=== PATIENT | male | born 1970 | race African-American/Black ===

== ENCOUNTER 2023-01-03 20:17 | Emergency (ER) | payer MEDICARE, MEDICAID, SELFPAY ==
[2023-01-03 20:32] VITALS: BP 130/78; PULSE 74; RESP 20; TEMP 37; O2SAT 95; BMI 52.9
[2023-01-03 21:08] LABS: MANUAL DIFF FLAG NO
[2023-01-03 21:14] LABS: Basophils Percent Auto 0.6 % (0-2); Eosinophils Absolute Auto 0.2 X10*3/uL (0.0-0.4); Eosinophils Percent Auto 2.5 % (0-4); Hematocrit 39.9 % (42.0-52.0); Hemoglobin 13.7 g/dl (14.0-18.0); Imm Gran Abs Auto 0.02 X10*3/uL (0.00-0.03); Imm Gran Pct Auto 0.3 % (0.0-0.4); Lymphocytes Absolute Auto 2.3 X10*3/uL (1.2-4.9); Lymphocytes Percent Auto 36.8 % (20-40); Mean Corpuscular HGB Conc 34.3 g/dl (31.0-36.0); Mean Corpuscular Hemoglobin 30.9 pg (27.0-33.0); Mean Corpuscular Volume 90.1 fL (80.0-98.0); Mean Platelet Volume 9.9 fL (9.4-12.4); Monocytes Absolute Auto 1.1 X10*3/uL (0.1-1.2); Monocytes Percent Auto 17.4 % (2-11); Neutrophils Absolute Auto 2.7 x10*3/uL (2.0-8.3); Neutrophils Percent Auto 42.4 % (45-73); Platelet Count 198 X10*3/uL (160-400); Red Blood Count 4.43 X10*6/uL (4.60-5.80); Red Cell Distribution Width 13.2 % (11.0-16.0); White Blood Count 6.3 X10*3/uL (4.8-10.8)
[2023-01-03 21:24] LABS: Alanine Aminotransferase 111 U/L (0-40); Albumin Level 3.7 g/dL (3.5-5.0); Alkaline Phosphatase 130 U/L (39-117); Anion Gap 16 (12-20); Aspartate Amino Transferase 53 U/L (5-37); Bilirubin Direct < 0.2 mg/dL (0.0-0.5); Bilirubin Total 0.2 mg/dL (0.0-1.0); Blood Urea Nitrogen 11 mg/dL (9-16); Calcium 9.3 mg/dL (8.4-10.2); Carbon Dioxide 26 mmol/L (22-29); Chloride 103 mmol/L (96-108); Creatinine Clr Calc Pharmacy 191.9; Estimated Glomerular Filt Rate > 60; Glucose Random 101 mg/dL (60-115); Lipase 13 U/L (8-78); Potassium 3.5 mmol/L (3.3-5.1); Sodium 141 mmol/L (135-145); Total Protein 6.8 g/dL (6.5-8.0)
== END 2023-01-03 23:29 | disposition left against medical advice (07) ==
PROVIDERS: Emergency Provider Emergency Medicine
DX: R51.9 Headache, unspecified (principal); I10 Essential (primary) hypertension; Z79.899 Other long term (current) drug therapy
CPT/HCPCS: 36415; 80048; 80076; 83690; 85025; 99281; 99282

== ENCOUNTER 2023-01-07 12:07 | Emergency (ER) | payer MEDICARE, MEDICAID, SELFPAY ==
--- NOTE | ~2023-01-07 | XR_ITS ---
EXAMINATION: XR CHEST CLINICAL INFORMATION: Shortness of breath COMPARISON: None available. TECHNIQUE: 2 views of the chest were obtained. FINDINGS: Patchy infiltrate is evident in the left lower lobe. The right lung is clear. The cardiomediastinal silhouette is not enlarged. XR/XR chest 2V IMPRESSION: Patchy left lower lobe infiltrate for which follow-up is recommended to confirm clearing.
[2023-01-07 12:13] VITALS: BP 146/83; PULSE 76; RESP 18; TEMP 37; O2SAT 95; BMI 54.2
--- NOTE | 2023-01-07 12:13 | ED.GENADULT ---
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 was at [facility] applying for housing assistance, began frustrated/verbal argument with staff/over stimulating environment and began to have throat closing sensation, call 911 been had confrontation with EMS as well the stroke himself here. after relaxing emergency department has symptomatic improvement. presented to the ED a few days ago complaining of left-sided discomfort however LWT'd. Admits has been moving around living in multiple different hotel rooms recently. Denies fever, chills, cough, chest pain, shortness breath, new or worsening pedal edema, abdominal pain Related Data Previous Rx's Medication Instructions Recorded amoxicillin 875 mg-potassium 1 tab PO BID 7 days #14 tabs 01/07/23 clavulanate 125 mg tablet azithromycin 250 mg tablet 250 mg PO DAILY 4 days #4 tabs 01/07/23 Allergies Allergy/AdvReac Type Severity Reaction Status Date / Time No Known Allergies Allergy Verified 01/03/23 20:31 Review of Systems Review of Systems: Constitutional: No Fever, No Chills, No Fatigue, No Malaise ENT/Mouth: +throat closing sensation, No Ear Pain, No Nasal Congestion, No sore throat, No Rhinorrhea, No Swallowing Difficulty Eyes: No Eye Pain, No Swelling, No Redness, No Vision Changes Cardiovascular: No Chest Pain, No SOB, No Edema, No Palpitations Respiratory: No Cough, No Sputum, No Wheezing, No Dyspnea Gastrointestinal: No Nausea, No Vomiting, No Diarrhea, No Constipation, No Abdominal pain Musculoskeletal: No joint pain, No Myalgias, No Joint Swelling Skin: No Skin Lesions, No rash Neuro: No Weakness, No Dizziness, No Headache, +agitation Yes all other systems are reviewed and are negative Constitutional: Constitutional: Reports as per [facility] Past Medical History Attestation statement: The following information was validated with the patient. Source: old records reviewed Social History Social History Advance Directives: No Advance Directives Information Provided: No Physical Exam ED Vital Signs: Vital Signs - 24 hr 01/07/23 12:13 Temperature 98.6 F Pulse Rate 76 Respiratory Rate 18 Blood Pressure 146/83 H Pulse Oximetry 95 Oxygen Delivery Method Room Air BMI result Body Mass Index 54.2 Const General: cooperative, healthy appearing, no acute distress, alert and awake Orientation/consciousness: patient oriented x3 Limitations: no limitations HENMT Head: Yes normal to inspection and Yes atraumatic Ears: hearing grossly normal bilaterally General nose exam: Normal external nose present Face and sinus: Yes normal facial exam Mouth: Normal oral and palatal mucosa present Throat: Yes posterior oropharynx normal, Yes tonsils normal, Yes uvula midline, No peritonsillar mass, No uvula laterally displaced and No uvular edema Eyes General: appearance normal, both eyes and all related structures EOM: EOMs intact bilaterally Neck Neck: Yes normal visual inspection, Yes no meningeal signs, Yes supple, No anterior neck swelling and No torticollis Resp Effort & Inspection: normal respiratory effort, not labored, no respiratory distress and no stridor Auscultation: clear to auscultation bilaterally, no crackles, no rhonchi and no wheezes Cardio Rate: regular rate Heart sounds: S1 normal heart sound present and S2 normal heart sound present GI Inspection: Yes normal to inspection Palpation (GI): Soft to palpation, nontender, no guarding and not rigid Skin Rashes: no rashes Wounds: no wounds Neuro General: patient oriented x3, tone normal and no meningeal signs Gait exam (Neuro): Normal gait present Extrem General: Yes normal to inspection and Yes edema (Chronic bilateral LE edema) Course Course Course Narrative: This is a rapid medical exam: Additional HPI, ROS, PE not included below will be deferred to primary provider. Patient is a 52-year-old male with history of HTN, T2DM presenting to the emergency department with complaint of sensation of throat closing. States he was in [place] at a building waiting to be seen regarding housing assistance. States he was anxious, other people around him were speaking loudly, and were agitated, patient began speaking loudly on the phone when symptoms began. States he asked staff to call 911 and he states that no one called. Denies chest pain at time of event. Denies sensation at this time. States an ambulance came, but he had a disagreement with the EMT, so drove himself here. Recently moved here from [place] 6 wks ago, does not have PCP here. Plan: EKG, labs, CXR -1405--no leukocytosis. H&H at patient's baseline. Labs otherwise reassuring, troponin negative XR chest 2V IMPRESSION: Patchy left lower lobe infiltrate for which follow-up is recommended to confirm clearing. > patient given 1st dose of Augmentin and azithromycin in the ED -UA with blood/rbc's, not infected Results discussed with patient including worrisome signs and symptoms and strict return precautions, and when to return to the emergency department. They verbalized understanding and feel safe for discharge at this time. Medications Administered Discontinued Medications Generic Name Dose Route Start Last Admin Trade Name Freq PRN Reason Stop Dose Admin Amoxicillin/Clavulanate Potassium 875 mg 01/07/23 14:08 01/07/23 14:18 Amoxicillin/Potassium Clav 875 Mg Tablet PO 01/07/23 14:09 875 mg ONCE ONE Administration Azithromycin 500 mg 01/07/23 14:08 01/07/23 14:18 Azithromycin 500 Mg Tablet PO 01/07/23 14:09 500 mg ONCE ONE Administration Medical Decision Making Medical Decision Making MDM Narrative: 52-year-old male with past medical history diabetes, HTN, HLD, presenting to the ED complaining of throat closing sensation s/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 On exam vital signs stable, NAD, nontoxic appearing, asymptomatic at present, lungs CTA, chronic pedal edema. Uvula midline, talking in complete sentences, no stridor. Concern for anxiety reaction vs atypical ACS, although lower suspicion. Low concern for CHF, pneumonia, pulmonary embolism or DVT. No evidence of MEDICAL DOCTOR/retropharyngeal abscess EKG, labs, and CXR all ordered in triage Please refer to course for remaining clinical decision making, interpretation of labs/imaging results, and discussions with consultants and/or family members. Differential Diagnosis Differential Diagnoses: The differential diagnosis associated with the presentation includes As above Admission/Observation Consideration of admission/observation: Escalation of care including admission/observation considered Lab Data [facility] Lab Attestation statement: I reviewed the patient's lab results. 01/07/23 12:53 01/07/23 12:53 Labs: Lab Results 01/07/23 01/07/2301/07/23 Range/Units 12:53 12:53 12:53 WBC 6.4 (4.8-10.8) X10*3/uL RBC 4.42 L (4.60-5.80) X10*6/uL Hgb 13.9 L (14.0-18.0) g/dl Hct 40.4 L (42.0-52.0) % MCV 91.4 (80.0-98.0) fL MCH 31.4 (27.0-33.0) pg MCHC 34.4 (31.0-36.0) g/dl RDW 13.0 (11.0-16.0) % Plt Count 218 (160-400) X10*3/uL MPV 10.0 (9.4-12.4) fL Immature Gran % (Auto) 0.3 (0.0-0.4) % Neut % (Auto) 59.0 (45-73) % Lymph % (Auto) 27.8 (20-40) % [place] % (Auto) 10.2 (2-11) % Eos % (Auto) 2.2 (0-4) % Baso % (Auto) 0.5 (0-2) % Lymph # (Auto) 1.8 (1.2-4.9) X10*3/uL [place] # (Auto) 0.7 (0.1-1.2) X10*3/uL Eos # (Auto) 0.1 (0.0-0.4) X10*3/uL Baso # (Auto) 0.0 (0.0-0.2) X10*3/uL Abs Immat Gran (auto) 0.02 (0.00-0.03) X10*3/uL Absolute Neuts (auto) 3.8 (2.0-8.3) x10*3/uL Absolute Nucleated RBC 0.000 (0.0-0.012) X10*3/uL Nucleated RBC % (auto) 0.0 (0.0-0.2) /100WBC Sodium 143 (135-145) mmol/L Potassium 3.5 (3.3-5.1) mmol/L Chloride 105 (96-108) mmol/L Carbon Dioxide 27 (22-29) mmol/L Anion Gap 15 (12-20) BUN 15 (9-16) mg/dL Creatinine 0.77 (0.5-1.4) mg/dL Estim Creat Clear Calc 184.8 Estimated GFR > 60 Random Glucose 118 H (60-115) mg/dL Calcium 9.3 (8.4-10.2) mg/dL Total Bilirubin 0.2 (0.0-1.0) mg/dL AST 35 (5-37) U/L ALT 77 H (0-40) U/L Alkaline Phosphatase 108 (39-117) U/L Troponin I High Sens < 2.7 (<3.5-35.0) ng/L Total Protein 7.0 (6.5-8.0) g/dL Albumin 3.9 (3.5-5.0) g/dL Urine Color Urine Appearance Urine pH (5.0-9.0) Ur Specific [place] (1.005-1.025) Urine Protein (Neg-Trace) mg/dL Urine Glucose (UA) (Negative) mg/dL Urine Ketones (Negative) mg/dL Urine Blood (Negative) Urine Nitrite (Negative) Ur Leukocyte Esterase (Negative) Urine RBC (0-2) /HPF Urine WBC (0-5) /HPF Ur Squamous Epith Cells (0-2) /HPF Urine Bacteria (None Seen) Hyaline Casts (0-2) /LPF 01/07/23 Range/Units 14:20 WBC (4.8-10.8) X10*3/uL RBC (4.60-5.80) X10*6/uL Hgb (14.0-18.0) g/dl Hct (42.0-52.0) % MCV (80.0-98.0) fL MCH (27.0-33.0) pg MCHC (31.0-36.0) g/dl RDW (11.0-16.0) % Plt Count (160-400) X10*3/uL MPV (9.4-12.4) fL Immature Gran % (Auto) (0.0-0.4) % Neut % (Auto) (45-73) % Lymph % (Auto) (20-40) % [place] % (Auto) (2-11) % Eos % (Auto) (0-4) % Baso % (Auto) (0-2) % Lymph # (Auto) (1.2-4.9) X10*3/uL [place] # (Auto) (0.1-1.2) X10*3/uL Eos # (Auto) (0.0-0.4) X10*3/uL Baso # (Auto) (0.0-0.2) X10*3/uL Abs Immat Gran (auto) (0.00-0.03) X10*3/uL Absolute Neuts (auto) (2.0-8.3) x10*3/uL Absolute Nucleated RBC (0.0-0.012) X10*3/uL Nucleated RBC % (auto) (0.0-0.2) /100WBC Sodium (135-145) mmol/L Potassium (3.3-5.1) mmol/L Chloride (96-108) mmol/L Carbon Dioxide (22-29) mmol/L Anion Gap (12-20) BUN (9-16) mg/dL Creatinine (0.5-1.4) mg/dL Estim Creat Clear Calc Estimated GFR Random Glucose (60-115) mg/dL Calcium (8.4-10.2) mg/dL Total Bilirubin (0.0-1.0) mg/dL AST (5-37) U/L ALT (0-40) U/L Alkaline Phosphatase (39-117) U/L Troponin I High Sens (<3.5-35.0) ng/L Total Protein (6.5-8.0) g/dL Albumin (3.5-5.0) g/dL Urine Color Yellow Urine Appearance Clear Urine pH 7.5 (5.0-9.0) Ur Specific [place] 1.020 (1.005-1.025) Urine Protein Negative (Neg-Trace) mg/dL Urine Glucose (UA) Negative (Negative) mg/dL Urine Ketones Negative (Negative) mg/dL Urine Blood Trace H (Negative) Urine Nitrite Negative (Negative) Ur Leukocyte Esterase Negative (Negative) Urine RBC 11-20 H (0-2) /HPF Urine WBC 0-5 (0-5) /HPF Ur Squamous Epith Cells 0-2 (0-2) /HPF Urine Bacteria None Seen (None Seen) Hyaline Casts 0-2 (0-2) /LPF Independent Interpretation I performed an independent interpretation of an: EKG (EKG normal sinus rhythm at a rate 73. QRS 78. QTC 403. No previous EKGs to compare. No STEMI) Radiology Impression Discussion of test interpretation with radiology: I have reviewed the radiologist's reading. External Record Review External record reviewed: Inpatient record, Office record, Outpatient record, Prior outpatient labs, Prior outpatient radiology, Primary care record and Outside ED record Tests considered The following testing was considered but not selected: As above Chronic Conditions Patient?s care impacted by: Diabetes and Hypertension Discharge Plan Discharge Clinical Impression: Pneumonia, Acute anxiety Patient Disposition: Home, Self-Care Instructions: Anxiety (ED), Pneumonia (ED) Additional Instructions: Your blood work is reassuring. Her x-ray shows a left lower lobe pneumonia Augmentin and Azithromycin are oral antibiotics please take as prescribed Please have follow-up with her doctor and repeat x-ray in 2 weeks to confirm pneumonia has resolved/improved If symptoms persist or worsen return to the emergency department Prescriptions: New amoxicillin-pot clavulanate 875-125 mg tablet 1 tab PO BID 7 Days Qty: 14 0RF azithromycin 250 mg tablet 250 mg PO DAILY 4 Days Qty: 4 0RF Rx Instructions: start on day 2 of therapy Referrals: Physician,Nonstaff [Primary Care Provider] - Interventions: ED Discharge Assessment Last Done: 01/07/23 15:35 Discharge Date/Time: 01/07/23 15:36
--- NOTE | 2023-01-07 12:19 | ECG_ITS ---
Test Reason : ANXIETY Blood Pressure : / mmHG Vent. Rate : 073 BPM Atrial Rate : 073 BPM P-R Int : 170 ms QRS Dur : 078 ms QT Int : 366 ms P-R-T Axes : 030 084 036 degrees QTc Int : 403 ms Normal sinus rhythm Nonspecific T wave abnormality Abnormal ECG No previous ECGs available Referred By: Obdulia Howell Electronically Signed By:ZAK RUELAS
--- OUTSIDE RECORDS SUMMARY | 2023-01-07 12:52 | XMS_ITS | Continuity of Care Document ---
Author Name Unknown Organization [facility] Address [address] [place] [phone] Care Team Providers Care Vibration Analyst Name Role Phone Mitch Purcell Primary Care Physician [phone] [facility] [id number] Date(s): 09/14/22 - 09/14/[address] [address] - Encounter Diagnosis Chest pain(Discharge Diagnosis) - 09/14/22 Non-insulin dependent type 2 diabetes mellitus(Discharge Diagnosis) - 09/14/22 Hypertension(Discharge Diagnosis) - 09/14/22 Discharge Disposition: Home or Self Care Attending Physician: Lillie Mccarthy MD Admitting Physician: Lillie Mccarthy MD Referring Physician: Lillie Mccarthy MD Allergies, Adverse Reactions, Alerts Substance Reaction Severity Status Keppra Moderate Active Assessment and Plan Extracted from: Title:ED Provider Note Author:Lillie Mccarthy MD Moe e:09/14/22 Assessment/Plan 1.??Chest pain??R07.9 2.??Non-insulin dependent type 2 diabetes mellitus??E11.9 3.??Hypertension??I10 Patient Education Nonspecific Chest Pain, Adult, Ltmq-uv-Abio Follow Up With When Contact Information Primary care doctor Within 2 to 4 days Additional Instructions: Please follow up with your primary care doctor as instructed.?? Please return if symptoms worsen, unable to tolerate food or medication, uncontrolled pain, fever, chills, or any concerns. Functional Status 09/14/22 Recent Travel History No recent travel Family Member Travel History No recent t ravel Other exposure to Infectious Disease Non e Medications !-aspirin 81 mg oral tablet 81 mg = 1 tab, Oral, Daily, # 30 tab, 0 Refill(s), Start Date: 09/14/22 13:03:00 EDT Start Date: 09/14/22 Status: Ordered atorvastatin 80 mg oral tablet 80 mg = 1 tab, Oral, Daily, # 30 tab, 0 Refill(s), Start Date: 09/14/22 13:04:00 EDT Start Date: 09/14/22 Status: Ordered Daily Multiple Vitamins oral tablet 1 tab, Oral, Daily, 0 Refill(s), Start Date: 09/14/22 13:04:00 EDT Start Date: 09/14/22 Status: Ordered Dilantin 100 mg oral capsule, extended release 200 mg = 2 cap, Oral, BID, 40 mg BID on sundays, 0 Refill(s), Start Date: 09/14/22 13:09:00 EDT Start Date: 09/14/22 Status: Ordered doxazosin 8 mg oral tablet 8 mg = 1 tab, Oral, Daily, # 30 tab, 0 Refill(s), Start Date: 09/14/22 13:05:00 EDT Start Date: 09/14/22 Status: Ordered ibuprofen 800 mg oral tablet 800 mg = 1 tab, Oral, TID, PRN as needed for pain, # 30 tab, 0 Refill(s), Start Date: 09/14/22 13:05:00 EDT Start Date: 09/14/22 Status: Ordered losartan-hydrochlorothiazide 50 mg-12.5 mg oral tablet 1 tab, Oral, Daily, # 30 tab, 0 Refill(s), Start Date: 09/14/22 13:06:00 EDT Start Date: 09/14/22 Status: Ordered melatonin 5 mg oral tablet 5 mg = 1 tab, Oral, every day at bedtime, PRN as needed for insomnia, # 60 tab, 0 Refill(s), Start Date: 09/14/22 13:04:00 EDT Start Date: 09/14/22 Status: Ordered metFORMIN 500 mg oral tablet 500 mg = 1 tab, Oral, Daily, with meals, # 30 tab, 0 Refill(s), Start Date: 09/14/22 13:07:00 EDT Start Date: 09/14/22 Status: Ordered metoprolol succinate 25 mg oral capsule, extended release 25 mg = 1 cap, Oral, Daily, # 30 cap, 0 Refill(s), Start Date: 09/14/22 13:07:00 EDT Start Date: 09/14/22 Status: Ordered Problem List Condition Confirmation Course Effective Dates Status Health St atus Informant Diabetes Confirmed Active Hyperlipemia Confirmed Active HTN (hypertension) Confirmed Active Seizure Confirmed Active Results Laboratory List Name Date Automated Differential 09/14/22 Basic Metabolic Panel (BMP) 09/14/22 CBC w/ Differential 09/14/22 Troponin -I (High Sensitive) 09/14/22 Most recent to oldest [Reference Range]: 1 WBC [4.5-11.0 x10^3/mcL] 6.1 x10^3/mcL (09/14/22 1:01 PM) RBC [4.43-5.94 x10^6/mcL] 4.53 x10^6/mcL (09/14/22 1:01 PM) Neutro Auto [42.0-72.0 %] 63.7 % (09/14/22 1:01 PM) Lymph Auto [25.0-45.0 %] 24.5 % *LOW* (09/14/22 1:01 PM) Grand Auto [3.0-10.0 %] 9.7 % (09/14/22 1:01 PM) Basophil Auto [0.0-2.0 %] 0.3 % (09/14/22 1:01 PM) BUN [8-21 mg/dL] 13 mg/dL (09/14/22 1:01 PM) Glucose Level [70-100 mg/dL] 94 mg/dL (09/14/22 1:01 PM) Potassium Level [3.5-5.3 mmol/L] 3.7 mmo l/L (09/14/22 1:01 PM) Baso Absolute [0.00-0.20 x10^3/mcL] 0.02 x10^3/mcL (09/14/22 1:01 PM) MCV [81.0-97.0 fL] 90.5 fL (09/14/22 1:01 PM) MCHC [32.3-36.5 g/dL] 34.4 g/dL (09/14/22 1:01 PM) Sodium Level [136-145 mmol/L] 143 mmol/L (09/14/22 1:01 PM) Lymph Absolute [1.30-3.40 x10^3/mcL] 1.4 9 x10^3/mcL (09/14/22 1:01 PM) Hct [36.0-50.0 %] 41.0 % (09/14/22 1: PM) Calcium Level [8.7-10.4 mg/dL] 9.3 mg/dL (09/14/22 1:01 PM) Grand Absolute [0.00-0.60 x10^3/mcL] 0.59 x10^3/mcL (09/14/22 1:01 PM) MCH [26.5-32.5 pg] 31.1 pg (09/14/22 1:01 PM) Neutro Absolute [1.40-6.50 x10^3/mcL] 3. 86 x10^3/mcL (09/14/22 1:01 PM) Hgb [12.9-17.7 g/dL] 14.1 g/dL (09/14/22 1:01 PM) MPV [9.4-12.4 fL] 10.0 fL (09/14/22 1: PM) Platelets [150-450 x10^3/mcL] 206 x10^3/ mcL (09/14/22 1:01 PM) CO2 [24-31 mmol/L] 30 mmol/L (09/14/22 1: PM) Eos Absolute [0.00-0.30 x10^3/mcL] 0.10 x10^3/mcL (09/14/22 1:01 PM) Chloride Level [98-107 mmol/L] 104 mmol/ L (09/14/22 1: PM) BUN/Creat Ratio [10.0-20.0 mg/dL] 16.5 m g/dL (09/14/22 1:01 PM) Imm Gran Auto [0.001-0.429 %] 0.200 % (09/14/22 1: PM) RDW-CV [12.0-15.0 %] 12.8 % (09/14/22 1:01 PM) Creatinine Level [0.70-1.30 mg/dL] 0.79 mg/dL (09/14/22 1:01 PM) Anion Gap [3-16] 9 (09/14/22 1: PM) Eos, Auto [0.0-5.0 %] 1.6 % (09/14/22 1:01 PM) Troponin-I (High Sens) [0-52 ng/L] 3 ng/ L (09/14/22 1:01 PM) eGFR CKD-EPI [>=60 mL/min/1.73 m2] >60 m L/min/1.73 m2 (09/14/22 1:01 PM) Radiology Reports * Exam Date Time Procedure Performing Provider Status 09/14/22 2:02 PM XR Chest 2 Views Delmy Covarrubias; Au th (Verified) Notes: (XR Chest 2 Views) Reason For Exam: CHEST PAIN XR Chest 2 Views HISTORY: CHEST PAIN TECHNIQUE: Frontal and lateral views of the chest. COMPARISON: No comparison. FINDINGS: Lines/tubes: None. Lungs: The lungs are well inflated and clear. There is no evidence of pneumonia or pulmonary edema. Pleura: There is no pleural effusion or pneumothorax. Heart and mediastinum: The heart and the mediastinum are normal. Bones: No significant abnormality. IMPRESSION: No acute cardiopulmonary process. Final Signed by: Alireza Dasilva MD Signed (Electronic Signature): 09/14/2022 2:01 pm Vital Signs Most recent to oldest [Reference Range]: 1 2 3 Temperature Oral [35.8-37.3 Deg C] 36.7 Deg C (09/14/22 4:12 PM) Temperature Temporal Artery [36-38 Deg C] 35.7 Deg C *LOW* (09/14/22 12:28 PM) Peripheral Pulse Rate [60-100 bpm] 63 bpm (09/14/22 4:12 PM) 65 bpm (09/14/22 3:16 PM) 67 bpm (09/14/22 2:07 PM) Respiratory Rate [12-24 br/min] 18 br/min (09/14/22 4:13 PM) 18 br/min (09/14/22 3:16 PM) 23 br/min (09/14/22 2:07 PM) Blood Pressure [90-140/60-90 mmHg] 93/71mmHg (09/14/22 4:12 PM) 119/90mmHg (09/14/22 3:16 PM) 103/77mmHg (09/14/22 2:07 PM) SpO2 [94 %] 96 % (09/14/22 4:12 PM) 95 % (09/14/22 3:16 PM) 97 % (09/14/22 2:07 PM) Triage Height 183 cm (09/14/22 12:28 PM) Triage Weight 167 kg (09/14/22 12:28 PM) Mean Arterial Pressure 85.3 mmHg (09/14/22 12:28 PM) Weight 167.00 kg (09/14/22 12:28 PM) Weight Dosing 167.00 kg (09/14/22 12:33 PM) Height 183.000 cm (09/14/22 12:28 PM) Height/Length Dosing 183.000 cm (09/14/22 12:33 PM) Social History Social History Type Response Tobacco Tobacco Use: Never t obacco user. Sex Male Hospital Discharge Instructions Patient Education 09/14/2022 15:08:29 Nonspecific Chest Pain, Adult, Psqr-jw-Tthr Nonspecific Chest Pain Chest pain can be caused by many different conditions. Some causes of chest pain can be life-threatening. These will require treatment right away. Serious causes of chest pain include: ??? Heart attack. ??? A tear in the body's main blood vessel. ??? Redness and swelling (inflammation) around your heart. ??? Blood clot in your lungs. Other causes of chest pain may not be so serious. These include: ??? Heartburn. ??? Anxiety or stress. ??? Damage to bones or muscles in your chest. ??? Lung infections. Chest pain can feel like: ??? Pain or discomfort in your chest. ??? Crushing, pressure, aching, or squeezing pain. ??? Burning or tingling. ??? Dull or sharp pain that is worse when you move, cough, or take a deep breath. ??? Pain or discomfort that is also felt in your back, neck, jaw, shoulder, or arm, or pain that spreads to any of these areas. It is hard to know whether your pain is caused by something that is serious or something that is not so serious. So it is important to see your doctor right away if you have chest pain. Follow these instructions at home: Medicines ??? Take wpoi-ubc-jwxsbew and prescription medicines only as told by your doctor. ??? If you were prescribed an antibiotic medicine, take it as told by your doctor. Do not stop taking the antibiotic even if you start to feel better. Lifestyle ??? Rest as told by your doctor. ??? Do not use any products that contain nicotine or tobacco, such as cigarettes, e-cigarettes, andchewing tobacco. If you need help quitting, ask your doctor. ??? Do not drink alcohol. ??? Make lifestyle changes as told by your doctor. These may include: ??? Getting regular exercise. Ask your doctor what activities are safe for you. ??? Eating a heart-healthy diet. A diet and nutrition manager (dietitian) can help you to learn healthy eating options. ??? Staying at a healthy weight. ??? Treating diabetes or high blood pressure, if needed. ??? Lowering your stress. Activities such as yoga and relaxation techniques can help. General instructions ??? Pay attention to any changes in your symptoms. Tell your doctor about them or any new symptoms. ??? Avoid any activities that cause chest pain. ??? Keep all follow-up visits as told by your doctor. This is important. You may need more testing if your chest pain does not go away. Contact a doctor if: ??? Your chest pain does not go away. ??? You feel depressed. ??? You have a fever. Get help right away if: ??? Your chest pain is worse. ??? You have a cough that gets worse, or you cough up blood. ??? You have very bad (severe) pain in your belly (abdomen). ??? You pass out (faint). ??? You have either of these for no clear reason: ??? Sudden chest discomfort. ??? Sudden discomfort in your arms, back, neck, or jaw. ??? You have shortness of breath at any time. ??? You suddenly start to sweat, or your skin gets clammy. ??? You feel sick to your stomach (nauseous). ??? You throw up (vomit). ??? You suddenly feel lightheaded or dizzy. ??? You feel very weak or tired. ??? Your heart starts to beat fast, or it feels like it is skipping beats. These symptoms may be an emergency. Do not wait to see if the symptoms will go away. Get medical help right away. Call your local emergency services (911 in the [place] Do not drive yourself to the hospital. Summary ??? Chest pain can be caused by many different conditions. The cause may be serious and need treatment right away. If you have chest pain, see your doctor right away. ??? Follow your doctor's instructions for taking medicines and making lifestyle changes. ??? Keep all follow-up visits as told by your doctor. This includes visits for any further testing if your chest pain does not go away. ??? Be sure to know the signs that show that your condition has become worse. Get help right away if you have these symptoms. This information is not intended to replace advice given to you by your health care provider. Make sure you discuss any questions you have with your health care provider. Document Revised: 08/07/2021 Document Reviewed: 08/07/2021 [employer] Patient Education ?? 2021 [employer] Follow Up Care 09/14/2022 12:24:32 With:Primary care doctor Address: When:2 to 4 days Comments:Please follow up with your primary care doctor as instructed.?? Please return if symptoms worsen, unable to tolerate food or medication, uncontrolled pain, fever, chills, or any concerns. Emergency department Discharge summary * Lillie Mccarthy MD: PERFORM, SIGN, VERIFY Event Display: ED Clinical Summary Authored Date: [id number] [id number] Clinical Summary PERSON INFORMATION Name: APRYL MARIE Age: 52 Years : 1970 Sex: Male Language: Austrian PCP: Mitch Purcell Marital Status: Single Med Service: Emergency Medicine Arrival: 09/14/2022 12:23:44 Visit Reason: Chest pain; CHEST PAIN Acuity: 3 - Urgent LOS: 000 03:46 Address: [address] [place] [id number] Diagnosis: Medications Administered: Radiology Orders: EKG 12 Lead 09/14/22 12:33:00 EDT, Stat, Chest Pain, Once, 09/14/22 12:33:00 EDT, Stretcher XR Chest 2 Views 09/14/22 12:33:00 EDT, Stat, Reason: CHEST PAIN, Transport Mode: Stretcher, Once Laboratory Orders: Automated Differential Blood, Stat, Collected, 09/14/22 13:01:00 EDT, Once, Lab Collect, [id number] BMP Blood, Stat, 09/14/22 12:33:00 EDT, Once, Lab Collect CBC w/ Differential Blood, Stat, 09/14/22 12:33:00 EDT, Once, Lab Collect Extra Tube - Blue Blood, Stat, Collected, 09/14/22 13:01:00 EDT, by [id number], Once, Lab Collect, 2.7 mL Blue NaCit 2.7mL/*[id number]*/ Extra Tube - Gold Blood, Stat, Collected, 09/14/22 13:01:00 EDT, by [id number], Once, Lab Collect, 5mL SST 5.0mL/*[id number]*/ Troponin -I (High Sensitive) Blood, Stat, 09/14/22 12:33:00 EDT, Once, Lab Collect Lab and Rad: Laboratory or Other Results This Visit??(last charted value for your??09/14/2022??visit) ?Hematology ?09/14/2022?1:01 PM ?WBC:??6.1??x10^3/mcL??--??Normal range between??(??4.5??and??11.0??)?RBC:??4.53??x10^6/mcL??--??Normal range between??(??4.43??and??5.94??)?Neutro Auto:??63.7??%??--??Normal range between??(??42.0??and??72.0??)?Lymph Auto:??24.5??%??--??Normal range between??(??25.0??and??45.0??)?Grand Auto:??9.7??%??--??Normal range between??(??3.0??and??10.0??)?Basophil Auto:??0.3??%??--??Normal range between??(??0.0??and??2.0??)?Baso Absolute:??0.02??x10^3/mcL??--??Normal range between??(??0.00??and??0.20??)?MCV:??90.5??fL??--??Normal range between??(??81.0??and??97.0??)?MCHC:??34.4??g/dL??--??Normal range between??(??32.3??and??36.5??)?Lymph Absolute:??1.49??x10^3/mcL??--??Normal range between??(??1.30??and??3.40??)?Hct:??41.0??%??--??Normal range between??(??36.0??and??50.0??)?Grand Absolute:??0.59??x10^3/mcL??--??Normal range between??(??0.00??and??0.60??)?MCH:??31.1??pg??--??Normal range between??(??26.5??and??32.5??)?Neutro Absolute:??3.86??x10^3/mcL??--??Normal range between??(??1.40??and??6.50??)?Hgb:??14.1??g/dL??--??Normal range between??(??12.9??and??17.7??)?MPV:??10.0??fL??--??Normal range between??(??9.4??and??12.4??)?Platelets:??206??x10^3/mcL??--??Normal range between??(??150??and??450??)?Eos Absolute:??0.10??x10^3/mcL??--??Normal range between??(??0.00??and??0.30??)?Eos, Auto:??1.6??%??--??Normal range between??(??0.0??and??5.0??)?Imm Gran Auto:??0.200??%??--??Normal range between??(??0.001??and??0.429??)?RDW-CV:??12.8??%??--??Normal range between??(??12.0??and??15.0??)?Chemistry ?09/14/2022?1:01 PM ?Creatinine Level:??0.79??mg/dL??--??Normal range between??(??0.70??and??1.30??)?BUN:??13??mg/dL??--??Normal range between??(??8??and??21??)?Glucose Level:??94??mg/dL??--??Normal range between??(??70??and??100??)?Potassium Level:??3.7??mmol/L??--??Normal range between??(??3.5??and??5.3??)?Sodium Level:??143??mmol/L??--??Normal range between??(??136??and??145??)?Calcium Level:??9.3??mg/dL??--??Normal range between??(??8.7??and??10.4??)?CO2:??30??mmol/L??--??Normal range between??(??24??and??31??)?Chloride Level:??104??mmol/L??--??Normal range between??(??98??and??107??)?Anion Gap:??9?--??Normal range between??(??3??and??16??)?BUN/Creat Ratio:??16.5??mg/dL??--??Normal range between??(??10.0??and??20.0??)?Troponin-I (High Sens):??3??ng/L??--??Normal range between??(??0??and??52??)?eGFR CKD-EPI:??>60??mL/min/1.73 m2 ?Diagnostic Radiology ?09/14/2022?2:02 PM ?XR Chest 2 Views:??XR Chest 2 Views?Radiology Report ?09/14/2022?2:01 PM ?Radiology Report:??Radiology Report Medications: PROVIDER INFORMATION Provider Role Assigned Unassigned Yuliya Camacho KNITTING MACHINE TENDER Nurse 09/14/2022 12:35:23 Lillie Mccarthy MD ED Provider 09/14/2022 12:48:04 Judith Allen ED Reg 09/14/2022 13:14:58 Leroy Blake CNA ED Misc 09/14/2022 15:32:21 Attending Physician: Lillie Mccarthy MD Admit Doc Lillie Mccarthy MD Consulting Doc VITALS INFORMATION Vital Sign Triage Latest Temp Oral Temp Temporal Temp Intravascular Temp Axillary Temp Rectal 02 Sat 97 % 95 % Respiratory Rate Peripheral Pulse Rate Apical Heart Rate Blood Pressure / 67 mmHg / 90 mmHg Allergies ?Keppra Immunizations ?No Immunizations Documented This Visit DISCHARGE INFORMATION Discharge Disposition: Discharge Location: Discharge Date and Time: ED Checkout Date and Time: DEPART REASON INCOMPLETE INFORMATION Problems ?Active ?Diabetes ?Hyperlipemia ?Seizure ?HTN (hypertension) Smoking Status ?Never tobacco user PATIENT EDUCATION INFORMATION Instructions: Nonspecific Chest Pain, Adult, [id number] Follow up: With: Address: When: Primary care doctor Within 2 to 4 days Comments: Please follow up with your primary care doctor as instructed.?? Please return if symptoms worsen, unable to tolerate food or medication, uncontrolled pain, fever, chills, or any concerns. PATIENT INSTRUCTIONS Physician Emergency department Note * Lillie Mccarthy MD: PERFORM Event Display: ED Note Provider Authored Date: [id number] APRYL MARIE :1970 Age:52 years Sex:Male Visit Date:09/14/2022 Primary Care Physician: Mitch Purcell Basic Information Time Seen: Lillie Mccarthy MD ??09/14/2022 12:48 Chief Complaint pt reports started with nonradiating left sided chest pain staurday after eating. pt was seemn at was admitted at [facility] prior to results. felt improved wednesday. ??pain started again 1.5 hrs port captain.no sob.no dizziness.took 1 SL nitro hr port captain History Of Present Illness: 52-year-old male with a history of nax-kuoksob-uibtaonxc diabetes, hypertension, hyperlipidemia??reports??3 days prior to presentation he started with substernal chest pain??after eating??Kiswahili food.?? Patient reports the pain is dull,??nonradiating, unchanged with movement.?? [facility] get [facility] the??hospital for??cardiac rule out however he declined.?? Patient states that after leaving [facility] he felt??better however??this??morning he started??with similar chest pain.?? Patient states that before the chest pain he??was able to do 20 minutes of workout without any??pain.?? He denies associated symptoms of nausea, vomiting, back pain, abdominal pain, lower extremity swelling, recent illness, recent sick contacts. ?? Review of Systems: All other review of system negative. Physical Exam Vitals & Measurements T:??36.7?C ??(Oral)?? HR:??63??(Peripheral)?? RR:??18?? BP:??93/71?? SpO2:??96%?? HT:??183.000??cm?? WT:??167.00??kg?? O2 Therapy:??Room air?? General: Alert and oriented, well nourished, no acute distress. Eye: PERRL, EOMI, normal conjunctiva. HENT: Normocephalic, clear tympanic membranes, normal hearing, moist oral mucosa, no scleral icterus, no sinus tenderness. Neck: Supple, non-tender, no carotid bruits, no JVD, no lymphadenopathy. Lungs: Clear to auscultation and percussion, non-labored respiration. Heart: Normal rate, regular rhythm, no murmur, gallop or edema. Breast: No lumps, no bumps, no scars, normal nipples. Abdomen: Soft, non-tender, non-distended, normal bowel sounds, no masses. Musculoskeletal: Normal range of motion and strength, no tenderness or swelling. Skin: Skin is warm, dry and appropriate for ethnicity, no rashes or lesions. Neurologic: Awake, alert and oriented X4, CN II-XII intact. Psychiatric: Cooperative, appropriate mood and affect. Medical Decision Making: Patient vital signs are stable, nontoxic-appearing, absolutely no acute distress.?? EKG shows a sinus rhythm with diffuse T wave changes.?? I was able to obtain an EKG from [facility]??and he also had??diffuse??T wave inversion at that time.?? Troponin is negative??after??more than 3 hours of??persistent pain.?? Patient was reevaluated multiple times. ??He reported his??pain has now resolved. ??The finding was discussed with his primary care doctor, Dr. Purcell.?? Patient as well as his primary care doctor??are comfortable for the patient to be discharged and follow-up with his??primary care doctor as instructed. ??Patient was given precaution to return immediately if symptoms worsen. Assessment/Plan 1.??Chest pain??R07.9 2.??Non-insulin dependent type 2 diabetes mellitus??E11.9 3.??Hypertension??I10 Patient Education Nonspecific Chest Pain, Adult, Rcnx-ki-Fhqc Follow Up With When Contact Information Primary care doctor Within 2 to 4 days Additional Instructions: Please follow up with your primary care doctor as instructed.?? Please return if symptoms worsen, unable to tolerate food or medication, uncontrolled pain, fever, chills, or any concerns. Medication Reconciliation Unchanged aspirin (!-aspirin 81 mg oral tablet)1 tab Oral (given by mouth) every day. ?? atorvastatin (atorvastatin 80 mg oral tablet)1 tab Oral (given by mouth) every day. ?? doxazosin (doxazosin 8 mg oral tablet)1 tab Oral (given by mouth) every day. ?? ibuprofen (ibuprofen 800 mg oral tablet)1 tab Oral (given by mouth) 3 times a day as needed as needed for pain. ?? losartan-hydrochlorothiazide (losartan-hydrochlorothiazide 50 mg-12.5 mg oral tablet)1 tab Oral (given by mouth) every day. ?? melatonin (melatonin 5 mg oral tablet)1 tab Oral (given by mouth) every day at bedtime as needed asneeded for insomnia. ?? metFORMIN (metFORMIN 500 mg oral tablet)1 tab Oral (given by mouth) every day. with meals. ?? metoprolol (metoprolol succinate 25 mg oral capsule, extended release)1 Capsules Oral (given by mouth) every day. ?? multivitamin (Daily Multiple Vitamins oral tablet)1 tab Oral (given by mouth) every day. ?? phenytoin (Dilantin 100 mg oral capsule, extended release)2 Capsules Oral (given by mouth) 2 times a day. 40 mg BID on sundays. Problem List/Past Medical History Ongoing Diabetes HTN (hypertension) Hyperlipemia Seizure Historical No qualifying data Allergies Keppra Social History Alcohol Never Electronic Cigarette/Vaping Electronic Cigarette Use: Never. Substance Use Past- Comments: 19 years ago Tobacco Tobacco Use: Never tobacco user. Diagnostic Results XR Chest 2 Views 09/14/2022 14:03 EDT XR Chest 2 Views ?? 09/14/22 14:01:28 IMPRESSION: No acute cardiopulmonary process. ? Signed By: Alireza Dasilva MD Lab Results CBC and Differential?? LATEST RESULTS?? WBC?? 09/14/22 13:01?? 6.1?? RBC?? 09/14/22 13:01?? 4.53?? Hgb?? 09/14/22 13:01?? 14.1?? Hct?? 09/14/22 13:01?? 41.0?? Platelets?? 09/14/22 13:01?? 206?? MCV?? 09/14/22 13:01?? 90.5?? MCH?? 09/14/22 13:01?? 31.1?? MCHC?? 09/14/22 13:01?? 34.4?? RDW-CV?? 09/14/22 13:01?? 12.8?? MPV?? 09/14/22 13:01?? 10.0?? Neutro Auto?? 09/14/22 13:01?? 63.7?? Lymph Auto?? 09/14/22 13:01?? 24.5 ??Low?? Grand Auto?? 09/14/22 13:01?? 9.7?? Eos, Auto?? 09/14/22 13:01?? 1.6?? Basophil Auto?? 09/14/22 13:01?? 0.3?? Imm Gran Auto?? 09/14/22 13:01?? 0.200?? Neutro Absolute?? 09/14/22 13:01?? 3.86?? Lymph Absolute?? 09/14/22 13:01?? 1.49?? Grand Absolute?? 09/14/22 13:01?? 0.59?? Eos Absolute?? 09/14/22 13:01?? 0.10?? Baso Absolute?? 09/14/22 13:01?? 0.02? Routine Chemistry?? LATEST RESULTS?? Sodium Level?? 09/14/22 13:01?? 143?? Potassium Level?? 09/14/22 13:01?? 3.7?? Chloride Level?? 09/14/22 13:01?? 104?? CO2?? 09/14/22 13:01?? 30?? BUN?? 09/14/22 13:01?? 13?? Glucose Level?? 09/14/22 13:01?? 94?? Creatinine Level?? 09/14/22 13:01?? 0.79?? BUN/Creat Ratio?? 09/14/22 13:01?? 16.5?? Calcium Level?? 09/14/22 13:01?? 9.3?? Anion Gap?? 09/14/22 13:01?? 9?? eGFR CKD-EPI?? 09/14/22 13:01?? >60? Cardiac Isoenzymes?? LATEST RESULTS?? Troponin-I (High Sens)?? 09/14/22 13:01?? 3? Electronically Signed on 09/15/22 12:56 AM Lillie Mccarthy MD Emergency department Discharge instructions * Yuliya Camacho RN: PERFORM Event Display: ED Discharge Information Authored Date: [id number] APRYL MARIE :1970 Age:52 years Sex:Male Visit Date:09/14/2022 Primary Care Physician: Mitch Purcell Discharge Instructions We would like to thank you for allowing us to assist you with your healthcare needs. The following includes patient education materials and information regarding your injury/illness. Discharge Vitals Temperature??(Oral) 98.1 ??F (36.7 ??C) Heart Rate??(Peripheral) 63 Respiratory Rate?? 18 Blood Pressure?? 93/71?? Height?? 72.05 in (183.000 cm) Weight?? 368.24 lb (167.00 kg) Allergies Keppra What to Do Next You Need to Schedule the Following Appointments Follow Up with??Primary care doctor When:??Within 2 to 4 days Why: Please follow up with your primary care doctor as instructed.?? Please return if symptoms worsen, unable to tolerate food or medication, uncontrolled pain, fever, chills, or any concerns. You were treated today on an emergency basis; it may be patel to contact your primary care provider to notify them of your visit today. You may have been referred to your regular doctor or a specialist, please follow up as instructed. If your condition worsens or you can't get in to see the doctor, contact the Emergency Department. Medications What How Much When Instructions Next Dose Unchanged aspirin (!-aspirin 81 mg oral tablet) 1 tab Oral (given by mouth) Every day Unchanged atorvastatin (atorvastatin 80 mg oral tablet) 1 tab Oral (given by mouth) Every day Unchanged doxazosin (doxazosin 8 mg oral tablet) 1 tab Oral (given by mouth) Every day Unchanged ibuprofen (ibuprofen 800 mg oral tablet) 1 tab Oral (given by mouth) 3 times a day as needed for as needed for pain Unchanged losartan-hydrochlorothiazide (losartan-hydrochlorothiazide 50 mg-12.5 mg oral tablet) 1 tab Oral (given by mouth) Every day Unchanged melatonin (melatonin 5 mg oral tablet) 1 tab Oral (given by mouth) Every day at bedtime as needed for as needed for insomnia Unchanged metFORMIN (metFORMIN 500 mg oral tablet) 1 tab Oral (given by mouth) Every day with meals ?? Unchanged metoprolol (metoprolol succinate 25 mg oral capsule, extended release) 1 Capsules Oral (given by mouth) Every day Unchanged multivitamin (Daily Multiple Vitamins oral tablet) 1 tab Oral (given by mouth) Every day Unchanged phenytoin (Dilantin 100 mg oral capsule, extended release) 2 Capsules Oral (given by mouth) 2 times a day 40 mg BID on sundays ?? Education Materials Nonspecific Chest Pain Chest pain can be caused by many different conditions. Some causes of chest pain can be life-threatening. These will require treatment right away. Serious causes of chest pain include: ? Heart attack. ? A tear in the body's main blood vessel. ? Redness and swelling (inflammation) around your heart. ? Blood clot in your lungs. Other causes of chest pain may not be so serious. These include: ? Heartburn. ? Anxiety or stress. ? Damage to bones or muscles in your chest. ? Lung infections. Chest pain can feel like: ? Pain or discomfort in your chest. ? Crushing, pressure, aching, or squeezing pain. ? Burning or tingling. ? Dull or sharp pain that is worse when you move, cough, or take a deep breath. ? Pain or discomfort that is also felt in your back, neck, jaw, shoulder, or arm, or pain that spreads to any of these areas. It is hard to know whether your pain is caused by something that is serious or something that is not so serious. So it is important to see your doctor right away if you have chest pain. Follow these instructions at home: Medicines ? Take [id number] and prescription medicines only as told by your doctor. ? If you were prescribed an antibiotic medicine, take it as told by your doctor. Do not stop taking the antibiotic even if you start to feel better. Lifestyle ? Rest as told by your doctor. ? Do not use any products that contain nicotine or tobacco, such as cigarettes, e- cigarettes, and chewing tobacco. If you need help quitting, ask your doctor. ? Do not drink alcohol. ? Make lifestyle changes as told by your doctor. These may include: ? Getting regular exercise. Ask your doctor what activities are safe for you. ? Eating a heart-healthy diet. A diet and nutrition manager (dietitian) can help you to learn healthy eating options. ? Staying at a healthy weight. ? Treating diabetes or high blood pressure, if needed. ? Lowering your stress. Activities such as yoga and relaxation techniques can help. General instructions ? Pay attention to any changes in your symptoms. Tell your doctor about them or any new symptoms. ? Avoid any activities that cause chest pain. ? Keep all follow-up visits as told by your doctor. This is important. You may need more testing if your chest pain does not go away. Contact a doctor if: ? Your chest pain does not go away. ? You feel depressed. ? You have a fever. Get help right away if: ? Your chest pain is worse. ? You have a cough that gets worse, or you cough up blood. ? You have very bad (severe) pain in your belly (abdomen). ? You pass out (faint). ? You have either of these for no clear reason: ? Sudden chest discomfort. ? Sudden discomfort in your arms, back, neck, or jaw. ? You have shortness of breath at any time. ? You suddenly start to sweat, or your skin gets clammy. ? You feel sick to your stomach (nauseous). ? You throw up (vomit). ? You suddenly feel lightheaded or dizzy. ? You feel very weak or tired. ? Your heart starts to beat fast, or it feels like it is skipping beats. These symptoms may be an emergency. Do not wait to see if the symptoms will go away. Get medical help right away. Call your local emergency services (911 in the [place] Do not drive yourself to the hospital. Summary ? Chest pain can be caused by many different conditions. The cause may be serious and need treatment right away. If you have chest pain, see your doctor right away. ? Follow your doctor's instructions for taking medicines and making lifestyle changes. ? Keep all follow-up visits as told by your doctor. This includes visits for any further testing if your chest pain does not go away. ? Be sure to know the signs that show that your condition has become worse. Get help right away if you have these symptoms. This information is not intended to replace advice given to you by your health care provider. Make sure you discuss any questions you have with your health care provider. Document Revised: 08/07/2021 Document Reviewed: 08/07/2021 [employer] Patient Education ?? 2021 [employer] Tests Performed Radiology XR Chest 2 Views 09/14/2022 14:03 EDT Lab Test Name Test Result Date/Time WBC 6.1 x10^3/mcL 09/14/2022 13:01 EDT RBC 4.53 x10^6/mcL 09/14/2022 13:01 EDT Hgb 14.1 g/dL 09/14/2022 13:01 EDT Hct 41.0 % 09/14/2022 13:01 EDT Platelets 206 x10^3/mcL 09/14/2022 13:01 EDT MCV 90.5 fL 09/14/2022 13:01 EDT MCH 31.1 pg 09/14/2022 13:01 EDT MCHC 34.4 g/dL 09/14/2022 13:01 EDT RDW-CV 12.8 % 09/14/2022 13:01 EDT MPV 10.0 fL 09/14/2022 13:01 EDT Neutro Auto 63.7 % 09/14/2022 13:01 EDT Lymph Auto 24.5 % 09/14/2022 13:01 EDT Grand Auto 9.7 % 09/14/2022 13:01 EDT Eos, Auto 1.6 % 09/14/2022 13:01 EDT Basophil Auto 0.3 % 09/14/2022 13:01 EDT Imm Gran Auto 0.200 % 09/14/2022 13:01 EDT Neutro Absolute 3.86 x10^3/mcL 09/14/2022 13:01 EDT Lymph Absolute 1.49 x10^3/mcL 09/14/2022 13:01 EDT Grand Absolute 0.59 x10^3/mcL 09/14/2022 13:01 EDT Eos Absolute 0.10 x10^3/mcL 09/14/2022 13:01 EDT Baso Absolute 0.02 x10^3/mcL 09/14/2022 13:01 EDT Sodium Level 143 mmol/L 09/14/2022 13:01 EDT Potassium Level 3.7 mmol/L 09/14/2022 13:01 EDT Chloride Level 104 mmol/L 09/14/2022 13:01 EDT CO2 30 mmol/L 09/14/2022 13:01 EDT BUN 13 mg/dL 09/14/2022 13:01 EDT Glucose Level 94 mg/dL 09/14/2022 13:01 EDT Creatinine Level 0.79 mg/dL 09/14/2022 13:01 EDT BUN/Creat Ratio 16.5 mg/dL 09/14/2022 13:01 EDT Calcium Level 9.3 mg/dL 09/14/2022 13:01 EDT Anion Gap 9 09/14/2022 13:01 EDT eGFR CKD-EPI >60 mL/min/1.73 m2 09/14/2022 13:01 EDT Troponin-I (High Sens) 3 ng/L 09/14/2022 13:01 EDT Patient/Event Specialist Product Demonstrator Signature Patient Name:APRYL MARIE I have received this information and my questions have been answered. Patient/Event Specialist Product Demonstrator Name: Patient/Event Specialist Product Demonstrator Signature: Relationship to Patient: Witness Name/Signature: Date: Electronically Signed on: 09/14/2022 16:13 EDT Signed by:JEN MILLER Chest 2 Views * Alireza Dasilva MD: VERIFY, VERIFY Event Display: Radiology Report HISTORY: CHEST PAIN TECHNIQUE: Frontal and lateral views of the chest. COMPARISON: No comparison. FINDINGS: Lines/tubes: None. Lungs: The lungs are well inflated and clear. There is no evidence of pneumonia or pulmonary edema. Pleura: There is no pleural effusion or pneumothorax. Heart and mediastinum: The heart and the mediastinum are normal. Bones: No significant abnormality. IMPRESSION: No acute cardiopulmonary process. Final Signed by: Alireza Dasilva MD Signed (Electronic Signature): 09/14/2022 2:01 pm Patient Care team information Care Team Personnel Name: CalMitch rodríguez Prasanth Position: No Access Member Role: Primary Care Physician Address: Address: [address] [address] Name: Judith Allen Position: Registration - Finish Mill Operator Name: Leroy Blake CNA Position: Nurse Aide Member Role: disaster director Name: Yuliya Camacho RN Position: Nurse Member Role: Registered Nurse Name: Lillie Mccarthy MD Position: Physician Member Role: Referring Physician Address: Address: [facility] Emergency Department [address] [place] [id number]- Care Team Related Persons Name: DAVID SALINAS Name: NONE PER PT, NONE
--- OUTSIDE RECORDS SUMMARY | 2023-01-07 12:52 | XMS_ITS | Continuity of Care Document ---
Author Name [facility] [employer] [facility] Organization [facility] [employer] [facility] Support Name Relationship Address Phone Tymeghann Satnamvelasquez Primary Care Provider [address] [address] Caden Garcia Emergency Provider [facility] Emergenc y Department [address] [place] [address] Allergies, Adverse Reactions, Alerts No known allergies. Medications Active Medications Medication Dose Units Route Sig Qty Start Date St atus Doxycycline Hyclate 100 MG Oral Twice A Day 20 November 08, 2018 Active Problem List Active Problems Medical Problem Onset Date Status Abscess Active Procedures No known history of procedures. Relevant Diagnostic Tests and/or Laboratory Data No known relevant diagnostic tests, laboratory data, and/or discharge summary. Advance Directives Advance Directive Response Recorded Date/ Time Date Patient Queried 11/04/18 November 04 9 3:14pm Does the patient have a Healthcare Proxy? No August 11, 2018 2:01pm Healthcare Proxy Status Patient Not Present November 04, 2018 3:14pm Chief Complaint and Reason for Visit Encounter Admit Date Chief Complaint Reason for V isit Departed Emergency November 08, 2018 11:41am Rt leg lump Hospital Discharge Instructions Additional Discharge Instructions You we re evaluated for right inner groin lump. You have a small infected hair follicle/abscess. It is not drainable at this time. Apply frequent warm compresses. Take antibiotics as prescribed. It should improve slowly over time. If it gets larger, becomes painful, hot to the touch, fevers or any other concerning symptoms you will likely require an incision and drainage of it. You should return immediately. Otherwise see your primary care in 2 days for reevaluation as previously scheduled. You can take Tylenol or ibuprofen for any discomfort. Instruction/Education Provided Doxycycli ne (By mouth) Abscess (ED) Hospital Discharge Medications Medication Dose Units Route Sig Qty Days Order Date Status Ins tructions Doxycycline Hyclate 100 MG Oral Twice A Day November 08, 2018 Active Encounters Encounter Facility Location Admit/Visit Date Discharge/Departure Date Attending Provider Departed Emergency [facility] jose e [facility] Emergency Department November 08, 2018 11:41am November 08, 2018 12:55pm Registered Clinical [facility] November 08, 2018 10:39am Annette Thomas Registered Clinical [facility] August 13, 2018 6:34pm Annette Thomas Departed Clinical [facility] July 12, 2018 10:44am July 12, 2018 10:45am Annette Thomas Departed Clinical [facility] January 04, 2018 12:00am January 04, 2018 Terrell Meadows Departed Clinical [facility] December 03, 2017 12:00am December 03, 2017 Terrell Meadows Functional Status Query Response Date Recorded Comment Patient Orientation Oriented x3 Patient at Baseline November 08, 2018 12:30pm Immunizations No known immunizations. Payers Payer Name Policy Type Covered Republican Covered Republican Id Relationship Subscriber Subscriber Id Self Pay Personal Payment ([place] - No Insurance) [employer] Medicaid Medicaid [id number] Plan of Care Instructions Doxycycline (By mouth) Abscess (ED) Social History Query Response Date Recorded Comment Does the patient use drugs? No November 08, 2018 12:30pm Has the patient smoked within the past 30 days No November 08, 2018 12:30pm Vital Signs Vital Reading Result Reference Range Collection Date/Time Height 6 ft November 08, 2018 11 :49am Weight 167.8 kg November 08, 2018 11 :49am Temperature 97.9 F 97.5 F-99.3 F November 08, 2018 1 2:48pm Pulse 73 BPM 60-90 November 08, 2018 12 :48pm Respiration 18 RPM -November 08, 2018 12 :48pm Pulse Oximetry 99 % 95-100 November 08, 2018 12:48pm Blood Pressure Systolic 112 100-160 November 08, 2018 12:48pm Blood Pressure Diastolic 57 60-90 Je 2018 12:48pm Body Mass Index n/a
--- OUTSIDE RECORDS SUMMARY | 2023-01-07 12:52 | XMS_ITS | Continuity of Care Document ---
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 Name Role Phone Mitch Purcell Primary Care Physician [phone] Encounter PHYLLIS BLANK [id number] Date(s): 11/19/22 - 11/19/[address] [address] - Encounter Diagnosis Bilateral lower extremity edema(Discharge Diagnosis) - 11/19/22 Discharge Disposition: Home or Self Care Attending Physician: Jeffery Campbell MD Admitting Physician: Jeffery Campbell MD Referring Physician: Jeffery Campbell MD Allergies, Adverse Reactions, Alerts Substance Reaction Severity Status Keppra Moderate Active Assessment and Plan Extracted from: Title:ED Provider Note Author:Jeffery Campbell MD Date:11/19/22 Assessment/Plan 1.??Bilateral lower extremity edema??R60.0 Patient Discharge Condition Stable, good Discharge Disposition Home Patient Education Peripheral Edema Follow Up With When Contact Information Mitch Purcell [address] [address]- ?? Additional Instructions: You had very reassuring blood work. ??Your kidney function is normal.?? Dr. Campbell advise you to make sure that you keep your legs above the level of your heart??and described what this means.?? It may require you to lie down more on a??ground surface and then??have your??legs??resting??up higher on a chair??to help with this.?? This should be effective. ??If this is not effective, the next step??will be to do a follow-up with your primary care doctor to see whether or not you need to be fitted??for any certain??compression type devices to help??get the swelling improved.?? There is no signs of infection whatsoever on examination at this time. Functional Status 11/19/22 Recent Travel History No recent travel Family Member Travel History No recent t ravel Other exposure to Infectious Disease Non e Medications !-aspirin 81 mg oral tablet 81 mg = 1 tab, Oral, Daily, # 30 tab, 0 Refill(s), Start Date: 09/14/22 13:03:00 EDT Start Date: 09/14/22 Status: Ordered !-Lac-Hydrin 12% topical lotion 1 darnell, Topical, BID, # 225 g, 0 Refill(s), Start Date: 11/19/22 1:47:00 EDT Start Date: 11/19/22 Status: Ordered Daily Multiple Vitamins oral tablet [...] 13:05:00 EDT Start Date: 09/14/22 Status: Ordered fluticasone 50 mcg/inh nasal spray 1 sprays, Nasal - Both Sides, Daily, # 16 g, 0 Refill(s), Start Date: 11/19/22 1:53:00 EDT Start Date: 11/19/22 Status: Ordered ibuprofen 800 mg oral tablet [...] 13:07:00 EDT Start Date: 09/14/22 Status: Ordered nitroglycerin 0.4 mg sublingual tablet 0.4 mg = 1 tab, SL, every 5 min, PRN as needed for chest pain, # 100 tab, 0 Refill(s), Start Date: 11/19/22 1:49:00 EDT Start Date: 11/19/22 Status: Ordered Vitamin C 1000 mg oral tablet 1,000 mg = 1 tab, Oral, Daily, # 30 tab, 0 Refill(s), Start Date: 11/19/22 1:46:00 EDT Start Date: 11/19/22 Status: Ordered Mental Status 11/19/22 Eye Opening Response Irwin Spontaneous ly Best Verbal Response Ferguson Oriented Best Motor Response Irwin Obeys comman ds Irwin Coma Score 15 Problem List Condition Confirmation Course Effective Dates Status Health atus Informant Diabetes Confirmed Active Hyperlipemia Confirmed Active HTN (hypertension) Confirmed Active Seizure Confirmed Active Results Laboratory List Name Date Automated Differential 11/19/22 Basic Metabolic Panel (BMP) 11/19/22 CBC w/ Differential 11/19/22 Glucose POCT 11/19/22 Most recent to oldest [Reference Range]: 1 WBC [4.5-11.0 x10^3/mcL] 7.4 x10^3/mcL (11/19/22 2:01 AM) RBC [4.43-5.94 x10^6/mcL] 4.29 x10^6/mcL *LOW* (11/19/22 2:01 AM) Neutro Auto [42.0-72.0 %] 50.8 % (11/19/22 2:01 AM) Lymph Auto [25.0-45.0 %] 34.0 % (11/19/22 2:01 AM) Riverside Auto [3.0-10.0 %] 11.1 % *HI* (11/19/22 2:01 AM) Basophil Auto [0.0-2.0 %] 0.4 % (11/19/22 2:01 AM) BUN [8-21 mg/dL] 15 mg/dL (11/19/22 2:01 AM) Glucose POC [70-100 mg/dL] 125 mg/dL *HI* (11/19/22 1:48 AM) Glucose Level [70-100 mg/dL] 129 mg/dL *HI* (11/19/22 2:01 AM) Potassium Level [3.5-5.3 mmol/L] 3.5 mmo l/L (11/19/22 2:01 AM) Baso Absolute [0.00-0.20 x10^3/mcL] 0.03 x10^3/mcL (11/19/22 2:01 AM) MCV [81.0-97.0 fL] 89.7 fL (11/19/22 2:01 AM) MCHC [32.3-36.5 g/dL] 36.1 g/dL (11/19/22 2:01 AM) Sodium Level [136-145 mmol/L] 140 mmol/L (11/19/22 2:01 AM) Lymph Absolute [1.30-3.40 x10^3/mcL] 2.5 2 x10^3/mcL (11/19/22 2:01 AM) Hct [36.0-50.0 %] 38.5 % (11/19/22 2:01 AM) Calcium Level [8.7-10.4 mg/dL] 8.5 mg/dL *LOW* (11/19/22 2:01 AM) Riverside Absolute [0.00-0.60 x10^3/mcL] 0.82 x10^3/mcL *HI* (11/19/22 2:01 AM) MCH [26.5-32.5 pg] 32.4 pg (11/19/22 2:01 AM) Neutro Absolute [1.40-6.50 x10^3/mcL] 3. 77 x10^3/mcL (11/19/22 2:01 AM) Hgb [12.9-17.7 g/dL] 13.9 g/dL (11/19/22 2:01 AM) MPV [9.4-12.4 fL] 9.6 fL (11/19/22 2:01 AM) Platelets [150-450 x10^3/mcL] 207 x10^3/ mcL (11/19/22 2:01 AM) CO2 [24-31 mmol/L] 29 mmol/L (11/19/22 2:01 AM) Eos Absolute [0.00-0.30 x10^3/mcL] 0.22 x10^3/mcL (11/19/22 2:01 AM) Chloride Level [98-107 mmol/L] 105 mmol/ L (11/19/22 2:01 AM) BUN/Creat Ratio [10.0-20.0 mg/dL] 21.1 m g/dL *HI* (11/19/22 2:01 AM) Imm Gran Auto [0.001-0.429 %] 0.700 % *HI* (11/19/22 2:01 AM) RDW-CV [12.0-15.0 %] 13.4 % (11/19/22 2:01 AM) Creatinine Level [0.70-1.30 mg/dL] 0.71 mg/dL (11/19/22 2:01 AM) Anion Gap [3-16] 6 (11/19/22 2:01 AM) Eos, Auto [0.0-5.0 %] 3.0 % (11/19/22 2:01 AM) eGFR CKD-EPI [>=60 mL/min/1.73 m2] >60 m L/min/1.73 m2 (11/19/22 2:01 AM) Vital Signs Most recent to oldest [Reference Range]: 1 2 Temperature Oral [35.8-37.3 Deg C] 36.5 Deg C (11/19/22 3:04 AM) Temperature Temporal Artery [36-38 Deg C ] 36.2 Deg C (11/19/22 1:44 AM) Peripheral Pulse Rate [60-100 bpm] 70 bp m (11/19/22 3:04 AM) 71 bpm (11/19/22 1:44 AM) Respiratory Rate [12-24 br/min] 18 br/mi n (11/19/22 3:04 AM) 20 br/min (11/19/22 1:44 AM) Blood Pressure [90-140/60-90 mmHg] 136/7 7mmHg (11/19/22 3:04 AM) 145/95mmHg *HI* (11/19/22 1:44 AM) SpO2 [94 %] 95 % (11/19/22 3:04 AM) 97 % (11/19/22 1:44 AM) Triage Height 183 cm (11/19/22 1:44 AM) Triage Weight 180.4 kg (11/19/22 1:44 AM) Mean Arterial Pressure 111.7 mmHg (11/19/22 1:44 AM) Body Mass Index Triage 54 (11/19/22 1:44 AM) Weight 180.40 kg (11/19/22 1:44 AM) Weight Dosing 180.40 kg (11/19/22 2:29 AM) Height 183.000 cm (11/19/22 1:44 AM) Height/Length Dosing 183.000 cm (11/19/22 2:29 AM) Body Mass Index 54.000 kg/m2 (11/19/22 1:44 AM) Social History Social History Type Response Tobacco Tobacco Use: Never t obacco user. Sex Male Hospital Discharge Instructions Patient Education 11/19/2022 01:59:35 Peripheral Edema Peripheral Edema Peripheral edema is swelling that is caused by a buildup of fluid. Peripheral edema most often affects the lower legs, ankles, and feet. It can also develop in the arms, hands, and face. The area of the body that has peripheral edema will look swollen. It may also feel heavy or warm. Your clothes may start to feel tight. Pressing on the area may make a temporary dent in your skin (pitting edema).You may not be able to move your swollen arm or leg as much as usual. There are many causes of peripheral edema. It can happen because of a complication of other conditions such as heart failure, kidney disease, or a problem with your circulation. It also can be a sideeffect of certain medicines or happen because of an infection. It often happens to women during . Sometimes, the cause is not known. Follow these instructions at home: Managing pain, stiffness, and swelling ??? Raise (elevate) your legs while you are sitting or lying down. ??? Move around often to prevent stiffness and to reduce swelling. ??? Do not sit or stand for long periods of time. ??? Do not wear tight clothing. Do not wear garters on your upper legs. ??? Exercise your legs to get your circulation going. This helps to move the fluid back into your blood vessels, and it may help the swelling go down. ??? Wear compression stockings as told by your health care provider. These stockings help to prevent blood clots and reduce swelling in your legs. It is important that these are the correct size. These stockings should be prescribed by your doctor to prevent possible injuries. ??? If elastic bandages or wraps are recommended, use them as told by your health care provider. Medicines ??? Take [id number] and prescription medicines only as told by your health care provider. ??? Your health care provider may prescribe medicine to help your body get rid of excess water (diuretic). Take this medicine if you are told to take it. General instructions ??? Eat a low-salt (low-sodium) diet as told by your health care provider. Sometimes, eating less salt may reduce swelling. ??? Pay attention to any changes in your symptoms. ??? Moisturize your skin daily to help prevent skin from cracking and draining. ??? Keep all follow-up visits. This is important. Contact a health care provider if: ??? You have a fever. ??? You have swelling in only one leg. ??? You have increased swelling, redness, or pain in one or both of your legs. ??? You have drainage or sores at the area where you have edema. Get help right away if: ??? You have edema that starts suddenly or is getting worse, especially if you are or havea medical condition. ??? You develop shortness of breath, especially when you are lying down. ??? You have pain in your chest or abdomen. ??? You feel weak. ??? You feel like you will faint. These symptoms may be an emergency. Get help right away. Call 911. ??? Do not wait to see if the symptoms will go away. ??? Do not drive yourself to the hospital. Summary ??? Peripheral edema is swelling that is caused by a buildup of fluid. Peripheral edema most often affects the lower legs, ankles, and feet. ??? Move around often to prevent stiffness and to reduce swelling. Do not sit or stand for long periods of time. ??? Pay attention to any changes in your symptoms. ??? Contact a health care provider if you have edema that starts suddenly or is getting worse, especially if you are or have a medical condition. ??? Get help right away if you develop shortness of breath, especially when lying down. This information is not intended to replace advice given to you by your health care provider. Make sure you discuss any questions you have with your health care provider. Document Revised: 01/26/2022 Document Reviewed: 01/26/2022 [employer] Patient Education ?? 2022 [employer]. Follow Up Care 11/19/2022 01:37:29 With:Mitch Purcell Address: [address] When: Unknown Comments:You had very reassuring blood work. ??Your kidney function is normal.?? Dr. Campbell advise you to make sure that you keep your legs above the level of your heart??and described what this means.?? It may require you to lie down more on a??ground surface and then??have your??legs??resting??up higher on a chair??to help with this.?? This should be effective. ??If this is not effective, the next step??will be to do a follow-up with your primary care doctor to see whether or not you need to be fitted??for any certain??compression type devices to help??get the swelling improved.?? There is no signsof infection whatsoever on examination at this time. Emergency department Discharge summary * Jeffery Campbell MD: PERFORM, SIGN, VERIFY Event Display: ED Clinical Summary Authored Date: [id number] [address] Clinical Summary PERSON INFORMATION Name: APRYL MARIE Age: 52 Years : 1970 Sex: Male Language: Sami PCP: Mitch Purcell Marital Status: Single Med Service: Emergency Medicine Arrival: 11/19/2022 01:36:19 Visit Reason: Ankle pain-swelling; ANKLE SWELLING Acuity: 3 - Urgent LOS: 000 01:24 Address: [address] [place] [phone] Diagnosis: 1:Bilateral lower extremity edema Medications Administered: Radiology Orders: Laboratory Orders: Automated Differential Blood, Stat, Collected, 11/19/22 2:01:00 EDT, Once, Lab Collect, [id number] BMP Blood, Stat, 11/19/22 1:51:00 EDT, Once, Lab Collect CBC w/ Differential Blood, Stat, 11/19/22 1:51:00 EDT, Once, Lab Collect Extra Tube - Blue Blood, Stat, Collected, 11/19/22 2:01:00 EDT, by [id number], Once, Lab Collect, 2.7 mL Blue NaCit 2.7mL/*[id number]*/ Extra Tube - Gold Blood, Stat, Collected, 11/19/22 2:01:00 EDT, by [id number], Once, Lab Collect, 5 mL SST 5.0mL/*[id number]*/ Glucose POCT Blood, RT collect, Collected, 11/19/22 1:48:21 EDT, Once Lab and Rad: Laboratory or Other Results This Visit??(last charted value for your??11/19/2022??visit) ?Hematology ?11/19/2022?2:01 AM ?WBC:??7.4??x10^3/mcL??--??Normal range between??(??4.5??and??11.0??)?RBC:??4.29??x10^6/mcL??--??Normal range between??(??4.43??and??5.94??)?Neutro Auto:??50.8??%??--??Normal range between??(??42.0??and??72.0??)?Lymph Auto:??34.0??%??--??Normal range between??(??25.0??and??45.0??)?Riverside Auto:??11.1??%??--??Normal range between??(??3.0??and??10.0??)?Basophil Auto:??0.4??%??--??Normal range between??(??0.0??and??2.0??)?Baso Absolute:??0.03??x10^3/mcL??--??Normal range between??(??0.00??and??0.20??)?MCV:??89.7??fL??--??Normal range between??(??81.0??and??97.0??)?MCHC:??36.1??g/dL??--??Normal range between??(??32.3??and??36.5??)?Lymph Absolute:??2.52??x10^3/mcL??--??Normal range between??(??1.30??and??3.40??)?Hct:??38.5??%??--??Normal range between??(??36.0??and??50.0??)?R[place]ide Absolute:??0.82??x10^3/mcL??--??Normal range between??(??0.00??and??0.60??)?MCH:??32.4??pg??--??Normal range between??(??26.5??and??32.5??)?Neutro Absolute:??3.77??x10^3/mcL??--??Normal range between??(??1.40??and??6.50??)?Hgb:??13.9??g/dL??--??Normal range between??(??12.9??and??17.7??)?MPV:??9.6??fL??--??Normal range between??(??9.4??and??12.4??)?Platelets:??207??x10^3/mcL??--??Normal range between??(??150??and??450??)?Eos Absolute:??0.22??x10^3/mcL??--??Normal range between??(??0.00??and??0.30??)?Eos, Auto:??3.0??%??--??Normal range between??(??0.0??and??5.0??)?Imm Gran Auto:??0.700??%??--??Normal range between??(??0.001??and??0.429??)?RDW-CV:??13.4??%??--??Normal range between??(??12.0??and??15.0??)?Chemistry ?11/19/2022?2:01 AM ?Creatinine Level:??0.71??mg/dL??--??Normal range between??(??0.70??and??1.30??)?BUN:??15??mg/dL??--??Normal range between??(??8??and??21??)?Glucose Level:??129??mg/dL??--??Normal range between??(??70??and??100??)?Potassium Level:??3.5??mmol/L??--??Normal range between??(??3.5??and??5.3??)?Sodium Level:??140??mmol/L??--??Normal range between??(??136??and??145??)?Calcium Level:??8.5??mg/dL??--??Normal range between??(??8.7??and??10.4??)?CO2:??29??mmol/L??--??Normal range between??(??24??and??31??)?Chloride Level:??105??mmol/L??--??Normal range between??(??98??and??107??)?Anion Gap:??6?--??Normal range between??(??3??and??16??)?BUN/Creat Ratio:??21.1??mg/dL??--??Normal range between??(??10.0??and??20.0??)?eGFR CKD-EPI:??>60??mL/min/1.73 m2 ?Point of Care ?11/19/2022?1:48 AM ?Glucose POC:??125??mg/dL??--??Normal range between??(??70??and??100??) Medications: PROVIDER INFORMATION Provider Role Assigned Unassigned Jeffery Campbell MD ED Provider 11/19/2022 01:39:51 Obdulia Pandey GRADUATE RN Nurse 11/19/2022 01:47:48 [facility] ED Reg 11/19/2022 01:51:18 Amanda Cardona ED Misc 11/19/2022 02:05:38 Attending Physician: Jeffery Campbell MD Admit Doc Jeffery Campbell MD Consulting Doc VITALS INFORMATION Vital Sign Triage Latest Temp Oral Temp Temporal Temp Intravascular Temp Axillary Temp Rectal 02 Sat 97 % 97 % Respiratory Rate Peripheral Pulse Rate Apical Heart Rate Blood Pressure / 95 mmHg / 95 mmHg Allergies ?Keppra Immunizations ?No Immunizations Documented This Visit DISCHARGE INFORMATION Discharge Disposition: Discharge Location: Discharge Date and Time: ED Checkout Date and Time: DEPART REASON INCOMPLETE INFORMATION Problems ?Active ?Diabetes ?Hyperlipemia ?Seizure ?HTN (hypertension) Smoking Status ?Never tobacco user PATIENT EDUCATION INFORMATION Instructions: Peripheral Edema Follow up: With: Address: When: [place] [address] Comments: You had very reassuring blood work. ??Your kidney function is normal.?? Dr. Campbell advise you to make sure that you keep your legs above the level of your heart??and described what this means.?? It may require you to lie down more on a??ground surface and then??have your??legs??resting??up higher on a chair??to help with this.?? This should be effective. ??If this is not effective, the next step??will be to do a follow-up with your primary care doctor to see whether or not you need to be fitted??for any certain??compression type devices to help??get the swelling improved.?? There is no signsof infection whatsoever on examination at this time. PATIENT INSTRUCTIONS Physician Emergency department Note * Jeffery Campbell MD: PERFORM Event Display: ED Note Provider Authored Date: [id number] CYNTHIA APRYL :1970 Age:52 years Sex:Male Visit Date:11/19/2022 Primary Care Physician: Mitch Purcell Basic Information Time Seen: Jeffery Campbell MD ??11/19/2022 01:39 Chief Complaint PT C/O 2 WEEKS B/L ANKLE SWELLING. TAKING ALL MEDS BUT NOT CHECKING SUGARS AND EATING ANYTHING HE WANTS. PT A KNOWN DIABETIC. History Of Present Illness: This is a 52-year-old male patient who states he has been compliant with his medications who presents for evaluation of??some bilateral lower extremity edema.?? He reports he has always had some degree of swelling but he feels like its been worse as of late.?? He denies any??redness or warmth of either leg.?? He has not tried elevating the legs??above the heart.?? He has not tried PAUL stockings.?? He is on a medication which does include HCTZ??that he takes daily.?? The patient denies any??shortness of breath or chest pain or chest pressure or chest discomfort with the symptoms.?? Definitely feels that both of the legs are symmetrically swollen.?? States that the swelling is really below the knees bilaterally.?? Denies any swelling of the thighs or abdomen.?? Denies any history of liver problems. Review of Systems: All other systems are reviewed and otherwise negative Physical Exam Vitals & Measurements T:??36.2?C ??(Temporal Artery)?? HR:??71??(Peripheral)?? RR:??20?? BP:??145/95?? SpO2:??97%?? HT:??183.000??cm?? WT:??180.40??kg?? BMI:??54.000?? O2 Therapy:??Room air?? General: Well-appearing, nontoxic, no acute distress. HEENT: Normocephalic/atraumatic, pharynx normal, airway patent. Neck: Supple Cardiovascular: Regular rate and rhythm, no murmurs, rubs, or gallops. Pulmonary: Lungs clear. Abdomen: Soft, nontender/nondistended, no masses. Back: Nontender. Extremities: Warm and well perfused, no cyanosis/clubbing. ??There is??bilateral lower extremity edema??maybe 1+,??symmetric, no warmth or redness erythema to suggest cellulitis. Skin: No rashes. Neurologic: Alert, oriented x3, mental status intact, no focality. Medical Decision Making: This is a 52-year-old??male patient who presents for concerns about lower extremity swelling.?? Patient is, mild 1+ edema bilateral lower extremities.?? Patient did undergo blood work just to assess kidney function and overall CBC.?? Again he has no shortness of breath and has a normal lung examination and has a normal oxygen saturation and has not experienced any??chest pain or chest pressure tosuggest this at all??is cardiac related.?? He has no periorbital edema or abdominal distention to suggest this is at all liver disease related.?? His CBC reveals a normal white blood count of 7.4, hemoglobin of 13.9 and platelet count of 207.?? His electrolytes are intact with a sodium of 140 potass ium 3.5 and calcium of 8.5.?? His creatinine is quite normal 1.71. ??His BUN is 15.?? His blood sugar despite diabetes is 129??on a nonfasting specimen which is quite good.?? Patient was advised how we can??hopefully dissipate the fluid??in the legs by getting legs above the level of the heart.?? Patient appears to be comfortable with this overall plan.?? He understands??what I am telling him to d o with respect to leg elevation.?? I do not think given his normal kidney function that adding diuretic??would be appropriate at this time.?? I have no concern the patient has anything like DVT??as it is very symmetric??bilateral lower extremities from the knee down??and it would be almost unheard of to obtain acute bilateral DVT??simultaneously.?? The patient will be discharged home with the advice I gave him. ??He appears to be comfortable and understanding of the plan established. Assessment/Plan 1.??Bilateral lower extremity edema??R60.0 Patient Discharge Condition Stable, good Discharge Disposition Home Patient Education Peripheral Edema Follow Up With When Contact Information Mitch Purcell [place] [phone]- Additional Instructions: You had very reassuring blood work. ??Your kidney function is normal.?? Dr. Campbell advise you to make sure that you keep your legs above the level of your heart??and described what this means.?? It may require you to lie down more on a??ground surface and then??have your??l egs??resting??up higher on a chair??to help with this.?? This should be effective. ??If this is noteffective, the next step??will be to do a follow-up with your primary care doctor to see whether ornot you need to be fitted??for any certain??compression type devices to help??get the swelling improved.?? There is no signs of infection whatsoever on examination at this time. Medication Reconciliation Unchanged ammonium lactate topical (!-Lac-Hydrin 12% topical lotion)1 Application Topical (on the skin) 2 times a day. ?? ascorbic acid (Vitamin C 1000 mg oral tablet)1 tab Oral (given by mouth) every day. ?? aspirin (!-aspirin 81 mg oral tablet)1 tab Oral (given by mouth) every day. ?? doxazosin (doxazosin 8 mg oral tablet)1 tab Oral (given by mouth) every day. ?? fluticasone nasal (fluticasone 50 mcg/inh nasal spray)1 Sprays Nasal (into the nose) every day. ?? ibuprofen (ibuprofen 800 mg [...] Oral (given by mouth) every day. ?? nitroglycerin (nitroglycerin 0.4 mg sublingual tablet)1 tab Sublingual (dissolve under the tongue) every 5 minutes as needed as needed for chest pain. ?? phenytoin (Dilantin 100 mg oral capsule, [...] Tobacco Use: Never tobacco user. Diagnostic Results No qualifying data available. Lab Results CBC and Differential?? LATEST RESULTS?? HISTORICAL RESULTS?? WBC?? 11/19/22 02:01?? 7.4?? 09/14/22?? 6.1?? RBC?? 11/19/22 02:01?? 4.29 ??Low?? 09/14/22?? 4.53?? Hgb?? 11/19/22 02:01?? 13.9?? 09/14/22?? 14.1?? Hct?? 11/19/22 02:01?? 38.5?? 09/14/22?? 41.0?? Platelets?? 11/19/22 02:01?? 207?? 09/14/22?? 206?? MCV?? 11/19/22 02:01?? 89.7?? 09/14/22?? 90.5?? MCH?? 11/19/22 02:01?? 32.4?? 09/14/22?? 31.1?? MCHC?? 11/19/22 02:01?? 36.1?? 09/14/22?? 34.4?? RDW-CV?? 11/19/22 02:01?? 13.4?? 09/14/22?? 12.8?? MPV?? 11/19/22 02:01?? 9.6?? 09/14/22?? 10.0?? Neutro Auto?? 11/19/22 02:01?? 50.8?? 09/14/22?? 63.7?? Lymph Auto?? 11/19/22 02:01?? 34.0?? 09/14/22?? 24.5 ??Low?? Riverside Auto?? 11/19/22 02:01?? 11.1 ??High?? 09/14/22?? 9.7?? Eos, Auto?? 11/19/22 02:01?? 3.0?? 09/14/22?? 1.6?? Basophil Auto?? 11/19/22 02:01?? 0.4?? 09/14/22?? 0.3?? Imm Gran Auto?? 11/19/22 02:01?? 0.700 ??High?? 09/14/22?? 0.200?? Neutro Absolute?? 11/19/22 02:01?? 3.77?? 09/14/22?? 3.86?? Lymph Absolute?? 11/19/22 02:01?? 2.52?? 09/14/22?? 1.49?? [place] Absolute?? 11/19/22 02:01?? 0.82 ??High?? 09/14/22?? 0.59?? Eos Absolute?? 11/19/22 02:01?? 0.22?? 09/14/22?? 0.10?? Baso Absolute?? 11/19/22 02:01?? 0.03?? 09/14/22?? 0.02? Routine Chemistry?? LATEST RESULTS?? HISTORICAL RESULTS?? Sodium Level?? 11/19/22 02:01?? 140?? 09/14/22?? 143?? Potassium Level?? 11/19/22 02:01?? 3.5?? 09/14/22?? 3.7?? Chloride Level?? 11/19/22 02:01?? 105?? 09/14/22?? 104?? CO2?? 11/19/22 02:01?? 29?? 09/14/22?? 30?? BUN?? 11/19/22 02:01?? 15?? 09/14/22?? 13?? Glucose Level?? 11/19/22 02:01?? 129 ??High?? 09/14/22?? 94?? Creatinine Level?? 11/19/22 02:01?? 0.71?? 09/14/22?? 0.79?? BUN/Creat Ratio?? 11/19/22 02:01?? 21.1 ??High?? 09/14/22?? 16.5?? Calcium Level?? 11/19/22 02:01?? 8.5 ??Low?? 09/14/22?? 9.3?? Anion Gap?? 11/19/22 02:01?? 6?? 09/14/22?? 9?? eGFR CKD-EPI?? 11/19/22 02:01?? >60?? 09/14/22?? >60? Point of Care?? LATEST RESULTS?? Glucose POC?? 11/19/22 01:48?? 125 ??High? Electronically Signed on 11/19/22 03:00 AM Jeffery Campbell MD Emergency department Discharge instructions * Obdulia Pandey RN: PERFORM Event Display: ED Discharge Information Authored Date: [id number] APRYL MARIE :1970 Age:52 years Sex:Male Visit Date:11/19/2022 Primary Care Physician: Mitch Purcell Discharge Instructions We would like to thank you for allowing us to assist you with your healthcare needs. The following includes patient education materials and information regarding your injury/illness. Diagnosis from Today's Visit Bilateral lower extremity edema Discharge Vitals Temperature??(Temporal Artery) 97.2 ??F (36.2 ??C) Heart Rate??(Peripheral) 71 Respiratory Rate?? 20 Blood Pressure?? 145/95?? Height?? 72.05 in (183.000 cm) Weight?? 397.78 lb (180.40 kg) BMI?? 54.000 Allergies Keppra What to Do Next You Need to Schedule the Following Appointments Follow Up with??Mitch Purcell Why: You had very reassuring blood work. ??Your kidney function is normal.?? Dr. Campbell advise youto make sure that you keep your legs above the level of your heart??and described what this means.?? It may require you to lie down more on a??ground surface and then??have your??legs??resting??up higher on a chair??to help with this.?? This should be effective. ??If this is not effective, the next step??will be to do a follow-up with your primary care doctor to see whether or not you need to be fitted??for any certain??compression type devices to help??get the swelling improved.?? There is no signs of infection whatsoever on examination at this time. Where: [place] [address]- You were treated today on an emergency [...] How Much When Instructions Next Dose Unchanged ammonium lactate topical (!-Lac-Hydrin 12% topical lotion) 1 Application Topical (on the skin) 2 times a day Unchanged ascorbic acid (Vitamin C 1000 mg oral tablet) 1 tab Oral (given by mouth) Every day Unchanged aspirin (!-aspirin 81 mg oral tablet) 1 tab Oral (given by mouth) Every day Unchanged doxazosin (doxazosin 8 mg oral tablet) 1 tab Oral (given by mouth) Every day Unchanged fluticasone nasal (fluticasone 50 mcg/ inh nasal spray) 1 Sprays Nasal (into the nose) Every day Unchanged ibuprofen (ibuprofen 800 mg [...] Oral (given by mouth) Every day Unchanged nitroglycerin (nitroglycerin 0.4 mg sublingual tablet) 1 tab Sublingual (dissolve under the tongue) Every 5 minutes as needed for as needed for chest pain Unchanged phenytoin (Dilantin 100 mg oral capsule, extended release) 2 Capsules Oral (given by mouth) 2 times a day 40 mg BID on sundays ?? Education Materials Peripheral Edema Peripheral edema is swelling that is caused by a buildup of fluid. Peripheral edema most often affects the lower legs, ankles, and feet. It can also develop in the arms, hands, and face. The area of the body that has peripheral edema will look swollen. It may also feel heavy or warm. Your clothes may start to feel tight. Pressing on the area may make a temporary dent in your skin (pitting edema).You may not be able to move your swollen arm or leg as much as usual. There are many causes of peripheral edema. It can happen because of a complication of other conditions such as heart failure, kidney disease, or a problem with your circulation. It also can be a sideeffect of certain medicines or happen because of an infection. It often happens to women during . Sometimes, the cause is not known. Follow these instructions at home: Managing pain, stiffness, and swelling ? Raise (elevate) your legs while you are sitting or lying down. ? Move around often to prevent stiffness and to reduce swelling. ? Do not sit or stand for long periods of time. ? Do not wear tight clothing. Do not wear garters on your upper legs. ? Exercise your legs to get your circulation going. This helps to move the fluid back into your bloodvessels, and it may help the swelling go down. ? Wear compression stockings as told by your health care provider. These stockings help to prevent blood clots and reduce swelling in your legs. It is important that these are the correct size. These stockings should be prescribed by your doctor to prevent possible injuries. ? If elastic bandages or wraps are recommended, use them as told by your health care provider. Medicines ? Take [id number] and prescription medicines only as told by your health care provider. ? Your health care provider may prescribe medicine to help your body get rid of excess water (diuretic). Take this medicine if you are told to take it. General instructions ? Eat a low-salt (low-sodium) diet as told by your health care provider. Sometimes, eating less salt may reduce swelling. ? Pay attention to any changes in your symptoms. ? Moisturize your skin daily to help prevent skin from cracking and draining. ? Keep all follow-up visits. This is important. Contact a health care provider if: ? You have a fever. ? You have swelling in only one leg. ? You have increased swelling, redness, or pain in one or both of your legs. ? You have drainage or sores at the area where you have edema. Get help right away if: ? You have edema that starts suddenly or is getting worse, especially if you are or have a medical condition. ? You develop shortness of breath, especially when you are lying down. ? You have pain in your chest or abdomen. ? You feel weak. ? You feel like you will faint. These symptoms may be an emergency. Get help right away. Call 911. ? Do not wait to see if the symptoms will go away. ? Do not drive yourself to the hospital. Summary ? Peripheral edema is swelling that is caused by a buildup of fluid. Peripheral edema most often affects the lower legs, ankles, and feet. ? Move around often to prevent stiffness and to reduce swelling. Do not sit or stand for long periodsof time. ? Pay attention to any changes in your symptoms. ? Contact a health care provider if you have edema that starts suddenly or is getting worse, especially if you are or have a medical condition. ? Get help right away if you develop shortness of breath, especially when lying down. This information is not intended to replace advice given to you by your health care provider. Make sure you discuss any questions you have with your health care provider. Document Revised: 01/26/2022 Document Reviewed: 01/26/2022 [employer] Patient Education ?? 2022 [employer] Tests Performed Lab Test Name Test Result Date/Time WBC 7.4 x10^3/mcL 11/19/2022 02:01 EDT RBC 4.29 x10^6/mcL 11/19/2022 02:01 EDT Hgb 13.9 g/dL 11/19/2022 02:01 EDT Hct 38.5 % 11/19/2022 02:01 EDT Platelets 207 x10^3/mcL 11/19/2022 02:01 EDT MCV 89.7 fL 11/19/2022 02:01 EDT MCH 32.4 pg 11/19/2022 02:01 EDT MCHC 36.1 g/dL 11/19/2022 02:01 EDT RDW-CV 13.4 % 11/19/2022 02:01 EDT MPV 9.6 fL 11/19/2022 02:01 EDT Neutro Auto 50.8 % 11/19/2022 02:01 EDT Lymph Auto 34.0 % 11/19/2022 02:01 EDT [place] Auto 11.1 % 11/19/2022 02:01 EDT Eos, Auto 3.0 % 11/19/2022 02:01 EDT Basophil Auto 0.4 % 11/19/2022 02:01 EDT Imm Gran Auto 0.700 % 11/19/2022 02:01 EDT Neutro Absolute 3.77 x10^3/mcL 11/19/2022 02:01 EDT Lymph Absolute 2.52 x10^3/mcL 11/19/2022 02:01 EDT [place] Absolute 0.82 x10^3/mcL 11/19/2022 02:01 EDT Eos Absolute 0.22 x10^3/mcL 11/19/2022 02:01 EDT Baso Absolute 0.03 x10^3/mcL 11/19/2022 02:01 EDT Sodium Level 140 mmol/L 11/19/2022 02:01 EDT Potassium Level 3.5 mmol/L 11/19/2022 02:01 EDT Chloride Level 105 mmol/L 11/19/2022 02:01 EDT CO2 29 mmol/L 11/19/2022 02:01 EDT BUN 15 mg/dL 11/19/2022 02:01 EDT Glucose Level 129 mg/dL 11/19/2022 02:01 EDT Creatinine Level 0.71 mg/dL 11/19/2022 02:01 EDT BUN/Creat Ratio 21.1 mg/dL 11/19/2022 02:01 EDT Calcium Level 8.5 mg/dL 11/19/2022 02:01 EDT Anion Gap 6 11/19/2022 02:01 EDT eGFR CKD-EPI >60 mL/min/1.73 m2 11/19/2022 02:01 EDT Glucose POC 125 mg/dL 11/19/2022 01:48 EDT Patient/Agriculture Sales Account Manager Signature Patient Name:APRYL MARIE I have received this information and my questions have been answered. 

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
--- OUTSIDE RECORDS SUMMARY | 2023-01-07 12:53 | XMS_ITS | Continuity of Care Document ---
Author Name [facility] Address [address] [place] [address] Organization [facility] Address [address] [place] [address] Support Name Relationship Address Phone AILEEN ZHAO Emergency Provider [address] [place] [phone] Unavailable IRAIDA CHOPRA Primary Care Provider [address] [id number] Allergies, Adverse Reactions, Alerts No known allergies. Medications Active Medications Medication Dose Units Route Sig Qty Start Date St atus Loratadine 10 MG PO DAILY May 31, 2018 Active Problem List Active Problems Medical Problem Onset Date Status Sore throat Active Procedures Procedure Date Status Group A Strep Throat Culture May 31, 2018 a ctive Relevant Diagnostic Tests and/or Laboratory Data No known relevant diagnostic tests, laboratory data, and/or discharge summary. Advance Directives Advance Directive Response Recorded Date/ Time Do you have a Health Care Proxy Declined May 31, 2018 4:46pm Chief Complaint and Reason for Visit Encounter Admit Date Chief Complaint Reason for V isit Departed Emergency May 31, 2018 3:56pm [facility] Discharge Instructions Query Response Comment Date/Time Discharge Instructions Requested Yes 05/31/2018 17:39 Additional Discharge Instructions It is likely that her symptoms are secondary to nasal congestion and rhinorrhea Take your Flonase 2 puffs daily as prescribed Follow-up with primary care physician in one to 2 days for repeat evaluation and management Take allergy medication as prescribed Return with any significantly new or worsening symptoms Instruction/Education Provided Sorángel Thro ats Self Care ED Allergy Nasal Hospital Discharge Medications Medication Dose Units Route Sig Qty Days Order Date Status Ins tructions Loratadine 10 MG PO DAILY May 31, 2018 Act venessa Encounters Encounter Facility Location Admit/Visit Date Discharge/Departure Date Attending Provider Departed Emergency [facility] Emergency Department May 31, 2018 3:56pm May 31, 2018 5:39pm Functional Status No known functional status. Immunizations No known immunizations. Payers Payer Name Policy Type Covered Constitution Party Covered Constitution Party Id Relationship Subscriber Subscriber Id MEDICAID Medicaid APRYL MARIE [id number] Self / Same As Patient APRYL MARIE [id number] SELF PAY Personal Payment ([place] - No Insurance) [facility] Plan Direct Other APRYL MARIE [id number] Self / Same As Patient APRYL MARIE [id number] [facility] Public Plan Together Other APRYL MARIE [id number] Self / Same As Patient APRYL MARIE [id number] Plan of Care Instructions Sore Throats Self Care ED Allergy Nasal Social History Query Response Start Date Stop Date Smoking Status Never smoker Vital Signs Vital Reading Result Reference Range Collection Date/Time Height 6 ft May 31 3:59pm Weight 167.829 kg May 31 3:59pm Temperature 98.2 F 96.5 F-101.5 F May 31, 2018 3:59pm Pulse 78 BPM 50-110 May 31 3:59pm Respiration 18 RPM -May 31 3:59pm Pulse Oximetry 95 % 95-100 May 31, 2018 3:59pm Blood Pressure Systolic 121 100-180 Dece 2017 3:59pm Blood Pressure Diastolic 78 70-85 Dec emb2017 3:59pm Body Mass Index 50.1 May 31, 2018 3:59pm
--- OUTSIDE RECORDS SUMMARY | 2023-01-07 12:53 | XMS_ITS | Continuity of Care Document ---
Author Name [facility] Address [address] [place] [address] Organization [facility] Address [address] [place] [address] Support Name Relationship Address Phone IRAIDA CHOPRA Primary Care Provider [address] [id number] Stanley Bui Emergency Provider [facility] [address] [place] [address] Julius Colorado Admit Provider [address] [place] [address] Julius Colorado Other Provider [address] [place] [address] Reji Henderson Attending Provider [address] [place] [address] Brooklynn Cannon Other Provider [address] [place] [address] Allergies, Adverse Reactions, Alerts Allergen Type Severity Reaction Last Updated Verified Status betamethasone Allergy ITCHING November 23, 2018 Y Acti ve levetiracetam Adverse Reaction ANXIETY November 23, 2018 Y Active pseudoephedrine Adverse Reaction ANXIETY November 23, 2018 Y Active Medications Active Medications Medication Dose Units Route Sig Qty Start Date St atus Loratadine 10 MG PO DAILY May 31, 2018 Active Atorvastatin Calcium [Lipitor] 80 MG PO AT BEDTIME November 22, 2018 Activ e Aspirin Ec [Asa Ec] 81 MG PO DAILY November 22, 2018 Active Doxazosin Mesylate [Cardura] 8 MG PO AT BEDTIME November 22, 2018 Activ e Fluticasone Propionate 2 SPRAY EACH NOSE DAILY PRN For Allergy Symptoms November 22, 2018 Active Ibuprofen [Motrin] 800 MG PO 3 TIME S A DAY PRN For Mild Pain 1-3 November 22, 2018 Active Metoprolol Succinate (Er) [Toprol Xl] 25 MG PO DAILY November 22, 2018 Active Metformin Hcl 500 MG PO Twice A Day November 052018 Active Multivitamin [Daily Multiple Vitamin] 1 TAB PO DAILY November 22 9 Active Phenytoin Sodium Extended [Phenytek] 200 MG PO Twice A Day November 22, 2018 Active Phenytoin Sodium Extended [Phenytek] 400 MG PO .BID THURSDAY November 22, 2018 Active Vancomycin Hcl [Vancocin Hcl] 250 MG PO Q8H 18 November 26, 2018 A ctive Discontinued Medications Medication Dose Units Route Sig Qty Start Date Discontinued Date Status Doxycycline Hyclate [Vibra-Tabs] 100 MG PO Twice A Day November 22, 2018 November 22, 2018 Discontinued Problem List Active Problems Medical Problem Onset Date Status Left leg cellulitis Active Diabetes mellitus Active Morbid obesity Active Hyperlipidemia Active Seizure disorder Active HTN (hypertension) Active Sore throat Active Procedures Procedure Date Status Group A Strep Throat Culture May 31, 2018 c ompleted Relevant Diagnostic Tests and/or Laboratory Data Laboratory Results Test Date/Time Result Interp. Ref. Range Result Co mment White Blood Count November 26, 2018 6:00am 5.8 x10^3/uL 3.8-11.3 Red Blood Count November 26, 2018 6:00am 4.82 x10^6/uL 4.7-6.1 Hemoglobin November 26, 2018 6:00am 14.4 g/dL 13.0-17.0 Hematocrit November 26, 2018 6:00am 42.8 % 38.0-49.0 Mean Corpuscular Volume November 26, 2018 6:00am 88.8 fL 80-100 Mean Corpuscular Hemoglobin November 26, 2018 6:00am 29.9 pg 26.7-33.0 Mean Corpuscular Hemoglobin Concent November 26, 2018 6:00am 33.6 g/dL 31.6-35.6 RDW Coefficient of Variation November 26, 2018 6:00am 13.1 % 11.5-14.5 Platelet Count November 26, 2018 6:00am 228 x10^3/uL 150-450 Mean Platelet Volume November 26, 2018 6:00am 9.6 fL 7.4-13.5 Neutrophils (%) (Auto) November 22, 2018 9:52pm 66.4 % 38.0-84.0 Lymphocytes (%) (Auto) November 22, 2018 9:52pm 20.8 % 20.0-40.0 Monocytes (%) (Auto) November 22, 2018 9:52pm 11.0 % 3.0-13.0 Eosinophils (%) (Auto) November 22, 2018 9:52pm 1.6 % 0.0-6.0 Basophils (%) (Auto) November 22, 2018 9:52pm 0.2 % 0-2.0 Sodium Level November 26, 2018 6:00am 141 MMOL/L 136-145 Plasma Sodium November 22, 2018 9:52pm 139 MMOL/L 136-145 Potassium Level November 26, 2018 6:00am 4.1 MMOL/L 3.5-5.1 Plasma Potassium November 22, 2018 9:52pm 3.5 MMOL/L 3.5-5.1 Chloride Level November 26, 2018 6:00am 103 MMOL/L 98-107 Plasma Chloride November 22, 2018 9:52pm 105 MMOL/L 98-107 Carbon Dioxide Level November 26, 2018 6:00am 30 MMOL/L 21-32 Plasma Carbon Dioxide November 22, 2018 9:52pm 31 MMOL/L 21-32 Anion Gap November 26, 2018 6:00am 8 4-14 Calcium Level November 26, 2018 6:00am 9.0 MG/DL 8.3-10.1 Plasma Calcium November 22, 2018 9:52pm 8.5 MG/DL 8.3-10.1 Glucose Level November 26, 2018 6:00am 114 MG/DL High 74-106 Sulfasalazine ma y interfere with this assay, specimens should be drawn prior to dose. Plasma Glucose Level November 22, 2018 9:52pm 131 MG/DL High 74-106 Sulfasalazine ma y interfere with this assay, specimens should be drawn prior to dose. Blood Urea Nitrogen November 26, 2018 6:00am 13 MG/DL 7-18 Plasma Blood Urea Nitrogen November 22, 2018 9:52pm 13 7-18 Creatinine November 26, 2018 6:00am 0.7 MG/DL 0.6-1.3 Plasma Creatinine November 22, 2018 9:52pm 0.9 MG/DL 0.6-1.3 Estimated GFR (Non- November 26, 2018 6:00am 119.4 60- Estimated GFR un its = mL/min/1.73 m??? IDMS traceable MDRD study equation in use effective 08/24/17 Estimated GFR () November 26, 2018 6:00am 144.7 60- Estimated GFR un its = mL/min/1.73 m??? IDMS traceable MDRD study equation in use effective 08/24/17 Phosphorus Level November 26, 2018 6:00am 3.3 MG/DL 2.5-4.9 Fasting Glucose November 23, 2018 6:48am 118 MG/DL High 74-99 FOR FASTING PATIENTS: REFERENCE RANGE <100 IMPAIRED FASTING GLUCOSE/PRE-DIABETE S 100-125 DIABETES >125 Sulfasalazine may interfere with this assay, specimens should be drawn prior to dose. POC Capillary Blood Glucose (Chem) November 26, 2018 7:33am 99 MG/DL 74-106 Magnesium Level November 26, 2018 6:00am 2.1 MG/DL 1.8-2.4 Vancomycin Level Trough November 26, 2018 6:00am 16.4 ug/mL 15-20 Procalcitonin November 26, 2018 6:00am 0.48 ng/ml High 0-0.05 Result Interpretations: PCT =<0.5ng/mL: Systemic infection not likely PCT >0.5 and =<2.0 ng/mL: Moderate risk for progression to systemic infection PCT >2.0 ng/mL: High risk for progression to systemic infection PCT >=10 ng/mL High likelihood of severe sepsis or septic shock. Microbiology Results Procedure Source Result Collection Date/Time Resu lt Date/Time Group A Strep Throat Culture Throat No Group A Beta Strep Isolated May 31, 2018 4:10pm Advance Directives Advance Directive Response Recorded Date/ Time Do you have a Health Care Proxy Declined November 23, 2018 1:06am MOLST Form Reviewed/Completed With Patient No November 23, 2018 1:06am Chief Complaint and Reason for Visit Encounter Admit Date Chief Complaint Reason for V isit Discharged Inpatient November 22, 2018 11:49pm CELLULITIS Left leg cellulitis Diabetes mellitus HTN (hypertension) Hyperlipidemia Morbid obesity Seizure disorder Hospital Discharge Instructions Query Response Comment Date/Time Discharge Instructions Requested Yes 11/23/2018 00:51 Hospital Discharge Medications Medication Dose Units Route Sig Qty Days Order Date Status Instructions Loratadine 10 MG PO DAILY 20 Decem 2017 Active Atorvastatin Calcium 80 MG PO AT BEDTIME November 22, 2018 Active Aspirin Ec 81 MG PO DAILY November 22, 2018 Active Doxazosin Mesylate 8 MG PO AT BEDTIME November 22, 2018 Active Doxycycline Hyclate 100 MG PO Twice A Day November 22, 2018 Discontinued Fluticasone Propionate 2 SPRAY EACH NOSE DAILY PRN For Allergy Symptoms November 22, 2018 Active Ibuprofen 800 MG PO 3 TIMES A DAY PRN For Mild Pain 1-3 November 22, 2018 Active Metoprolol Succinate (Er) 25 MG PO DAILY November 22, 2018 Active Metformin Hcl 500 MG PO Twice A Day November 22, 2018 Active Multivitamin 1 TAB PO DAILY Nov Active Phenytoin Sodium Extended 200 MG PO Twice A Day November 22, 2018 Active Phenytoin Sodium Extended 400 MG PO .BID THURSDAY November 22, 2018 Active Vancomycin Hcl 250 MG PO Q8H 18 J 2018 Active Encounters Encounter Facility Location Admit/Visit Date Discharge/Departure Date Attending Provider Discharged Inpatient [facility] A5 Unit November 22, 2018 11:49pm November 26, 2018 10:37am Reji Henderson Departed Emergency [facility] Emergency Department May 31, 2018 3:56pm May 31, 2018 5:39pm Encounter Diagnosis Onset Date Left leg cellulitis Diabetes mellitus HTN (hypertension) Hyperlipidemia Morbid obesity Seizure disorder Functional Status Query Response Date Recorded Comment Comprehension Ability Understands Concepts November 26 9:19am Query Response Date Recorded Comment Physical Dependency Level Independent November 26, 2018 9 :19am Immunizations No known immunizations. Payers Payer Name Policy Type Covered Republican Covered Republican Id Relationship Subscriber Subscriber Id MEDICAID Medicaid APRYL MARIE [id number] Self / Same As Patient APRYL MAYSLER [id number] SELF PAY Personal Payment ([place] - No Insurance) [facility] Plan Direct Other APRYL CYNTHIA [id number] Self / Same As Patient APRYL MAYSLER [id number] [facility] Plan Together Other APRYL MAYSLER [id number] Self / Same As Patient APRYL MAYSLER [id number] Plan of Care Instructions Vancomycin capsules Cellulitis Dc Social History Query Response Start Date Stop Date Smoking Status Never smoker Vital Signs Vital Reading Result Reference Range Collection Date/Time Height 6 ft November 23, 2018 1 :06am Weight 170.097 kg November 23, 2018 1 :06am Temperature 98.0 F 96.5 F-101.5 F November 26, 2018 7:30am Pulse 66 BPM 50-110 November 26, 2018 7 :30am Respiration 16 RPM 12-20 November 26, 2018 7 :30am Pulse Oximetry 95 % 95-100 November 26, 2018 9:19am Blood Pressure Systolic 125 100-180 November 26, 2018 7:30am Blood Pressure Diastolic 63 70-85 Nov 7:30am Body Mass Index 50.8 November 23 9 1:06am
--- OUTSIDE RECORDS SUMMARY | 2023-01-07 12:53 | XMS_ITS | Continuity of Care Document ---
Author Name [facility] Address [address] [place] [address] Organization [facility] Address [address] [place] [address] Support Name Relationship Address Phone IRAIDA CHOPRA Primary Care Provider [address] [address] Cathi Greene Emergency Provider [address] [place] [address] Sesar Garcia Other Provider [facility] [address] [place] [address] Jose Gonzales Other Provider [address] [place] [address] Addison Stinson Other Provider [facility] [address] [place] [address] Dylan Mtz Other Provider [facility] [address] [place] [address] Maame De León Other Provider [address] [place] [address] Sharifa Webb Other Provider [facility] [address] [place] [address] Meaghan Renee Other Provider [address] [place] [address] YUNIER CHARLES Other Provider [facility] [address] [place] [address] Saira Hare Other Provider [address] [address] Oscar Melara Other Provider [address] [place] [address] Femi Daniels Other Provider [address] [place] [address] Alonzo Lovett Other Provider [facility] [address] [place] [address] Garcia Torres Other Provider [facility] [address] [place] [address] Sesar Rothman Admit Provider [facility] [address] [place] [address] Sesar Rothman Attending Provider [facility] [address] [address] Allergies, Adverse Reactions, Alerts Allergen Type Severity Reaction Last Updated Verified Status betamethasone Allergy ITCHING November 23, 2018 Y Acti ve levetiracetam Adverse Reaction ANXIETY November 23, 2018 Y Active pseudoephedrine Adverse Reaction ANXIETY November 23, 2018 Y Active Medications Active Medications Medication Dose Units Route Sig Qty Days Start Date Status Instructions Ibuprofen [Motrin] 800 MG ORAL 3 Times A Day PRN For Pain, Moderate (Scale Score 4-6) July 28, 2020 Active Nitroglycerin [Nitrostat] 0.4 MG SUBLINGUAL Q5M PRN For Chest Pain July 28, 2020 Active Azelastine [Astelin] 2 SPRAY NASAL Twice A Day PRN For Allergy Symptoms July 28, 2020 Active Fluticasone Propionate [Flonase Allergy Relief] 2 SPRAY IN EACH NOSTRIL Daily PRN For Allergy Symptoms July 28, 2020 Active Sodium Chloride [[place] Nasal] 2 SPRAY IN EACH NOSTRIL 5 Times Daily PRN For Dry Nasal Passages July 28, 2020 Active Melatonin 1 - 2 TAB ORAL At Bedtime July 28, 2020 Active Multivitamin [One-A-Day Essential] 1 TAB [...] Low Strength] 81 MG ORAL Daily November 22, 2018 Active Doxazosin [Cardura] 8 MG ORAL At Bedtime November 22, 2018 Active Metoprolol Succinate [Toprol Xl] 25 MG ORAL Daily November 22, 2018 Active Discontinued Medications Medication Dose Units Route [...] oprim 1 TAB ORAL Twice A Day November 26, 2018 March 05, 2019 Disconti nued Problem List Active Problems Medical Problem Onset Date Status Left leg cellulitis Active Sleep apnea Active Shortness of breath Active Diabetes mellitus Active Morbid obesity Active Hyperlipidemia Active Seizure disorder Active Chest pain Active HTN (hypertension) Active Pharyngitis Active Sore throat Active Left otitis externa Active Procedures No known history of procedures. Relevant Diagnostic Tests and/or Laboratory Data Laboratory Results Test Date/Time Result Interp. Ref. Range Result Co mment White Blood Count July 28, 2020 11:41am 6.5 x10^3/uL 3.8-11.3 Red Blood Count July 28, 2020 11:41am 4.60 x10^6/uL Low 4.7-6.1 Hemoglobin July 28, 2020 11:41am 14.1 g/dL 13.0-17.0 Hematocrit July 28, 2020 11:41am 40.9 % 38.0-49.0 Mean Corpuscular Volume July 28, 2020 11:41am 88.9 fL 80-100 Mean Corpuscular Hemoglobin July 28, 2020 11:41am 30.7 pg 26.7-33.0 Mean Corpuscular Hemoglobin Concent July 28, 2020 11:41am 34.5 g/dL 31.6-35.6 RDW Coefficient of Variation July 28, 2020 11:41am 13.3 % 11.5-14.5 Platelet Count July 28, 2020 11:41am 216 x10^3/uL 150-450 Mean Platelet Volume July 28, 2020 11:41am 9.8 fL 7.4-13.5 Neutrophils (%) (Auto) July 28, 2020 11:41am 50.2 % 38.0-84.0 Lymphocytes (%) (Auto) July 28, 2020 11:41am 34.4 % 20.0-40.0 Monocytes (%) (Auto) July 28, 2020 11:41am 12.3 % 3.0-13.0 Eosinophils (%) (Auto) July 28, 2020 11:41am 2.5 % 0.0-6.0 Basophils (%) (Auto) July 28, 2020 11:41am 0.6 % 0-2.0 Prothrombin Time July 28, 2020 11:41am 11.7 Sec 9.4-12.5 Prothromb Time International Ratio July 28, 2020 11:41am 1.0 0.8-1.1 INTERPRETIVE NOT E: No anticoagulant: 0.8 to 1.1 Standard dose anticoagulant: 2.0 to 3.0 High dose anticoagulant: 2.5 to 3.5 Critical INR: > 5.0 Plasma Sodium July 28, 2020 11:41am 141 MMOL/L 136-145 Plasma Potassium July 28, 2020 11:41am 3.6 MMOL/L 3.5-5.1 Plasma Chloride July 28, 2020 11:41am 105 MMOL/L 98-107 Plasma Carbon Dioxide July 28, 2020 11:41am 31 MMOL/L 21-32 Anion Gap July 28, 2020 11:41am 5 4-14 Plasma Calcium July 28, 2020 11:41am 9.2 MG/DL 8.7-10.4 Plasma Glucose Level July 28, 2020 11:41am 90 MG/DL 74-106 Plasma Blood Urea Nitrogen July 28, 2020 11:41am 10 9-23 Note: New refere nce range and method effective 01/17/2019. Plasma Creatinine July 28, 2020 11:41am 0.6 MG/DL 0.6-1.1 Note: New refere nce range and method effective 01/17/2019. Estimated GFR (Non- July 28, 2020 11:41am 141.5 60- Estimated GFR un its = mL/min/1.73 m??? IDMS traceable MDRD study equation Estimated GFR () July 28, 2020 11:41am 171.5 60- Estimated GFR un its = mL/min/1.73 m??? IDMS traceable MDRD study equation POC Capillary Blood Glucose (Chem) July 28, 2020 1:32pm 78 MG/DL 74-106 RN protocl to follow Troponin I July 28, 2020 2:31pm < 0.02 ng/mL 0.00-0.45 <0.02 ng/ml Negative [...] 11:41am 12.6 ug/mL 10.0-20.0 Coronavirus 2019 ([place]) July 28, 2020 11:41am Negative A Negative Resul t means that [...] Amplification ([place]) Rapid Molecular test. Performed on [employer] This test has been authorized by the FDA under an Emergency Use Authorization (EAU) for use by authorized laboratories. Chief Complaint and Reason for Visit Encounter Admit Date Chief Complaint Reason for V isit Admitted Inpatient July 28, 2020 1:55pm CHEST PAIN Chest pain Diabetes mellitus HTN (hypertension) Hyperlipidemia Morbid obesity Seizure disorder Hospital Discharge Instructions No known hospital discharge instructions. Hospital Discharge Medications Medication Dose Units Route Sig Qty Days Order Date Status Instructions Ofloxacin 10 DROP IN LEFT EAR Daily June 19, 2019 Discontinue d Ibuprofen 800 MG ORAL 3 Times A [...] ORAL At Bedtime July 28, 2020 Active Loratadine 10 MG ORAL Daily 20 2017 Discontinue d Multivitamin 1 TAB ORAL Daily 0 Nov Active Metformin 500 MG ORAL Twice A Day November 22, 2018 Active Atorvastatin 80 MG ORAL At Bedtime November 22, 2018 Active Ibuprofen 800 MG ORAL 3 Times A Day PRN For Mild Pain 1-3 November 22, 2018 Discontinue d Phenytoin Sodium Extended 400 MG ORAL NIEVES@,November 22, 2018 Discontinue d WEDNESDAY only, 200mg BID all other days [...] PRN For Allergy Symptoms November 22, 2018 Discontinue d Doxycycline Hyclate 100 MG ORAL Twice A Day November 22, 2018 Discontinue d Sulfamethoxazo le-Trimethopri m 1 TAB ORAL Twice A Day 12 November 26, 2018 Discontinue d Encounters Encounter Facility Location Admit/Visit Date Discharge/Departure Date Attending Provider Registered Inpatient [facility] Hospitalist July 28, 2020 2:09pm Sesar Rothman Admitted Inpatient [place] [address] Unit July 28, 2020 1:55pm Sesar Rothman Encounter Diagnosis Onset Date Chest pain Diabetes mellitus HTN (hypertension) Hyperlipidemia Morbid obesity Seizure disorder Functional Status Query Response Date Recorded Comment Comprehension Ability Understands Concepts July 11:11am Immunizations No known immunizations. Plan of Care No Known Plan of Care Information Social History Query Response Date Recorded Comment Smoking Status Never smoker July 28, 2020 3:38pm Query Response Start Date Stop Date Smoking Status Never smoker Vital Signs Vital Reading Result Reference Range Collection Date/Time Height 6 ft July 28 11:00am Weight 175.54 kg July 28 11:00am Temperature 97.8 F 96.5 F-101.5 F July 28, 2020 3:43pm Pulse 68 BPM 50-110 July 28 3:43pm Respiration 18 RPM -July 28 3:43pm Pulse Oximetry 98 % 95-100 July 28, 2020 3:43pm Blood Pressure Systolic 135 100-180 Febr uary 2020 3:43pm Blood Pressure Diastolic 77 70-85 Feb rudelta 2020 3:43pm
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
--- OUTSIDE RECORDS SUMMARY | 2023-01-07 12:53 | XMS_ITS | Continuity of Care Document ---
Author Name [facility] Address [address] [place] [address] Organization [facility] Address [address] [place] [address] Support Name Relationship Address Phone IRAIDA CHOPRA Primary Care Provider [address] [address] Stanley Bui Emergency Provider [facility] [address] [address] Julius Colorado Admit Provider [address] [place] [id number] Julius [place] Attending Provider [address] [place] [id number] Allergies, Adverse Reactions, Alerts No known allergies. [...] PO .BID THURSDAY November 22, 2018 Active Discontinued Medications Medication Dose Units Route Sig Qty Start Date Discontinued Date Status Doxycycline Hyclate [Vibra-Tabs] 100 MG PO Twice A Day November 22, 2018 November 22, 2018 Discontinued Problem List Active Problems Medical Problem Onset Date Status Left leg cellulitis Active Diabetes mellitus Active Morbid obesity Active Hyperlipidemia Active Sore throat Active Procedures Procedure Date Status Group A Strep Throat Culture May 31, 2018 c ompleted Relevant Diagnostic Tests and/or Laboratory Data Laboratory Results Test Date/Time Result Interp. Ref. Range Result Co mment White Blood Count November 22, 2018 9:52pm 8.1 x10^3/uL 3.8-11.3 Red Blood Count November 22, 2018 9:52pm 4.44 x10^6/uL Low 4.7-6.1 Hemoglobin November 22, 2018 9:52pm 13.5 g/dL 13.0-17.0 Hematocrit November 22, 2018 9:52pm 40.0 % 38.0-49.0 Mean Corpuscular Volume November 22, 2018 9:52pm 90.1 fL 80-100 Mean Corpuscular Hemoglobin November 22, 2018 9:52pm 30.4 pg 26.7-33.0 Mean Corpuscular Hemoglobin Concent November 22, 2018 9:52pm 33.8 g/dL 31.6-35.6 RDW Coefficient of Variation November 22, 2018 9:52pm 13.5 % 11.5-14.5 Platelet Count November 22, 2018 9:52pm 178 x10^3/uL 150-450 Mean Platelet Volume November 22, 2018 9:52pm 10.2 fL 7.4-13.5 Neutrophils (%) (Auto) November 22, 2018 9:52pm 66.4 % 38.0-84.0 Lymphocytes (%) (Auto) November 22, 2018 9:52pm 20.8 % 20.0-40.0 Monocytes (%) (Auto) November 22, 2018 9:52pm 11.0 % 3.0-13.0 Eosinophils (%) (Auto) November 22, 2018 9:52pm 1.6 % 0.0-6.0 Basophils (%) (Auto) November 22, 2018 9:52pm 0.2 % 0-2.0 Plasma Sodium November 22, 2018 9:52pm 139 MMOL/L 136-145 Plasma Potassium November 22, 2018 9:52pm 3.5 MMOL/L 3.5-5.1 Plasma Chloride November 22, 2018 9:52pm 105 MMOL/L 98-107 Plasma Carbon Dioxide November 22, 2018 9:52pm 31 MMOL/L 21-32 Anion Gap November 22, 2018 9:52pm 3 Low 4-14 Plasma Calcium November 22, 2018 9:52pm 8.5 MG/DL 8.3-10.1 Plasma Glucose Level November 22, 2018 9:52pm 131 MG/DL High 74-106 Sulfasalazine ma y interfere with this assay, specimens should be drawn prior to dose. Plasma Blood Urea Nitrogen November 22, 2018 9:52pm 13 7-18 Plasma Creatinine November 22, 2018 9:52pm 0.9 MG/DL 0.6-1.3 Estimated GFR (Non- November 22, 2018 9:52pm 89.3 60- Estimated GFR un its = mL/min/1.73 m??? IDMS traceable MDRD study equation in use effective 08/24/17 Estimated GFR () November 22, 2018 9:52pm 108.3 60- Estimated GFR un its = mL/min/1.73 m??? IDMS traceable MDRD study equation in use effective 08/24/17 Procalcitonin November 22, 2018 9:52pm 2.02 ng/ml High 0-0.05 CRITICAL VALUE(S ) REPORTED AND READ BACK 11/22/18 7761 Result Interpretations: PCT =<0.5ng/mL: Systemic infection not [...] Care Proxy Declined May 31, 2018 4:46pm MOLST Form Reviewed/Completed With Patient No November 23, 2018 12:03am Chief Complaint and Reason for Visit Encounter Admit Date Chief Complaint Reason for V isit Admitted Inpatient November 22, 2018 11:49pm CELLULITIS Diabetes mellitus Hyperlipidemia Left leg cellulitis Morbid obesity Hospital Discharge Instructions Query Response Comment Date/Time [...] PO .BID THURSDAY November 22, 2018 Active Encounters Encounter Facility Location Admit/Visit Date Discharge/Departure Date Attending Provider Admitted Inpatient [facility] November 22, 2018 11:49pm Julius Colorado Departed Emergency [facility] Emergency Department May 31, 2018 3:56pm May 31, 2018 5:39pm Encounter Diagnosis Onset Date Diabetes mellitus Hyperlipidemia Left leg cellulitis Morbid obesity Functional Status No known functional status. Immunizations No known immunizations. Payers Payer Name Policy Type Covered Constitution Party Covered Constitution Party Id Relationship Subscriber Subscriber Id MEDICAID Medicaid APRYL MARIE [id number] Self / Same As Patient APRYL MARIE [id number] SELF PAY Personal Payment ([place] - No Insurance) [facility] Public Plan Direct Other APRYL MAYSLER [id number] Self / Same As Patient APRYL MARIE [id number] [facility] Public Plan Together Other APRYL MARIE [id number] Self / Same As Patient APRYL MARIE [id number] Plan of Care No Known Plan of Care Information Social History Query Response Start Date Stop Date Smoking Status Never smoker Vital Signs Vital Reading Result Reference Range Collection Date/Time Height 6 ft November 22, 2018 8 :14pm Weight 170.097 kg November 22, 2018 8 :14pm Temperature 99.5 F 96.5 F-101.5 F November 23, 2018 12:40am Pulse 86 BPM 50-110 November 23, 2018 1 2:40am Respiration 16 RPM -November 23, 2018 1 2:40am Pulse Oximetry 98 % 95-100 November 23, 2018 12:40am Blood Pressure Systolic 127 100-180 November 23, 2018 12:40am Blood Pressure Diastolic 81 70-85 Nov 12:40am Body Mass Index 50.8 November 22 9 8:14pm
--- OUTSIDE RECORDS SUMMARY | 2023-01-07 12:53 | XMS_ITS | Continuity of Care Document ---
Author Name [facility] Address [address] [place] [id number] Organization [facility] Address [address] [place] [id number] Support Name Relationship Address Phone IRAIDA CHOPRA Primary Care Provider [address] [id number] Cathi Greene Emergency Provider [address] [place] [id number] [phone] Allergies, Adverse Reactions, Alerts Allergen Type Severity Reaction Last Updated Verified Status betamethasone Allergy ITCHING November 23, 2018 Y Acti ve levetiracetam Adverse Reaction ANXIETY November 23, 2018 Y Active pseudoephedrine Adverse Reaction ANXIETY November 23, 2018 Y Active Medications Active Medications Medication Dose Units Route Sig Qty Days Start Date Status Ins tructions Ofloxacin 10 DROP IN LEFT EAR DAILY June 19, 2019 Active Loratadine 10 MG ORAL DAILY 20 Dece2017 Active Metformin 500 MG ORAL Twice A Day November 22, 2018 Active Atorvastatin 80 MG ORAL AT BEDTIME November 22, 2018 Active Phenytoin Sodium Extended [Phenytek] 200 MG ORAL Twice A Day November 22, 2018 Active CASIE ONLY = 400mg BID Phenytoin Sodium Extended [Phenytek] 400 MG ORAL .BID THURSDAY November 22, 2018 Active CASIE only, 200mg BID all other days of the week Aspirin 81 MG ORAL DAILY November 22, 2018 Active Doxazosin [Cardura] 8 MG ORAL AT BEDTIME November 22, 2018 Active Metoprolol Succinate 25 MG ORAL DAILY November 22, 2018 Active Fluticasone Propionate 2 SPRAY IN EACH NOSTRIL DAILY PRN For Allergy Symptoms November 22, 2018 Active Multivitamin [Daily Multiple Vitamin] 1 TAB ORAL DAILY November 22, 2018 Active Discontinued Medications Medication Dose Units Route Sig Qty Days Start Date Discontinued Date Status Instructions Ibuprofen 800 MG ORAL 3 TIMES A DAY PRN For Mild Pain 1-3 November 22, 2018 March 05, 2019 Discontin ued Doxycycline Hyclate 100 MG ORAL Twice A Day November 22, 2018 November 22, 2018 Discontin ued Sulfamethoxa zole-Trimeth oprim 1 TAB ORAL Twice A Day 12 November 26, 2018 March 05, 2019 Discontin ued Problem List Active Problems Medical Problem Onset Date Status Left leg cellulitis Active Shortness of breath Active Diabetes mellitus Active Morbid obesity Active Hyperlipidemia Active Seizure disorder Active Chest pain Active HTN (hypertension) Active Pharyngitis Active Sore throat Active Left otitis externa Active Procedures Procedure Date Status Group A Strep Throat Culture act venessa Relevant Diagnostic Tests and/or Laboratory Data Laboratory Results Test Date/Time Result Interp. Ref. Range Result Co mment White Blood Count 5.0 x10^3/uL 3.8-11.3 Red Blood Count 4.66 x10^6/uL Low 4.7-6.1 Hemoglobin 14.0 g/dL 13.0-17.0 Hematocrit 40.8 % 38.0-49.0 Mean Corpuscular Volume 87.6 fL 80-100 Mean Corpuscular Hemoglobin 30.0 pg 26.7-33.0 Mean Corpuscular Hemoglobin Concent 34.3 g/dL 31.6-35.6 RDW Coefficient of Variation 13.4 % 11.5-14.5 Platelet Count 179 x10^3/uL 150-450 Mean Platelet Volume 11.0 fL 7.4-13.5 Neutrophils (%) (Auto) 51.3 % 38.0-84.0 Lymphocytes (%) (Auto) 34.3 % 20.0-40.0 Monocytes (%) (Auto) 10.6 % 3.0-13.0 Eosinophils (%) (Auto) 3.0 % 0.0-6.0 Basophils (%) (Auto) 0.8 % 0-2.0 Prothrombin Time 11.2 Sec 9.4-12.5 Prothromb Time International Ratio 1.0 0.8-1.1 INTERPRE TIVE NOTE: No anticoagulant: 0.8 to 1.1 Standard dose anticoagulant: 2.0 to 3.0 High dose anticoagulant: 2.5 to 3.5 Critical INR: > 5.0 D-Dimer, Quantitative < 150 ng/mLDDU 0-229 In conjunctio n with the clinical pretest probability assessment model, to exclude DVT and PE, the clinical cutoff value for D-Dimer is 230ng/mL DDU. Urine Color Yellow Urine Appearance Clear Urine Specific [place] 1.020 1.001-1.035 Urine Leukocyte Esterase Negative Urine pH 6.0 pH 4.0-8.0 Urine Protein Negative mg/dL Urine Glucose Negative mg/dL Urine Ketones Negative mg/dL Urine Bilirubin Negative Urine Nitrite Negative Urine Occult Blood Negative Urine WBC Negative Urine RBC 0-2 /hpf Urine Squamous Epithelial Cells Rare Urine Bacteria Negative Sodium Level 141 MMOL/L 136-145 Plasma Sodium 141 MMOL/L 136-145 Potassium Level TNP Test not performed Specimen is Hemolyzed Checked for another tube Plasma Potassium 3.7 MMOL/L 3.5-5.1 Chloride Level 105 MMOL/L 98-107 Plasma Chloride 105 MMOL/L 98-107 Carbon Dioxide Level 27 mmol/L 20-31 Note: New reference range and method effective 01/17/2019. Plasma Carbon Dioxide 28 MMOL/L 21-32 Anion Gap 9 4-14 Calcium Level 9.3 mg/dL 8.7-10.4 Note: New method effective 02/15/2019. Plasma Calcium 9.1 MG/DL 8.7-10.4 Note: New method effective 02/15/2019. Glucose Level 107 MG/DL High 74-106 Plasma Glucose Level 133 MG/DL High 74-106 Blood Urea Nitrogen 17 mg/gL 9-23 Note: New reference range and method effective 01/17/2019. Plasma Blood Urea Nitrogen 10 9-23 Note: New refer ence range and method effective 01/17/2019. Creatinine 0.7 mg/dL 0.6-1.1 Note: New reference range and method effective 01/17/2019. Plasma Creatinine 0.6 MG/DL 0.6-1.1 No te: New reference range and method effective 01/17/2019. Estimated GFR (Non- 119.4 60- Estimated GFR u nits = mL/min/1.73 m??? IDMS traceable MDRD study equation in use effective 08/24/17 Estimated GFR () 144.7 60- Estimated GFR units = mL/min/1.73 m??? IDMS traceable MDRD study equation in use effective 08/24/17 Phosphorus Level 3.5 MG/DL 2.4-5.1 Not e: New reference range and method effective 01/17/2019. B-Type Natriuretic Peptide 8.0 pg/mL Cholesterol Level 199 MG/DL 0-199 Fasting Glucose 118 MG/DL High 74-99 FOR FASTING PATIENTS: REFERENCE RANGE <100 IMPAIRED FASTING GLUCOSE/PRE-DIABETES 100-125 DIABETES >125 Sulfasalazine may interfere with this assay, specimens should be drawn prior to dose. POC Capillary Blood Glucose (Chem) 87 MG/DL 74-106 HDL Cholesterol 72.5 MG/DL High 40-59 Triglycerides Level 113 MG/DL 0-149 LDL Cholesterol, Calculated 104 MG/DL High 0-99 <100 Optimal 100-129 Near or above optimal 130-159 Borderline high 160-189 High >=190 Very high Magnesium Level 1.9 MG/DL 1.6-2.6 Note : New reference range and method effective 01/17/2019. Troponin I < 0.02 ng/mL 0.00-0.45 Revise d method effective 01/17/19 <0.02 ng/ml Negative 0.02-0.45 ng/ml Patient at increased risk for adverse cardiac event(if ACS is suspected) 0.46-0.59 Patient at high risk for adverse cardiac event(if ACS is suspected) >=0.60 ng/ml Suggestive of myocardial injury NOTE: Medical judgment is necessary for risk stratification based on low concentrations of Troponin I (Between 0.02-0.60 ng/ml) Thyroid Stimulating Hormone (TSH) 0.928 mIU/mL 0.3-4.0 Vancomycin Level Trough 16.4 ug/mL 15-20 Phenytoin (Dilantin) Level 14.1 ug/mL 10.0-20.0 Procalcitonin 0.48 ng/ml High 0-0.05 Resul t Interpretations: PCT =<0.5ng/mL: Systemic infection not likely PCT >0.5 and =<2.0 ng/mL: Moderate risk for progression to systemic infection PCT >2.0 ng/mL: High risk for progression to systemic infection PCT >=10 ng/mL High likelihood of severe sepsis or septic shock. Advance Directives Advance Directive Response Recorded Date/ Time Do you have a Health Care Proxy Declined March 05, 2019 4:19pm MOLST Form Reviewed/Completed With Patient No March 05, 2019 4:19pm Chief Complaint and Reason for Visit Encounter Admit Date Chief Complaint Reason for V isit Departed Emergency June 19, 2019 3:27pm SORE THROAT Hospital Discharge Instructions Query Response Comment Date/Time Discharge Instructions Requested Yes 06/19/2019 16:48 Additional Discharge Instructions You sh ould take medication as prescribed. You should continue to drink plenty of fluids to stay well-hydrated. You should follow-up with your primary care physician in 2 days for reevaluation. You should return to the emergency department if you get worse or for any other concerns. Instruction/Education Provided ED Pharyn gitis Viral ED Otitis Externa Hospital Discharge Medications Medication Dose Units Route Sig Qty Days Order Date Status Instructions Ofloxacin 10 DROP IN LEFT EAR DAILY June 19, 2019 Active Loratadine 10 MG ORAL DAILY 20 Decem 2017 Active Metformin 500 MG ORAL Twice A Day November 22, 2018 Active Atorvastatin 80 MG ORAL AT BEDTIME November 22, 2018 Active Ibuprofen 800 MG ORAL 3 TIMES A DAY PRN For Mild Pain 1-3 November 22, 2018 Discontinued Phenytoin Sodium Extended 200 MG ORAL Twice A Day November 22, 2018 Active WEDNESDAY ONLY = 400mg BID Phenytoin Sodium Extended 400 MG ORAL .BID THURSDAY November 22, 2018 Active WEDNESDAY only, 200mg BID all other days of the week Aspirin 81 MG ORAL DAILY November 22, 2018 Active Doxazosin 8 MG ORAL AT BEDTIME November 22, 2018 Active Metoprolol Succinate 25 MG ORAL DAILY November 22, 2018 Active Fluticasone Propionate 2 SPRAY IN EACH NOSTRIL DAILY PRN For Allergy Symptoms November 22, 2018 Active Doxycycline Hyclate 100 MG ORAL Twice A Day November 22, 2018 Discontinued Multivitamin 1 TAB ORAL DAILY Nov Active Sulfamethoxaz ole-Trimethop rim 1 TAB ORAL Twice A Day November 26, 2018 Discontinued Encounters Encounter Facility Location Admit/Visit Date Discharge/Departure Date Attending Provider Departed Emergency [facility] Emergency Department June 19, 2019 3:27pm June 19, 2019 4:49pm Registered Physician/Pro vider Office Visit [facility] March 07, 2019 12:00am 0, Discharged Inpatient [facility] A2 Unit March 06, 2019 11:11am March 07, 2019 2:47pm Ligia Alva Registered Physician/Pro vider Office Visit [facility] March 06, 2019 12:00am Garcia Torres Discharged Inpatient [facility] A5 Unit November 22, 2018 11:49pm November 26, 2018 10:37am Reji Henderson Functional Status Query Response Date Recorded Comment Comprehension Ability Understands Concepts March 07, 2019 8:00am Query Response Date Recorded Comment Physical Dependency Level Independent March 07, 2019 8:00am Immunizations No known immunizations. Payers Payer Name Policy Type Covered Republican Covered Republican Id Relationship Subscriber Subscriber Id MEDICAID Medicaid ENMANUEL MARIE [id number] Self / Same As Patient ENMANUEL MARIE [id number] SELF PAY Personal Payment (Leong - No Insurance) [facility] Public Plan Direct Other ENMANUEL MARIE [id number] Self / Same As Patient ENMANUEL MARIE [id number] [facility] Public Plan Together Other ENMANUEL MARIE [id number] Self / Same As Patient ENMANUEL MARIE [id number] [facility] ACO Other ENMANUEL MARIE [id number] Self / Same As Patient ENMANUEL MARIE [id number] Plan of Care Instructions ED Pharyngitis Viral ED Otitis Externa Social History Query Response Date Recorded Comment Smoking Status Never smoker June 19, 2019 4:38pm Query Response Start Date Stop Date Smoking Status Never smoker Vital Signs Vital Reading Result Reference Range Collection Date/Time Height 6 ft June 19 0 3:38pm Weight 172.365 kg June 19 0 3:38pm Temperature 98.6 F 96.5 F-101.5 F June 19 020 3:38pm Pulse 78 BPM 50-110 June 19 0 3:38pm Respiration 20 RPM 12-20 June 19 0 3:38pm Pulse Oximetry 97 % 95-100 June 19 2 020 3:38pm Blood Pressure Systolic 149 100-180 Anant [email or web address] 3:38pm Blood Pressure Diastolic 89 70-85 Jagjit uary 2019 3:38pm Body Mass Index 51.5 June 19, 2019 3:38pm
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
--- OUTSIDE RECORDS SUMMARY | 2023-01-07 12:54 | XMS_ITS | Continuity of Care Document ---
Author Name [facility] Address [address] [place] [address] Organization [facility] Address [address] [place] [id number] Support Name Relationship Address Phone DUNIAGRISELDA IRAIDA Prasanth Primary Care Provider Unknown Unavailable Pedro Orona Emergency Provider Unknown Un available Femi Daniels Other Provider Unknown Unavailab Sharifa Nuno Other Provider Unknown Unavail able SHARRON ROCHE Other Provider Unknown Unava ilable Dylan Mtz Other Provider Unknown Unavai BRIGITTE Bentley Other Provider Unknown Unavailable Ceci Arce Other Provider Unknown Unavailable CHARLES, MOHAMED CHRISTY Other Provider Unknown Unava ilable De León, Maame Other Provider Unknown Unavailable Nezdanelle Jose H Other Provider Unknown Unavaila ble NIKPOLUCIO BORZOO Other Provider Unknown Unavailabl e Víctor, Meaghan L Other Provider Unknown Unavailab Garcia Banda Other Provider Unknown Unavaila ble Bony, Alonzo Other Provider Unknown Unavailable Saira Hare Other Provider Unknown Unavailab Jett Doe Admit Provider Unknown Unav ailable Jett Gomez Attending Provider Unknown Unavailable Allergies, Adverse Reactions, Alerts Allergen Type Severity Reaction Last Updated Verified Status betamethasone Allergy ITCHING November 23, 2018 Y Acti ve levetiracetam Adverse Reaction ANXIETY November 23, 2018 Y Active pseudoephedrine Adverse Reaction ANXIETY November 23, 2018 Y Active Medications Active Medications Medication Dose Units Route Sig Qty Start Date Status In structions Loratadine 10 MG ORAL DAILY May 31, 2018 Active Metformin 500 MG ORAL Twice A [...] Sig Qty Start Date Discontinued Date Status Instructions Ibuprofen 800 MG ORAL 3 TIMES A DAY PRN For Mild Pain 1-3 November 22, 2018 March 05, 2019 Discontinued Doxycycline Hyclate 100 MG ORAL Twice A Day November 22, 2018 November 22, 2018 Discontinued Sulfamethoxaz ole-Trimethop rim 1 TAB ORAL Twice A Day 12 November 26, 2018 March 05, 2019 Discontinued Problem List Active Problems Medical Problem Onset Date Status Left leg cellulitis Active Shortness of breath Active Diabetes mellitus Active Morbid obesity Active Hyperlipidemia Active Seizure disorder Active Chest pain Active HTN (hypertension) Active Sore throat Active Procedures Procedure Date Status Group A Strep Throat Culture May 31, 2018 c ompleted Relevant Diagnostic Tests and/or Laboratory Data Laboratory Results Test Date/Time Result Interp. Ref. Range Result Co mment White Blood Count March 05, 2019 11:14am 5.3 x10^3/uL 3.8-11.3 Red Blood Count March 05, 2019 11:14am 4.50 x10^6/uL Low 4.7-6.1 Hemoglobin March 05, 2019 11:14am 13.5 g/dL 13.0-17.0 Hematocrit March 05, 2019 11:14am 39.7 % 38.0-49.0 Mean Corpuscular Volume March 05, 2019 11:14am 88.2 fL 80-100 Mean Corpuscular Hemoglobin March 05, 2019 11:14am 30.0 pg 26.7-33.0 Mean Corpuscular Hemoglobin Concent March 05, 2019 11:14am 34.0 g/dL 31.6-35.6 RDW Coefficient of Variation March 05, 2019 11:14am 13.3 % 11.5-14.5 Platelet Count March 05, 2019 11:14am 209 x10^3/uL 150-450 Mean Platelet Volume March 05, 2019 11:14am 10.2 fL 7.4-13.5 Neutrophils (%) (Auto) March 05, 2019 11:14am 50.6 % 38.0-84.0 Lymphocytes (%) (Auto) March 05, 2019 11:14am 34.7 % 20.0-40.0 Monocytes (%) (Auto) March 05, 2019 11:14am 11.1 % 3.0-13.0 Eosinophils (%) (Auto) March 05, 2019 11:14am 3.0 % 0.0-6.0 Basophils (%) (Auto) March 05, 2019 11:14am 0.6 % 0-2.0 Prothrombin Time March 05, 2019 11:14am 11.2 Sec 9.4-12.5 Prothromb Time International Ratio March 05, 2019 11:14am 1.0 0.8-1.1 INTERPRETIVE NOT E: No anticoagulant: 0.8 to 1.1 Standard dose anticoagulant: 2.0 to 3.0 High dose anticoagulant: 2.5 to 3.5 Critical INR: > 5.0 D-Dimer, Quantitative March 05, 2019 11:14am < 150 ng/mLDDU 0-229 In conjunction w ith the clinical pretest probability assessment model, to exclude DVT and PE, the clinical cutoff value for D-Dimer is 230ng/mL DDU. Urine Color March 05, 2019 11:06am Yellow Urine Appearance March 05, 2019 11:06am Clear Urine Specific [place] March 05, 2019 11:06am 1.020 1.001-1.03 5 Urine Leukocyte Esterase March 05, 2019 11:06am Negative Urine pH March 05, 2019 11:06am 6.0 pH 4.0-8.0 Urine Protein March 05, 2019 11:06am Negative mg/dL Urine Glucose March 05, 2019 11:06am Negative mg/dL Urine Ketones March 05, 2019 11:06am Negative mg/dL Urine Bilirubin March 05, 2019 11:06am Negative Urine Nitrite March 05, 2019 11:06am Negative Urine Occult Blood March 05, 2019 11:06am Negative Urine WBC March 05, 2019 11:06am Negative Urine RBC March 05, 2019 11:06am 0-2 /hpf Urine Squamous Epithelial Cells March 05, 2019 11:06am Rare Urine Bacteria March 05, 2019 11:06am Negative Sodium Level November 26, 2018 6:00am 141 MMOL/L 136-145 Plasma Sodium March 05, 2019 11:14am 141 MMOL/L 136-145 Potassium Level November 26, 2018 6:00am 4.1 MMOL/L 3.5-5.1 Plasma Potassium March 05, 2019 11:14am 3.7 MMOL/L 3.5-5.1 Chloride Level November 26, 2018 6:00am 103 MMOL/L 98-107 Plasma Chloride March 05, 2019 11:14am 105 MMOL/L 98-107 Carbon Dioxide Level November 26, 2018 6:00am 30 MMOL/L 21-32 Plasma Carbon Dioxide March 05, 2019 11:14am 28 MMOL/L 21-32 Anion Gap November 26, 2018 6:00am 8 4-14 Anion Gap March 05, 2019 11:14am 8 4-14 Calcium Level November 26, 2018 6:00am 9.0 MG/DL 8.3-10.1 Plasma Calcium March 05, 2019 11:14am 9.1 MG/DL 8.7-10.4 Note: New method effective 02/15/2019. Glucose Level November 26, 2018 6:00am 114 MG/DL High 74-106 Sulfasalazine ma y interfere with this assay, specimens should be drawn prior to dose. Plasma Glucose Level March 05, 2019 11:14am 133 MG/DL High 74-106 Blood Urea Nitrogen November 26, 2018 6:00am 13 MG/DL 7-18 Plasma Blood Urea Nitrogen March 05, 2019 11:14am 10 9-23 Note: New refere nce range and method effective 01/17/2019. Creatinine November 26, 2018 6:00am 0.7 MG/DL 0.6-1.3 Plasma Creatinine March 05, 2019 11:14am 0.6 MG/DL 0.6-1.1 Note: New refere nce range and method effective 01/17/2019. Estimated GFR (Non- March 05, 2019 11:14am 142.6 60- Estimated GFR un its = mL/min/1.73 m??? IDMS traceable MDRD study equation in use effective 08/24/17 Estimated GFR () March 05, 2019 11:14am 172.8 60- Estimated GFR un its = mL/min/1.73 m??? IDMS traceable MDRD study equation in use effective 08/24/17 Phosphorus Level November 26, 2018 6:00am 3.3 MG/DL 2.5-4.9 B-Type Natriuretic Peptide March 05, 2019 11:14am 8.0 pg/mL Fasting Glucose November 23, 2018 6:48am 118 MG/DL High 74-99 FOR FASTING PATIENTS: REFERENCE RANGE <100 IMPAIRED FASTING GLUCOSE/PRE-DIABETE S 100-125 DIABETES >125 Sulfasalazine may interfere with this assay, specimens should be drawn prior to dose. POC Capillary Blood Glucose (Chem) November 26, 2018 7:33am 99 MG/DL 74-106 Magnesium Level November 26, 2018 6:00am 2.1 MG/DL 1.8-2.4 Troponin I March 05, 2019 11:14am < 0.02 ng/mL 0.00-0.45 Revised method effective 01/17/19 <0.02 ng/ml Negative 0.02-0.45 ng/ml Patient at increased risk for adverse cardiac event(if ACS is suspected) 0.46-0.59 Patient at high risk for adverse cardiac event(if ACS is suspected) >=0.60 ng/ml Suggestive of myocardial injury NOTE: Medical judgment is necessary for risk stratification based on low concentrations of Troponin I (Between 0.02-0.60 ng/ml) Thyroid Stimulating Hormone (TSH) March 05, 2019 11:14am 0.928 mIU/mL 0.3-4.0 Vancomycin Level Trough November 26, 2018 6:00am 16.4 ug/mL 15-20 Phenytoin (Dilantin) Level March 05, 2019 11:14am 14.1 ug/mL 10.0-20.0 Procalcitonin November 26, 2018 6:00am 0.48 ng/ml [...] Date Chief Complaint Reason for V angelica Admitted Inpatient March 05, 2019 12:48pm SHORTNESS OF BREATH Chest pain Shortness of breath Diabetes mellitus HTN (hypertension) Hyperlipidemia Morbid obesity Seizure disorder Hospital Discharge Instructions Query Response Comment Date/Time Discharge Instructions Requested Yes 11/23/2018 00:51 Hospital Discharge Medications Medication Dose Units Route Sig Qty Days Order Date Status Instructions Loratadine 10 MG ORAL DAILY 20 Decem [...] rim 1 TAB ORAL Twice A Day 12 November 26, 2018 Discontinued Encounters Encounter Facility Location Admit/Visit Date Discharge/Departure Date Attending Provider Admitted Inpatient [facility] A2 Unit March 05, 2019 12:48pm Jett Gomez Discharged Inpatient [facility] A5 Unit November 22, 2018 11:49pm November 26, 2018 10:37am Reji Henderson Departed Emergency [facility] Emergency Department May 31, 2018 3:56pm May 31, 2018 5:39pm Encounter Diagnosis Onset Date Chest pain Shortness of breath Diabetes mellitus HTN (hypertension) Hyperlipidemia Morbid obesity Seizure disorder Functional Status Query Response Date Recorded Comment Comprehension Ability Understands Concepts November 26 9:19am Query Response Date Recorded Comment Physical Dependency Level Independent November 26, 2018 9 :19am Immunizations No known immunizations. Payers Payer Name Policy Type Covered Republican Covered Republican Id Relationship Subscriber Subscriber Id MEDICAID Medicaid APRYL MARIE [id number] Self / Same As Patient APRYL MARIE [id number] SELF PAY Personal Payment ([place] - No Insurance) [facility] Public Plan Direct Other APRYL MARIE [id number] Self / Same As Patient APRYL MARIE [id number] [facility] Public Plan Together Other APRYL MARIE [id number] Self / Same As Patient APRYL MARIE [id number] Plan of Care No Known Plan of Care Information Social History Query Response Date Recorded Comment Smoking Status Never smoker March 05, 2019 1:35pm Query Response Start Date Stop Date Smoking Status Never smoker Vital Signs Vital Reading Result Reference Range Collection Date/Time Height 6 ft March 05, 10:39am Weight 176.901 kg March 05 019 10:39am Temperature 97.7 F 96.5 F-101.5 F March 05, 2019 2:47pm Pulse 67 BPM 50-110 March 05 2:47pm Respiration 20 RPM 12-20 March 05 2:47pm Pulse Oximetry 98 % 95-100 March 05, 2019 2:47pm Blood Pressure Systolic 138 100-180 Sept emb2018 2:47pm Blood Pressure Diastolic 73 70-85 Sep tember 2018 2:47pm Body Mass Index 52.9 February 10:39am
--- OUTSIDE RECORDS SUMMARY | 2023-01-07 12:54 | XMS_ITS | Continuity of Care Document ---
Author Name [facility] Address [address] [place] [address] Organization [facility] Address [address] [place] [id number] Support Name Relationship Address Phone IRAIDA CHOPRA Primary Care Provider [address] [phone] Cathi Greene Emergency Provider [address] [place] [address] [phone] Allergies, Adverse Reactions, Alerts Allergen Type Severity [...] Color Yellow Urine Appearance Clear Urine Specific Elizabeth 1.020 1.001-1.035 Urine Leukocyte Esterase Negative Urine [...] Provider Departed Emergency [facility] Emergency Department June 19, 2019 3:27pm June 19, 2019 4:48pm Registered Physician/Pro vider Office Visit [facility] March 07, 2019 12:00am 0, Discharged Inpatient [facility] A2 Unit March 06, 2019 11:11am March 07, 2019 2:47pm Ligia Alva Registered Physician/Pro vider Office Visit [facility] March 06, 2019 12:00am Garcia Torres Discharged Inpatient [facility] A5 Unit November 22, 2018 11:49pm November 26, 2018 10:37am Reji Henderson Functional Status Query Response Date Recorded Comment Comprehension Ability Understands Concepts March 07, 2019 8:00am Query Response Date Recorded Comment Physical Dependency Level Independent March 07, 2019 8:00am Immunizations No known immunizations. Payers Payer Name Policy Type Covered Democrat Covered Democrat Id Relationship Subscriber Subscriber Id MEDICAID Medicaid ENMANUEL MARIE [id number] Self / Same As Patient ENMANUEL MARIE [id number] SELF PAY Personal Payment ([place] - No Insurance) [facility] Public Plan Direct Other ENMANUEL MARIE [id number] Self / Same As Patient ENMANUEL MARIE [id number] [facility] Public Plan Together Other ENMANUEL MARIE [id number] Self / Same As Patient ENMANUEL MARIE [id number] [facility] ACO Other ENMANUEL MARIE [id number] Self / Same As Patient ENMANUEL MARIE [id number] Plan of Care Instructions ED Pharyngitis Viral [...]
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
--- OUTSIDE RECORDS SUMMARY | 2023-01-07 12:54 | XMS_ITS | Continuity of Care Document ---
Author Name [facility] Address [address] [place] [address] Organization [facility] Address [address] [place] [address] Support Name Relationship Address Phone DUNIAGRISELDA IRAIDA Prasanth Primary Care Provider Unknown Unavailable Pedro Orona Emergency Provider Unknown Un available Jett Gomez Admit Provider Unknown Unav ailable Jett Gomez Other Provider Unknown Unav ailable SHARRON ROCHE Other Provider Unknown Unava ilable BRIGITTE BONILLA Other Provider Unknown Unavailable Nezhad, Jose H Other Provider Unknown Unavaila ble NIKPOOR, BORZOO Other Provider Unknown Unavailabl e Yazmin, Ceci Other Provider Unknown Unavailable Dylan Mtz Other Provider Unknown Unavai lable Genet Maame Other Provider Unknown Unavailable GeSharifa gloria Other Provider Unknown Unavail able Víctor, Meaghan L Other Provider Unknown Unavailab le CHARLES, MOHAMED CHRISTY Other Provider Unknown Unava ilable Saira Hare Other Provider Unknown Unavailab le Acharjosé luis, Subasit Other Provider Unknown Unavailab le Bony, Alonzo Other Provider Unknown Unavailable Garcia Torres Other Provider Unknown Unavaila ble Ligia Alva Attending Provider Unknown Unavai lable Allergies, Adverse Reactions, Alerts Allergen Type Severity [...] Result Co mment White Blood Count March 06, 2019 6:07am 5.0 x10^3/uL 3.8-11.3 Red Blood Count March 06, 2019 6:07am 4.66 x10^6/uL Low 4.7-6.1 Hemoglobin March 06, 2019 6:07am 14.0 g/dL 13.0-17.0 Hematocrit March 06, 2019 6:07am 40.8 % 38.0-49.0 Mean Corpuscular Volume March 06, 2019 6:07am 87.6 fL 80-100 Mean Corpuscular Hemoglobin March 06, 2019 6:07am 30.0 pg 26.7-33.0 Mean Corpuscular Hemoglobin Concent March 06, 2019 6:07am 34.3 g/dL 31.6-35.6 RDW Coefficient of Variation March 06, 2019 6:07am 13.4 % 11.5-14.5 Platelet Count March 06, 2019 6:07am 179 x10^3/uL 150-450 Mean Platelet Volume March 06, 2019 6:07am 11.0 fL 7.4-13.5 Neutrophils (%) (Auto) March 06, 2019 6:07am 51.3 % 38.0-84.0 Lymphocytes (%) (Auto) March 06, 2019 6:07am 34.3 % 20.0-40.0 Monocytes (%) (Auto) March 06, 2019 6:07am 10.6 % 3.0-13.0 Eosinophils (%) (Auto) March 06, 2019 6:07am 3.0 % 0.0-6.0 Basophils (%) (Auto) March 06, 2019 6:07am 0.8 % 0-2.0 Prothrombin Time March 05, 2019 [...] March 05, 2019 11:06am Clear Urine Specific [place] March 05, 2019 11:06am 1.020 1.001-1.03 5 [...] March 05, 2019 11:06am Negative Sodium Level March 06, 2019 6:07am 141 MMOL/L 136-145 Plasma Sodium March 05, 2019 11:14am 141 MMOL/L 136-145 Potassium Level March 06, 2019 8:59am 4.7 MMOL/L 3.5-5.1 Plasma Potassium March 05, 2019 11:14am 3.7 MMOL/L 3.5-5.1 Chloride Level March 06, 2019 6:07am 105 MMOL/L 98-107 Plasma Chloride March 05, 2019 11:14am 105 MMOL/L 98-107 Carbon Dioxide Level March 06, 2019 6:07am 27 mmol/L 20-31 Note: New refere nce range and method effective 01/17/2019. Plasma Carbon Dioxide March 05, 2019 11:14am 28 MMOL/L 21-32 Anion Gap March 06, 2019 6:07am 9 4-14 Calcium Level March 06, 2019 6:07am 9.3 mg/dL 8.7-10.4 Note: New method effective 02/15/2019. Plasma Calcium March 05, 2019 11:14am 9.1 MG/DL 8.7-10.4 Note: New method effective 02/15/2019. Glucose Level March 06, 2019 6:07am 107 MG/DL High 74-106 Plasma Glucose Level March 05, 2019 11:14am 133 MG/DL High 74-106 Blood Urea Nitrogen March 06, 2019 6:07am 17 mg/gL 9-23 Note: New refere nce range and method effective 01/17/2019. Plasma Blood Urea Nitrogen March 05, 2019 11:14am 10 9-23 Note: New refere nce range and method effective 01/17/2019. Creatinine March 06, 2019 6:07am 0.7 mg/dL 0.6-1.1 Note: New refere nce range and method effective 01/17/2019. Plasma Creatinine March 05, 2019 11:14am 0.6 MG/DL 0.6-1.1 Note: New refere nce range and method effective 01/17/2019. Estimated GFR (Non- March 06, 2019 6:07am 119.4 60- Estimated GFR un its = mL/min/1.73 m??? IDMS traceable MDRD study equation in use effective 08/24/17 Estimated GFR () March 06, 2019 6:07am 144.7 60- Estimated GFR un its = mL/min/1.73 m??? IDMS traceable MDRD study equation in use effective 08/24/17 Phosphorus Level March 06, 2019 6:07am 3.5 MG/DL 2.4-5.1 Note: New refere nce range and method effective 01/17/2019. B-Type Natriuretic Peptide March 05, 2019 11:14am 8.0 pg/mL Cholesterol Level March 06, 2019 6:07am 199 MG/DL 0-199 Fasting Glucose November 23, 2018 6:48am 118 MG/DL High 74-99 FOR FASTING PATIENTS: REFERENCE RANGE <100 IMPAIRED FASTING GLUCOSE/PRE-DIABETE S 100-125 DIABETES >125 Sulfasalazine may interfere with this assay, specimens should be drawn prior to dose. POC Capillary Blood Glucose (Chem) March 07, 2019 12:20pm 87 MG/DL 74-106 HDL Cholesterol March 06, 2019 6:07am 72.5 MG/DL High 40-59 Triglycerides Level March 06, 2019 6:07am 113 MG/DL 0-149 LDL Cholesterol, Calculated March 06, 2019 6:07am 104 MG/DL High 0-99 <100 Optimal 100-129 Near or above optimal 130-159 Borderline high 160-189 High >=190 Very high Magnesium Level March 06, 2019 6:07am 1.9 MG/DL 1.6-2.6 Note: New refere nce range and method effective 01/17/2019. Troponin I March 05, 2019 5:09pm < 0.02 ng/mL 0.00-0.45 Revised method effective [...] Complaint Reason for V isit Discharged Inpatient March 06, 2019 11:11am SHORTNESS OF BREATH Chest pain Shortness of [...] Date Discharge/Departure Date Attending Provider Discharged Inpatient [facility] March 06, 2019 11:11am March 07, 2019 2:47pm KeenanIsaias cravenashley Discharged Inpatient [facility] November 22, 2018 11:49pm November 26, 2018 10:37am Reji Henderson Departed Emergency [facility] Emergency Department May 31, 2018 3:56pm May [...] immunizations. Payers Payer Name Policy Type Covered Green Party Covered Green Party Id Relationship Subscriber Subscriber Id MEDICAID Medicaid APRYL MAYSLER [id number] Self / Same As Patient APRYL MAYSLER [id number] SELF PAY Personal Payment (Leong - No Insurance) [facility] Plan Direct Other APRYL CYNTHIA [id number] Self / Same As Patient APRYL MAYSLER [id number] [facility] Public Plan Together Other APRYL MAYSLER [id number] Self / Same As Patient APRYL MAYSLER [id number] Plan of Care Instructions ED Dyspnea Shortness of Jenifer th Social History Query Response Date Recorded Comment Smoking Status Never smoker March 07, 2019 1:59pm Query Response Start Date Stop Date Smoking Status Never smoker Vital Signs Vital Reading Result Reference Range Collection Date/Time Height 6 ft March 05 019 4:19pm Weight 176.901 kg March 05 4:19pm Temperature 98.4 F 96.5 F-101.5 F March 07 10:49am Pulse 81 BPM 50-110 March 07, 2019 12:00pm Respiration 18 RPM -20 March 07, 2019 10:49am Pulse Oximetry 95 % 95-100 March 07 10:49am Blood Pressure Systolic 128 100-180 Octo ancelmo 2018 10:49am Blood Pressure Diastolic 88 70-85 Oct miki 2018 10:49am Body Mass Index 52.9 February 4:19pm
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
--- OUTSIDE RECORDS SUMMARY | 2023-01-07 12:54 | XMS_ITS | Continuity of Care Document ---
Author Name [facility] Address [address] [place] [address] Organization [facility] Address [address] [place] [address] Support Name Relationship Address Phone IRAIDA CHOPRA Primary Care Provider [address] [address] Cathi Greene Emergency Provider [address] [place] [address] Sesar Garcia Attending Provider [facility] [address] [place] [place] [address] Sesar Garcia Other Provider [facility] [address] [address] Jose Gonzales Other Provider [address] [place] [address] Addison Stinson Other Provider [facility] [address] [place] [address] Dylan Mtz Other Provider [facility] [address] [place] [address] Maame De León Other Provider [address] [place] [address] Sharifa Webb Other Provider [facility] [address] [place] [address] Meaghan Renee Other Provider [address] [place] [address] YUNIER CHARLES Other Provider [facility] [address] [place] [address] Saira Hare Other Provider [address] [address] Oscar Melara Other Provider [address] [place] [address] Femi Daniels Other Provider [address] [place] [address] Alonzo Lovett Other Provider [facility] [address] [place] [address] Garcia Torres Other Provider [facility] [address] [place] [address] Sesar Rothman Admit Provider [facility] [address] [address] Sesar Rothman Other Provider [facility] [address] [place] [address] IRAIDA CHOPRA Primary Care Provider [address] [address] Cathi Greene Emergency Provider [address] [place] [address] Sesar Rothmanit Provider [facility] [address] [address] Sesar Rothman Other Provider [facility] [address] [place] [address] Sesar Garcia Other Provider [facility] [address] [place] [address] Jose Gonzales Other Provider [address] [place] [address] Addison Stinson Other Provider [facility] [address] [address] Dylan Mtz Other Provider [facility] [address] [place] [address] Maame De León Other Provider [address] [place] [address] Sharifa Webb Other Provider [facility] [address] [address] Meaghan Renee Other Provider [address] [place] [address] YUNIER CHARLES Other Provider [facility] [address] [address] Saira Hare Other Provider [address] [address] Oscar Melara Other Provider [address] [place] [address] Femi Daniels Attending Provider [address] [place] [address] Femi Daniels Other Provider [address] [place] [address] Alonzo Lovett Other Provider [facility] [address] [address] Garcia Torres Other Provider [facility] [address] [place] [address] IRAIDA CHOPRA Primary Care Provider [address] [address] Cathi Greene Emergency Provider [address] [place] [address] Sesar Rothman Admit Provider [facility] [address] [place] [address] Sesar Rothman Attending Provider [facility] [address] [address] Sesar Garcia Other Provider [facility] [address] Jose Gonzales Other Provider [address] [place] [address] Addison Stinson Other Provider [facility] [address] [place] [address] Dylan Mtz Other Provider [facility] [address] [place] [address] Maame De León Other Provider [address] [place] [address] Sharifa Webb Other Provider [facility] [address] [place] [address] Meaghan Renee Other Provider [address] [place] [address] YUNIER CHARLES Other Provider [facility] [address] [place] [address] Saira Hare Other Provider [address] [address] Oscar Melara Other Provider [address] [place] [address] Femi Daniels Other Provider [address] [place] [address] Alonzo Lovett Other Provider [facility] [address] [place] [address] Garcia Torres Other Provider [facility] [address] [place] [address] Allergies, Adverse Reactions, Alerts Allergen Type Severity [...] Symptoms July 28, 2020 Active Sodium Chloride [[place] Nasal] 2 SPRAY IN EACH NOSTRIL 5 [...] Amplification ([place]) Rapid Molecular test. Performed on [employer] Now This test has been authorized by [...] Complaint Reason for V isit Discharged Inpatient July 28, 2020 1:55pm CHEST PA IN Chest pain Diabetes mellitus HTN (hypertension) Hyperlipidemia Morbid obesity Seizure disorder Hospital Discharge Instructions Query Response Comment Date/Time Discharge Instructions Given To Patient 07/29/2020 15:48 Hospital Discharge Medications Medication Dose Units Route [...] Active Loratadine 10 MG ORAL Daily 20 m 2017 Discontinue d Multivitamin 1 TAB ORAL Daily 0 Nov Active Metformin 500 MG ORAL Twice A Day November 22, 2018 Active Atorvastatin 80 MG ORAL At Bedtime November 22, 2018 Active Ibuprofen 800 MG ORAL 3 Times A Day PRN For Mild Pain 1-3 November 22, 2018 Discontinue d Phenytoin Sodium Extended 400 MG ORAL NIEVES@,20 November 22, 2018 Discontinue d WEDNESDAY only, 200mg [...] Date Discharge/Departure Date Attending Provider Registered Inpatient [facility] Hospitalist July 29, 2020 3:17pm Sesar Rothman Registered Inpatient [facility] Hospitalist July 28, 2020 2:09pm Sesar Rothman Discharged Inpatient [place] [address] Unit July 28, 2020 1:55pm July 29, 2020 6:41pm Sesar Rothman Encounter Diagnosis Onset Date Chest pain Diabetes mellitus HTN (hypertension) Hyperlipidemia Morbid obesity Seizure disorder Functional Status Query Response Date Recorded Comment Comprehension Ability Understands Concepts July 5:00pm Query Response Date Recorded Comment Physical Dependency Level Independent July 29 5:00pm Immunizations No known immunizations. Plan of Care Instructions Discharge Instructions for C ardiac Catheterization Patients Social History Query Response Date Recorded Comment Smoking Status Never smoker July 29, 2020 3:23pm Query Response Start Date Stop Date Smoking Status Never smoker Vital Signs Vital Reading Result Reference Range Collection Date/Time Height 6 ft July 28 4:30pm Weight 175.54 kg July 28 4:30pm Temperature 98.4 F 96.5 F-101.5 F July 29, 2020 6:03pm Pulse 70 BPM 50-110 July 29 6:03pm Respiration 18 RPM -July 29 6:03pm Pulse Oximetry 94 % 95-100 July 29, 2020 6:03pm Blood Pressure Systolic 137 100-180 [facility] 2020 6:03pm Blood Pressure Diastolic 84 70-85 [facility] 2020 6:03pm Body Mass Index 52.4 July 28, 2020 4:30pm
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
--- OUTSIDE RECORDS SUMMARY | 2023-01-07 12:55 | XMS_ITS | Continuity of Care Document ---
Author Name Unknown Address [address] [place] [address] [facility] Address [address] [place] [address] Phone Support Name Relationship Address Phone PAGE SALAZAR Friend [address] [place] [address] IRAIDA CHOPRA Primary Care Provider Unknown Unavailable Traci Lipscomb Emergency Provider Unknown Un available Stanley Bui Emergency Provider Unknown Unavaila ble Govindaiah, Julius Admit Provider Unknown Unav ailable Reji Henderson Attending Provider Unknown Unavaila ble Davis, Brooklynn Other Provider Unknown Unavailable Pedro Orona Emergency Provider Unknown Un available Frances Subasit Other Provider Unknown Unavailab Blaze Nuno Other Provider Unknown Unava ilable SHARRON ROCHE Other Provider Unknown Unava ilable yDlan Mtz Other Provider Unknown Unavai BRIGITTE Bentley Other Provider Unknown Unavailable Blaze Arce Other Provider Unknown Unavailab le CHARLES, MOHAMED CHRISTY Other Provider Unknown Unava ilable De León, Maame Other Provider Unknown Unavailable Nezhad, Jose H Other Provider Unknown Unavaila ble NIKPOOR, BORZOO Other Provider Unknown Unavailabl e Víctor, Meaghan L Other Provider Unknown Unavailab Garcia Banda Other Provider Unknown Unavaila ble Blaze Lovett Other Provider Unknown Unavailable Saira Hare Other Provider Unknown Unavailab Jett Doe Admit Provider Unknown Unav ailable Allergies, Adverse Reactions, Alerts Allergen Type Severity Reaction Last Updated Verified Status betamethasone Allergy ITCHING November 23, 2018 Yes Ac tive levetiracetam Adverse Reaction ANXIETY November 23, 2018 Y es Active pseudoephedrine Adverse Reaction ANXIETY November 23, 2018 Yes Active Medications Medication Status Dose Units Route Sig Qty Days Start Date End Date Instructions Loratadine Active 10 MG ORAL DAILY 20 Decemb er 2017 5:28pm Metformin Active 500 MG ORAL Twice A Day November 22, 2018 9:33pm Atorvastatin Active 80 MG ORAL AT [facility] November 22, 2018 9:33pm Ibuprofen Discontinu ed 800 MG ORAL 3 TIMES A DAY November 22, 2018 9:33pm [facility] er 2018 11:53am Phenytoin Sodium Extended Active 200 MG ORAL Twice A Day November 22, 2018 9:33pm WEDNESDAY ONLY = 400mg BID Phenytoin Sodium Extended Active 400 MG ORAL .BID THURSDAY November 22, 2018 9:33pm CASIE only, 200mg BID all other days of the week Aspirin Active 81 MG ORAL DAILY November 22, 2018 9:33pm Doxazosin Active 8 MG ORAL AT [facility] November 22, 2018 9:33pm Metoprolol Succinate Active 25 MG ORAL DAILY November 22, 2018 9:33pm Fluticasone Propionate Active 2 SPRAY IN EACH NOSTRIL DAILY November 22, 2018 9:33pm Doxycycline Hyclate Discontinu ed 100 MG ORAL Twice A Day November 22, 2018 9:33pm November 22, 2018 10:26pm Multivitamin Active 1 TAB ORAL DAILY November 22, 2018 9:33pm Sulfamethoxaz ole-Trimethop rim Discontinu ed 1 TAB ORAL Twice A Day 12 November 26, 2018 10:40am [facility] 2018 11:55am Problems Active Problems Medical Problem Onset Date Status Left leg cellulitis Active Shortness of breath Active Diabetes mellitus Active Morbid obesity Active Hyperlipidemia Active Seizure disorder Active Chest pain Active HTN (hypertension) Active Sore throat Active Procedures Procedure Date Performed Status Blood Culture November 22, 2018 completed Group A Streptococcus Rapid Screen May completed Group A Strep Throat Culture May 31, 2018 completed Relevant Diagnostic Tests and/or Laboratory Data Laboratory Results Test Date/Time Result Interpretation Reference Range Result Comment Performing Site White Blood Count November 26, 2018 6:00am 5.8 x10^3/uL 3.8-11.3 [facility] [address] [place] [address] White Blood Count March 05, 2019 11:14am 5.3 x10^3/uL 3.8-11.[address] [address] Red Blood Count November 26, 2018 6:00am 4.82 x10^6/uL 4.7-6.[address] [address] Red Blood Count March 05, 2019 11:14am 4.50 x10^6/uL 4.7-6.[address] [address] Hemoglobin November 26, 2018 6:00am 14.4 g/dL 13.0-17.[address] [address] Hemoglobin March 05, 2019 11:14am 13.5 g/dL 13.0-17.[address] [address] Hematocrit November 26, 2018 6:00am 42.8 % 38.0-49.[address] [address] Hematocrit March 05, 2019 11:14am 39.7 % 38.0-49.[address] [address] Mean Corpuscular Volume November 26, 2018 6:00am 88.8 fL 80-[address] [address] Mean Corpuscular Volume March 05, 2019 11:14am 88.2 fL 80-[address] [address] Mean Corpuscular Hemoglobin November 26, 2018 6:00am 29.9 pg 26.7-33.[address] [address] Mean Corpuscular Hemoglobin March 05, 2019 11:14am 30.0 pg 26.7-33.[address] [address] Mean Corpuscular Hemoglobin Concent November 26, 2018 6:00am 33.6 g/dL 31.6-35.[address] [address] Mean Corpuscular Hemoglobin Concent March 05, 2019 11:14am 34.0 g/dL 31.6-35.[address] [address] RDW Coefficient of Variation November 26, 2018 6:00am 13.1 % 11.5-14.[address] [address] RDW Coefficient of Variation March 05, 2019 11:14am 13.3 % 11.5-14.[address] [address] Platelet Count November 26, 2018 6:00am 228 x10^3/uL 150-[address] [address] Platelet Count March 05, 2019 11:14am 209 x10^3/uL 150-[address] [address] Mean Platelet Volume November 26, 2018 6:00am 9.6 fL 7.4-13.[address] [address] Mean Platelet Volume March 05, 2019 11:14am 10.2 fL 7.4-13.[address] [address] Neutrophils (%) (Auto) November 22, 2018 9:52pm 66.4 % 38.0-84.[address] [address] Neutrophils (%) (Auto) March 05, 2019 11:14am 50.6 % 38.0-84.[address] [address] Lymphocytes (%) (Auto) November 22, 2018 9:52pm 20.8 % 20.0-40.[address] [address] Lymphocytes (%) (Auto) March 05, 2019 11:14am 34.7 % 20.0-40.[address] [address] Monocytes (%) (Auto) November 22, 2018 9:52pm 11.0 % 3.0-13.[address] [address] Monocytes (%) (Auto) March 05, 2019 11:14am 11.1 % 3.0-13.[address] [address] Eosinophils (%) (Auto) November 22, 2018 9:52pm 1.6 % 0.0-6.[address] [address] Eosinophils (%) (Auto) March 05, 2019 11:14am 3.0 % 0.0-6.[address] [address] Basophils (%) (Auto) November 22, 2018 9:52pm 0.2 % 0-2.[address] [address] Basophils (%) (Auto) March 05, 2019 11:14am 0.6 % 0-2.[address] [address] Prothrombin Time March 05, 2019 11:14am 11.2 Sec 9.4-12.5 [place] [address] Prothromb Time International Ratio March 05, 2019 11:14am 1.0 0.8-1.1 INTERPRETIVE NOTE:No anticoagulant: 0.8 to 1.1Standard dose anticoagulant: 2.0 to 3.0High dose anticoagulant: 2.5 to 3.5Critical INR: > 5.0 [place] [address] D-Dimer, Quantitative March 05, 2019 11:14am < 150 ng/mLDDU 0-229 In conjunction with the clinical pretest probability assessment model, to exclude DVT and PE, the clinical cutoff value for D-Dimer is 230ng/mL DDU. [address] [address] Urine Color March 05, 2019 11:06am Yellow Yellow [address] [address] Urine Appearance March 05, 2019 11:06am Clear Clear [place] [address] Urine Specific [place] March 05, 2019 11:06am 1.020 1.001-1.03 5 [place] [id number] Urine Leukocyte Esterase March 05, 2019 11:06am Negative Negative [place] [address] Urine pH March 05, 2019 11:06am 6.0 pH 4.0-8.0 [place] [id number] Urine Protein March 05, 2019 11:06am Negative mg/dL Negative [place] [id number] Urine Glucose March 05, 2019 11:06am Negative mg/dL Negative [facility] [address] [place] [address] Urine Ketones March 05, 2019 11:06am Negative mg/dL Negative [facility] [address] [place] [address] Urine Bilirubin March 05, 2019 11:06am Negative Negative [address] [address] Urine Nitrite March 05, 2019 11:06am Negative Negative [facility] [address] [place] [address] Urine Occult Blood March 05, 2019 11:06am Negative Negative [facility] [address] [place] [address] Urine WBC March 05, 2019 11:06am Negative [facility] [address] [place] [address] Urine RBC March 05, 2019 11:06am 0-2 /hpf [facility] [address] [place] [address] Urine Squamous Epithelial Cells March 05, 2019 11:06am Rare [facility] [address] [place] [address] Urine Bacteria March 05, 2019 11:06am Negative Negative [facility] [address] [place] [address] Sodium Level November 26, 2018 6:00am 141 MMOL/L 136-145 [facility] [address] [place] [address] Plasma Sodium November 22, 2018 9:52pm 139 MMOL/L 136-145 [facility] [address] [place] [address] Plasma Sodium March 05, 2019 11:14am 141 MMOL/L 136-145 [facility] [address] [place] [address] Potassium Level November 26, 2018 6:00am 4.1 MMOL/L 3.5-5.1 [facility] [address] [place] [address] Plasma Potassium November 22, 2018 9:52pm 3.5 MMOL/L 3.5-5.1 [facility] [address] [place] [address] Plasma Potassium March 05, 2019 11:14am 3.7 MMOL/L 3.5-5.1 [facility] [address] [place] [address] Chloride Level November 26, 2018 6:00am 103 MMOL/L 98-107 [facility] [address] [place] [address] Plasma Chloride November 22, 2018 9:52pm 105 MMOL/L 98-107 [facility] [address] [place] [address] Plasma Chloride March 05, 2019 11:14am 105 MMOL/L 98-[address] [address] Carbon Dioxide Level November 26, 2018 6:00am 30 MMOL/L -[address] [address] Plasma Carbon Dioxide November 22, 2018 9:52pm 31 MMOL/L -[address] [address] Plasma Carbon Dioxide March 05, 2019 11:14am 28 MMOL/L -[address] [address] Anion Gap November 26, 2018 6:00am 8 4-[address] [address] Anion Gap March 05, 2019 11:14am 8 4-[address] [address] Calcium Level November 26, 2018 6:00am 9.0 MG/DL 8.3-10.[address] [address] Plasma Calcium November 22, 2018 9:52pm 8.5 MG/DL 8.3-10.[address] [address] Plasma Calcium March 05, 2019 11:14am 9.1 MG/DL 8.7-10.4 Note: New method effective 02/15/2019. [address] [address] Glucose Level November 26, 2018 6:00am 114 MG/DL 74-106 Sulfasalazine may interfere with this assay, specimens should be drawn prior to dose. [address] [address] Plasma Glucose Level November 22, 2018 9:52pm 131 MG/DL 74-106 Sulfasalazine may interfere with this assay, specimens should be drawn prior to dose. [address] [address] Plasma Glucose Level March 05, 2019 11:14am 133 MG/DL 74-[address] [address] Blood Urea Nitrogen November 26, 2018 6:00am 13 MG/DL 7-[address] [address] Plasma Blood Urea Nitrogen November 22, 2018 9:52pm 13 7-[address] [address] Plasma Blood Urea Nitrogen March 05, 2019 11:14am 10 9-23 Note: New reference range and method effective 01/17/2019. [address] [address] Creatinine November 26, 2018 6:00am 0.7 MG/DL 0.6-1.[address] [address] Plasma Creatinine November 22, 2018 9:52pm 0.9 MG/DL 0.6-1.[address] [address] Plasma Creatinine March 05, 2019 11:14am 0.6 MG/DL 0.6-1.1 Note: New reference range and method effective 01/17/2019. [address] [address] Estimated GFR (Non- November 26, 2018 6:00am 119.4 >60 Estimated GFR units = mL/min/1.73 m??IDMS traceable MDRD study equation in use effective 08/24/[address] [address] Estimated GFR (Non- March 05, 2019 11:14am 142.6 >60 Estimated GFR units = mL/min/1.73 m??IDMS traceable MDRD study equation in use effective 08/24/[address] [address] Estimated GFR () November 26, 2018 6:00am 144.7 >60 Estimated GFR units = mL/min/1.73 m??IDMS traceable MDRD study equation in use effective 08/24/[address] [address] Estimated GFR () March 05, 2019 11:14am 172.8 >60 Estimated GFR units = mL/min/1.73 m??IDMS traceable MDRD study equation in use effective 08/24/[address] [address] Phosphorus Level November 26, 2018 6:00am 3.3 MG/DL 2.5-4.[address] [address] B-Type Natriuretic Peptide March 05, 2019 11:14am 8.0 pg/mL <32.8 [place] [id number] Fasting Glucose November 23, 2018 6:48am 118 MG/DL 74-99 FOR FASTING PATIENTS:REFEREN CE RANGE <100IMPAIRED FASTING GLUCOSE/PRE-DIAB ETES 100-125DIABETES >125Sulfasalazin e may interfere with this assay, specimens should be drawn prior to dose. [place] [address] POC Capillary Blood Glucose (Chem) November 26, 2018 7:33am 99 MG/DL 74-106 [place] [address] Magnesium Level November 26, 2018 6:00am 2.1 MG/DL 1.8-2.4 [place] [address] Troponin I March 05, 2019 11:14am < 0.02 ng/mL 0.00-0.45 Revised method effective 01/17/19<0.02 ng/ml Negative0.02-0.4 5 ng/ml Patient at increased risk for adverse cardiac event(if ACS is suspected)0.46-0 .59 Patient at high risk for adverse cardiac event(if ACS is suspected)>=0.60 ng/ml Suggestive of myocardial injuryNOTE: Medical judgment is necessary for riskstratificati on based on low concentrations of Troponin I(Between 0.02-0.60 ng/ml) [place] [address] Thyroid Stimulating Hormone (TSH) March 05, 2019 11:14am 0.928 mIU/mL 0.3-4.0 [place] [address] Vancomycin Level Trough November 26, 2018 6:00am 16.4 ug/mL 15-20 [place] [id number] Phenytoin (Dilantin) Level March 05, 2019 11:14am 14.1 ug/mL 10.0-20.0 [place] [id number] Procalcitonin November 26, 2018 6:00am 0.48 ng/ml 0-0.05 Result Interpretations: PCT =<0.5ng/mL: Systemic infection not likelyPCT >0.5 and =<2.0 ng/mL: Moderate risk for progression to systemic infectionPCT >2.0 ng/mL: High risk for progression to systemic infectionPCT >=10 ng/mL High likelihood of severe sepsis or septic shock. [facility] [address] [place] [address] Microbiology Results Procedure Source Result Collection Date/Time Result Date/Time Result Comment Performing Site Blood Culture Blood, Venous/Pe ripheral Draw No growth November 22, 2018 9:52pm November 28, 2018 4:19am [address] [address] Group A Streptococcus Rapid Screen Throat May 31, 2018 4:10pm May 31, 2018 4:27pm [address] [address] Group A Strep Throat Culture Throat No Group A Beta Strep Isolated May 31, 2018 4:10pm June 02, 2018 10:16am [address] [address] Advance Directives Advance Directive Response Recorded Date/ Time Do you have a Health Care Proxy Declined November 23, 2018 1:06am [facility] Form Reviewed/Completed With Patient No November 23, 2018 1:06am Chief Complaint and Reason for Visit Chief Complaint SORE THROAT CELLULITIS SHORTNESS OF BREATH Reason for Visit Diabetes mellitus HTN (hypertension) Hyperlipidemia Morbid obesity Seizure disorder Left leg cellulitis Chest pain Shortness of breath Diabetes mellitus HTN (hypertension) Hyperlipidemia Morbid obesity Seizure disorder Encounters Encounter Location(s) Arrival/Admit Date Discharge/Depart Date Provider(s) [facility] May 31, 2018 3:56pm May 31, 2018 5:39pm null [facility] November 22, 2018 11:49pm November 26, 2018 10:37am Santiago Mendoza MD [facility] March 05, 2019 12:48pm Lefty Frausto MD Recent Diagnosis Onset Date Diabetes mellitus HTN (hypertension) Hyperlipidemia Morbid obesity Seizure disorder Left leg cellulitis Chest pain Shortness of breath Diabetes mellitus HTN (hypertension) Hyperlipidemia Morbid obesity Seizure disorder Assessments Diagnosis Onset Date Resolution Status Diabetes mellitus chronic HTN (hypertension) chronic Hyperlipidemia chronic Morbid obesity chronic Seizure disorder chronic Left leg cellulitis acute Chest pain acute Shortness of breath acute Diabetes mellitus chronic HTN (hypertension) chronic Hyperlipidemia chronic Morbid obesity chronic Seizure disorder chronic Family History Relationship Condition Age at Onset Recorded Date/T dayna mother Malignant neoplasm of pancreas Unknown father Diabetes mellitus Unknown Myocardial infarction Unknown brother Diabetes mellitus Unknown Functional Status Observation Response Date Recorded Physical Dependency Level Independent November 062018 9:19am Goals No Goals Information Available Mental Status Observation Response Date Recorded Comprehension Ability Understands Concepts November 26, 2018 9:19am Medical Equipment No Medical Equipment Information available Insurance Providers Guarantor APRYL MARIE Address [address] [place] [address] Contact Info. Home Phone: Payer Policy Id Coverage Id Subscriber's Name Subscriber Id Effective Date Expiration Date MEDICAID [id number] APRYL MARIE [id number] SELF PAY [facility] Public Plan Direct [id number] APRYL MARIE [id number] [facility] Public Plan Together [id number] APRYL MARIE [id number] Plan of Treatment Future Tests Future scheduled test information is unavailable Pending Tests Pending diagnostic test information is unavailable Future Visits Future appointment information is unavailable Referrals to Other Providers Reason for Referral Referral Start Date Provider Provider Contact Information Provider Address Prasanth KHOURY Work Phone: [address] [address] Future Procedures Future procedure information is unavailable Future Medications Future medication information is unavailable Patient Instructions Sore Throats Self Care ED Allergy Nasal Vancomycin capsules Cellulitis Dc Social History Smoking Status Status Date of Observation Never smoked tobacco (finding) March 05, 2019 1:35pm Observation Status Observation Response Date of Response Smoking Status Never smoker March 05, 2019 1:35pm Assigned Sex Male Vital Signs Vital Reading Result Reference Range Collection Date/Time Weight 167.82 kg May 31, 2018 3:59pm Body Temperature 98.2 [degF] 96.5-101.5 May 312017 3:59pm Heart Rate 78 /min 50-110 May 31, 2018 3:59pm Respiratory rate 18 /min 12-May 312017 3:59pm Oxygen saturation by Pulse oximetry 95 % 95-100 May 31, 2018 3:59pm BP Systolic 121 mm[Hg] 100-180 May 31, 2018 3:59pm BP Diastolic 78 mm[Hg] 70-85 May 31, 2018 3:59pm BMI (Body Mass Index) 50.1 kg/m2 [facility] 2017 3:59pm Weight 170.09 kg November 23, 2018 1:06am Body Temperature 98.0 [degF] 96.5-101.5 November 26, 2018 7:30am Heart Rate 66 /min 50-110 November 26, 2018 7:30am Respiratory rate 16 /min 12-20 November 26, 2018 7:30am Oxygen saturation by Pulse oximetry 95 % 95-100 November 26, 2018 9:19 am BP Systolic 125 mm[Hg] 100-180 November 26, 2018 7:30am BP Diastolic 63 mm[Hg] 70-85 November 26, 2018 7:30am BMI (Body Mass Index) 50.8 kg/m2 November 052018 1:06am Height 72 [in_i] March 05, 2019 10:39am Weight 176.90 kg March 05, 2019 10:39am Body Temperature 97.7 [degF] 96.5-101.5 February 062018 2:47pm Heart Rate 67 /min 50-110 March 05, 2019 2:47pm Respiratory rate 20 /min 12-20 February 062018 2:47pm Oxygen saturation by Pulse oximetry 98 % 95-100 March 05, 2019 2:47pm BP Systolic 138 mm[Hg] 100-180 March 05, 2019 2:47pm BP Diastolic 73 mm[Hg] 70-85 March 05, 2019 2:47pm BMI (Body Mass Index) 52.9 kg/m2 Sept2018 10:39am Hospital Discharge Instructions Additional Instructions It is likely that her symptoms are secondary to nasal congestion and rhinorrhea Take your Flonase 2 puffs daily as prescribed Follow-up with primary care physician in one to 2 days for repeat evaluation and management Take allergy medication as prescribed Return with any significantly new or worsening symptoms
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
--- OUTSIDE RECORDS SUMMARY | 2023-01-07 12:55 | XMS_ITS | Continuity of Care Document ---
Author Name Unknown Address [address] [place] [address] Phone Organization [facility] Address [address] [place] [address] Phone Support Name Relationship Address Phone PAGE SALAZAR Friend [address] [place] [address] IRAIDA [place] [address] Stanley B[place] [address] Julius [place] Admit Provider [address] [place] [address] Reji Henderson Attending Provider [address] [place] [address] Brooklynn Cannon Other Provider [address] [place] [address] Garcia Torres Att[place] [address] Pedro [place] [address] Jett Gomez [place] [address] Sesar [place] [address] BRIGITTE [place] [address] Jose Gonzales Other Provider [address] [place] [address] Addison Stinson [place] [address] Blaze Arce Other Provider [place] [address] Dylan [place] [address] Maame De León Other Provider Unknown [phone] Blaze Webb [place] [address] Meaghan Renee Other Provider [address] [place] [address] YUNIER CHARLES [place] [address] Saira Hare Other Provider Unknown Unavail able Femi Daniels Other Provider [address] [place] [address] Blaze Lovett [place] [address] Ligia Alva [place] [address] 0 Attending Provider Unknown Unavailab Blaze Shipman Emergency Provider [address] [place] [address] Allergies, Adverse Reactions, Alerts Allergen Type Severity Reaction Last Updated Verified Status betamethasone Allergy ITCHING November 23, 2018 Yes Ac tive levetiracetam Adverse Reaction ANXIETY November 23, 2018 Y es Active pseudoephedrine Adverse Reaction ANXIETY November 23, 2018 Yes Active Medications Medication Status Dose Units Route Sig Qty Days Start Date End Date Instructions Ofloxacin Active 10 DROP IN LEFT EAR DAILY June 19, 2019 4:39pm Loratadine Active 10 MG ORAL DAILY 20 Decemb er 2017 5:28pm Metformin Active 500 MG ORAL Twice A Day November 22, 2018 9:33pm Atorvastatin Active 80 MG ORAL AT BEDTIM E November 22, 2018 9:33pm Ibuprofen Discontinu ed 800 MG ORAL 3 TIMES A DAY November 22, 2018 9:33pm [facility] 2018 11:53am Phenytoin Sodium Extended Active 200 MG ORAL Twice A Day November 22, 2018 9:33pm WEDNESDAY ONLY = 400mg BID Phenytoin Sodium Extended Active 400 MG ORAL .BID THURSDAY November 22, 2018 9:33pm CASIE only, 200mg BID all other days of the week Aspirin Active 81 MG ORAL DAILY November 22, 2018 9:33pm Doxazosin Active 8 MG ORAL AT BEDFORMERLY [facility] E November 22, 2018 9:33pm [...] ed 1 TAB ORAL Twice A Day November 26, 2018 10:40am [facility] 2018 11:55am Problems Active Problems Medical Problem Onset Date Status Left leg cellulitis Active Shortness of breath Active Diabetes mellitus Active Morbid obesity Active Hyperlipidemia Active Seizure disorder Active Chest pain Active HTN (hypertension) Active Pharyngitis Active Sore throat Active Left otitis externa Active Procedures Procedure Date Performed Status Blood Culture completed Group A Streptococcus Rapid Screen completed Group A Strep Throat Culture act venessa Relevant Diagnostic Tests and/or Laboratory Data Laboratory Results Test Date/Time Result Interpretation Reference Range Result Comment Performing Site White Blood Count 5.0 x10^3/uL 3.8-11.3 [facility] [address] [place] [address] White Blood Count 5.8 x10^3/uL 3.8-11.3 [facility] [address] [place] [address] Red Blood Count 4.82 x10^6/uL 4.7-6.1 [facility] [address] [place] [address] Red Blood Count 4.66 x10^6/uL 4.7-6.[address] [facility] [address] Hemoglobin 14.0 g/dL 13.0-17.[address] [address] Hemoglobin 14.4 g/dL 13.0-17.[address] [address] Hematocrit 40.8 % 38.0-49.[address] [address] Hematocrit 42.8 % 38.0-49.[address] [address] Mean Corpuscular Volume 88.8 fL 80-[address] [address] Mean Corpuscular Volume 87.6 fL 80-[address] [address] Mean Corpuscular Hemoglobin 29.9 pg 26.7-33.[address] [address] Mean Corpuscular Hemoglobin 30.0 pg 26.7-33.[address] [address] Mean Corpuscular Hemoglobin Concent 33.6 g/dL 31.6-35.[address] [address] Mean Corpuscular Hemoglobin Concent 34.3 g/dL 31.6-35.[address] [address] RDW Coefficient of Variation 13.4 % 11.5-14.[address] [address] RDW Coefficient of Variation 13.1 % 11.5-14.[address] [address] Platelet Count 228 x10^3/uL 150-[address] [address] Platelet Count 179 x10^3/uL 150-[address] [address] Mean Platelet Volume 9.6 fL 7.4-13.[address] [address] Mean Platelet Volume 11.0 fL 7.4-13.[address] [address] Neutrophils (%) (Auto) 66.4 % 38.0-84.[address] [address] Neutrophils (%) (Auto) 51.3 % 38.0-84.0 [place] [address] Lymphocytes (%) (Auto) 20.8 % 20.0-40.0 [place] [address] Lymphocytes (%) (Auto) 34.3 % 20.0-40.0 [place] [address] Monocytes (%) (Auto) 11.0 % 3.0-13.0 [place] [address] Monocytes (%) (Auto) 10.6 % 3.0-13.0 [place] [address] Eosinophils (%) (Auto) 3.0 % 0.0-6.0 [place] [address] Eosinophils (%) (Auto) 1.6 % 0.0-6.0 [place] [address] Basophils (%) (Auto) 0.2 % 0-2.0 [place] [address] Basophils (%) (Auto) 0.8 % 0-2.0 [place] [address] Prothrombin Time 11.2 Sec 9.4-12.5 [place] [address] Prothromb Time International Ratio 1.0 0.8-1.1 INTERPRETIVE NOTE:No anticoagulant: 0.8 to 1.1Standard dose anticoagulant: 2.0 to 3.0High dose anticoagulant: 2.5 to 3.5Critical INR: > 5.0 [place] [address] D-Dimer, Quantitative < 150 ng/mLDDU 0-229 In conjunction with the clinical pretest probability assessment model, to exclude DVT and PE, the clinical cutoff value for D-Dimer is 230ng/mL DDU. [place] [address] Urine Color Yellow Yellow [place] [address] Urine Appearance Clear Clear [place] [address] Urine Specific Gratz 1.020 1.001-1.[address] [place] [address] Urine Leukocyte Esterase Negative Negative [facility] [address] [place] [address] Urine pH 6.0 pH 4.0-8.0 [facility] [address] [place] [address] Urine Protein Negative mg/dL Negative [facility] [address] [place] [address] Urine Glucose Negative mg/dL Negative [facility] [address] [place] [address] Urine Ketones Negative mg/dL Negative [facility] [address] [place] [address] Urine Bilirubin Negative Negative [facility] [address] [place] [address] Urine Nitrite Negative Negative [facility] [address] [place] [address] Urine Occult Blood Negative Negative [facility] [address] [place] [address] Urine WBC Negative [facility] [address] [place] [address] 49909 Urine RBC 0-2 /hpf [facility] [address] [place] [address] Urine Squamous Epithelial Cells Rare [facility] [address] [place] [address] 12480 Urine Bacteria Negative Negative [facility] [address] [place] [address] Sodium Level 141 MMOL/L 136-145 [facility] [address] [place] [address] 18032 Sodium Level 141 MMOL/L 136-145 [facility] [address] [place] [address] Plasma Sodium 141 MMOL/L 136-145 [facility] [address] [place] [address] 13897 Plasma Sodium 139 MMOL/L 136-145 [facility] [address] [place] [address] Potassium Level 4.1 MMOL/L 3.5-5.1 [facility] [address] [place] [address] Potassium Level TNP Test not performedSpecime n is Hemolyzed Checked for another tube [facility] [address] [place] [address] Plasma Potassium 3.7 MMOL/L 3.5-5.1 [facility] [address] [place] [address] Plasma Potassium 3.5 MMOL/L 3.5-5.1 [facility] [address] [place] [address] Chloride Level 103 MMOL/L 98-107 [facility] [address] [place] [address] 41841 Chloride Level 105 MMOL/L 98-107 [facility] [address] [place] [address] Plasma Chloride 105 MMOL/L 98-[address] [address] Plasma Chloride 105 MMOL/L 98-[address] [address] Carbon Dioxide Level 27 mmol/L 20-31 Note: New reference range and method effective 01/17/2019. [address] [address] Carbon Dioxide Level 30 MMOL/L 21-[address] [address] Plasma Carbon Dioxide 31 MMOL/L 21-[address] [address] Plasma Carbon Dioxide 28 MMOL/L 21-[address] [address] Anion Gap 8 4-[address] [address] Anion Gap 9 4-[address] [address] Calcium Level 9.3 mg/dL 8.7-10.4 Note: New method effective 02/15/2019. [facility] [address] [place] [address] Calcium Level 9.0 MG/DL 8.3-10.1 [facility] [address] [place] [address] Plasma Calcium 8.5 MG/DL 8.3-10.1 [facility] [address] [place] [address] Plasma Calcium 9.1 MG/DL 8.7-10.4 Note: New method effective 02/15/2019. [facility] [address] [place] [address] Glucose Level 107 MG/DL 74-106 [facility] [address] [place] [address]47 Glucose Level 114 MG/DL 74-106 Sulfas alazine may interfere with this assay, specimens should be drawn prior to dose. [address] [address] Plasma Glucose Level 131 MG/DL 74-106 Sulfasalazine may interfere with this assay, specimens should be drawn prior to dose. [address] [address] Plasma Glucose Level 133 MG/DL 74-[address] [address] Blood Urea Nitrogen 13 MG/DL 7-[address] [address] Blood Urea Nitrogen 17 mg/gL 9-23 Note: New reference range and method effective 01/17/2019. [address] [address] Plasma Blood Urea Nitrogen 10 9-23 Note: New reference range and method effective 01/17/2019. [address] [address] Plasma Blood Urea Nitrogen 13 7-[address] [address] Creatinine 0.7 MG/DL 0.6-1.[address] [address] Creatinine 0.7 mg/dL 0.6-1.1 Note: New reference range and method effective 01/17/2019. [address] [address] Plasma Creatinine 0.6 MG/DL 0.6-1.1 Note: New reference range and method effective 01/17/2019. [address] [address] Plasma Creatinine 0.9 MG/DL 0.6-1.[address] [address] Estimated GFR (Non- 119.4 >60 Estimated GFR units = mL/min/1.73 m??IDMS traceable MDRD study equation in use effective 08/24/[address] [address] Estimated GFR (Non- 119.4 >60 Estimated GFR units = mL/min/1.73 m??IDMS traceable MDRD study equation in use effective 08/24/[address] [address] Estimated GFR () 144.7 >60 Estimated GFR units = mL/min/1.73 m??IDMS traceable MDRD study equation in use effective 08/24/[address] [address] Estimated GFR () 144.7 >60 Estimated GFR units = mL/min/1.73 m??IDMS traceable MDRD study equation in use effective 08/24/[address] [address] Phosphorus Level 3.3 MG/DL 2.5-4.[address] [address] Phosphorus Level 3.5 MG/DL 2.4-5.1 Note: New reference range and method effective 01/17/2019. [facility] [address] [place] [address] B-Type Natriuretic Peptide 8.0 pg/mL <32.8 [place] [address] Cholesterol Level 199 MG/DL 0-199 [place] [address] Fasting Glucose 118 MG/DL 74-99 FOR FASTING PATIENTS:REFEREN CE RANGE <100IMPAIRED FASTING GLUCOSE/PRE-DIAB ETES 100-125DIABETES >125Sulfasalazin e may interfere with this assay, specimens should be drawn prior to dose. [place] [address] POC Capillary Blood Glucose (Chem) 99 MG/DL 74-106 [place] [address] POC Capillary Blood Glucose (Chem) 87 MG/DL 74-106 [place] [address] HDL Cholesterol 72.5 MG/DL 40-59 [place] [address] Triglycerides Level 113 MG/DL 0-149 [place] [address] LDL Cholesterol, Calculated 104 MG/DL 0-99 <100 [id number] Near or above [id number] Borderline [id number] High >=190 Very high [place] [address] Magnesium Level 2.1 MG/DL 1.8-2.4 [place] [address] Magnesium Level 1.9 MG/DL 1.6-2.6 Note: New reference range and method effective 01/17/2019. [facility] [address] [place] [address] Troponin I < 0.02 ng/mL 0.00-0.45 Revised method effective 01/17/19<0.02 ng/ml Negative0.02-0.4 5 ng/ml Patient at increased risk for adverse cardiac event(if ACS is suspected)0.46-0 .59 Patient at high risk for adverse cardiac event(if ACS is suspected)>=0.60 ng/ml Suggestive of myocardial injuryNOTE: Medical judgment is necessary for riskstratificati on based on low concentrations of Troponin I(Between 0.02-0.60 ng/ml) [place] [address] Thyroid Stimulating Hormone (TSH) 0.928 mIU/mL 0.3-4.0 [place] [address] Vancomycin Level Trough 16.4 ug/mL 15-20 [place] [address] Phenytoin (Dilantin) Level 14.1 ug/mL 10.0-20.0 [place] [address] Procalcitonin 0.48 ng/ml 0-0.05 Result Interpretations: PCT =<0.5ng/mL: Systemic infection not likelyPCT >0.5 and =<2.0 ng/mL: Moderate risk for progression to systemic infectionPCT >2.0 ng/mL: High risk for progression to systemic infectionPCT >=10 ng/mL High likelihood of severe sepsis or septic shock. [place] [address] Microbiology Results Procedure Source Result Collection Date/Time Result Date/Time Result Comment Performing Site Blood Culture Blood, Venous/Per ipheral Draw No growth November 28, 2018 4:19am [place] [address] Group A Streptococcus Rapid Screen Throat June 19, 2019 4:03pm [place] [address] Diagnostic Imaging Reports Report Dictated Date/Time Dictated By Status Radiology Report November 24, 2018 11:16am Nadeem taylor MD completed [facility] [phone] [place] [address] ULTRASOUND REPORT Signed Patient: APRYL MARIE MR#: [id number] : 1970 Acct:[id number] Age/Sex: 48 / M ADM Date: 9 Loc: A5 A504-[address]: Reji Henderson MD Ordering Physician: Kellen SALGUERO Date of Service: 11/24/18 Procedure(s): US venous doppler SONJA Accession Number(s): [id number] cc: Kellen SALGUERO~ INDICATION: Left lower extremity swelling. TECHNIQUE: Left lower extremity venous duplex color and spectral (waveform) Doppler ultrasound scanning was performed from the groins to the popliteal fossas. The right common femoral vein was also imaged for comparison. COMPARISON: None. LIMITATIONS: None FINDINGS: The left common femoral, femoral and popliteal veins are compressible and demonstrate normal respiratory variability, augmentation and color Doppler. US/US venous doppler LE LT IMPRESSION: No evidence of DVT in the left lower extremity. Dictated and Electronically Signed by: Nadeem Colmenares MD ([id number]) Dictated Date and Time:11/24/18 1116 Technologist: Samreen Olivares RDMS Radiology Report March 05, 2019 12:20pm Nadeem Colmenares MD completed [place] [phone] [place] [address] XRAY REPORT Signed Patient: APRYL MARIE MR#: [id number] 8821 : 1970 Acct:[id number] Age/Sex: 48 / M ADM Date: 9 Loc: ER Attending Dr: Ordering Physician: Pedro Orona MD Date of Service: 03/05/19 Procedure(s): XR chest 2V Accession Number(s): [id number] cc: Pedro Orona MD~ HISTORY: Shortness of breath TECHNIQUE: 2 views of the chest COMPARISON: There is no prior study available for comparison. FINDINGS: Lungs: No focal consolidation or pulmonary edema. Pleura: There is no pleural effusion or pneumothorax. Heart and Mediastinum: Cardiomediastinal silhouette is within normal size limits. Bones: Unremarkable. XR/XR chest 2V IMPRESSION: No radiographic evidence of acute cardiopulmonary process. Dictated and Electronically Signed by: Nadeem Colmenares MD ([id number]) Dictated Date and Time:03/05/19 1220 Technologist: Nadia Awad RT R Electrocardiogram March 05, 2019 11:06am H Christian Garcia MD completed [place] [phone] [place] [address] ELECTROCARDIOGRAPH REPORT Signed Patient: APRYL MARIE MR#: [id number] : 1970 Acct:[id number] Age/Sex: 48 / M ADM Date: 9 Loc: A2 A213-[address]: Jett Gomez MD Ordering Physician: Pedro Orona MD Date of Service: 03/05/19 Procedure(s): CA EKG 12 lead Accession Number(s): [id number] cc: Pedro Orona MD~ Technologist: [facility] ED Test Date: 2019-03-05 Pat Name: APRYL MARIE Department: Room: A213 Gender: M Resource Coordinator: Brain : 1970 Requested By: Pedro Tatum Order Number: [id number] Reading MD: JOSE GONZALES Measurements Intervals [employer] Rate: 79 P: 29 NC: 163 QRS: 76 QRSD: 90 T: 19 QT: 351 QTc: 403 Interpretive Statements SINUS RHYTHM MODERATE T-WAVE ABNORMALITY, CONSIDER ANTEROLATERAL ISCHEMIA [-0.1+ mV T-WAVE IN V3-V6] Electronically Signed On 03-05-2019 16:52:09 EDT by JOSE GONZALES Dictated By: Jose Gonzales MD Signed By: 03/05/19 1652 Dictated Date and Time: 03/05/19 1106 Transcribed By: Jose Gonzales MD Stress Test March 06, 2019 9:44am Genny Zelaya MD completed [facility] [phone] [place] [address] CARDIAC STRESS REPORT Signed Patient: APRYL MARIE MR#: [id number] : 1970 Acct:[id number] Age/Sex: 48 / M ADM Date: 9 Loc: A2 A213-[address]: Ligia Alva MD Ordering Physician: Garcia Torres MD Date of Service: 03/06/19 Procedure(s): CA stress test with pharm Accession Number(s): [id number] cc: Garcia Torres MD~ Exercise Treadmill Stress Test Amended Patient: APRYL MARIE, ^^ : 1970 Gender: M Procedure Date 03/06/2019 Age: 48 Referring MD: Garcia Torres MD Height: 182.88 cm Space Control Agent: Garcia Torres MD Weight: 176.45 kg Hybrid Corn Breeder: BSA 2.83 RN: Leroy Figueroa RN HR 73bpm Supervised by: Saira Hare NP BP: 131/ 83mmHg Other Staff: Indications: CHEST DISCOMFORT, HX OF DM,HL, NO HX OF CAD,HTN OR TOBACCO USE History: Findings: Stress Protocol The patient exercised for a total of 5 minutes and 48 seconds into Stage II using the manual mode protocol. The resting heart rate is 73 bpm and the BP is 131/83 mmHg. The maximal heart rate is 150 bpm which represents 88% of age predicted target HR. The peak BP is 213/91. The exercise capacity is 7.1 METs. Exercise was stopped due to dyspnea and fatigue. Baseline ECG Sinus with non specific ST changes noted at rest. Stress/Recovery ECG No significant ECG changes at the achieved cardiac workload. Frequent premature ventricular contractions noted with stress. Stress Exercise Summary Exercise capacity is adequate for age. Normal blood pressure response during stress. Normal heart rate response during stress. EKG is negative for ischemia. Nuclear images to follow. The patient experienced no chest pain, dyspnea, and fatigue during stress. Conclusions: EKG is negative for ischemia. Nuclear images to follow. Stage METS HR BPs BPd Symptoms Arrythmias STANDING 73 131 83 START EXE 74 131 83 STAGE 1 4.4 116 182 87 MANUAL DEEPAK 63 129 78 PEAK EXE 7.1 145 190 92 END REC 2.5 80 181 81 Updated by Garcia Torres MD on 03/06/2019 3:10:48 PM with Status of Final Garcia Torres MD electronically signed by on 03/06/2019 3:10:45 PM with status of Pending Approval Garcia Torres MD electronically signed by on 03/06/2019 3:10:48 PM with status of Final Dictated Date and Time:03/06/19 0944 Technologist: Echocardiogram March 06, 2019 2:20pm Genny Zelaya MD completed [facility] [phone] [place] [address]39 ECHOCARDIOGRAPHY REPORT Signed Patient: APRYL MARIE MR#: [id number] 8821 : 1970 Acct:[id number] Age/Sex: 48 / M ADM Date: 9 Loc: A2 A213-[address]: Ligia Alva MD Ordering Physician: Inocencio Mabry PA-C Date of Service: 03/06/19 Procedure(s): CA echo Complete Accession Number(s): [id number] cc: Inocencio Mabry PA-C~ Transthoracic Echocardiogram Patient: APRYL MARIE, : 1970 Gender: Male Procedure Date 03/06/2019 Age: 48 Referring MD: Inocencio Mabry Height: 182.88 cm Space Control Agent: Garcia Torres MD Weight: 176.45 kg Hybrid Corn Breeder: Tonie Estes [facility] BSA 2.83 Other Staff: HR Indications: SOB/BARROW BP: 134/ 85mmHg History: Findings: Left Ventricle Normal left ventricular cavity size. There is normal left ventricular wall thickness. The left ventricular systolic function is normal. The visually estimated ejection fraction is between 60-65%. Diastolic function is normal for age. Right Ventricle Normal right ventricular cavity size and systolic function. Atria Both atria are normal in size. TRAE 19ml/m2. Aortic Valve There is a tricuspid aortic valve. There is no aortic valve stenosis. There is no aortic valve regurgitation. Mitral Valve The mitral valve appears normal. There is no mitral valve regurgitation. There is no mitral valve stenosis. Pulmonic Valve The pulmonic valve is normal. There is no pulmonic valve regurgitation. Tricuspid Valve Normal tricuspid valve structure. There is trace tricuspid valve regurgitation. The right ventricular systolic pressure is normal. Great Vessels All visible segments of the aorta are normal in size. Pericardium/Pleural There is no evidence of pericardial effusion. Prior Study Comparison No prior study available for comparison. Conclusions: ? The visually estimated ejection fraction is between 60-65%. ? Diastolic function is normal for age. Measurements 2D Linear Measurements IVSd: 1.27 0.6-0.9/0.6-1.0 cm LVIDd: 4.82 3.9-5.3/4.2-5.9 cm LVIDd Index: 1.70 2.4-3.2/2.2-3.1 cm/m2 LVIDs: 3.10 2.0-3.6 cm LVPWd: 1.02 0.7-1.1 cm Ao Root: 3.30 2.1-3.5 cm LA Diam: 4.80 2.7-3.8/3.0-4.0 cm LAIDs Index: 1.70 1.5-2.3 cm/m2 LV Mass Index: 90.93 43-95/49-115 g/m2 LVOT Diam: 2.00 3.0+(-)1.3 cm Mitral Valve MV Pk E: 0.89 MV PK A: 0.84 MV Decel Time: 187.00 E/A: 1.10 E'Lateral: 9.79 E'Medial: 8.49 E/E' Med: 10.40 E/E' Lat: 9.10 PHT: 55.00 MVA PHT: 4.00 Decel [place]: 4.75 LVOT LVOT Pk Emiliano: 1.07 LVOT Mn Emiliano: 0.80 LVOT VTI: 0.19 LVOT Pk Grad: 5.00 LVOT Mn Grad: 3.00 LVOT Diam: 2.00 LVOT Area: 3.14 Diastolic Function MV Pk E: 0.89 MV Pk A: 0.84 E/A: 1.10 E'Medial: 8.49 E/E' Med: 10.40 E' Lateral: 9.79 E/E' Lat: 9.10 Great Vessels Aorta Ao Root-2D: 3.30 2.0-3.7 cm Ao Asc: 3.20 2.1-3.4 cm Updated by Garcia Torres MD on 03/06/2019 5:24:49 PM with Status of Final Garcia Torres MD electronically signed by on 03/06/2019 5:24:45 PM with status of Pending Approval Garcia Torres MD electronically signed by on 03/06/2019 5:24:49 PM with status of Final Dictated Date and Time:03/06/19 1420 Technologist: Tonie Estes Radiology Report March 07, 2019 1:51pm Bony Rosado MD completed [facility] [phone] [place] [address] NUCLEAR MEDICINE REPORT Signed Patient: APRYL MARIE MR#: [id number] 8821 : 1970 Acct:[id number] Age/Sex: 48 / M ADM Date: 9 Loc: A2 A213-[address]: Ligia Alva MD Ordering Physician: Inocencio Mabry PA-C Date of Service: 03/06/19 Procedure(s): NM stress and rest Accession Number(s): [id number] cc: Inocencio Mabry PA-C~ PLEASE SEE THE STRESS REPORT FOR DETAILS OF THE STRESS PORTION. Imaging Procedure Detail: Myocardial perfusion imaging was performed using a 2 day protocol with an intravenous injection of 33 mCi of Tc-99m Sestamibi at peak exercise and an intravenous injection of 33 mCi of Tc-99m Sestamibi at rest. Images were acquired by tomographic technique. Post stress images were EKG-gated. Nuclear Imaging Findings: The overall quality of the study is fair . Soft tissue attenuation artifact was present. Left ventricular cavity size is normal on the rest and stress images . Transient ischemic dilatation (TID) is absent. The right ventricle is normal. SPECT images demonstrate homogeneous tracer distribution throughout the myocardium with no evidence of ischemia or infarction. Gated SPECT imaging reveals normal myocardial thickening and wall motion. The left ventricular ejection fraction was calculated to be 55%. (Normal >50%). NM/NM stress and rest Impression: Myocardial perfusion imaging is normal with no evidence of ischemia or infarction. Overall left ventricular systolic function was normal with no regional wall motion abnormalities. Dictated and Electronically Signed by: Dr Alonzo Lovett MD ([id number]) Dictated Date and Time:03/07/19 1351 Technologist: Gil Douglas [facility] Advance Directives Advance Directive Response Recorded Date/ Time Do you have a Health Care Proxy Declined March 05, 2019 4:19pm MOLST Form Reviewed/Completed With Patient No March 05, 2019 4:19pm Chief Complaint and Reason for Visit Chief Complaint CELLULITIS Result SHORTNESS OF BREATH Worklist Item SORE THROAT Reason for Visit Left leg cellulitis Diabetes mellitus HTN (hypertension) Hyperlipidemia Morbid obesity Seizure disorder Chest pain Shortness of breath Diabetes mellitus HTN (hypertension) Hyperlipidemia Morbid obesity Seizure disorder Encounters Encounter Location(s) Arrival/Admit Date Discharge/Depart Date Provider(s) Discharged Inpatient [facility] November 22, 2018 11:49pm November 26, 2018 10:37am Santiago Mendoza MD Registered Physician/Provi devyn Office Visit [facility] [place]- March 06, 2019 12:00am Genny Zelaya MD Discharged Inpatient [facility] March 06, 2019 11:11am March 07, 2019 2:47pm Artie Strong MD Registered Physician/Provi devyn Office Visit [facility] [place]- March 07, 2019 12:00am null [place] [facility] June 19, 2019 3:27pm June 19, 2019 4:49pm null Recent Diagnosis Onset Date Left leg cellulitis Diabetes mellitus HTN (hypertension) Hyperlipidemia Morbid obesity Seizure disorder Chest pain Shortness of breath Diabetes mellitus HTN (hypertension) Hyperlipidemia Morbid obesity Seizure disorder Assessments Diagnosis Onset Date Resolution Status Left leg cellulitis acute Diabetes mellitus chronic HTN (hypertension) chronic Hyperlipidemia chronic Morbid obesity chronic Seizure disorder chronic Chest pain acute Shortness of breath acute Diabetes mellitus chronic HTN (hypertension) chronic Hyperlipidemia chronic Morbid obesity chronic Seizure disorder chronic Family History Relationship Condition Age at Onset Recorded Date/T dayna mother Malignant neoplasm of pancreas Unknown father Diabetes mellitus Unknown Myocardial infarction Unknown brother Diabetes mellitus Unknown Functional Status Observation Response Date Recorded Physical Dependency Level Independent November 062018 9:19am Physical Dependency Level Independent Octobe r 2018 8:00am Goals No Goals Information Available Mental Status Observation Response Date Recorded Comprehension Ability Understands Concepts November 26, 2018 9:19am Comprehension Ability Understands Concepts Octob er 2018 8:00am Medical Equipment No Medical Equipment Information available Insurance Providers Guarantor APRYL MARIE Address [address] [place] [id number] Contact Info. Home Phone: Payer Policy Id Coverage Id Subscriber's Name Subscriber Id Effective Date Expiration Date MEDICAID [id number] APRYL MARIE [id number] SELF PAY [facility] Public Plan Direct [id number] APRYL MARIE [id number] [facility] Public Plan Together [id number] APRYL MARIE [id number] [facility] [id number] APRYL MARIE [id number] Plan of Treatment Future Tests Future scheduled test information is unavailable Pending Tests Pending diagnostic test information is unavailable Future Visits Future appointment information is unavailable Referrals to Other Providers Reason for Referral Referral Start Date Provider Provider Contact Information Provider Address Prasanth KHOURY Work Phone: [address] [phone] Future Procedures Future procedure information is unavailable Future Medications Future medication information is unavailable Patient Instructions Vancomycin capsules Cellulitis Dc ED Dyspnea Shortness of Jenifer th ED Pharyngitis Viral ED Otitis Externa Social History Smoking Status Status Date of Observation Never smoked tobacco (finding) June 072019 4:38pm Observation Status Observation Response Date of Response Smoking Status Never smoker June 19 4:38pm Assigned Sex Male Vital Signs Vital Reading Result Reference Range Collection Date/Time Weight 170.09 kg November 23, 2018 1:06am Body Temperature 98.0 [degF] 96.5-101.5 November 26, 2018 7:30am Heart Rate 66 /min 50-110 November 26, 2018 7:30am Respiratory rate 16 /min -November 26, 2018 7:30am Oxygen saturation by Pulse oximetry 95 % 95-100 November 26, 2018 9:19 am BP Systolic 125 mm[Hg] 100-180 November 26, 2018 7:30am BP Diastolic 63 mm[Hg] 70-85 November 26, 2018 7:30am BMI (Body Mass Index) 50.8 kg/m2 November 052018 1:06am Weight 176.90 kg March 05, 2019 4:19pm Body Temperature 98.4 [degF] 96.5-101.5 March 10:49am Heart Rate 81 /min 50-110 March 07 12:00pm Respiratory rate 18 /min -March 10:49am Oxygen saturation by Pulse oximetry 95 % 95-100 March 07, 2019 10 :49am BP Systolic 128 mm[Hg] 100-180 March 07 10:49am BP Diastolic 88 mm[Hg] 70-85 March 07 10:49am BMI (Body Mass Index) 52.9 kg/m2 2018 4:19pm Height 72 [in_i] June 19 3:38pm Weight 172.36 kg June 19 3:38pm Body Temperature 98.6 [degF] 96.5-101.5 June 3:38pm Heart Rate 78 /min 50-110 June 19 020 3:38pm Respiratory rate 20 /min -June 3:38pm Oxygen saturation by Pulse oximetry 97 % 95-100 June 19, 2019 3 :38pm BP Systolic 149 mm[Hg] 100-180 June 19, 2 020 3:38pm BP Diastolic 89 mm[Hg] 70-85 June 19, 2 020 3:38pm BMI (Body Mass Index) 51.5 kg/m2 Jagjitbrinaalessandra nixon 2019 3:38pm
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
--- OUTSIDE RECORDS SUMMARY | 2023-01-07 12:55 | XMS_ITS | Continuity of Care Document ---
Author Name Unknown Address [address] [place] [address] Phone [facility] Address [address] [place] [address] Phone Support Name Relationship Address Phone PAGE SALAZAR Friend [address] [place] [address] IRAIDA CHOPRA Primary Care Provider Unknown Unavailable Traci Lipscomb Emergency Provider Unknown Un available Stanley Bui Emergency Provider Unknown Unavaila ble Govindaiah, Julius Admit Provider Unknown Unav ailable Reji Henderson Attending Provider Unknown Unavaila ble Davis, Brooklynn Other Provider Unknown Unavailable Pedro Orona Emergency Provider Unknown Un available Jett Gomez Admit Provider Unknown Unav ailable SHARRON ROCHE Other Provider Unknown Unava ilable BRIGITTE BONILLA Other Provider Unknown Unavailable Nezhad Jose H Other Provider Unknown Unavaila ble NIKPOOR, BORZOO Other Provider Unknown Unavailabl Blaze Lynn Other Provider Unknown Unavailab le Dylan Mtz Other Provider Unknown Unavai lable Gloria De Leónuliana Other Provider Unknown Unavailable Blaze Webb Other Provider Unknown Unava ilable Víctor, Meaghan L Other Provider Unknown Unavailab le CHARLES, MOHAMED CHRISTY Other Provider Unknown Unava ilable Saira Hare Other Provider Unknown Unavailab le AcharFemi ordonez Other Provider Unknown Unavailab Blaze Blakely Other Provider Unknown Unavailable Garcia Torres Other Provider Unknown Unavaila ble Gadam, Rakshith Attending Provider Unknown Unavai lable Allergies, Adverse [...] 9:33pm Atorvastatin Active 80 MG ORAL AT [facility] November 22, 2018 9:33pm Ibuprofen Discontinu ed 800 MG ORAL 3 TIMES A DAY November 22, 2018 9:33pm [facility] 2018 11:53am Phenytoin Sodium Extended Active 200 MG ORAL Twice A Day November 22, 2018 9:33pm WEDNESDAY ONLY = 400mg BID Phenytoin Sodium Extended Active 400 MG ORAL .BID THURSDAY November 22, 2018 9:33pm CASIE only, 200mg BID all other days of the week Aspirin Active 81 MG ORAL DAILY November 22, 2018 9:33pm Doxazosin Active 8 MG ORAL AT [facility] E November 22, 2018 9:33pm Metoprolol Succinate [...] A Day 12 November 26, 2018 10:40am [facility] 2018 11:55am Problems Active Problems Medical Problem [...] November 26, 2018 6:00am 5.8 x10^3/uL 3.8-11.3 [facility] [address] [place] [address] White Blood Count March 06, 2019 6:07am 5.0 x10^3/uL 3.8-11.[address] [address] Red Blood Count November 26, 2018 6:00am 4.82 x10^6/uL 4.7-6.[address] [address] Red Blood Count March 06, 2019 6:07am 4.66 x10^6/uL 4.7-6.[address] [address] Hemoglobin November 26, 2018 6:00am 14.4 g/dL 13.0-17.[address] [address] Hemoglobin March 06, 2019 6:07am 14.0 g/dL 13.0-17.[address] [address] Hematocrit November 26, 2018 6:00am 42.8 % 38.0-49.[address] [address] Hematocrit March 06, 2019 6:07am 40.8 % 38.0-49.[address] [address] Mean Corpuscular Volume November 26, 2018 6:00am 88.8 fL 80-[address] [address] Mean Corpuscular Volume March 06, 2019 6:07am 87.6 fL 80-[address] [address] Mean Corpuscular Hemoglobin November 26, 2018 6:00am 29.9 pg 26.7-33.[address] [address] Mean Corpuscular Hemoglobin March 06, 2019 6:07am 30.0 pg 26.7-33.[address] [address] Mean Corpuscular Hemoglobin Concent November 26, 2018 6:00am 33.6 g/dL 31.6-35.[address] [address] Mean Corpuscular Hemoglobin Concent March 06, 2019 6:07am 34.3 g/dL 31.6-35.[address] [address] RDW Coefficient of Variation November 26, 2018 6:00am 13.1 % 11.5-14.[address] [address] RDW Coefficient of Variation March 06, 2019 6:07am 13.4 % 11.5-14.[address] [address] Platelet Count November 26, 2018 6:00am 228 x10^3/uL 150-[address] [address] Platelet Count March 06, 2019 6:07am 179 x10^3/uL 150-[address] [address] Mean Platelet Volume November 26, 2018 6:00am 9.6 fL 7.4-13.[address] [address] Mean Platelet Volume March 06, 2019 6:07am 11.0 fL 7.4-13.[address] [address] Neutrophils (%) (Auto) November 22, 2018 9:52pm 66.4 % 38.0-84.[address] [address] Neutrophils (%) (Auto) March 06, 2019 6:07am 51.3 % 38.0-84.[address] [address] Lymphocytes (%) (Auto) November 22, 2018 9:52pm 20.8 % 20.0-40.[address] [address] Lymphocytes (%) (Auto) March 06, 2019 6:07am 34.3 % 20.0-40.[address] [address] Monocytes (%) (Auto) November 22, 2018 9:52pm 11.0 % 3.0-13.[address] [address] Monocytes (%) (Auto) March 06, 2019 6:07am 10.6 % 3.0-13.[address] [address] Eosinophils (%) (Auto) November 22, 2018 9:52pm 1.6 % 0.0-6.[address] [address] Eosinophils (%) (Auto) March 06, 2019 6:07am 3.0 % 0.0-6.[address] [address] Basophils (%) (Auto) November 22, 2018 9:52pm 0.2 % 0-2.[address] [address] Basophils (%) (Auto) March 06, 2019 6:07am 0.8 % 0-2.[address] [address] Prothrombin Time March 05, 2019 11:14am 11.2 Sec 9.4-12.5 [place] [address] Prothromb Time International Ratio March 05, 2019 11:14am 1.0 0.8-1.1 INTERPRETIVE NOTE:No anticoagulant: 0.8 to 1.1Standard dose anticoagulant: 2.0 to 3.0High dose anticoagulant: 2.5 to 3.5Critical INR: > 5.0 [place] [address] D-Dimer, Quantitative March 05, 2019 11:14am < 150 ng/mLDDU 0-229 In conjunction with the clinical pretest probability assessment model, to exclude DVT and PE, the clinical cutoff value for D-Dimer is 230ng/mL DDU. [place] [address] Urine Color March 05, 2019 11:06am Yellow Yellow [place] [id number] Urine Appearance March 05, 2019 11:06am Clear Clear [place] 7476002 Urine Specific [place] March 05, 2019 11:06am 1.020 1.001-1.03 5 [place] 7476002 Urine Leukocyte Esterase March 05, 2019 11:06am Negative Negative [place] [address] Urine pH March 05, 2019 11:06am 6.0 pH 4.0-8.0 [place] [address] Urine Protein March 05, 2019 11:06am Negative mg/dL Negative [address] [place] [address] Urine Glucose March 05, 2019 11:06am Negative mg/dL Negative [facility] [address] [place] [address] Urine Ketones March 05, 2019 11:06am Negative mg/dL Negative [facility] [address] [place] [address] Urine Bilirubin March 05, 2019 11:06am Negative Negative [address] [address] Urine Nitrite March 05, 2019 11:06am Negative Negative [facility] [address] [place] [address] Urine Occult Blood March 05, 2019 11:06am Negative Negative [address] [address] Urine WBC March 05, 2019 11:06am Negative [address] [address] Urine RBC March 05, 2019 11:06am 0-2 /hpf [address] [address] Urine Squamous Epithelial Cells March 05, 2019 11:06am Rare [facility] [address] [place] [address] Urine Bacteria March 05, 2019 11:06am Negative Negative [facility] [address] [place] [address] Sodium Level November 26, 2018 6:00am 141 MMOL/L 136-145 [facility] [address] [place] [address] Sodium Level March 06, 2019 6:07am 141 MMOL/L 136-145 [facility] [address] [place] [address] Plasma Sodium November 22, 2018 9:52pm 139 MMOL/L 136-145 [facility] [address] [place] [address] Plasma Sodium March 05, 2019 11:14am 141 MMOL/L 136-145 [facility] [address] [place] [address] Potassium Level November 26, 2018 6:00am 4.1 MMOL/L 3.5-5.1 [facility] [address] [place] [address] Potassium Level March 06, 2019 8:59am 4.7 MMOL/L 3.5-5.[address] [address] Plasma Potassium November 22, 2018 9:52pm 3.5 MMOL/L 3.5-5.1 [facility] [address] [place] [address] Plasma Potassium March 05, 2019 11:14am 3.7 MMOL/L 3.5-5.1 [facility] [address] [place] [address] Chloride Level November 26, 2018 6:00am 103 MMOL/L 98-[address] [address] Chloride Level March 06, 2019 6:07am 105 MMOL/L 98-[address] [address] Plasma Chloride November 22, 2018 9:52pm 105 MMOL/L 98-107 [facility] [address] [place] [address] Plasma Chloride March 05, 2019 11:14am 105 MMOL/L 98-[address] [address] Carbon Dioxide Level November 26, 2018 6:00am 30 MMOL/L 21-[address] [address] Carbon Dioxide Level March 06, 2019 6:07am 27 mmol/L 20-31 Note: New reference range and method effective 01/17/2019. [address] [address] Plasma Carbon Dioxide November 22, 2018 9:52pm 31 MMOL/L 21-[address] [address] Plasma Carbon Dioxide March 05, 2019 11:14am 28 MMOL/L 21-[address] [address] Anion Gap November 26, 2018 6:00am 8 4-[address] [address] Anion Gap March 06, 2019 6:07am 9 4-14 [facility] [address] [place] [address] Calcium Level November 26, 2018 6:00am 9.0 MG/DL 8.3-10.[address] [address] Calcium Level March 06, 2019 6:07am 9.3 mg/dL 8.7-10.4 Note: New method effective 02/15/2019. [address] [address] Plasma Calcium November 22, 2018 9:52pm 8.5 MG/DL 8.3-10.[address] [address] Plasma Calcium March 05, 2019 11:14am 9.1 MG/DL 8.7-10.4 Note: New method effective 02/15/2019. [address] [address] Glucose Level November 26, 2018 6:00am 114 MG/DL 74-106 Sulfasalazine may interfere with this assay, specimens should be drawn prior to dose. [address] [address] Glucose Level March 06, 2019 6:07am 107 MG/DL 74-[address] [address] Plasma Glucose Level November 22, 2018 9:52pm 131 MG/DL 74-106 Sulfasalazine may interfere with this assay, specimens should be drawn prior to dose. [address] [address] Plasma Glucose Level March 05, 2019 11:14am 133 MG/DL 74-[address] [address] Blood Urea Nitrogen November 26, 2018 6:00am 13 MG/DL 7-[address] [address] Blood Urea Nitrogen March 06, 2019 6:07am 17 mg/gL 9-23 Note: New reference range and method effective 01/17/2019. [address] [address] Plasma Blood Urea Nitrogen November 22, 2018 9:52pm 13 7-[address] [address] Plasma Blood Urea Nitrogen March 05, 2019 11:14am 10 9-23 Note: New reference range and method effective 01/17/2019. [address] [address] Creatinine November 26, 2018 6:00am 0.7 MG/DL 0.6-1.[address] [address] Creatinine March 06, 2019 6:07am 0.7 mg/dL 0.6-1.1 Note: New reference range and method effective 01/17/2019. [address] [address] Plasma Creatinine November 22, 2018 9:52pm 0.9 MG/DL 0.6-1.[address] [address] Plasma Creatinine March 05, 2019 11:14am 0.6 MG/DL 0.6-1.1 Note: New reference range and method effective 01/17/2019. [address] [address] Estimated GFR (Non- November 26, 2018 6:00am 119.4 >60 Estimated GFR units = mL/min/1.73 m??IDMS traceable MDRD study equation in use effective 08/24/[address] [address] Estimated GFR (Non- March 06, 2019 6:07am 119.4 >60 Estimated GFR units = mL/min/1.73 m??IDMS traceable MDRD study equation in use effective 08/24/[address] [address] Estimated GFR () November 26, 2018 6:00am 144.7 >60 Estimated GFR units = mL/min/1.73 m??IDMS traceable MDRD study equation in use effective 08/24/[address] [address] Estimated GFR () March 06, 2019 6:07am 144.7 >60 Estimated GFR units = mL/min/1.73 m??IDMS traceable MDRD study equation in use effective 08/24/17 [facility] [address] [place] [address] Phosphorus Level November 26, 2018 6:00am 3.3 MG/DL 2.5-4.[address] [address] Phosphorus Level March 06, 2019 6:07am 3.5 MG/DL 2.4-5.1 Note: New reference range and method effective 01/17/2019. [address] [address] B-Type Natriuretic Peptide March 05, 2019 11:14am 8.0 pg/mL <32.[address] [address] Cholesterol Level March 06, 2019 6:07am 199 MG/DL 0-[address] [address] Fasting Glucose November 23, 2018 6:48am 118 MG/DL 74-99 FOR FASTING PATIENTS:REFEREN CE RANGE <100IMPAIRED FASTING GLUCOSE/PRE-DIAB ETES 100-125DIABETES >125Sulfasalazin e may interfere with this assay, specimens should be drawn prior to dose. [place] [address] POC Capillary Blood Glucose (Chem) November 26, 2018 7:33am 99 MG/DL 74-106 [place] [address] POC Capillary Blood Glucose (Chem) March 07, 2019 12:20pm 87 MG/DL 74-106 [place] 7476002 HDL Cholesterol March 06, 2019 6:07am 72.5 MG/DL 40-59 [place] 7476002 Triglycerides Level March 06, 2019 6:07am 113 MG/DL 0-149 [place] [address] LDL Cholesterol, Calculated March 06, 2019 6:07am 104 MG/DL 0-99 <100 [id number] Near or above -503 Borderline [id number] High >=190 Very high [place] [address] Magnesium Level November 26, 2018 6:00am 2.1 MG/DL 1.8-2.4 [place] [address] Magnesium Level March 06, 2019 6:07am 1.9 MG/DL 1.6-2.6 Note: New reference range and method effective 01/17/2019. [place] [address] Troponin I March 05, 2019 5:09pm < 0.02 ng/mL 0.00-0.45 Revised method effective 01/17/19<0.02 ng/ml Negative0.02-0.4 5 ng/ml Patient at increased risk for adverse cardiac event(if ACS is suspected)0.46-0 .59 Patient at high risk for adverse cardiac event(if ACS is suspected)>=0.60 ng/ml Suggestive of myocardial injuryNOTE: Medical judgment is necessary for riskstratificati on based on low concentrations of Troponin I(Between 0.02-0.60 ng/ml) [place] [address] Thyroid Stimulating Hormone (TSH) March 05, 2019 11:14am 0.928 mIU/mL 0.3-4.[address] [address] Vancomycin Level Trough November 26, 2018 6:00am 16.4 ug/mL 15-[address] [address] Phenytoin (Dilantin) Level March 05, 2019 11:14am 14.1 ug/mL 10.0-20.[address] [address] Procalcitonin November 26, 2018 6:00am 0.48 ng/ml 0-0.05 Result Interpretations: PCT =<0.5ng/mL: Systemic infection not likelyPCT >0.5 and =<2.0 ng/mL: Moderate risk for progression to systemic infectionPCT >2.0 ng/mL: High risk for progression to systemic infectionPCT >=10 ng/mL High likelihood of severe sepsis or septic shock. [address] [address] Microbiology Results Procedure Source Result Collection Date/Time Result Date/Time Result Comment Performing Site Blood Culture Blood, Venous/Pe ripheral Draw No growth November 22, 2018 9:52pm November 28, 2018 4:19am [address] [address] Group A Streptococcus Rapid Screen Throat May 31, 2018 4:10pm May 31, 2018 4:27pm [address] [address] Group A Strep Throat Culture Throat No Group A Beta Strep Isolated May 31, 2018 4:10pm June 02, 2018 10:16am [address] [address] Advance Directives Advance Directive Response Recorded Date/ Time Do you have a Health Care Proxy Declined March 05, 2019 4:19pm [facility] Form Reviewed/Completed With Patient No March 05, 2019 4:19pm Chief Complaint and Reason for Visit Chief Complaint SORE THROAT CELLULITIS SHORTNESS OF BREATH Reason for Visit Left leg cellulitis Diabetes mellitus HTN (hypertension) Hyperlipidemia Morbid obesity Seizure disorder Chest pain Shortness of breath Diabetes mellitus HTN (hypertension) Hyperlipidemia Morbid obesity Seizure disorder Encounters Encounter Location(s) Arrival/Admit Date Discharge/Depart Date Provider(s) Departed Emergency [facility] Department May 31, 2018 3:56pm May 31, 2018 5:39pm null [facility] November 22, 2018 11:49pm November 26, 2018 10:37am Santiago Mendoza MD Discharged [facility] March 06, 2019 11:11am March 07, 2019 2:47pm Artie Strong MD Recent Diagnosis Onset Date Left leg cellulitis [...] available Insurance Providers Guarantor APRYL MARIE Address [address] [place] [address] Contact Info. Home Phone: Payer Policy Id Coverage Id Subscriber's Name Subscriber Id Effective Date Expiration Date MEDICAID [id number] APRYL MARIE [id number] SELF PAY [facility] Public Plan Direct [id number] APRYL MARIE [id number] [facility] Plan Together [id number] APRYL MARIE [id number] Plan of Treatment Future Tests Future scheduled test information is unavailable Pending Tests Pending diagnostic test information is unavailable Future Visits Future appointment information is unavailable Referrals to Other Providers Reason for Referral Referral Start Date Provider Provider Contact Information Provider Address Prasanth DUQUEROSSIANTOINETTE CHANDRAALL Work Phone: [address] [address] Future Procedures Future procedure information is unavailable Future Medications Future medication information is unavailable Patient Instructions Sore Throats Self Care ED Allergy Nasal Vancomycin capsules Cellulitis Dc ED Dyspnea Shortness of Jenifer th Social History Smoking Status Status Date of Observation Never smoked tobacco (finding) March 072018 1:59pm Observation Status Observation Response Date of Response Smoking Status Never smoker March 07 1:59pm Assigned Sex Male Vital Signs Vital Reading Result Reference Range Collection Date/Time Weight 167.82 kg May 31, 2018 3:59pm Body Temperature 98.2 [degF] 96.5-101.5 May 312017 3:59pm Heart Rate 78 /min 50-110 May 31, 2018 3:59pm Respiratory rate 18 /min 12-20 May 312017 3:59pm Oxygen saturation by Pulse oximetry 95 % 95-100 May 31, 2018 3:59pm BP Systolic 121 mm[Hg] 100-180 May 31, 2018 3:59pm BP Diastolic 78 mm[Hg] 70-85 May 31, 2018 3:59pm BMI (Body Mass Index) 50.1 kg/m2 [facility] 2017 3:59pm Weight 170.09 kg November [...] 1:06am Height 72 [in_i] March 05, 2019 4:19pm Weight 176.90 kg March 05, 2019 4:19pm [...] (Body Mass Index) 52.9 kg/m2 2018 4:19pm Hospital Discharge Instructions Additional Instructions It is likely that her symptoms are secondary to nasal congestion and rhinorrhea Take your Flonase 2 puffs daily as prescribed Follow-up with primary care physician in one to 2 days for repeat evaluation and management Take allergy medication as prescribed Return with any significantly new or worsening symptoms
--- OUTSIDE RECORDS SUMMARY | 2023-01-07 12:55 | XMS_ITS | Continuity of Care Document ---
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 Maninder Simmons MD Departed Emergency [facility] September 25, 2020 7:13am September 25, 2020 12:23pm null Non-patient / Non-visit [facility] September 25, 2020 8:02am Maame De León NP Non-patient / [facility] October 16, 2020 2:14pm Angeline Lynch RN Departed Physician/Prov ider Office Visit [facility] October 24, 2020 2:35pm October 24, 2020 3:46pm Jose Gonzales MD Departed Emergency [facility] October 29, 2020 8:26am October 29, 2020 9:32am null Departed Emergency [facility] January 17, 2021 8:20am January 17, 2021 1:08pm null Non-patient / Non-visit [facility] January 17, 2021 8:32am Garcia Torres MD Departed Physician/Prov ider Office Visit [facility] January 17, 2021 3:18pm January 17, 2021 4:15pm Shira Martinez OD Departed Physician/Prov ider Office Visit [facility] January 20, 2021 9:30am January 20, 2021 10:43am Shira Martinez OD Departed Physician/Prov ider Office Visit [facility] January 20, 2021 10:31am January 20, 2021 1:01pm Olive Byrnes MD Departed Emergency [facility] January 23, 2021 5:45pm January 23, 2021 10:52pm null Recent Diagnosis Onset Date Diabetes mellitus [...] eye exam due to anxiety and 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 RD sxs reviewed. No obvious DR on undilated exam today. RTC next week for optos photos and cornea check at the [facility]. H/o small K-abrasion and SPK OS: Resolved [...] Provider Address Iraida Chopra MD Work Phone: [address] [address] Iraida Chopra MD Work Phone: [address] [address] Iraida Chopra MD Work Phone: [address] Iraida Chopra MD Work Phone: [address] Addison Stinson MD Work Phone: [address] [address] Iraida Chopra MD Work Phone: [address] Iraida Chopra MD Work Phone: [address] Iraida Chopra MD Work Phone: [address] [address] Future Procedures Future procedure information is unavailable [...]
--- OUTSIDE RECORDS SUMMARY | 2023-01-07 12:56 | XMS_ITS | Continuity of Care Document ---
Author Name [facility] Address [address] [place] [address] Organization [facility] Address [address] [place] [address] Support Name Relationship Address Phone Satnam Purcell Primary Care Provider [address] [address] Satnam Purcell Family Provider [address] [address] Aleksander Granados Other Provider [address] [place] [address] [facility] [place] [address] Hospitalist, [place] [facility] Provider Unknown Princess vailable Edith Cole Admit Provider [address] [phone] Edith Cole Attending Provider [address] [phone] Allergies, Adverse Reactions, Alerts No known allergies. Medications Active Medications Medication Dose Units Route Sig Start Date Status Aspirin Ec 81 MG PO DAILY September 19, 2018 Active Betamethasone Dipropionate 15 GM EACH EYE TWICE A DAY September 19, 2018 Active Doxazosin [Cardura] 8 MG PO DAILY September 19 Active Fluticasone 50 Mcg Nasal [Flonase] 2 SPRAY NASAL TWICE A DAY September 19, 2018 Active Ibuprofen 800 MG PO THREE TIMES A DAY PRN For pain September 19, 2018 Active Metformin Hcl 500 MG PO TWICE A DAY September 19, 2018 Active Multivitamin [Daily Lc] 1 TAB PO DAILY September 19, 2018 Active Phenytoin Sodium Extended 200 MG PO TWICE A DAY September 19, 2018 Active Pravastatin Sodium 80 MG PO ONCE D AILY AT BEDTIME September 19, 2018 Active Phenytoin 400 MG PO PROTOCOL September 19, 2018 Active Problem List Active Problems Medical Problem Onset Date Status Vasovagal attack Active Chest pain Active Procedures Procedure Date Status XR chest 2V September 19, 2018 completed EKG ED Electrocardiogram September 19, 2018 active Relevant Diagnostic Tests and/or Laboratory Data Laboratory Results Test Date/Time Result Interp. Ref. Range Result Co mment Add-On Test Request September 19, 2018 6:27pm Added test White Blood Count September 19, 2018 3:23pm 5.6 X10 3/uL 4.5-11.0 Red Blood Count September 19, 2018 3:23pm 4.39 X10 6/uL 4.00-5.50 Hemoglobin September 19, 2018 3:23pm 13.7 g/dl 12.0-17.0 Hematocrit September 19, 2018 3:23pm 39.7 % 35.0-50.0 Mean Corpuscular Volume September 19, 2018 3:23pm 90.4 fl 80.0-100.0 Mean Corpuscular Hemoglobin September 19, 2018 3:23pm 31.2 pg 27.0-34.0 Mean Corpuscular Hemoglobin Concent September 19, 2018 3:23pm 34.5 g/dl 31.0-36.0 Red Cell Distribution Width September 19, 2018 3:23pm 13.2 % 11.5-15.0 Platelet Count September 19, 2018 3:23pm 228 X10 3/uL 150-400 Immature Granulocyte % (Auto) September 19, 2018 3:23pm 0.7 % Neutrophils (%) (Auto) September 19, 2018 3:23pm 54.8 % Lymphocytes (%) (Auto) September 19, 2018 3:23pm 32.9 % Monocytes (%) (Auto) September 19, 2018 3:23pm 9.1 % Eosinophils (%) (Auto) September 19, 2018 3:23pm 2.1 % Basophils (%) (Auto) September 19, 2018 3:23pm 0.4 % Immature Granulocyte # (Auto) September 19, 2018 3:23pm 0.04 X10 3/uL 0.00-0.09 Neutrophils # (Auto) September 19, 2018 3:23pm 3.1 X10 3/uL 1.5-7.8 Lymphocytes # (Auto) September 19, 2018 3:23pm 1.9 X10 3/uL 1.0-4.8 Monocytes # (Auto) September 19, 2018 3:23pm 0.5 X10 3/uL 0.0-0.8 Eosinophils # (Auto) September 19, 2018 3:23pm 0.1 X10 3/uL 0.0-0.5 Basophils # (Auto) September 19, 2018 3:23pm 0.0 X10 3/uL 0.0-0.2 Hemoglobin A1c September 19, 2018 3:23pm 5.6 4.3-5.9 Estimated Average Glucose (eAG) September 19, 2018 3:23pm 114 mg/dl Nucleated Red Blood Cells % September 19, 2018 3:23pm 0.0 /100 WBC 0.0-0.0 Sodium Level September 19, 2018 3:23pm 144 mmol/L 137-146 Potassium Level September 19, 2018 3:23pm 4.0 mmol/L 3.5-5.3 Chloride Level September 19, 2018 3:23pm 105 mmol/L 98-107 Carbon Dioxide Level September 19, 2018 3:23pm 27 mmol/L 23-32 Anion Gap September 19, 2018 3:23pm 12 mmol/L 5-15 Blood Urea Nitrogen September 19, 2018 3:23pm 13 mg/dl 5-25 Creatinine September 19, 2018 3:23pm 0.8 mg/dL 0.6-1.4 Estimated Creatinine Clearance September 19, 2018 3:23pm 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 Unable 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 CRCL,Ht and/or Wt missing Estimated GFR () September 19, 2018 3:23pm > 60 60- Estimated GFR (Non- September 19, 2018 3:23pm > 60 60- BUN/Creatinine Ratio September 19, 2018 3:23pm 16.3 10.0-20.0 Glucose Level September 19, 2018 3:23pm 145 mg/dL High 70-100 Calcium Level September 19, 2018 3:23pm 9.0 mg/dl 8.6-10.3 Total Bilirubin September 19, 2018 3:23pm < 0.2 mg/dl Aspartate Amino Transf (AST/SGOT) September 19, 2018 3:23pm 30 U/L 15-41 Alanine Aminotransferase (ALT/SGPT) September 19, 2018 3:23pm 44 U/L 14-63 Total Creatine Kinase September 19, 2018 10:27pm 81 U/L 49-397 Troponin T September 19, 2018 10:27pm < 0.01 ng/ml Total Protein September 19, 2018 3:23pm 6.5 g/dL 6.4-8.3 Albumin September 19, 2018 3:23pm 3.7 g/dl Low 4.0-5.0 Albumin/Globulin Ratio September 19, 2018 3:23pm 1.3 1.0-2.6 Alkaline Phosphatase September 19, 2018 3:23pm 92 U/L 40-129 Glucose (Fingerstick) September 19, 2018 9:10pm 146 mg/dl NOTE: Any discrepancy between finger stick glucose result and patient's clinical presentation should be confirmed by the laboratory. Advance Directives Advance Directive Response Recorded Date/ Time Advance Directives No September 20 9 7:37am Health Care Proxy No September 20, 2018 7:37am Pt has Medical Orders for Li fe Sustaining Tx Form (MOLST)? No September 20, 2018 1:14am Chief Complaint and Reason for Visit Encounter Admit Date Chief Complaint Reason for V isit Discharged Inpatient September 19, 2018 6:15pm CHEST PAIN/ PRESYNCOPE Chest pain Vasovagal attack Hospital Discharge Instructions No known hospital discharge instructions. Hospital Discharge Medications Medication Dose Units Route Sig Qty Days Order Date Status Instructions Aspirin Ec 81 MG PO DAILY September 19, 2018 Active Betamethasone Dipropionate 15 GM EACH EYE TWICE A DAY September 19, 2018 Active Doxazosin 8 MG PO DAILY September 19, 2018 Active Fluticasone 50 Mcg Nasal 2 SPRAY NASAL TWICE A DAY September 19, 2018 Active Ibuprofen 800 MG PO THREE TIMES A DAY PRN For pain September 19, 2018 Active Metformin Hcl 500 MG PO TWICE A DAY September 19, 2018 Active Multivitamin 1 TAB PO DAILY Apr 2018 Active Phenytoin Sodium Extended 200 MG PO TWICE A DAY September 19, 2018 Active Pravastatin Sodium 80 MG PO ONCE DAILY AT BEDTIME September 19, 2018 Active Phenytoin 400 MG PO PROTOCOL September 19, 2018 Active Encounters Encounter Facility Location Admit/Visit Date Discharge/Departure Date Attending Provider Discharged Inpatient [facility] Ed Inpatient September 19, 2018 6:15pm September 20, 2018 2:42am Edith Cole Encounter Diagnosis Onset Date Chest pain Vasovagal attack Functional Status Query Response Date Recorded Comment Arousable To Name September 20, 2018 1:28am Comprehension Ability Understands Concepts September 20 019 1:28am Level of Consciousness Awake Alert Appropriate Follows Commands September 20, 2018 1:28am Patient Behavior Appropriate Cooperative September 20, 2018 1:28am Query Response Date Recorded Comment Assistive Devices None September 20, 2018 1:14am Date of Last Bowel Movement 09/18/18 September 20 9 1:28am Immunizations No known immunizations. Payers Payer Name Policy Type Covered Democrat Covered Democrat Id Relationship Subscriber Subscriber Id [facility] (Medicaid) Commercial [id number] [facility] (Medicaid) Commercial Enmanuel Lord [id number] Self / Same As Patient Enmanuel Lord [id number] [facility] Required Medicaid [id number] Self Pay Personal Payment ([place] - No Insurance) Plan of Care No Known Plan of Care Information Social History Query Response Date Recorded Comment Is Anyone Dependent on your Care? No September 052018 4:09pm Lives With Alone September 20, 2018 7:37am Living Situation Apartment September 20, 2018 7:37am Query Response Start Date Stop Date Smoking Status Never smoker Vital Signs Vital Reading Result Reference Range Collection Date/Time Height n/a Weight n/a Temperature 98.0 F 97.6 F-99.6 F September 20, 2018 12:55am Pulse 65 BPM 60-90 September 20, 2018 1:27am Respiration 20 RPM -September 20, 2018 12:55am Pulse Oximetry 97 % 95-100 September 20 9 1:28am Blood Pressure Systolic 123 90-140 Apr l 2018 12:55am Blood Pressure Diastolic 70 60-90 Sep 12:55am Body Mass Index n/a
--- OUTSIDE RECORDS SUMMARY | 2023-01-07 12:56 | XMS_ITS | Continuity of Care Document ---
Author Name [facility] Address [address] [place] [address] Organization [facility] Address [address] [place] [address] Support Name Relationship Address Phone Satnam Purcell Primary Care Provider [address] [address] Satnam Purcell Family Provider [address] [address] Aleksander Granados Other Provider [address] [place] [address] [facility] [place] [address] Hospitalist, [place] Emergency Provider Unknown Princess vailable Edith Cole Admit Provider [address] [phone] Edith Cole Attending Provider [address] [phone] Allergies, Adverse Reactions, Alerts No known allergies. 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 No September 20, 2018 1:14am Chief Complaint and Reason for Visit Encounter Admit Date Chief Complaint Reason for V isit Admitted Inpatient September 19, 2018 6:15pm CHEST PAIN/GA ESYNCOPE Chest pain Vasovagal attack Hospital Discharge Instructions [...] Date Discharge/Departure Date Attending Provider Admitted Inpatient [facility] Ed Inpatient September 19, 2018 6:15pm Edith Cole Encounter Diagnosis Onset Date Chest [...] Green Party Id Relationship Subscriber Subscriber Id [facility] (Medicaid) Commercial [id number] [facility] (Medicaid) Commercial Enmanuel Lord [id number] Self / Same As Patient Enmanuel Lord [id number] [facility] Required Medicaid [id number] Self Pay Personal Payment ([place] - No Insurance) Plan of Care No Known Plan of Care Information Social History Query Response Date Recorded Comment Is Anyone Dependent on your Care? No September 052018 4:09pm Lives With Alone September 20, 2018 1:14am Living Situation Apartment September 20, 2018 1:14am Query Response Start Date Stop Date Smoking [...]
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
--- OUTSIDE RECORDS SUMMARY | 2023-01-07 12:56 | XMS_ITS | Continuity of Care Document ---
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 (hypertension) chronic Hyperlipidemia chronic Plan of Treatment 1- Chest pain [...] dysfunction Follow-up with cardiology in 6 months Future Tests Future scheduled test information is unavailable Pending Tests Pending diagnostic test information is unavailable Future Visits Future appointment information is unavailable Referrals to Other Providers Reason for Referral Referral Start Date Provider Provider Contact Information Provider Address Iraida Chopra MD Work Phone: [address] Iraida Chopra MD Work Phone: [address] Iraida Chopra MD Work Phone: [address] Iraida Chopra MD Work Phone: [address] Addison Stinson MD Work Phone: [facility] [address] [facility] [address] Iraida Chopra MD Work Phone: [address] Iraida Chopra MD Work Phone: [address] [address] Future Procedures Future procedure information is unavailable [...]
--- OUTSIDE RECORDS SUMMARY | 2023-01-07 12:56 | XMS_ITS | Continuity of Care Document ---
Author Name [facility] Address [address] [place] [address] Organization [facility] Address [address] [place] [address] Support Name Relationship Address Phone Satnam Purcell Primary Care Provider [address] [address] Satnam Purcell Family Provider [address] [address] Aleksander Granados Other Provider [address] [place] [address] [address] [place] [address] Hospitalist, [place] [facility] Provider Unknown Princess vailable Edith Cole Admit Provider [address] [id number] Edith Cole Attending Provider [address] [phone] Allergies, Adverse Reactions, Alerts No known allergies. [...] Estimated Creatinine Clearance September 19, 2018 3:23pm Repairer Pump Unable 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 CRCL,Ht and/or Wt missing [...] Date Discharge/Departure Date Attending Provider Discharged Inpatient [facility] Ed Inpatient September 19, 2018 6:15pm [...] immunizations. Payers Payer Name Policy Type Covered Libertarian Covered Libertarian Id Relationship Subscriber Subscriber Id [facility] (Medicaid) Commercial [id number] [facility] (Medicaid) Commercial Enmanuel Lord [id number] Self / Same As Patient Enmanuel Lord [id number] [facility] Required Medicaid [id number] Self Pay Personal Payment (Leong - No [...]
--- OUTSIDE RECORDS SUMMARY | 2023-01-07 12:56 | XMS_ITS | Continuity of Care Document ---
Author Name Unknown Address [address] [place] [address] Phone [facility] Address [address] [place] [address] Phone Care Team Providers Care Pickle Solution Maker Name Role Phone MD Satnam Purcell Primary Care Provider MD Satnam Purcell Family Provider [phone] E/R Physician, E Emergency Provider Unavailable Allergies, Adverse Reactions, Alerts No known allergies Social History Smoking Status Status Start Date End Date Date of Observa tion Never smoked tobacco (finding) September 20, 2018 1:48pm Observation Status Observation Response Date of Response Lives With Alone September 20, 2018 6:37am Additional Data Assigned Sex Male Problems Active Problems Medical Problem Onset Date Status Vasovagal attack Active Chest pain Active Inactive/Resolved Problems Medical Problem Onset Date Status Strain of mid-back Resolved Cervical strain Resolved Medications Medication Status Dose Units Route Directions Qty Days St art Date End Date Instructions Multivitamin (Daily-Lc) 1 EACH tablet Active 1 TAB PO DAILY September 18, 2018 11:00pm Metformin Active 500 MG PO TWICE A DAY Ap ril 2018 11:00pm Ibuprofen Active 800 MG PO THREE TIME S A DAY September 18, 2018 11:00pm Phenytoin Sodium Extended Active 200 MG PO TWICE A DAY September 18, 2018 11:00pm Aspirin Active 81 MG PO DAILY September 18, 2018 11:00pm Doxazosin Active 8 MG PO DAILY September 18, 2018 11:00pm Pravastatin Active 80 MG PO ONCE VAISHNAVI LY AT BEDTIME September 18, 2018 11:00pm Betamethasone Dipropionate Active 15 GM EACH EYE TWICE A DAY September 18, 2018 11:00pm Fluticasone Propionate Active 2 SPRAY NASAL TWICE A DAY September 18, 2018 11:00pm Phenytoin Active 400 MG PO PROTOCOL September 18, 2018 11:00pm Indomethacin Discontin ued 25 MG PO THREE TIMES A DAY 30 10 Decembe r 2020 12:00am Decemb er 2020 12:13a m Take 1 tablet 3 times daily with food Vital Signs Vital Reading Result Reference Range Collection Date/Time Body Temperature 98.0 [degF] 97.6-99.6 July 222022 12:28am Heart Rate 63 /min 60-90 July 22, 2022 12:28am Respiratory rate 18 /min 12-24 July 222022 12:28am Oxygen saturation by Pulse oximetry 99 % 95-100 July 22, 2022 12:28am BP Systolic 138 mm[Hg] 90-140 July 22, 2022 12:28am BP Diastolic 86 mm[Hg] 60-90 July 22, 2022 12:28am Advance Directives Advance Directive Response Recorded Date/ Time Advance Directives No July 1:11am Health Care Proxy No July 22, 2022 1:11am Pt has Medical Orders for Li fe Sustaining Tx Form (MOLST)? No September 20, 2018 12:14am Insurance Providers Guarantor Enmanuel Lord Address [address] [place] [address] Contact Info. Home Phone: Payer Policy Id Coverage Id Subscriber's Name Subscriber Id Effective Date Expiration Date Legal [id number] Enmanuel Lord [id number] [facility] (Medicaid) [id number] [facility] (Medicaid) [id number] Enmanuel Lord [id number] [facility] No PCC [id number] Enmanuel Lord [id number] [facility] PCC Required [id number] Medicare A&B [id number] Enmanuel Lord [id number] Self Pay Self N/A Encounters Encounter Location(s) Arrival/Admit Date Discharge/Depart Date Provider(s) Departed Emergency [facility]gency [facility] Waiting Area July 21, 2022 11:54pm July 22, 2022 1:05am null Plan of Treatment Future Tests Future scheduled test information is unavailable Pending Tests Pending diagnostic test information is unavailable Future Visits Future appointment information is unavailable Referrals to Other Providers Reason for Referral Referral Start Date Provider Provider Contact Information Provider Address Satnam Purcell MD Work Phone: [place] [address] Future Procedures Future procedure information is unavailable Future Medications Future medication information is unavailable Patient Instructions Patient instructions are unavailable
--- OUTSIDE RECORDS SUMMARY | 2023-01-07 12:56 | XMS_ITS | Continuity of Care Document ---
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 Phone: [address] [address] Iraida Chopra MD Work Phone: [address] [address] Future Procedures Future procedure information is unavailable [...]
--- OUTSIDE RECORDS SUMMARY | 2023-01-07 12:56 | XMS_ITS | Continuity of Care Document ---
Author Name [facility] Address [address] [place] [address] Organization [facility] Address [address] [place] [address] Support Name Relationship Address Phone Satnam Purcell Primary Care Provider [address] [address] Satnam Purcell Family Provider [address] [address] Aleksander Granados Other Provider [address] [place] [address] [address] [place] [place] [address] Hospitalist, [facility] Provider Unknown Princess vailable Edith Cole Admit Provider [address] [id number] Edith Cole Attending Provider [address] [id number] Allergies, Adverse Reactions, Alerts No known allergies. [...] Estimated Creatinine Clearance September 19, 2018 3:23pm Arterial Embalmer Unable 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 CRCL,Ht and/or Wt missing [...] Chest pain Vasovagal attack Hospital Discharge Instructions Additional Discharge Instructions RICHARD ERATED Instruction/Education Provided LEFT AMA Hospital Discharge Medications Medication Dose Units Route [...] Date Attending Provider Discharged [facility] September 19, 2018 6:15pm September [...] immunizations. Payers Payer Name Policy Type Covered Alliance Party Covered Alliance Party Id Relationship Subscriber Subscriber Id [facility] Commercial [id number] [facility] [employer] (Medicaid) Commercial Enmanuel Lord [id number] Self / Same As Patient Enmanuel Lord [id number] [facility] Required Medicaid [id number] Self Pay Personal Payment (Leong - No Insurance) Plan of Care Instructions LEFT AMA Social History Query Response Date Recorded Comment [...] 2018 12:55am Blood Pressure Diastolic 70 60-90 Apr 2018 12:55am Body Mass Index n/a
--- OUTSIDE RECORDS SUMMARY | 2023-01-07 12:56 | XMS_ITS | Continuity of Care Document ---
Author Name Unknown Address [address] [place] [address] Phone [facility] Address [address] [place] [address] Phone Care Team Providers Care Health Information Provider Name Role Phone MD Satnam Purcell Primary Care Provider [phone] MD Satnam Purcell Family Provider [phone] MD Pedro Orona Emergency Provider Chief Complaint and Reason for Visit Chief Complaint CHEST PAIN Allergies, Adverse Reactions, Alerts Allergen Type Severity Reaction Last Updated Verified Status levetiracetam Allergy Unknown September 12, 2022 4:15pm Yes Active betamethasone Adverse Reaction Rash September 12, 2022 4:19pm Yes Active pseudoephedrine Adverse Reaction Anxiety Apr 2022 4:19pm Yes Active Social History Smoking Status Status Start Date End Date Date of Observa tion Never smoked tobacco (finding) September 20, 2018 1:48pm Observation Status Observation Response Date of Response Living Situation Private Home September 12, 2022 3:47pm Lives With Alone September 20, 2018 7:37am Additional Data Assigned Sex Male Problems Active Problems Medical Problem Onset Date Status Vasovagal attack Active Chest pain Active Inactive/Resolved Problems Medical Problem Onset Date Status Strain of mid-back Resolved Cervical strain Resolved Medications Medication Status Dose Units Route Directions Qty Days St art Date End Date Instructions Multivitamin (Daily-Lc) 1 EACH tablet Active 1 TAB PO DAILY September 19, 2018 12:00am Metformin Active 500 MG PO TWICE A DAY Ap ril 2018 12:00am Ibuprofen Active 800 MG PO THREE TIME S A DAY September 19, 2018 12:00am Phenytoin Sodium Extended Active 200 MG PO TWICE A DAY September 19, 2018 12:00am Aspirin Active 81 MG PO DAILY September 19, 2018 12:00am Doxazosin Active 8 MG PO DAILY September 19, 2018 12:00am Pravastatin Active 80 MG PO ONCE VAISHNAVI LY AT BEDTIME September 19, 2018 12:00am Betamethasone Dipropionate Active 15 GM EACH EYE TWICE A DAY September 19, 2018 12:00am Fluticasone Propionate Active 2 SPRAY NASAL TWICE A DAY September 19, 2018 12:00am Phenytoin Active 400 MG PO PROTOCOL September 19, 2018 12:00am Indomethacin Discontin ued 25 MG PO THREE TIMES A DAY 30 10 Decembe r 2020 1:00am Decemb er 2020 1:13am Take 1 tablet 3 times daily with food Procedures Procedure Date Performed Status EKG ED Electrocardiogram September 12, 2022 3:21pm active XR chest 2V September 12, 2022 3:21pm completed Relevant Diagnostic Tests and/or Laboratory Data Laboratory Results Test Date/Time Result Interpretation Reference Range Result Comment Performing Site White Blood Count September 12, 2022 3:36pm 7.7 X10 3/uL 4.5-11.0 [facility] [id number] [address] [facility] [address] Red Blood Count September 12, 2022 3:36pm 4.59 X10 6/uL 4.00-5.50 [facility] [id number] [address] [facility] [address] Hemoglobin September 12, 2022 3:36pm 14.4 g/dl 12.0-17.0 [facility] [id number] [address] [facility] [address] Hematocrit September 12, 2022 3:36pm 41.9 % 35.0-50.0 [facility] [id number] [address] [place] [address] Mean Corpuscular Volume September 12, 2022 3:36pm 91.3 fl 80.0-100.0 [facility] [id number] [address] [place] [address] Mean Corpuscular Hemoglobin September 12, 2022 3:36pm 31.4 pg 27.0-34.0 [facility] [id number] [address] [facility] [address] Mean Corpuscular Hemoglobin Concent September 12, 2022 3:36pm 34.4 g/dl 31.0-36.0 [facility] [id number] [address] [place] [address] Red Cell Distribution Width September 12, 2022 3:36pm 13.2 % 11.5-15.0 [facility] [id number] [address] [place] [address] Platelet Count September 12, 2022 3:36pm 207 X10 3/uL 150-400 [facility] [id number] [address] [place] [address] Immature Granulocyte % (Auto) September 12, 2022 3:36pm 0.3 % [facility] [id number] [address] [place] [address] Neutrophils (%) (Auto) September 12, 2022 3:36pm 62.2 % [facility] [id number] [address] [place] [address] Lymphocytes (%) (Auto) September 12, 2022 3:36pm 25.7 % [facility] [id number] [address] [place] [address] Monocytes (%) (Auto) September 12, 2022 3:36pm 9.1 % [facility] [id number] [address] [place] [address] Eosinophils (%) (Auto) September 12, 2022 3:36pm 2.2 % [facility] [id number] [address] [place] [address] Basophils (%) (Auto) September 12, 2022 3:36pm 0.5 % [facility] [id number] [address] [place] [address] Immature Granulocyte # (Auto) September 12, 2022 3:36pm 0.02 X10 3/uL 0.00-0.09 [facility] [id number] [address] [place] [address] Neutrophils # (Auto) September 12, 2022 3:36pm 4.8 X10 3/uL 1.5-7.8 [place] [id number] [address] [facility] [address] Lymphocytes # (Auto) September 12, 2022 3:36pm 2.0 X10 3/uL 1.0-4.8 [facility] [id number] [address] [facility] [address] Monocytes # (Auto) September 12, 2022 3:36pm 0.7 X10 3/uL 0.0-0.8 [facility] [id number] [address] [place] [address] Eosinophils # (Auto) September 12, 2022 3:36pm 0.2 X10 3/uL 0.0-0.5 [facility] [id number] [address] [place] [address] Basophils # (Auto) September 12, 2022 3:36pm 0.0 X10 3/uL 0.0-0.2 [facility] [id number] [address] [place] [address] Nucleated Red Blood Cells % September 12, 2022 3:36pm 0.0 /100 WBC 0.0-0.0 [facility] [id number] [address] [place] [address] Sodium Level September 12, 2022 3:36pm 144 mmol/L 137-146 [facility] [id number] [address] [place] [address] Potassium Level September 12, 2022 3:36pm 4.0 mmol/L 3.5-5.3 [facility] [id number] [address] [place] [address] Chloride Level September 12, 2022 3:36pm 103 mmol/L 98-107 [facility] [id number] [address] [place] [address] Carbon Dioxide Level September 12, 2022 3:36pm 33 mmol/L 23-32 [facility] [id number] [address] [place] [address] Anion Gap September 12, 2022 3:36pm 8 mmol/L 5-15 [facility] [id number] [address] [place] [address] Blood Urea Nitrogen September 12, 2022 3:36pm 14 mg/dl 5-25 [facility] [id number] [address] [place] [address] Creatinine September 12, 2022 3:36pm 0.8 mg/dL 0.6-1.4 [facility] [id number] [address] [place] [address] Estimated Creatinine Clearance September 12, 2022 3:36pm 171.1 ml/min This value is calculated by Cockcroft Gault Equation using ideal body weight. This result is dependent on an accurate patient height and weight which is obtained from patients medical record. Cockjaclynoft, D.W. and M.H. Gault. Prediction of creatinine clearance from serum creatinine. Nephron. 1976. 16(1):31-41. [facility] [id number] [address] [place] [address] Estimat Glomerular Filtration Rate September 12, 2022 3:36pm 105 >90 Reported eGFR is based on the CKD-EPI 2020 equation that does not use a race coefficient. Additional information can be found at:[id number] _icb_egfr_sum [facility]_farshader5.p df (kidney.org) [facility] [id number] [address] [place] [address] BUN/Creatinine Ratio September 12, 2022 3:36pm 17.5 10.0-20.0 [facility] [id number] [address] [place] [address] Glucose Level September 12, 2022 3:36pm 153 mg/dL 70-100 [facility] [id number] [address] [place] [address] Calcium Level September 12, 2022 3:36pm 9.3 mg/dl 8.6-10.3 [facility] [id number] [address] [place] [address] Troponin T High Sensitivity September 12, 2022 7:50pm < 6 ng/L <13 Normal range: Females <9 ng/L Males <14 ng/L Values greater than or equal to 52 ng/L indicates acute myocardial injury/infarc tion Values between '10 and 51 ng/L' (for females) or '15 and 51 ng/L' (for males) require clinical correlation and is not diagnostic of acute myocardial injury.Consid er repeat at 1 and 3 hours.A dynamic increase of ? greater than 5 ng/L? at 1 hour or 3 hours indicates of acute myocardial injury/infarc tion.For a patient with an estimated GFR of less than 30 mL/min/1.73 m2 or receiving dialysis, a dynamic increase of greater than 20% at 3 hours indicates acute myocardial injury.A value of less than 9 ng/L (in females) or less than 14 ng/L (in males) with a dynamic change of less than 3 ng/L, greater than 3 hours after symptom onset, generally rules out acute myocardial injury/infarc tion.Refer to Chest Pain order sets for additional clinical decision support (using the HEART score for the ED or the REN score for the inpatient setting). [facility] [id number] [address] [facility] [address] Diagnostic Imaging Reports Report Dictated Date/Time Dictated By Status Radiology Report September 12, 2022 5:51pm Cleveland Thurman MD completed [facility] [address] [place] [address] Patient Name: Enmanuel Lord Medical Record#: [id number] Address: [address] [place] [address] City/State/Zip: [place] [address]: Latonya sandoval MD Insurance: Medicare A&B /Age/Sex: 1970/52/M [employer] No PCC Admit/Reg Date: 09/12/[address]: Vitor Obregon DO Location: ED.GS/ PCP: Satnam Purcell MD Date of Service: 09/12/22 Order (s): XR chest 2V CPT Code: 58700 Report Number: [id number] Reason for Exam: Chest Pain Patient name: Enmanuel Lord Exam: XR chest 2V Technique: Frontal and Lateral views of the chest. Procedure Date and Time:09/12/2022 4:42 PM Indication: Chest Pain Comparison: None FINDINGS: LINES/TUBES: None. LUNGS/PLEURA: No focal consolidation. No pleural effusion. No pneumothorax. HEART AND MEDIASTINUM: Normal cardiomediastinal silhouette. IMPRESSION: NO ACUTE PROCESS. Dictated By: Cleveland Thurman MD 09/12/221750 Signed By: Cleveland Thurman MD 09/12/221753 TD/TT: 09/12/221750Tech: [id number] cc: [id number]; YISSEL; JAMEY* Satnam Purcell MD; Latonya Kim MD; Vitor Obregon DO Vital Signs Vital Reading Result Reference Range Collection Date/Time Height 182.88 cm September 12, 2022 3:02pm Weight 170.09 kg September 12, 2022 3:02pm Body Temperature 97.9 [degF] 97.6-99.6 September 12, 2022 3:02pm Heart Rate 75 /min 60-90 September 12, 2022 3:02pm Respiratory rate 16 /min 12-September 12, 2022 3:02pm Oxygen saturation by Pulse oximetry 97 % 95-100 September 12, 2022 3:02 pm BP Systolic 138 mm[Hg] 90-140 September 12, 2022 3:02pm BP Diastolic 84 mm[Hg] 60-90 September 12, 2022 3:02pm BMI (Body Mass Index) 50.9 kg/m2 September 12, 2022 3:02pm Advance Directives Advance Directive Response Recorded Date/ Time Advance Directives No July 2:11am Health Care Proxy No July 22, 2022 2:11am Advance Directives No September 12 8:55pm Health Care Proxy No September 12 8:55pm Pt has Medical Orders for Li fe Sustaining Tx Form (MOLST)? No September 20, 2018 1:14am Insurance Providers Guarantor Enmanuel Lord Address [address] [place] [address] Contact Info. Home Phone: Payer Policy Id Coverage Id Subscriber's Name Subscriber Id Effective Date Expiration Date Legal [id number] Enmanuel Lord [id number] [facility] (Medicaid) [id number] [facility] (Medicaid) [id number] Enmanuel Lord [id number] [facility] No PCC [id number] Enmanuel Lord [id number] [facility] PCC Required [id number] Medicare A&B [id number] Enmanuel Lord [id number] Self Pay Self N/A Encounters Encounter Location(s) Arrival/Admit Date Discharge/Depart Date Provider(s) Departed Emergency [facility]Emergency Dept September 12, 2022 2:59pm September 13, 2022 1:53am null Plan of Treatment Future Tests Future scheduled test information is unavailable Pending Tests Pending diagnostic test information is unavailable Future Visits Future appointment information is unavailable Referrals to Other Providers Reason for Referral Referral Start Date Provider Provider Contact Information Provider Address Satnam Purcell MD Work Phone: [address] [address] Satnam Purcell MD Work Phone: [address] [address] Future Procedures Procedure Name Ordered Date Scheduled Date EKG ED Electrocardiogram September 12, 2022 3:21pm September 12, 2022 3:21pm Saline Lock Insert/Manage September 12, 2022 3:21pm September 12, 2022 3:21pm Oxygen Initiate/Maintain September 12, 2022 3:21pm September 12, 2022 3:21pm Continuous Pulse Oximetry September 12, 2022 3:21pm September 12, 2022 3:21pm Future Medications Future medication information is unavailable Patient Instructions Patient instructions are unavailable
--- OUTSIDE RECORDS SUMMARY | 2023-01-07 12:56 | XMS_ITS | Continuity of Care Document ---
Author Name Unknown Address [address] [place] [address] Phone [facility] Address [address] [place] [address] Phone Care Team Providers Care Hardboard Grinder Name Role Phone MD Satnam Purcell Primary Care Provider [phone] MD Satnam Purcell Family Provider MD Pedro Orona Emergency Provider [phone] Chief Complaint and Reason for Visit Chief [...] 12, 2022 3:36pm 7.7 X10 3/uL 4.5-11.0 [facility] [id number] [address] [facility] 28948 Red Blood Count September 12, 2022 3:36pm 4.59 X10 6/uL 4.00-5.50 [facility] [id number] [address] [facility] 67133 Hemoglobin September 12, 2022 3:36pm 14.4 g/dl 12.0-17.0 [facility] [id number] [address] [facility] 01656 Hematocrit September 12, 2022 3:36pm 41.9 % 35.0-50.0 [facility] [id number] [address] [place] [address]2011 Mean Corpuscular Volume September 12, 2022 3:36pm 91.3 fl 80.0-100.0 [facility] [id number] [address] [place] [address] 07027 Mean Corpuscular Hemoglobin September 12, 2022 3:36pm 31.4 pg 27.0-34.0 [facility] [id number] [address] [facility] 11717 Mean Corpuscular Hemoglobin Concent September 12, 2022 3:36pm 34.4 g/dl 31.0-36.0 [facility] [id number] [address] [place] [address] 31389 Red Cell Distribution Width September 12, 2022 3:36pm 13.2 % 11.5-15.0 [facility] [id number] [address] [place] [address] 18502 Platelet Count September 12, 2022 3:36pm 207 X10 3/uL 150-400 [facility] [id number] [address] [place] [address] 16552 Immature Granulocyte % (Auto) September 12, 2022 3:36pm 0.3 % [facility] [id number] [address] [place] [address] 13930 Neutrophils (%) (Auto) September 12, 2022 3:36pm 62.2 % [facility] [id number] [address] [place] [address] 01747 Lymphocytes (%) (Auto) September 12, 2022 3:36pm 25.7 % [facility] [id number] [address] [place] [address] 82355 Monocytes (%) (Auto) September 12, 2022 3:36pm 9.1 % [facility] [id number] [address] [place] [address] 50397 Eosinophils (%) (Auto) September 12, 2022 3:36pm 2.2 % [facility] [id number] [address] [place] [address] 68199 Basophils (%) (Auto) September 12, 2022 3:36pm 0.5 % [facility] [id number] [address] [place] [address] 40783 Immature Granulocyte # (Auto) September 12, 2022 3:36pm 0.02 X10 3/uL 0.00-0.09 [facility] [id number] [address] [place] [address] 26420 Neutrophils # (Auto) September 12, 2022 3:36pm 4.8 X10 3/uL 1.5-7.8 [place] [id number] [address] [facility] 412[address] Lymphocytes # (Auto) September 12, 2022 3:36pm 2.0 X10 3/uL 1.0-4.8 [facility] [id number] [address] [facility] 71941 Monocytes # (Auto) September 12, 2022 3:36pm 0.7 X10 3/uL 0.0-0.8 [facility] [id number] [address] [place] [address] 54797 Eosinophils # (Auto) September 12, 2022 3:36pm 0.2 X10 3/uL 0.0-0.5 [facility] [id number] [address] [place] [address] 96525 Basophils # (Auto) September 12, 2022 3:36pm 0.0 X10 3/uL 0.0-0.2 [facility] [id number] [address] [place] [address] 67342 Nucleated Red Blood Cells % September 12, 2022 3:36pm 0.0 /100 WBC 0.0-0.0 [facility] [id number] [address] [place] [address] 39234 Sodium Level September 12, 2022 3:36pm 144 mmol/L 137-146 [facility] [id number] [address] [place] [address] 32702 Potassium Level September 12, 2022 3:36pm 4.0 mmol/L 3.5-5.3 [facility] [id number] [address] [place] [address] 86989 Chloride Level September 12, 2022 3:36pm 103 mmol/L 98-107 [facility] [id number] [address] [place] [address] 70134 Carbon Dioxide Level September 12, 2022 3:36pm 33 mmol/L 23-32 [facility] [id number] [address] [place] [address] 23107 Anion Gap September 12, 2022 3:36pm 8 mmol/L 5-15 [facility] [id number] [address] [place] [address] 33921 Blood Urea Nitrogen September 12, 2022 3:36pm 14 mg/dl 5-25 [facility] [id number] [address] [place] [address] 06184 Creatinine September 12, 2022 3:36pm 0.8 mg/dL 0.6-1.4 [facility] [id number] [address] [place] [address] 95070 Estimated Creatinine Clearance September 12, 2022 3:36pm 171.1 ml/min This value is calculated by Cockcroft Gault Equation using ideal body weight. This result is dependent on an accurate patient height and weight which is obtained from patients medical record. Cockjaclynoft, D.W. and M.H. Gault. Prediction of creatinine clearance from serum creatinine. Nephron. 1976. 16(1):31-41. [facility] [id number] [address] [place] [address] 48967 Estimat Glomerular Filtration Rate September 12, 2022 3:36pm 105 >90 Reported eGFR is based on the CKD-EPI 2020 equation that does not use a race coefficient. Additional information can be found at:[id number] _icb_egfr_sum [facility]_farshader5.p df (kidney.org) [facility] [id number] [address] [place] [address] 09483 BUN/Creatinine Ratio September 12, 2022 3:36pm 17.5 10.0-20.0 [facility] [id number] [address] [place] [address] 55664 Glucose Level September 12, 2022 3:36pm 153 mg/dL 70-100 [facility] [id number] [address] [place] [address] 59566 Calcium Level September 12, 2022 3:36pm 9.3 mg/dl 8.6-10.3 [facility] [id number] [address] [place] [address] 10614 Troponin T High Sensitivity September 12, 2022 [...] the REN score for the inpatient setting). [facility] [id number] [address] [facility] [address] Diagnostic Imaging Reports Report Dictated Date/Time Dictated By Status Radiology Report September 12, 2022 5:51pm Cleveland Thurman MD completed [facility] [address] [place] [address] Patient Name: Enmanuel Lord Medical Record#: [id number] Address: [address] [place] [address] City/State/Zip: [place] [address]: Latonya sandoval MD Insurance: Medicare A&B /Age/Sex: 1970/52/M [facility] No PCC Admit/Reg Date: 09/12/[address]: Vitor Obregon DO Location: ED.GS/ PCP: Satnam Purcell MD Date of Service: 09/12/22 Order (s): XR chest 2V CPT Code: 27911 Report Number: [id number] Reason for Exam: Chest Pain Patient name: [...] By: Cleveland Thurman MD 09/12/221753 TD/TT: 09/12/221750Tech: [id number] cc: [id number]; YISSEL; JAMEY* Satnam Purcell MD; [...] 1:14am Insurance Providers Guarantor Enmanuel Lord Address [address] [place] [address] Contact Info. Home Phone: Payer Policy Id Coverage Id Subscriber's Name Subscriber Id Effective Date Expiration Date Legal [id number] Enmanuel Lord [id number] [facility] (Medicaid) [id number] [facility] (Medicaid) [id number] Enmanuel Lord [id number] [facility] No PCC [id number] Enmanuel Lord [id number] [facility] PCC Required [id number] Medicare A&B [id number] Enmanuel Lord [id number] Self Pay Self N/A Encounters Encounter Location(s) Arrival/Admit Date Discharge/Depart Date Provider(s) Departed Emergency [facility]-Emergency Dept September 12, 2022 2:59pm September 13, 2022 1:53am null Plan of Treatment Future Tests Future scheduled test information is unavailable Pending Tests Pending diagnostic test information is unavailable Future Visits Future appointment information is unavailable Referrals to Other Providers Reason for Referral Referral Start Date Provider Provider Contact Information Provider Address Satnam Purcell MD Work Phone: [address] [address] Satnam Purcell MD Work Phone: [address] [address] Future Procedures Procedure Name Ordered Date Scheduled [...]
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
--- OUTSIDE RECORDS SUMMARY | 2023-01-07 12:56 | XMS_ITS | Continuity of Care Document ---
Author Name Unknown Address [address] [place] [address] Phone [facility] Address [address] [place] [address] Phone Care Team Providers Care Silk Snapper Name Role Phone MD Satnam Purcell Primary Care Provider MD Satnam Purcell Family Provider E/R Physician, E Emergency Provider Unavailable Allergies, [...] 12:14am Insurance Providers Guarantor Enmanuel Lord Address [address] [place] [address] Contact Info. Home Phone: Payer Policy Id Coverage Id Subscriber's Name Subscriber Id Effective Date Expiration Date Legal [id number] Enmanuel Lord [id number] [facility] (Medicaid) [id number] [facility] (Medicaid) [id number] Enmanuel Lord [id number] [facility] No PCC [id number] Enmanuel Lord [id number] [facility] PCC Required [id number] Medicare A&B [id number] Enmanuel Lord [id number] Self Pay Self N/A Encounters Encounter Location(s) Arrival/Admit Date Discharge/Depart Date Provider(s) Departed Emergency [facility] Waiting Area July 21, 2022 11:54pm July 22, 2022 1:05am null Plan of Treatment Future Tests Future scheduled test information is unavailable Pending Tests Pending diagnostic test information is unavailable Future Visits Future appointment information is unavailable Referrals to Other Providers Reason for Referral Referral Start Date Provider Provider Contact Information Provider Address Satnam Purcell MD Work Phone: [place] [address] Future Procedures Future procedure information is unavailable Future Medications Future medication information is unavailable Patient Instructions Patient instructions are unavailable
--- OUTSIDE RECORDS SUMMARY | 2023-01-07 12:56 | XMS_ITS | Continuity of Care Document ---
Author Name Unknown Address [address] [place] [address] Phone [facility] Address [address] [place] [address] Phone Care Team Providers Care Instructor Private Name Role Phone MD Satnam Purcell Primary Care Provider MD Satnam Purcell Family Provider [phone] MD Gene Acevedo Emergency Provider [phone] Chief Complaint and Reason for Visit Chief [...] 12:14am Insurance Providers Guarantor Enmanuel Lord Address [address] [place] [address] Contact Info. Home Phone: Payer Policy Id Coverage Id Subscriber's Name Subscriber Id Effective Date Expiration Date Legal [id number] Enmanuel Lord [id number] [facility] (Medicaid) [id number] [facility] (Medicaid) [id number] Enmanuel Lord [id number] [facility] Required [id number] Self Pay Self N/A Encounters Encounter Location(s) Arrival/Admit Date Discharge/Depart Date Provider(s) Departed Emergency [facility]Emergency [facility] May 27, 2021 7:12pm May 27, 2021 8:13pm null Plan of Treatment Future Tests Future scheduled test information is unavailable Pending Tests Pending diagnostic test information is unavailable Future Visits Future appointment information is unavailable Referrals to Other Providers Reason for Referral Referral Start Date Provider Provider Contact Information Provider Address Satnam Purcell MD Work Phone: [address] [address] Future Procedures Future procedure information is unavailable [...]
[2023-01-07 13:01] LABS: MANUAL DIFF FLAG NO
[2023-01-07 13:09] LABS: Basophils Percent Auto 0.5 % (0-2); Eosinophils Absolute Auto 0.1 X10*3/uL (0.0-0.4); Eosinophils Percent Auto 2.2 % (0-4); Hematocrit 40.4 % (42.0-52.0); Hemoglobin 13.9 g/dl (14.0-18.0); Imm Gran Abs Auto 0.02 X10*3/uL (0.00-0.03); Imm Gran Pct Auto 0.3 % (0.0-0.4); Lymphocytes Absolute Auto 1.8 X10*3/uL (1.2-4.9); Lymphocytes Percent Auto 27.8 % (20-40); Mean Corpuscular HGB Conc 34.4 g/dl (31.0-36.0); Mean Corpuscular Hemoglobin 31.4 pg (27.0-33.0); Mean Corpuscular Volume 91.4 fL (80.0-98.0); Monocytes Absolute Auto 0.7 X10*3/uL (0.1-1.2); Monocytes Percent Auto 10.2 % (2-11); Neutrophils Absolute Auto 3.8 x10*3/uL (2.0-8.3); Platelet Count 218 X10*3/uL (160-400); Red Blood Count 4.42 X10*6/uL (4.60-5.80); White Blood Count 6.4 X10*3/uL (4.8-10.8)
[2023-01-07 13:39] LABS: Alanine Aminotransferase 77 U/L (0-40); Albumin Level 3.9 g/dL (3.5-5.0); Alkaline Phosphatase 108 U/L (39-117); Anion Gap 15 (12-20); Aspartate Amino Transferase 35 U/L (5-37); Bilirubin Total 0.2 mg/dL (0.0-1.0); Blood Urea Nitrogen 15 mg/dL (9-16); Calcium 9.3 mg/dL (8.4-10.2); Carbon Dioxide 27 mmol/L (22-29); Chloride 105 mmol/L (96-108); Creatinine Clr Calc Pharmacy 184.8; Estimated Glomerular Filt Rate > 60; Glucose Random 118 mg/dL (60-115); Potassium 3.5 mmol/L (3.3-5.1); Sodium 143 mmol/L (135-145)
[2023-01-07 13:48] LABS: Troponin-I High Sensitivity < 2.7 ng/L (<3.5-35.0)
[2023-01-07] MEDS: Azithromycin 500 MG TABLET PO (14:18)
[2023-01-07] MEDS: Amoxicillin/Potassium Clav 875 MG TABLET PO (14:18)
[2023-01-07 14:35] LABS: Appearance Urine Clear; Color Urine Yellow; Glucose Urine UA Negative (Negative); Leukocyte Esterase Urine Negative (Negative); Nitrite Urine Negative (Negative); PH 7.5 (5.0-9.0); UMIC TRIGGER UACC YES; Urine Blood Trace (Negative); Urine Ketones Negative (Negative); Urine Protein Negative (Neg-Trace)
[2023-01-07 14:40] LABS: Bacteria Urine None Seen (None Seen); Hyaline Casts Urine 0-2 /LPF (0-2); Squamous Epithelial Cell Urine 0-2 /HPF (0-2); WBC Urine 0-5 /HPF (0-5)
== END 2023-01-07 15:36 | disposition home or self-care (01) ==
PROVIDERS: Registered Nurse Emergency; Emergency Provider Student in an Organized Health Care Education/Training Program
DX: J18.9 Pneumonia, unspecified organism (principal); F41.1 Generalized anxiety disorder; F43.0 Acute stress reaction; Z79.899 Other long term (current) drug therapy
CPT/HCPCS: 36415; 71046; 80053; 81001; 84484; 85025; 93005; 99283

== ENCOUNTER → 2023-01-07 12:19 | Outpatient (BNV) | payer MEDICARE, MEDICAID, SELFPAY | PROVIDERS: Emergency Provider Student in an Organized Health Care Education/Training Program; Visit Provider Internal Medicine | DX: F41.1 Generalized anxiety disorder (principal) | CPT/HCPCS: 93010 ==

== ENCOUNTER 2023-01-20 13:39 | Emergency (ER) | payer MEDICARE, MEDICAID, SELFPAY ==
--- NOTE | ~2023-01-20 | CT_ITS ---
EXAMINATION: CT ABDOMEN AND PELVIS WITHOUT CONTRAST CLINICAL INFORMATION: Left flank pain. COMPARISON: None available. TECHNIQUE: Multidetector volumetric imaging was performed from the superior aspect of the liver through the pubic symphysis. Sagittal and coronal reformatted images were obtained on the technologist's workstation. This CT examination was performed using dose optimization techniques as appropriate, variously including the following: *Automated exposure control *Adjustment of mA and/or kV according to patient size (this includes techniques or standardized protocols for targeted exams where dose is matched to indication/reason for exam; i.e. extremities or head) *Use of iterative reconstruction technique DLP: 1419 mGy-cm FINDINGS: LUNG BASES: The visualized lung bases are unremarkable. LIVER, GALLBLADDER, AND BILIARY TREE: The liver is normal in size, shape, and attenuation. No focal hepatic lesion or biliary ductal dilatation is present. The gallbladder is unremarkable with no evidence of radiopaque gallstones, gallbladder wall thickening, or obvious pericholecystic inflammatory changes. PANCREAS: Unremarkable. SPLEEN: Unremarkable. ADRENAL GLANDS: Unremarkable. KIDNEYS AND URETERS: The kidneys are normal in size, shape, and attenuation. There is a 1.3 cm radiopaque calculi left renal pelvis without caliectasis. The stone is 19.4 cm from posterior skin line. No additional radiopaque calculi seen. There is mild perinephric stranding. Mild fullness of left kidney pelvis is present.. BLADDER: Unremarkable. GASTROINTESTINAL TRACT: There is scattered stool and diverticuli and colon without distention or diverticulitis. The small bowel loops are normal caliber. Appendix is normal caliber. The stomach is nondistended. No free air or free fluid seen. ABDOMINAL WALL: There is umbilical hernia containing intraperitoneal fat. The neck is 2.1 cm wide on axial view and 2 cm wide on craniocaudad view. LYMPH NODES: Normal. VASCULAR: Unremarkable. PELVIC VISCERA: Unremarkable. OSSEOUS STRUCTURES: Unremarkable. CT/CT abdomen pelvis wo IV con IMPRESSION: 1. 1.3 cm radiopaque calculi left renal pelvis without caliectasis. There is mild fullness of left kidney pelvis. 2. Scattered colonic diverticulosis without diverticulitis. 3. Small umbilical hernia containing intraperitoneal fat. Fleischner guidelines were followed.
--- NOTE | ~2023-01-20 | XR_ITS ---
EXAMINATION: XR CHEST CLINICAL INFORMATION: Chest and rib pain. COMPARISON: Chest radiographs dated 01/07/2023. TECHNIQUE: 2 views of the chest were obtained. FINDINGS: No significant abnormality is noted involving the heart, lungs, mediastinum, bony thorax or soft tissues. XR/XR chest 2V IMPRESSION: No acute cardiopulmonary process.
--- NOTE | 2023-01-20 13:51 | ED_ITS ---
HPI - General Adult General Chief complaint: General Medical Stated complaint: Back Pain ?Pneumonia Time Seen by Provider: 01/20/23 18:39 Source: patient Mode of arrival: ambulatory Limitations: no limitations History of Present Illness HPI narrative: Patient complaining of left flank pain for last 2 months off and on, diagnosed pneumonia 01/07 took antibiotics still having the pain gets worse when taking deep breath no cough no fever patient was seen here on 01/07 and took antibiotics patient is still complaining of pain also has blood in the urine off and on no history of kidney stone has slight nausea no vomiting or fever Related Data Previous Rx's Medication Instructions Recorded amoxicillin 875 mg-potassium 1 tab PO BID 7 days #14 tabs 01/07/23 clavulanate 125 mg tablet azithromycin 250 mg tablet 250 mg PO DAILY 4 days #4 tabs 01/07/23 tramadol 50 mg tablet 50 mg PO Q6H PRN pain #20 tabs 01/20/23 Allergies Allergy/AdvReac Type Severity Reaction Status Date / Time No Known Allergies Allergy Verified 01/20/23 13:52 Review of Systems Review of Systems: Yes all other systems are reviewed and are negative [facility] Past Medical History Medical History Diabetes mellitus, type II Hypercholesteremia Hypertension Seizure disorder Social History Social History Alcohol intake: never Smoked in Last 30 Days: No Use of substances other than those prescribed or required for medical reasons: No Advance Directives: No Advance Directives Information Provided: No Physical Exam ED Vital Signs: Vital Signs - 24 hr 01/20/23 13:52 01/20/23 17:59 01/20/23 19:40 Temperature 96.9 F 98.2 F 98.9 F Pulse Rate 69 68 64 Respiratory Rate 18 16 18 Blood Pressure 137/97 H 145/85 H 139/81 Pulse Oximetry 96 96 94 Oxygen Delivery Method Room Air Room Air 01/20/23 21:07 Temperature 98 F Pulse Rate 70 Respiratory Rate 17 Blood Pressure 157/86 H Pulse Oximetry 97 Oxygen Delivery Method Room Air BMI result Body Mass Index 53.9 Appearance: Alert. Oriented X3. No acute distress. Eyes: PERRLA, No Nystagmus ENT: Pharynx normal. Oral Mucosa moist Neck: Normal inspection. Neck supple. CVS: Normal heart rate and rhythm. Pulses normal. Respiratory: No respiratory distress. Equal air entry bilateral, no wheezing/rales/rhonchi Abdomen: Soft and nontender. Bowel sounds are present, no mass palpable, L CVA tenderness Skin: Skin warm and dry. Normal skin color. Normal skin turgor. Extremities: No lower extremity edema. No calf tenderness Neuro: Oriented X 3. Course Course Course Narrative: RME: 52-year-old male with past medical history diabetes, HTN, HLD, presenting to the ED complaining of L sided rib/L CVAT x few weeks, worsening today. Admits recently Dx w/PNA, took Abx to completion but pain worsening/coming & going. Admits to hematuria. SOB EKG, labs, CXR ordered Full HPI, ROS and PE to be performed by primary ED provider. Medical Decision Making Medical Decision Making MDM Narrative: Patient with left flank pain with intermittent hematuria CT scan showed 1.4 cm left renal pelvis stone likely the cause for the pain patient advised to follow with urologist Lab Data [facility] Lab Attestation statement: I reviewed the patient's lab results. 01/20/23 14:18 01/20/23 14:18 Labs: Lab Results 01/20/23 01/20/23 01/20/23 Range/Units 14:18 14:18 14:18 WBC 6.2 (4.8-10.8) X10*3/uL RBC 4.61 (4.60-5.80) X10*6/uL Hgb 14.4 (14.0-18.0) g/dl Hct 41.6 L (42.0-52.0) % MCV 90.2 (80.0-98.0) fL MCH 31.2 (27.0-33.0) pg MCHC 34.6 (31.0-36.0) g/dl RDW 13.3 (11.0-16.0) % Plt Count 210 (160-400) X10*3/uL MPV 9.9 (9.4-12.4) fL Immature Gran % (Auto) 0.3 (0.0-0.4) % Neut % (Auto) 54.7 (45-73) % Lymph % (Auto) 31.9 (20-40) % [place] % (Auto) 10.1 (2-11) % Eos % (Auto) 2.3 (0-4) % Baso % (Auto) 0.7 (0-2) % Lymph # (Auto) 2.0 (1.2-4.9) X10*3/uL [place] # (Auto) 0.6 (0.1-1.2) X10*3/uL Eos # (Auto) 0.1 (0.0-0.4) X10*3/uL Baso # (Auto) 0.0 (0.0-0.2) X10*3/uL Abs Immat Gran (auto) 0.02 (0.00-0.03) X10*3/uL Absolute Neuts (auto) 3.4 (2.0-8.3) x10*3/uL Absolute Nucleated RBC 0.000 (0.0-0.012) X10*3/uL Nucleated RBC % (auto) 0.0 (0.0-0.2) /100WBC Sodium 141 (135-145) mmol/L Potassium 3.9 (3.3-5.1) mmol/L Chloride 103 (96-108) mmol/L Carbon Dioxide 31 H (22-29) mmol/L Anion Gap 11 L (12-20) BUN 10 (9-16) mg/dL Creatinine 0.79 (0.5-1.4) mg/dL Estim Creat Clear Calc 179.3 Estimated GFR > 60 Random Glucose 90 (60-115) mg/dL Calcium 8.9 (8.4-10.2) mg/dL Total Bilirubin 0.3 (0.0-1.0) mg/dL Direct Bilirubin 0.1 (0.0-0.5) mg/dL AST 39 H (5-37) U/L ALT 88 H (0-40) U/L Alkaline Phosphatase 118 H (39-117) U/L Troponin I High Sens < 2.7 (<3.5-35.0) ng/L Total Protein 7.1 (6.5-8.0) g/dL Albumin 3.9 (3.5-5.0) g/dL Urine Color Urine Appearance Urine pH (5.0-9.0) Ur Specific [place] (1.005-1.025) Urine Protein (Neg-Trace) mg/dL Urine Glucose (UA) (Negative) mg/dL Urine Ketones (Negative) mg/dL Urine Blood (Negative) Urine Nitrite (Negative) Ur Leukocyte Esterase (Negative) 01/20/23 Range/Units 14:24 WBC (4.8-10.8) X10*3/uL RBC (4.60-5.80) X10*6/uL Hgb (14.0-18.0) g/dl Hct (42.0-52.0) % MCV (80.0-98.0) fL MCH (27.0-33.0) pg MCHC (31.0-36.0) g/dl RDW (11.0-16.0) % Plt Count (160-400) X10*3/uL MPV (9.4-12.4) fL Immature Gran % (Auto) (0.0-0.4) % Neut % (Auto) (45-73) % Lymph % (Auto) (20-40) % [place] % (Auto) (2-11) % Eos % (Auto) (0-4) % Baso % (Auto) (0-2) % Lymph # (Auto) (1.2-4.9) X10*3/uL [place] # (Auto) (0.1-1.2) X10*3/uL Eos # (Auto) (0.0-0.4) X10*3/uL Baso # (Auto) (0.0-0.2) X10*3/uL Abs Immat Gran (auto) (0.00-0.03) X10*3/uL Absolute Neuts (auto) (2.0-8.3) x10*3/uL Absolute Nucleated RBC (0.0-0.012) X10*3/uL Nucleated RBC % (auto) (0.0-0.2) /100WBC Sodium (135-145) mmol/L Potassium (3.3-5.1) mmol/L Chloride (96-108) mmol/L Carbon Dioxide (22-29) mmol/L Anion Gap (12-20) BUN (9-16) mg/dL Creatinine (0.5-1.4) mg/dL Estim Creat Clear Calc Estimated GFR Random Glucose (60-115) mg/dL Calcium (8.4-10.2) mg/dL Total Bilirubin (0.0-1.0) mg/dL Direct Bilirubin (0.0-0.5) mg/dL AST (5-37) U/L ALT (0-40) U/L Alkaline Phosphatase (39-117) U/L Troponin I High Sens (<3.5-35.0) ng/L Total Protein (6.5-8.0) g/dL Albumin (3.5-5.0) g/dL Urine Color Yellow Urine Appearance Clear Urine pH 7.0 (5.0-9.0) Ur Specific [place] 1.015 (1.005-1.025) Urine Protein Negative (Neg-Trace) mg/dL Urine Glucose (UA) Negative (Negative) mg/dL Urine Ketones Negative (Negative) mg/dL Urine Blood Negative (Negative) Urine Nitrite Negative (Negative) Ur Leukocyte Esterase Negative (Negative) Radiology Impression Discussion of test interpretation with radiology: I have reviewed the radiologist's reading. Radiologist Impression: CT/CT abdomen pelvis wo IV con IMPRESSION: 1.? 1.3 cm radiopaque calculi left renal pelvis without caliectasis. There is mild fullness of left kidney pelvis. 2.? Scattered colonic diverticulosis without diverticulitis. 3.? Small umbilical hernia containing intraperitoneal fat. ? Discharge Plan Discharge Clinical Impression: Calculus of left kidney Patient Disposition: Home, Self-Care Instructions: Kidney Stones (ED) Additional Instructions: cause of pain of left flank is from the stone in the left kidney Drink plenty of fluids and follow with urologist Pain medication as prescribed Prescriptions: New tramadol 50 mg tablet 50 mg PO Q6H PRN (Reason: pain) Qty: 20 0RF No Action amoxicillin-pot clavulanate 875-125 mg tablet 1 tab PO BID 7 Days Qty: 14 0RF azithromycin 250 mg tablet 250 mg PO DAILY 4 Days Qty: 4 0RF Rx Instructions: start on day 2 of therapy Referrals: Sesar Valladares MD [Physician] - 1 week Interventions: ED Discharge Assessment Last Done: 01/20/23 21:15 Discharge Date/Time: 01/20/23 21:15
[2023-01-20 13:52] VITALS: BP 137/97; PULSE 69; RESP 18; TEMP 36.1; O2SAT 96; BMI 53.9
--- NOTE | 2023-01-20 13:53 | ECG_ITS ---
Test Reason : BACK PAIN Blood Pressure : / mmHG Vent. Rate : 068 BPM Atrial Rate : 068 BPM P-R Int : 192 ms QRS Dur : 080 ms QT Int : 314 ms P-R-T Axes : 034 075 073 degrees QTc Int : 333 ms Normal sinus rhythm Nonspecific T wave abnormality Abnormal ECG When compared with ECG of 07-JAN-2023 12:33, QT has shortened Referred By: Meaghan Cobb Electronically Signed By:RANDEE STERN
[2023-01-20 14:24] LABS: MANUAL DIFF FLAG NO
[2023-01-20 14:33] LABS: Appearance Urine Clear; Color Urine Yellow; Glucose Urine UA Negative (Negative); Leukocyte Esterase Urine Negative (Negative); Nitrite Urine Negative (Negative); Specific Gravity - Urine 1.015 (1.005-1.025); Urine Blood Negative (Negative); Urine Ketones Negative (Negative); Urine Protein Negative (Neg-Trace)
[2023-01-20 14:33] LABS: Basophils Percent Auto 0.7 % (0-2); Eosinophils Absolute Auto 0.1 X10*3/uL (0.0-0.4); Eosinophils Percent Auto 2.3 % (0-4); Hematocrit 41.6 % (42.0-52.0); Hemoglobin 14.4 g/dl (14.0-18.0); Imm Gran Abs Auto 0.02 X10*3/uL (0.00-0.03); Imm Gran Pct Auto 0.3 % (0.0-0.4); Lymphocytes Percent Auto 31.9 % (20-40); Mean Corpuscular HGB Conc 34.6 g/dl (31.0-36.0); Mean Corpuscular Hemoglobin 31.2 pg (27.0-33.0); Mean Corpuscular Volume 90.2 fL (80.0-98.0); Mean Platelet Volume 9.9 fL (9.4-12.4); Monocytes Absolute Auto 0.6 X10*3/uL (0.1-1.2); Monocytes Percent Auto 10.1 % (2-11); Neutrophils Absolute Auto 3.4 x10*3/uL (2.0-8.3); Neutrophils Percent Auto 54.7 % (45-73); Platelet Count 210 X10*3/uL (160-400); Red Blood Count 4.61 X10*6/uL (4.60-5.80); Red Cell Distribution Width 13.3 % (11.0-16.0); White Blood Count 6.2 X10*3/uL (4.8-10.8)
[2023-01-20 14:48] LABS: Alanine Aminotransferase 88 U/L (0-40); Albumin Level 3.9 g/dL (3.5-5.0); Alkaline Phosphatase 118 U/L (39-117); Anion Gap 11 (12-20); Aspartate Amino Transferase 39 U/L (5-37); Bilirubin Direct 0.1 mg/dL (0.0-0.5); Bilirubin Total 0.3 mg/dL (0.0-1.0); Blood Urea Nitrogen 10 mg/dL (9-16); Calcium 8.9 mg/dL (8.4-10.2); Carbon Dioxide 31 mmol/L (22-29); Chloride 103 mmol/L (96-108); Creatinine Clr Calc Pharmacy 179.3; Estimated Glomerular Filt Rate > 60; Glucose Random 90 mg/dL (60-115); Potassium 3.9 mmol/L (3.3-5.1); Sodium 141 mmol/L (135-145); Total Protein 7.1 g/dL (6.5-8.0)
[2023-01-20 14:52] LABS: Troponin-I High Sensitivity < 2.7 ng/L (<3.5-35.0)
[2023-01-20 17:59] VITALS: BP 145/85; PULSE 68; RESP 16; TEMP 36.8; O2SAT 96
--- NOTE | 2023-01-20 18:06 | PC.NURSE ---
pt a&ox3, vss, pt comes in d/t non-radiating 2/10 left back pain. pt verbalizing hematuria but denies dysuria/n/v/fever. pt denies hx of kidney stones. pt also verbalizing that he has been sleeping on different mattresses/at different hotels for the past 2 months and did not think anything about the pain that is residing until he had hematuria 1-2 months ago. pt verbalizing the only reason he came in today was d/t pain increase. pt was recently prescribed abx on 01/03 because of diagnosis of left sided pneumonia. pt completed full cycle of antibiotics and was told to come back if pain worsened. call green placed within reach. will continue to monitor.
[2023-01-20 19:40] VITALS: BP 139/81; PULSE 64; RESP 18; TEMP 37.2; O2SAT 94
--- NOTE | 2023-01-20 20:00 | PC.NURSE ---
pt resting in bed. calm, coop. eating food- ok per provider. no respir distress. VSS.
[2023-01-20 21:07] VITALS: BP 157/86; PULSE 70; RESP 17; TEMP 36.6; O2SAT 97
--- NOTE | 2023-01-20 21:14 | PC.NURSE ---
Pt given urine strainer and specimen cup at discharge
== END 2023-01-20 21:15 | disposition home or self-care (01) ==
PROVIDERS: Physician Assistant; Emergency Provider Internal Medicine
DX: N20.0 Calculus of kidney (principal); M54.50 Low back pain, unspecified; R07.89 Other chest pain; R07.81 Pleurodynia; Z79.899 Other long term (current) drug therapy
CPT/HCPCS: 36415; 71046; 74176; 80048; 80076; 81003; 84484; 85025; 93005; 99284

== ENCOUNTER 2023-01-25 15:05 | Outpatient (AMB) | payer MEDICARE, MEDICAID, SELFPAY ==
--- NOTE | 2023-01-25 12:17 | A.OFFVIS_ITS ---
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 01/25/2023? Enmanuel is a 52 year old male with non insulin dependent diabetes, Co morbidity Obesity. He was referred to the office for the evaluation of kidney stones. He states that he had back pain in the past and was diagnosed with pneumonia on left lung and was treated with antibiotics. He states that the pain in his back got worse, and then he underwent CAT scan of the abdomen/pelvis, and was diagnosed with kidney stones. I reviewed the CAT scan of the abdomen/pelvis without contrast results from 01/20/2023 revealed 1.3 cm radiopaque calculi left renal pelvis without caliectasis. There is mild fullness of left kidney pelvis. Evaluation - UA - Leuk neg, Blood neg I have discussed treatment with ESWL, discussed risks including but not limited to, blood in the urine, bruising to the skin, bleeding, possible need for another procedure if a stone fragment obstructs the ureter while passing, possible need to repeat procedure if stone is not completely fragmented. Ureteroscopy also discussed. Risks discussed included but not limited to, possible need to repeat procedure if stone is not completely fragmented, Irritative voiding symptoms, bladder spasms, urgency, blood in urine. Plan: Discussed shock wave lithotripsy vs ureteroscopy with the patient in detailed. He weighs about 396 pounds, and there is a weight limit on( ESWL) shock wave lithotripsy table. I will need to check the weight limit. Diet sheet for renal calculi prevention was provided to the patient. Discussed Low sodium intake. Discussed to consume adequate amount of water. Discussed Low oxalate diet---green leafy vegetable, nuts, and tea in moderation as they are rich in oxalate. [facility] Medical History Diabetes mellitus, type II Hypercholesteremia Hypertension Seizure disorder Surgical History History of ankle surgery Hx of tonsillectomy Family History Father Diabetes mellitus Mother Pancreas cancer Social History Alcohol intake: never Patient Tobacco Use Status: Never used Tobacco Review of Systems Const All systems reviewed & are unremarkable except as noted in HPI and below Reports no additional complaints Eyes Reports no additional complaints ENT Reports no additional complaints Card Denies dyspnea Resp Denies cough and Denies dyspnea GI Reports no additional complaints Musc Reports no additional complaints Skin/Breast Denies rash and Denies unusual bruising Neuro Reports no additional complaints Psych Reports no additional complaints Endo Reports no additional complaints Vince/Lymph Reports no additional complaints Aller/Immun Reports no additional complaints Physical Exam Const General: healthy appearing, no acute distress and well developed Nutritional Appearance: overweight Orientation/consciousness: patient oriented x3 HEENT Head: Yes normocephalic and Yes atraumatic Eyes Conjunctivae: conjunctivae normal Neck Neck: Yes normal visual inspection Chest Chest palpation & inspection: normal inspection of the chest Resp Effort & Inspection: normal respiratory effort Cardio Rate: regular rate GI Inspection: Yes normal to inspection Skin General skin exam: no rashes or lesions noted Neuro General: patient oriented x3 Extrem General: No pedal edema Psych Appearance: grossly normal Affect: normal affect Results AMB Urinalysis, Automated UA Leukoctes 0 Tulio/uL Last Edit by ALONSO Campoverde on 01/25/23 16:05 UA Nitrite Negative Last Edit by ALONSO Campoverde on 01/25/23 16:05 UA Urobilinogen 0.2 mg/dL Last Edit by ALONSO Campoverde on 01/25/23 16:0 5 UA Protein 0 mg/dL Last Edit by TATIANA CampoverdeA on 01/25/23 16:05 UA pH 6.0 Last Edit by Julisa Angulosandi RMA on 01/25/23 16:05 UA Blood 0 Nathan/uL Last Edit by Julisa Butcher, RMA on 01/25/23 16:05 UA Specific [place] 1.025 Last Edit by Julisa Butcher, RMA on 01/25/23 16: 05 UA Ketone Negative Last Edit by Julisa Hadley, RMA on 01/25/23 16:05 UA Bilirubin 0 mg/dL Last Edit by Julisa Anguloirez, RMA on 01/25/23 16:05 UA Glucose 0 mg/dL Last Edit by Julisa Butcher A on 01/25/23 16:05 Results Reviewed Results Reviewed: Laboratory Last Values Urine pH (Auto) 6.0 01/25/23 16:04 Specific [place] (Auto) 1.025 01/25/23 16:04 Urine Protein (Auto) 0 mg/dL 01/25/23 16:04 Glucose (UA)(Auto) 0 mg/dL 01/25/23 16:04 Urine Ketones (Auto) Negative 01/25/23 16:04 Urine Blood (Auto) 0 Nathan/uL 01/25/23 16:04 Urine Nitrite (Auto) Negative 01/25/23 16:04 Urine Bilirubin (Auto) 0 mg/dL 01/25/23 16:04 Urine Urobilinogen (Auto) 0.2 mg/dL 01/25/23 16:04 Leukocyte Esterase (Auto) 0 Tulio/uL 01/25/23 16:04 Date of Service: 01/20/23 EXAMINATION: CT ABDOMEN AND PELVIS WITHOUT CONTRAST? CLINICAL INFORMATION: Left flank pain.? COMPARISON: None available. FINDINGS: LUNG BASES: The visualized lung bases are unremarkable.? LIVER, GALLBLADDER, AND BILIARY TREE: The liver is normal in size, shape, and attenuation. No focal hepatic lesion or biliary ductal dilatation is present. The gallbladder is unremarkable with no evidence of radiopaque gallstones, gallbladder wall thickening, or obvious pericholecystic inflammatory changes.? PANCREAS: Unremarkable.? SPLEEN: Unremarkable.? ADRENAL GLANDS: Unremarkable.? KIDNEYS AND URETERS: The kidneys are normal in size, shape, and attenuation. There is a 1.3 cm radiopaque calculi left renal pelvis without caliectasis. The stone is 19.4 cm from posterior skin line. No additional radiopaque calculi seen. There is mild perinephric stranding. Mild fullness of left kidney pelvis is present..?? BLADDER: Unremarkable.? GASTROINTESTINAL TRACT: There is scattered stool and diverticuli and colon without distention or diverticulitis. The small bowel loops are normal caliber. Appendix is normal caliber. The stomach is nondistended. No free air or free fluid seen.? ABDOMINAL WALL: There is umbilical hernia containing intraperitoneal fat. The neck is 2.1 cm wide on axial view and 2 cm wide on craniocaudad view.? LYMPH NODES: Normal. VASCULAR: Unremarkable. PELVIC VISCERA: Unremarkable.? OSSEOUS STRUCTURES: Unremarkable.? IMPRESSION: 1.? 1.3 cm radiopaque calculi left renal pelvis without caliectasis. There is mild fullness of left kidney pelvis. 2.? Scattered colonic diverticulosis without diverticulitis. 3.? Small umbilical hernia containing intraperitoneal fat. Assessment & Plan Assessment & Plan (1) Calculus of left kidney: Code(s): N20.0 - Calculus of kidney (2) Obesity: Code(s): E66.9 - Obesity, unspecified (3) Diabetes: Code(s): E11.9 - Type 2 diabetes mellitus without complications Plan Discussed shock wave lithotripsy vs ureteroscopy with the patient in detailed. He weighs about 396 pounds, and there is a weight limit on( ESWL) shock wave lithotripsy table. I will need to check the weight limit. Diet sheet for renal calculi prevention was provided to the patient. Discussed Low sodium intake. Discussed to consume adequate amount of water. Discussed Low oxalate diet---green leafy vegetable, nuts, and tea in moderation as they are rich in oxalate. Orders: Orders AMB Urinalysis Automated 01/25/23 Z13.9 - Encounter for screening, unspecified Patient Instructions: The patient had an opportunity to ask questions regarding treatment plan. All questions were answered. Imaging, Laboratory studies and physical exam results were discussed and reviewed in detail. No major barriers to understanding were identified. The patient expressed understanding and agreement with the above treatment plan.? ? ? The patient is aware they should contact our office by phone for worsening of their current condition or the appearance of new symptoms. Compliance is encouraged with any medications and followup testing that is ordered.? ? ? It is a privilege to be allowed the opportunity to participate in the urologic care of your patient. If you have any questions or concerns regarding treatment for the above conditions please do not hesitate to contact me. The office telephone contact is [phone].? ? ? This note is constructed in part using voice recognition software. While every effort has been made to ensure accuracy cargo and container inspector errors may have been included.? ? ? Yours sincerely,? ? ? Michelle Hartmann MD? ? Coding Level of Care Code New Pt Level 4 (37340) Diagnoses Calculus of left kidney N20.0 Obesity E66.9 Diabetes E11.9
== END 2023-01-25 15:38 | disposition home or self-care (01) ==
LOC: HO.HUSH 15:05
PROVIDERS: Visit Provider Urology
DX: N20.0 Calculus of kidney (principal); E66.9 Obesity, unspecified; E11.9 Type 2 diabetes mellitus without complications
CPT/HCPCS: 99204

== ENCOUNTER → 2023-01-25 15:05 | Outpatient (BNVA) | payer MEDICARE, MEDICAID, SELFPAY | PROVIDERS: Visit Provider Urology | DX: N20.0 Calculus of kidney (principal); E66.9 Obesity, unspecified; E11.9 Type 2 diabetes mellitus without complications | CPT/HCPCS: 81003; 99202 ==

== ENCOUNTER 2023-02-24 11:02 | Outpatient (AMB) | payer MEDICARE, MEDICAID, SELFPAY ==
--- NOTE | 2023-02-24 10:59 | MHC.OFFVIS ---
Intake Vital Signs 02/24/23 11:05 Height 6 ft Weight 395 lb 15.203 oz BMI 53.7 BP 130/60 Blood Pressure Location Lt brachial Position Sitting Pulse 87 Intake Visit Reasons: Preop/ Dr. Miles Ashford/ pre cystoscopy Intake Note: Pre op Energy Assistant Required: No Accompanied by: Self / Same As Patient Allergies No Known Allergies Allergy (Verified 02/24/23 11:04) Medication List - Last Reconciled 02/24/23 by Quentin Quintanilla MD ammonium lactate 12% 1 appl topical DAILY aspirin 81 mg PO DAILY atorvastatin 80 mg PO BEDTIME carboxymethylcellulose sodium 1% (Artificial Tears (carboxymethylcellulose)) 1 drp ophthalmic (eye) TID cholecalciferol (vitamin D3) 125 mcg PO DAILY [compressive stocking ] doxazosin 8 mg PO BEDTIME fluticasone propionate 50 mcg/actuation (Allergy Relief (fluticasone)) 1 spray intranasal BID ibuprofen 800 mg PO Q8H losartan-hydrochlorothiazide 50-12.5 mg 1 tab PO DAILY melatonin mg PO PRN metformin 500 mg PO DAILY metoprolol succinate ER 25 mg PO DAILY multivitamin 1 tab PO DAILY nitroglycerin 0.4 mg sublingual Q5M PRN HPI HPI Comments History of Present Illness Details Enmanuel is here for consultation regarding preoperative risk stratification for urology surgery. He has morbid obesity. Multiple cardiovascular risk factors including diabetes, hypertension, dyslipidemia. He states that he used to live in [place] but moved to this area because of cost of living. He states he gets random chest pains in the left side. He can happen any time and not clearly exertional. No documented history of any coronary artery disease or myocardial infarction or cardiomyopathy. He states he did see a sports apparel internship at [place] around 2 years ago and underwent stress testing but cannot recall any further information. He thinks might have been normal. However, we do not have any records. [facility] Medical History (Updated 02/24/23 @ 11:48 by Quentin Quintanilla MD) Seizure disorder Diabetes mellitus, type II Hypercholesteremia Hypertension Surgical History Hx of tonsillectomy History of ankle surgery Family History Father Diabetes mellitus Mother Pancreas cancer Social History Alcohol intake: never Patient Tobacco Use Status: Never used Tobacco Review of Systems Const Denies chills, Denies daytime sleepiness, Denies fatigue, Denies fever(s), Denies frequent falls, Denies night sweats, Denies snoring, Denies weakness, Denies weight gain and Denies weight loss Eyes Denies loss of vision ENT Denies dizziness and Denies hearing loss Card Denies chest pain, Denies chest pain with activity, Denies syncope, Denies rapid heart rate, Denies edema, Denies claudication, Denies leg edema, Denies lightheadedness, Denies palpitations, Denies dyspnea, Denies dyspnea on exertion and Denies orthopnea Resp Denies cough, Denies excessive phlegm production, Denies dyspnea, Denies dyspnea on exertion, Denies snoring and Denies wheezing GI Denies abdominal pain, Denies hematochezia, Denies change in bowel habits, Denies change in stool character, Denies heartburn, Denies nausea and Denies vomiting Denies hematuria, Denies dysuria and Denies urinary frequency Musc Denies arthralgias, Denies muscle weakness, Denies numbness and Denies tingling Skin/Breast Denies nail changes and Denies rash Neuro Denies Abnormal speech present, Denies dizziness, Denies syncope, Denies frequent falls, Denies loss of vision, Denies memory loss, Denies numbness, Denies tingling and Denies weakness Psych Denies depression and Denies memory loss Endo Denies fatigue and Denies palpitations Aller/Immun Denies wheezing Physical Exam Vital Signs: Last Vital Signs Pulse 87 02/24/23 11:05 BP 130/60 02/24/23 11:05 BMI result Body Mass Index 53.7 Const General: comfortable and no acute distress Orientation/consciousness: patient oriented x3 HEENT Other: Unremarkable Head: Yes normal to inspection Neck Neck: Yes normal visual inspection Chest Chest palpation & inspection: normal inspection of the chest Resp Auscultation: clear to auscultation bilaterally Cardio Palpation: normal PMI Heart sounds: S1 normal heart sound present, S2 normal heart sound present, no gallops, Murmur heart sound present systolic II/ and at the right sternal border and no rubs GI Palpation (GI): Soft to palpation Back/Spine/Pelvis Other: unremarkable Skin General skin exam: no rashes or lesions noted Neuro General: patient oriented x3 Speech: No Abnormal speech present Extrem General: Yes normal to inspection Psych Mental Status: mental status grossly normal Assessment & Plan Assessment & Plan (1) Precordial chest pain: Code(s): R07.2 - Precordial pain (2) Obesity: Code(s): E66.9 - Obesity, unspecified Qualifiers: Body mass index: BMI 50.0-59.9 Obesity classification: adult class 3 (BMI >= 40) Obesity type: due to excess calories Serious obesity comorbidity presence: with serious comorbidity Qualified Code(s): E66.01 - Morbid (severe) obesity due to excess calories; Z68.43 - Body mass index [BMI] 50.0-59.9, adult (3) Diabetes mellitus, type II: Code(s): E11.9 - Type 2 diabetes mellitus without complications (4) Hypertension: Code(s): I10 - Essential (primary) hypertension Qualifiers: Hypertension type: primary hypertension Qualified Code(s): I10 - Essential (primary) hypertension (5) Hypercholesteremia: Code(s): E78.00 - Pure hypercholesterolemia, unspecified Plan In the recent EKG, underlying rhythm is sinus 68/Min; nonspecific ST-T changes. Chest pain itself is atypical but he has numerous cardiovascular risk factors; aortic valve murmur. Will get an echocardiogram for cardiac function and valvular assessment. Need to get old records from [place]. Based on this, will decide on further workup. Possibly coronary CTA if able to do. Due to history of seizures, avoid Lexiscan. Other option would be cardiac catheterization. Orders: Orders CA echo transthoracic complete Today R07.2 - Precordial pain Coding Level of Care Code New Pt Level 4 (96989) Diagnoses Precordial chest pain R07.2 Class 3 severe obesity due to excess calories with serious comorbidity and body mass index (BMI) of 50.0 to 59.9 in adult E66.01; Z68.43 Body mass index: BMI 50.0-59.9 Obesity classification: adult class 3 (BMI >= 40) Obesity type: due to excess calories Serious obesity comorbidity presence: with serious comorbidity Diabetes mellitus, type II E11.9 Primary hypertension I10 Hypertension type: primary hypertension Hypercholesteremia E78.00
[2023-02-24 11:05] VITALS: BP 130/60; PULSE 87; BMI 53.7
== END 2023-02-24 11:27 | disposition home or self-care (01) ==
PROVIDERS: Visit Provider Internal Medicine
DX: R07.2 Precordial pain (principal); E66.01 Morbid (severe) obesity due to excess calories; Z68.43 Body mass index [BMI] 50.0-59.9, adult; E11.9 Type 2 diabetes mellitus without complications; I10 Essential (primary) hypertension; E78.00 Pure hypercholesterolemia, unspecified
CPT/HCPCS: 99204

== ENCOUNTER → 2023-02-24 11:02 | Outpatient (BNVA) | payer MEDICARE, MEDICAID, SELFPAY | PROVIDERS: Visit Provider Internal Medicine ==

== ENCOUNTER → 2023-03-17 09:11 | Outpatient (REF) | payer MEDICARE, MEDICAID, SELFPAY ==
--- NOTE | 2023-03-17 09:17 | CA_ITS ---
Transthoracic Echocardiogram Patient (Last, First, Middle): Enmanuel Lord, Gender: Male Date of : 1970 Age: 52 Procedure Date: 03/17/2023 Procedure Type: Transthoracic Echocardiogram Location: OP Height: 182.88 cm Weight: 179.99 kg BSA: 2.85 m2 Heart Rate: bpm BP: 130 / 66 mmHg Sample Driller: TO Referring MD: Quentin Quintanilla MD Symptoms: R07.2 - Precordial pain Study Quality: Technically Difficult/no IV access ECG Rhythm: Sinus Conclusions: - The left ventricular systolic function is hyperdynamic. The visually estimated ejection fraction is >70%. - No obvious valvular pathology seen on this study. Findings Procedure Information The study quality is limited by patients body habitus. Left Ventricle Normal left ventricular cavity size. The left ventricular systolic function is hyperdynamic. The visually estimated ejection fraction is >70%. There is no evidence of regional wall motion abnormalities. Diastolic function is normal for age. There is mild septal asymmetric hypertrophy. Right Ventricle Normal right ventricular cavity size and systolic function. Atria Both atria are normal in size. Aortic Valve There is a normal trileaflet aortic valve. There is no aortic valve stenosis. There is no aortic valve regurgitation. Mitral Valve The mitral valve appears normal. There is no mitral valve regurgitation. There is no mitral valve stenosis. Pulmonic Valve The pulmonic valve is likely normal. Tricuspid Valve There is trace tricuspid valve regurgitation. There is no evidence of pulmonary hypertension. Great Vessels The asc aorta is normal in size. Venous The inferior vena cava is normal in size and collapses greater than 50% with inspiration. Pericardium/Pleural There is no evidence of pericardial effusion. Prior Study Comparison No prior study available for comparison. Recommendations, Care & Conclusions No obvious valvular pathology seen on this study. Measurements 2D Linear Measurements IVSd: 1.10 0.6-0.9/0.6-1.0 cm LVIDd: 4.20 3.9-5.3/4.2-5.9 cm LVIDd Index: 1.47 2.4-3.2/2.2-3.1 cm/m2 LVIDs: 2.40 2.0-3.6 cm LVPWd: 0.90 0.7-1.1 cm LA Diam: 2.90 2.7-3.8/3.0-4.0 cm LAIDs Index: 1.02 1.5-2.3 cm/m2 LV Mass: 170.81 67-162/88-224 g LV Mass Index: 59.93 43-95/49-115 g/m2 LVOT Diam: 2.40 3.0+(-)1.3 cm Mitral Valve MV VTI: 0.31 MV Pk Emiliano: 1.16 MV Mn Emiliano: 0.75 MV Pk Grad: 5.00 MV Mn Grad: 3.00 MV Pk E: 1.03 MV PK A: 0.95 MV Decel Time: 192.00 E/A: 1.10 E'Lateral: 8.49 E'Medial: 7.40 E/E' Med: 13.90 E/E' Lat: 12.10 PHT: 56.00 MVA PHT: 3.93 MVA Continuity: 5.20 Decel [place]: 5.35 Aortic Valve AoV Pk Emiliano: 2.05 AoV Mn Emiliano: 1.32 AoV VTI: 0.37 AoV Pk Grad: 17.00 Aov Mn Grad: 8.00 RHONDA Cont.VTI: 4.36 LVOT LVOT Pk Emiliano: 1.86 LVOT Mn Emiliano: 1.13 LVOT VTI: 0.35 LVOT Pk Grad: 14.00 LVOT Mn Grad: 6.00 LVOT Diam: 2.40 LVOT Area: 4.52 Diastolic Function MV Pk E: 1.03 MV Pk A: 0.95 E/A: 1.10 E'Medial: 7.40 E/E' Med: 13.90 E' Laterial: 8.49 E/E' Lat: 12.10 Right Ventricle TAPSE (mm): 32.70 TVS' Emiliano: 18.50 Tricuspid Valve RA Press: 3.00 Great Vessels Aorta Sinus of Valsalva: 3.40 2.0-3.[address] [place]: 2.80 1.7-3.4 cm Ao Asc: 3.10 2.1-3.4 cm Ao Arch: 3.20 Updated in Other Vendor System with Status of Final Quentin Quintanilla MD electronically signed on 03/17/2023 3:17:53 PM with status of Final
== END ==
LOC: HO.CARD 09:11
PROVIDERS: Visit Provider Internal Medicine
DX: R07.2 Precordial pain (principal)
CPT/HCPCS: 93306

== ENCOUNTER → 2023-03-17 09:17 | Outpatient (BNV) | payer MEDICARE, MEDICAID, SELFPAY | PROVIDERS: Visit Provider Internal Medicine | DX: R07.2 Precordial pain (principal) | CPT/HCPCS: 93306 ==

== ENCOUNTER 2023-04-06 13:12 | Observation (INO) | payer MEDICARE, MEDICAID, SELFPAY ==
[2023-04-01 20:19] VITALS: BMI 53.6
[2023-04-02 07:44] VITALS: BMI 53.6
--- NOTE | 2023-04-05 08:49 | P.CONAN_ITS ---
Documented by User: Ladonna Long NP 04/08/23 13:52 HPI - Anesthesia Eval Consult details Narrative: 52yo M for Cystoscopy, Ureteroroscopy, Retro, Laser, w/ possible stent Cardiac optimized [facility] Active Problems Active Problems: All Active Problems (Updated 04/01/23 @ 20:18 by Meaghan Lozoya, ERIC) Precordial chest pain (Acute) Diabetes (Acute) Obesity (Acute) Hypercholesteremia (Acute) Hypertension (Acute) Diabetes mellitus, type II (Acute) Past Medical History Medical History (Updated 04/20/23 @ 00:00 by Francia Haas) JOE (obstructive sleep apnea) Renal stones Seizure disorder Diabetes mellitus, type II Hypercholesteremia Hypertension Family History Family History Father Diabetes mellitus Mother Pancreas cancer Surgical History Surgical History Hx of tonsillectomy History of ankle surgery Social History Social History Alcohol intake: never Patient Tobacco Use Status: Never used Tobacco Smoked in Last 30 Days: No Second Hand Smoke Exposure: No Use of substances other than those prescribed or required for medical reasons: No Advance Directives: No Advance Directives Information Provided: No service: No Meds Allergies Allergy/AdvReac Type Severity Reaction Status Date / Time betamethasone Allergy Redness of Verified 04/19/23 08:26 Skin levetiracetam [From [facility]] Allergy Anxiety Verified 04/19/23 08:26 pseudoephedrine Allergy Anxiety Verified 04/19/23 08:26 Home Medications Medication Instructions Recorded Confirmed Last Taken Type ammonium lactate 12 % topical cream 1 appl topical DAILY 01/25/23 04/01/23 Unknown History aspirin 81 mg tablet,delayed 81 mg PO DAILY 01/25/23 04/01/23 04/01/23 History release atorvastatin 80 mg tablet 80 mg PO BEDTIME 01/25/23 04/01/23 Unknown History carboxymethylcellulose sodium 1 % 1 drp ophthalmic (eye) TID 01/25/23 04/01/23 Unknown History eye drops (Artificial Tears (carboxymethylcellulose)) cholecalciferol (vitamin D3) 125 125 mcg PO DAILY 01/25/23 04/01/23 Unknown History mcg (5,000 unit) capsule compressive stocking 01/25/23 04/01/23 Unknown History fluticasone propionate 50 1 spray intranasal BID 01/25/23 04/01/23 Unknown History mcg/actuation nasal spray,suspension (Allergy Relief (fluticasone)) ibuprofen 800 mg tablet 800 mg PO Q8H 01/25/23 04/01/23 Unknown History losartan 50 mg-hydrochlorothiazide 1 tab PO DAILY 01/25/23 04/01/23 Unknown History 12.5 mg tablet metformin 500 mg tablet 500 mg PO DAILY 01/25/23 04/01/23 Unknown History metoprolol succinate 25 mg 25 mg PO DAILY 01/25/23 04/01/23 Unknown History tablet,extended release 24 hr multivitamin 1 tab PO DAILY 01/25/23 04/01/23 Unknown History nitroglycerin 0.4 mg sublingual 0.4 mg sublingual Q5M PRN CHEST 01/25/23 04/01/23 Unknown History tablet PAIN Dilantin Extended See Rx Instructions .Route .COMPLEX 04/06/23 04/06/23 04/05/23 History Exam Exam Date and Time: April 05, 2023 0849 Height,Weight and Vital Signs: Height 6 ft Weight 179.169 kg Pertinent Lab Results Pertinent Lab Results: Laboratory Tests 01/20/23 14:18 WBC 6.2 Hgb 14.4 Hct 41.6 L Plt Count 210 Sodium 141 Potassium 3.9 Chloride 103 Carbon Dioxide 31 H BUN 10 Creatinine 0.79 Narrative Narrative: ECHO 2022 Conclusions: - The left ventricular systolic function is hyperdynamic. The visually estimated ejection fraction is >70%. - No obvious valvular pathology seen on this study. EKG 01/2023 Vent. Rate : 068 BPM Atrial Rate : 068 BPM P-R Int : 192 ms QRS Dur : 080 ms QT Int : 314 ms P-R-T Axes : 034 075 073 degrees QTc Int : 333 ms Normal sinus rhythm Nonspecific T wave abnormality Abnormal ECG When compared with ECG of 07-JAN-2023 12:33, QT has shortened Cardiac cath 2020 (per recent [facility] cardio office visit note) No obstructive CAD Assessment and Plan Assessment Anesthesia Assessment: Chart Reviewed Documented by User: Alonzo Garcia MD 04/20/23 13:13 [facility] Past Medical History Medical History (Updated 04/20/23 @ 00:00 by Francia Haas) JOE (obstructive sleep apnea) Renal stones Seizure disorder Diabetes mellitus, type II Hypercholesteremia Hypertension Family History Family History Father Diabetes mellitus Mother Pancreas cancer Family history of problems with anesthesia: No Surgical History Surgical History Hx of tonsillectomy History of ankle surgery History of Problems with Anesthesia: No Social History Social History Alcohol intake: never Patient Tobacco Use Status: Never used Tobacco Smoked in Last 30 Days: No Second Hand Smoke Exposure: No Use of substances other than those prescribed or required for medical reasons: No Advance Directives: No Advance Directives Information Provided: No service: No Meds Allergies Allergy/AdvReac Type Severity Reaction Status Date / Time betamethasone Allergy Redness of Verified 04/19/23 08:26 Skin levetiracetam [From [facility]] Allergy Anxiety Verified 04/19/23 08:26 pseudoephedrine Allergy Anxiety Verified 04/19/23 08:26 Home Medications Medication Instructions Recorded Confirmed Last Taken Type ammonium lactate 12 % topical cream 1 appl topical DAILY 01/25/23 04/01/23 Unknown History aspirin 81 mg tablet,delayed 81 mg PO DAILY 01/25/23 04/01/23 04/01/23 History release atorvastatin 80 mg tablet 80 mg PO BEDTIME 01/25/23 04/01/23 Unknown History carboxymethylcellulose sodium 1 % 1 drp ophthalmic (eye) TID 01/25/23 04/01/23 Unknown History eye drops (Artificial Tears (carboxymethylcellulose)) cholecalciferol (vitamin D3) 125 125 mcg PO DAILY 01/25/23 04/01/23 Unknown History mcg (5,000 unit) capsule compressive stocking 01/25/23 04/01/23 Unknown History fluticasone propionate 50 1 spray intranasal BID 01/25/23 04/01/23 Unknown History mcg/actuation nasal spray,suspension (Allergy Relief (fluticasone)) ibuprofen 800 mg tablet 800 mg PO Q8H 01/25/23 04/01/23 Unknown History losartan 50 mg-hydrochlorothiazide 1 tab PO DAILY 01/25/23 04/01/23 Unknown History 12.5 mg tablet metformin 500 mg tablet 500 mg PO DAILY 01/25/23 04/01/23 Unknown History metoprolol succinate 25 mg 25 mg PO DAILY 01/25/23 04/01/23 Unknown History tablet,extended release 24 hr multivitamin 1 tab PO DAILY 01/25/23 04/01/23 Unknown History nitroglycerin 0.4 mg sublingual 0.4 mg sublingual Q5M PRN CHEST 01/25/23 04/01/23 Unknown History tablet PAIN Dilantin Extended See Rx Instructions .Route .COMPLEX 04/06/23 04/06/23 04/05/23 History Exam Airway Mallampati Class: II TM Dist: >3cm Neck ROM: Full Assessment and Plan Assessment Anesthesia Assessment: Anesthesia Plan Discussed Final Anesthetic Review Family History of Problems with Anesthesia: No History of Problems with Anesthesia: No NPO: Yes ASA Class: III Final Preanesthetic Review: No Changes in Pt Med Stat, Meds/Allgs Chart Reviewed, Consent Obtained/Reviewed and Anes Risks/Benef Reviewed Patient Risk: High Procedure Risk: Low Anesthetic Plan Anesthetic Plan: GA Disposition: Standard PACU
--- NOTE | 2023-04-05 12:32 | MHC.SHP ---
Pre-Procedural Eval Section A Date of Service: 04/06/23 Section B Chief Complaint: Calculus of kidney Details of Present Illness: Enmanuel is a 52 year old male with non insulin dependent diabetes, Co morbidity Obesity. He was referred to the office for the evaluation of kidney stones. He had a CAT scan of the abdomen/pelvis, and was diagnosed with kidney stones. I reviewed the CAT scan of the abdomen/pelvis without contrast results from 01/20/2023 revealed 1.3 cm radiopaque calculi left renal pelvis without caliectasis. There is mild fullness of left kidney pelvis. Relevant Family History (Specify if Yes): No Allergies: Allergies Allergy/AdvReac Type Severity Reaction Status Date / Time betamethasone Allergy Redness of Verified 04/02/23 07:24 Skin levetiracetam [From [facility]] Allergy Anxiety Verified 04/02/23 07:24 pseudoephedrine Allergy Anxiety Verified 04/02/23 07:24 Review of Systems Review of Systems Comment: 10 point ROS negative other than stated in the HPI Exam Surgical H&P Exam: Normal: HEENT, Normal: Heart, Normal: Lungs and Normal: Neurological Plan Diagnosis/Plan: Unchanged I have reviewed the history and physical and performed a pertinent physical examination on my patient. No changes have occurred unless specified. Plan for Cystoscopy, Left ureteroscopy, possible laser lithotripsy, possible ureteral stent. Risks discussed included but not limited to, possible need to repeat procedure if stone is not completely fragmented, Irritative voiding symptoms, bladder spasms, urgency, blood in urine. Time Spent With Patient Time: Total time managing care of this patient today ____ minutes.
[2023-04-06] VITALS (15 sets, daily range): BP systolic 111–150; BP diastolic 69–104; PULSE 61–88; RESP 15–28; TEMP 35.5–37.1; O2SAT 94–98
--- NOTE | ~2023-04-06 | FL_ITS ---
EXAMINATION: XR FLUOROSCOPY WITH IMAGES CLINICAL INFORMATION: Left-sided stone. COMPARISON: None available. TECHNIQUE: Fluoroscopy Supervised By: Dr. Hartmann. Fluoroscopy Time: 37.3 seconds. Cumulative Dose: 34.69 mGy. DAP: Gycm2. Images: 7. FINDINGS: Fluoroscopy guidance provided for left retrograde exam and internal stent placement FL/FL guidance in OR IMPRESSION: Fluoroscopy guidance for urology procedure
[2023-04-06 07:17] LABS: Glucose, Whole Blood 118 mg/dL (60-115)
--- NOTE | 2023-04-06 08:46 | PC.NURSE ---
dr. robbins aware that patient did not take his dilantin today and that last seizure was eleven years ago.
--- NOTE | 2023-04-06 11:39 | P.OP_ITS ---
Operative Note Operative Note Date of Service: 04/06/23 Narrative: PreOperative Diagnosis:?? left renal pelvis stone 13 mm Post Operative Diagnosis:?? left renal pelvis stone 13 mm Procedure: - Cystoscopy, left retrograde, left ureteroscopy laser lithotripsy stent insertion, 6 Luxembourger by multi-length cm Disposible flexible ureteroscope used Surgeon:?Dr Michelle Hartmann Anesthesia:? General Procedure: After informed consent was verified the patient was brought to the operating placed on the OR table in supine position.? General Anesthesia was administered per protocol.? The patient was placed in lithotomy position, prepped and draped in the usual sterile fashion.? Safety pause time-out and side of surgery confirmed.? Antibiotics confirmed. 2% lidocaine jelly 10 mL was passed transurethrally. A 22 Luxembourger cystoscope was inserted transurethrally, the bulbous urethra was within normal limits. The prostatic urethra was obstructive, median lobe was prominent. The bladder was visualized.? Both ureteric orifices were in normal position. mild trabeculations. An open-ended ureteral catheter was passed into the left ureteral orifice and a retrograde examination was performed. There was minimal dilatation of the renal pelvis and calyces. A guidewire was passed through the ureteral catheter into the kidney. The balloon dilator size 12 fr x 4 cm was passed over the guide -wire the balloon was inflated to 10 mmHg and the intramural ureter was dilated for 40 seconds. The balloon was deflated and removed. After removing the balloon dilator a 2nd guidewire was then passed into the kidney to use as a safety. The cystoscope was removed, leaving both guidewires in place. One guidewire was used as the safety and was attached to the draping. The Disposible flexible ureteroscope was passed over one of the guidewires to the level of the stone in the renal pelvis. One guidewire was then removed. Laser lithotripsy of the stone was done using the 365 fiber with a settings 0.8 joules by 6 hertz alternating with 0.5 x 20 hz. There was good fragmentation of the stone. The ureteroscope was removed. The cystoscope was passed over the safety guidewire. A? 6 Luxembourger by multi-length cm stent was placed into the ureter and renal pelvis under a combination of fluoroscopy and direct visualization. The rigid cystoscope was removed. ? A 20 fr cota catheter was inserted. The patient tolerated the procedure well and was brought to the recovery room in stable condition. Complications: None Drains: Ureteral stent as dictated above
[2023-04-06] MEDS: Acetaminophen 325 MG TABLET 975 MG PO (11:42)
[2023-04-06] MEDS: Phenazopyridine HCL 200 MG TABLET PO ×2 (11:51→16:03)
[2023-04-06] MEDS: Phenytoin Sodium Extended 100 MG CAPSULE 200 MG PO ×2 (11:56→21:27)
[2023-04-06] MEDS: oxyCODONE HCl Immed Release 5 MG TABLET PO ×2 (12:38→17:56)
[2023-04-06] MEDS: Ibuprofen 800 MG TABLET PO ×2 (14:10→20:52)
--- NOTE | 2023-04-06 14:24 | PHA.MEDREC ---
Pharmacy Consult ? Medication Reconciliation Pharmacy has completed the medication reconciliation.pharmacy has reviewed the med rec done by nursing
[2023-04-06 14:25] LABS: Glucose, Whole Blood 128 mg/dL (60-115)
[2023-04-06] MEDS: Metoprolol Succinate ER 25 MG TAB.ER.24H PO (15:58)
[2023-04-06] MEDS: Lactated Ringers 1,000 ML 100 ML IVCONT (15:58)
[2023-04-06] MEDS: metFORMIN HCl 500 MG TABLET PO (15:58)
[2023-04-06] MEDS: 0.9 % Sodium Chloride Flush 3 ML SYRINGE IVFLUSH ×2 (15:59→23:38)
[2023-04-06] MEDS: Acetaminophen 325 MG TABLET 650 MG PO ×2 (19:41→23:56)
[2023-04-06] MEDS: Doxazosin Mesylate 2 MG TABLET 8 MG PO (20:52)
[2023-04-06] MEDS: Atorvastatin Calcium 80 MG TABLET PO (20:52)
--- NOTE | 2023-04-06 21:20 | PC.NURSE ---
pt anxious, reports pain to the left flank more than 10 with urination , requested to speak with MD . RN called DR Michelle Ashford, pain med changed , Xanax added for anxiety , melation for sleep. Md will make a rounds in am
[2023-04-06] MEDS: oxyCODONE HCl Immed Release 5 MG TABLET 10 MG PO (21:27)
[2023-04-06] MEDS: Melatonin 3 MG TABLET 6 MG PO (21:27)
[2023-04-06] MEDS: ALPRAZolam 0.5 MG TABLET PO (21:32)
[2023-04-07] MEDS: oxyCODONE HCl Immed Release 5 MG TABLET 10 MG PO ×4 (00:38→12:22)
[2023-04-07] MEDS: Lactated Ringers 1,000 ML 100 ML IVCONT (01:51)
[2023-04-07 03:10] VITALS: BP 147/82; PULSE 72; RESP 20; TEMP 36.6; O2SAT 94
[2023-04-07] MEDS: Acetaminophen 325 MG TABLET 650 MG PO (04:21)
[2023-04-07] MEDS: ALPRAZolam 0.5 MG TABLET PO (04:21)
[2023-04-07 07:15] LABS: Anion Gap 14 (12-20); Blood Urea Nitrogen 8 mg/dL (9-16); Calcium 9.3 mg/dL (8.4-10.2); Carbon Dioxide 30 mmol/L (22-29); Chloride 103 mmol/L (96-108); Creatinine Clr Calc Pharmacy 185.8; Estimated Glomerular Filt Rate > 60; Glucose Random 147 mg/dL (60-115); Potassium 3.6 mmol/L (3.3-5.1); Sodium 143 mmol/L (135-145)
[2023-04-07 07:18] VITALS: BP 142/75; PULSE 81; RESP 20; TEMP 36.7; O2SAT 95
[2023-04-07 07:32] LABS: Glucose, Whole Blood 115 mg/dL (60-115)
[2023-04-07] MEDS: 0.9 % Sodium Chloride Flush 3 ML SYRINGE IVFLUSH (08:17)
[2023-04-07] MEDS: Ibuprofen 800 MG TABLET PO (08:17)
[2023-04-07 08:18] VITALS: O2SAT 100
[2023-04-07] MEDS: Phenazopyridine HCL 200 MG TABLET PO ×2 (08:18→12:23)
[2023-04-07] MEDS: HYDROCHLOROTHIAZIDE 12.5 MG PO (08:19)
[2023-04-07] MEDS: Metoprolol Succinate ER 25 MG TAB.ER.24H PO (08:19)
[2023-04-07] MEDS: metFORMIN HCl 500 MG TABLET PO (08:19)
[2023-04-07] MEDS: LOSARTAN POTASSIUM 50 MG PO (08:19)
[2023-04-07] MEDS: Phenytoin Sodium Extended 100 MG CAPSULE 200 MG PO (08:28)
--- NOTE | 2023-04-07 08:44 | MHC.CM.PN ---
CM met with Patient at bedside and addressed MENDEZ with him, providing Patient with the original and a copy has been placed on the chart. Patient lives alone in an apartment and he required no services nor DME [employer]. Home/self care is the goal and CM has initiated and will follow for dc planning. PCP is Dr. Satnam Purcell in [place] ([phone]).
--- NOTE | 2023-04-07 13:09 | MHC.CM.PN ---
Patient has been medically cleared for dc to home today, self care. CM awaits word from RN as to time for [employer].
--- NOTE | 2023-04-07 13:57 | HO.POSTANES ---
Post Anesthesia Evaluation Post Anesthesia Evaluation Date of Service: 04/07/23 Vital Signs: Vital Signs Temp Pulse Resp BP Pulse Ox O2 Del Method 04/07/23 08:18 100 Room Air 04/07/23 07:18 98.1 F 81 20 142/75 H 95 Room Air 04/07/23 03:10 97.8 F 72 20 147/82 H 94 Room Air Anesthesia: General Mental Status: Awake Pain Control: Satisfactory Nausea/Vomiting: None Hydration: Adequate Anesthesia-Related Issues: No Anes. Related Issues
--- NOTE | 2023-04-07 14:02 | MHC.CM.PN ---
Patient's Friend was able to provide transportation to home.
--- NOTE | 2023-07-19 17:15 | PM.DS ---
DS: Providers Provider Date of Service: 04/06/23 Date of admission: 04/06/23 13:12 Date of discharge: 04/07/23 Primary care physician: Satnam Purcell MD Admitting clinician: Michelle Hartmann Attending physician on admission: Michelle Hartmann Attending physician on discharge: Michelle Hartmann Discharging clinician: Michelle Hartmann DS: Summary Hospital Course Hospital Course: Enmanuel is a 52 year old male with non insulin dependent diabetes, Co morbidity Morbid Obesity. He had a CAT scan of the abdomen/pelvis, which revealed 1.3 cm radiopaque calculi left renal pelvis without caliectasis. The patient had an elective cystoscopy Left ureteroscopy laser lithotripsy and stent placed, and was admitted for observation. Status at Discharge Cognitive/behavioral status at discharge: within normal limits Functional status at discharge: independent ambulation Time Attestation Discharge coordination time: Greater than 30 minutes Quality: Safe Use of Opioids Does Pt have an Active Cancer Diagnosis on the Problem List?: No Quality: Stroke Does the patient have a stroke diagnosis?: No Physical Exam Vital Signs: Vital Signs: Last Vital Signs Temp 98.1 F 04/07/23 07:18 Pulse 81 04/07/23 07:18 Resp 20 04/07/23 07:18 BP 142/75 H 04/07/23 07:18 Pulse Ox 100 04/07/23 08:18 O2 Del Method Room Air 04/07/23 08:18 O2 Flow Rate 1 04/06/23 12:30 BMI result Body Mass Index 53.6 Discharge Plan Discharge Patient Disposition: Home, Self-Care Discharge Diagnosis: Left nephrolithiasis Referrals: Physician,Unknown J [Physician] - 1 Week Discharge Medications: New phenazopyridine [Pyridium] 200 mg tablet 200 mg PO TID Qty: 60 0RF oxycodone 5 mg capsule 5 mg PO Q8H PRN (Reason: pain) Qty: 16 0RF Rx Instructions: Partial Fill upon patient request. Take one to two tabs every 8 hours as needed for pain tamsulosin 0.4 mg capsule 0.8 mg PO BEDTIME Qty: 60 3RF Rx Instructions: flomax 0.4 mg take 2 tabs at bedtime to replace cardura 8 mg Continued Dilantin Extended 200 mg See Rx Instructions .ROUTE .COMPLEX Rx Instructions: 200mg bid wednesday thru wednesday and 400mg bid on sundays. nitroglycerin 0.4 mg tablet, sublingual 0.4 mg sublingual Q5M PRN (Reason: CHEST PAIN ) Rx Instructions: do not exceed 3 doses per episode metformin 500 mg tablet 500 mg PO DAILY losartan-hydrochlorothiazide 50-12.5 mg tablet 1 tab PO DAILY fluticasone propionate [Allergy Relief (fluticasone)] 50 mcg/actuation spray,suspension 1 spray intranasal BID Rx Instructions: administer into each nostril multivitamin Tablet 1 tab PO DAILY cholecalciferol (vitamin D3) 125 mcg (5,000 unit) capsule 125 mcg PO DAILY metoprolol succinate 25 mg tablet extended release 24 hr 25 mg PO DAILY Artificial Tears (cmc) 1 % drops 1 drp ophthalmic (eye) TID atorvastatin 80 mg tablet 80 mg PO BEDTIME (DME) compressive stocking 0 .Route .MEDSUPPLY ammonium lactate 12 % cream 1 appl topical DAILY Held aspirin 81 mg tablet,delayed release (DR/EC) 81 mg PO DAILY Hold Instructions: Resume on 04/16/23. ibuprofen 800 mg tablet 800 mg PO Q8H Hold Instructions: Resume on 04/16/23. Discontinued doxazosin 8 mg tablet 8 mg PO BEDTIME No Action finasteride 5 mg tablet 5 mg PO DAILY Qty: 90 2RF loperamide 2 mg capsule 2 mg PO Q6H PRN (Reason: loose stool) Qty: 20 0RF ondansetron 4 mg tablet,disintegrating 4 mg PO Q6H PRN (Reason: nausea and vomiting) Qty: 14 0RF Discharge Orders: Discharge Order (Routine); Ordered 04/06/23 Ordered By: Michelle Hartmann Diet: Advance to usual diet Activity on Discharge: As tolerated Activity Restrictions/Additional Instructions: Return to work on 04/09/23. FU with Dr. Ashford in 2 weeks for possible stent removal in the office. KUB Xray 3 -4 days prior. Care Plan Goals: FU with Urology for stent removal, Low sodium diet, Drink water daily Health Concerns: Expect hematuria due to ureteral stent in place. Plan of Treatment: s/p laser lithotripsy left renal stone with ureteral stent placed. FU with Dr. Ashford for stent removal. Assessment: Stable. Discharge Date/Time: 04/07/23 13:45
== END 2023-04-07 13:45 | disposition home or self-care (01) ==
LOC: HO.SSS 13:35 → HO.SSSA 13:42 → HO.IMC 15:08
PROVIDERS: Admitting Provider Urology; PCP Internal Medicine; Visit Provider Urology
PROC: (CPT 52356; principal; 2023-04-06 08:30)
DX: N20.0 Calculus of kidney (principal); E11.9 Type 2 diabetes mellitus without complications; I10 Essential (primary) hypertension; E78.00 Pure hypercholesterolemia, unspecified; G40.909 Epilepsy, unspecified, not intractable, without status epilepticus; Z96.0 Presence of urogenital implants; Z79.4 Long term (current) use of insulin; Z79.899 Other long term (current) drug therapy
CPT/HCPCS: 52356; 36415; 80048; 82947; 96360; 96361; 96374; 96375; 99222; C1726; C1769; C2617; J0690; J2250; J2405; Q9967

== ENCOUNTER → 2023-04-06 13:12 | Outpatient (BNV) | payer MEDICARE, OTHER, MEDICAID, SELFPAY | PROVIDERS: Admitting Provider Urology; Visit Provider Urology | DX: N20.0 Calculus of kidney (principal); Z96.0 Presence of urogenital implants | CPT/HCPCS: 52356; 74420; 99238 ==

== ENCOUNTER 2023-04-14 08:38 | Outpatient (REF) | payer MEDICARE, MEDICAID, SELFPAY ==
--- NOTE | ~2023-04-14 | XR_ITS ---
EXAMINATION: XR ABDOMEN KUB CLINICAL INDICATION: Status post left ureteroscopy laser stent 04/06/2020. COMPARISON: Single image 04/06/2000 and fluoroscopy for left retrograde exam and stent placement. CT abdomen and pelvis 01/21/2020. TECHNIQUE: 4 views of the abdomen. FINDINGS: Nonobstructive bowel gas pattern. Moderate amount of stool in the colon. No definitive renal calculi identified, although visualization limited due to overlying bowel and body habitus. Degenerative changes in the lumbar spine. Tiny pelvic calcifications are likely vascular. Left double-J ureteral stent with proximal portion coiled over left kidney and distal portion coiled over the pelvis. XR/XR KUB IMPRESSION: No definitive renal calculi identified, although visualization limited due to overlying bowel. Left double-J ureteral stent.
== END 2023-04-14 08:39 | disposition home or self-care (01) ==
LOC: HO.XRAY 08:38
PROVIDERS: Visit Provider Urology
DX: N20.0 Calculus of kidney (principal); Z96.0 Presence of urogenital implants
CPT/HCPCS: 74018

== ENCOUNTER 2023-04-19 07:48 | Emergency (ER) | payer MEDICARE, MEDICAID, SELFPAY ==
--- NOTE | 2023-04-19 08:02 | ED.GENADULT ---
HPI - General Adult General Chief complaint: Nausea/Vomiting/Diarrhea Stated complaint: Diarrhea/Vomiting Surgery 2wk ago Time Seen by Provider: 04/19/23 07:54 Source: patient Mode of arrival: ambulatory Limitations: no limitations History of Present Illness HPI narrative: Patient is a 52-year-old male with a PMH of kidney stones s/p ureteral stent placement on 04/06/23, T2DM, obestiy, HTN, and HLD presenting with nausea, vomiting, diarrhea, and sore throat x 2 days. He states he has not been able to tolerate fluids well as he immediately vomits or has an episode of diarrhea. He feels weak and has had decreaed urine output for which he attributes to dehydration. Denies sick contacts, recent travel, and changes in diet. Last meal he ate was croissants for breakfast yesterday. Denies fever, chills, lightheadedness, chest pain, sob, abdominal pain, hematemesis, hematochezia, dysuria, and hematuria. Related Data Home Medications Medication Instructions Recorded Confirmed ammonium lactate 12 % topical cream 1 appl topical DAILY 01/25/23 04/01/23 aspirin 81 mg tablet,delayed 81 mg PO DAILY 01/25/23 04/01/23 release atorvastatin 80 mg tablet 80 mg PO BEDTIME 01/25/23 04/01/23 carboxymethylcellulose sodium 1 % 1 drp ophthalmic (eye) TID 01/25/23 04/01/23 eye drops (Artificial Tears (carboxymethylcellulose)) cholecalciferol (vitamin D3) 125 125 mcg PO DAILY 01/25/23 04/01/23 mcg (5,000 unit) capsule compressive stocking 01/25/23 04/01/23 fluticasone propionate 50 1 spray intranasal BID 01/25/23 04/01/23 mcg/actuation nasal spray,suspension (Allergy Relief (fluticasone)) ibuprofen 800 mg tablet 800 mg PO Q8H 01/25/23 04/01/23 losartan 50 mg-hydrochlorothiazide 1 tab PO DAILY 01/25/23 04/01/23 12.5 mg tablet metformin 500 mg tablet 500 mg PO DAILY 01/25/23 04/01/23 metoprolol succinate 25 mg 25 mg PO DAILY 01/25/23 04/01/23 tablet,extended release 24 hr multivitamin 1 tab PO DAILY 01/25/23 04/01/23 nitroglycerin 0.4 mg sublingual 0.4 mg sublingual Q5M PRN CHEST 01/25/23 04/01/23 tablet PAIN Dilantin Extended See Rx Instructions .Route .COMPLEX 04/06/23 04/06/23 Previous Rx's Medication Instructions Recorded finasteride 5 mg tablet (Proscar) 5 mg PO DAILY #30 tabs 04/06/23 phenazopyridine 200 mg tablet 200 mg PO TID #60 tabs 04/06/23 (Pyridium) oxycodone 5 mg capsule 5 mg PO Q8H PRN pain #16 caps 04/07/23 tamsulosin 0.4 mg capsule 0.8 mg (2 x 0.4 mg) PO BEDTIME #60 04/07/23 caps loperamide 2 mg capsule 2 mg PO Q6H PRN loose stool #20 04/19/23 caps ondansetron 4 mg disintegrating 4 mg PO Q6H PRN nausea and 04/19/23 tablet vomiting #14 tabs Allergies Allergy/AdvReac Type Severity Reaction Status Date / Time betamethasone Allergy Redness of Verified 04/19/23 08:26 Skin levetiracetam [From [facility]] Allergy Anxiety Verified 04/19/23 08:26 pseudoephedrine Allergy Anxiety Verified 04/19/23 08:26 Review of Systems Review of Systems: Constitutional : No Weight loss, No Fever, No Chills, No Fatigue, No Malaise ENT/Mouth : + sore throat, No Rhinorrhea Eyes: No Eye Pain, No Swelling, No Redness Cardiovascular : No Chest Pain, No SOB, No Dyspnea on Exertion, No Orthopnea, No Edema, No Palpitations Respiratory : No Cough, No Sputum, No Wheezing Gastrointestinal : + Nausea, + Vomiting, + Diarrhea, No Constipation, No abdominal Pain, No Hematochezia, No Melena Genitourinary : No Dysuria, No Urinary Frequency, No Hematuria, Musculoskeletal : No joint pain, No Myalgias, No Joint Swelling Skin : No Skin Lesions, No rash Neuro : + Weakness, No Numbness, No Dizziness, No Headache Psych : No Anxiety/Panic, No Depression All other systems reviewed and are negative Yes all other systems are reviewed and are negative PMFSH Past Medical History Attestation statement: The following information was validated with the patient. Source: old records reviewed and nursing notes reviewed Medical History (Updated 04/19/23 @ 11:29 by JOSE M Champan) JOE (obstructive sleep apnea) Renal stones Seizure disorder Diabetes mellitus, type II Hypercholesteremia Hypertension Surgical History Hx of tonsillectomy History of ankle surgery Family History Family History Father Diabetes mellitus Mother Pancreas cancer Social History Social History Alcohol intake: never Patient Tobacco Use Status: Never used Tobacco Smoked in Last 30 Days: No Second Hand Smoke Exposure: No Use of substances other than those prescribed or required for medical reasons: No Advance Directives: No Advance Directives Information Provided: No service: No Physical Exam ED Vital Signs: Vital Signs - 24 hr 04/19/23 08:18 04/19/23 08:29 04/19/23 10:26 Temperature 96.8 F Pulse Rate 97 88 Respiratory Rate 20 20 20 Blood Pressure 119/81 104/66 Pulse Oximetry 99 Oxygen Delivery Method Room Air BMI result Body Mass Index 55.2 vss Appearance: Alert.? Oriented X3.? No acute distress.? Head: Normocephalic, atraumatic, no step-offs or deformities Eyes: Pupils equal, round and reactive to light.? ENT: Pharynx normal.??External ears normal, TMs normal bilaterally and EAC's normal. No pain with manipulation of external ears bilaterally. No mastoid tenderness. Neck: Normal inspection.? Neck supple.? CVS: Normal heart rate and rhythm.? Pulses normal.? Respiratory: No respiratory distress.? Breath sounds normal.? Abdomen: Soft and nontender.? Skin: Skin warm and dry.? Normal skin color.? Normal skin turgor.? Extremities: No lower extremity edema.? No calf ttp. 5/5 strength to bilateral upper and lower extremities Back: No midline tenderness, no C-spine tenderness, full range of motion, no CVA tenderness bilaterally Neuro: Oriented X 3.? No motor deficit.? No sensory deficit. Course Reevaluation(s) Reevaluation #1: CBC appears to be around patient's baseline. Chemistryw/ agnesium 1.4 will give IV Mag at this time, no other electrolyte abnormalities requiring interventions Transaminases slightly elevated however they appear to be around his baseline. Flu / COVID negative, strep negative. This is likely viral in origin. Time: 10:34 Reevaluation #2: repeat magnesium improving, Mag 1.5. Patient feeling well, tolerating p.o.. UA without infection. At this time will discharge patient home this is likely a viral illness. Educated patient on diagnosis and treatment plan, answered all question, patient verbalizes understanding. At this time patient will be discharged home, advised to return with new or worsening symptoms. Educated on worrisome signs and symptoms and when to return. At this time I feel comfortable discharge home. Time: 11:27 Medications Administered Generic Name Dose Route Start Last Admin Trade Name Freq PRN Reason Stop Dose Admin Magnesium Sulfate 2 gm in 50 mls @ 25 mls/hr 04/19/23 09:50 04/19/23 10:21 Magnesium Sulfate/H2o IV 04/19/23 11:49 25 mls/hr ONCE ONE Administration Discontinued Medications Generic Name Dose Route Start Last Admin Trade Name Freq PRN Reason Stop Dose Admin Sodium Chloride 1,000 mls @ 999 mls/hr 04/19/23 08:15 04/19/23 11:01 Ns IV 04/19/23 09:15 Infused .Q1H1M POLO Infusion Medical Decision Making Medical Decision Making [facility] Narrative: 2001 52 yo M presents w/ n/v/d, sore throat X 2 days PE No abd discomfort on palpation. Normoactive bowel sounds throughout. Negative CVA tendernss Concerns for viral illness vs flu/ covid/ rsk. Unlikely acute abdomen, kidney stone, obstructive uropathy, obstruction. Will rule out UTI vs cystitis and electrolyte abnormalities. Hx and PE w/ low suspicion for cdiff or infectious diarrhea. sore throat likley viral no signs of threat to airway, epiglottitis, peritonsillar abscess, retropharyngeal abscess. unlikely diabetic gastroparesis or DKA Plan- labs, urine, imaging Differential Diagnosis Differential Diagnoses: The differential diagnosis associated with the presentation includes Concerns for viral illness vs flu/ covid/ rsk. Unlikely acute abdomen, kidney stone, obstructive uropathy, obtruction. Will rule out UTI vs cystitis and electrolyte abnormalities. Hx and PE w/ low suspicion for cdiff or infectious diarrhea. sore throat likley viral no signs of threat to airway, epiglottitis, peritonsillar abscess, retropharyngeal abscess. unlikely diabetic gastroparesis or DKA Admission/Observation Consideration of admission/observation: Escalation of care including admission/observation considered Possible Lab Data MDM Lab Attestation statement: I reviewed the patient's lab results. 04/19/23 08:40 04/19/23 09:17 Labs: Lab Results 04/19/23 04/19/23 04/19/23 Range/Units 08:40 09:04 09:17 WBC 8.2 (4.8-10.8) X10*3/uL RBC 4.94 (4.60-5.80) X10*6/uL Hgb 15.1 (14.0-18.0) g/dl Hct 43.7 (42.0-52.0) % MCV 88.5 (80.0-98.0) fL MCH 30.6 (27.0-33.0) pg MCHC 34.6 (31.0-36.0) g/dl RDW 13.4 (11.0-16.0) % Plt Count 190 (160-400) X10*3/uL MPV 10.6 (9.4-12.4) fL Immature Gran % (Auto) 0.6 H (0.0-0.4) % Neut % (Auto) 80.3 H (45-73) % Lymph % (Auto) 8.1 L (20-40) % [place] % (Auto) 8.7 (2-11) % Eos % (Auto) 2.2 (0-4) % Baso % (Auto) 0.1 (0-2) % Lymph # (Auto) 0.7 L (1.2-4.9) X10*3/uL [place] # (Auto) 0.7 (0.1-1.2) X10*3/uL Eos # (Auto) 0.2 (0.0-0.4) X10*3/uL Baso # (Auto) 0.0 (0.0-0.2) X10*3/uL Abs Immat Gran (auto) 0.05 H (0.00-0.03) X10*3/uL Absolute Neuts (auto) 6.6 (2.0-8.3) x10*3/uL Absolute Nucleated RBC 0.000 (0.0-0.012) X10*3/uL Nucleated RBC % (auto) 0.0 (0.0-0.2) /100WBC Smear Tech's Comments VERIFIED Sodium 139 (135-145) mmol/L Potassium 3.4 (3.3-5.1) mmol/L Chloride 105 (96-108) mmol/L Carbon Dioxide 26 (22-29) mmol/L Anion Gap 11 L (12-20) BUN 15 (9-16) mg/dL Creatinine 0.78 (0.5-1.4) mg/dL Estim Creat Clear Calc 184.3 Estimated GFR > 60 Random Glucose 100 (60-115) mg/dL Calcium 8.6 D (8.4-10.2) mg/dL Magnesium 1.4 L* (1.6-2.6) mg/dL Total Bilirubin 0.4 (0.0-1.0) mg/dL AST 39 H (5-37) U/L ALT 89 H (0-40) U/L Alkaline Phosphatase 132 H (39-117) U/L Total Protein 7.4 (6.5-8.0) g/dL Albumin 4.1 (3.5-5.0) g/dL Lipase 15 (8-78) U/L Urine Color Urine Appearance Urine pH (5.0-9.0) Ur Specific [place] (1.005-1.025) Urine Protein (Neg-Trace) mg/dL Urine Glucose (UA) (Negative) mg/dL Urine Ketones (Negative) mg/dL Urine Blood (Negative) Urine Nitrite (Negative) Ur Leukocyte Esterase (Negative) Urine RBC (0-2) /HPF Urine WBC (0-5) /HPF Ur Squamous Epith Cells (0-2) /HPF Urine Bacteria (None Seen) Hyaline Casts (0-2) /LPF Influenza Type A (KELBY) Negative (Negative) Influenza Type B (KELBY) Negative (Negative) Influenza A & B Note See Note S. pyogenes GrpA KELBY Negative (Negative) 04/19/23 04/19/23 Range/Units 09:28 10:50 WBC (4.8-10.8) X10*3/uL RBC (4.60-5.80) X10*6/uL Hgb (14.0-18.0) g/dl Hct (42.0-52.0) % MCV (80.0-98.0) fL MCH (27.0-33.0) pg MCHC (31.0-36.0) g/dl RDW (11.0-16.0) % Plt Count (160-400) X10*3/uL MPV (9.4-12.4) fL Immature Gran % (Auto) (0.0-0.4) % Neut % (Auto) (45-73) % Lymph % (Auto) (20-40) % [place] % (Auto) (2-11) % Eos % (Auto) (0-4) % Baso % (Auto) (0-2) % Lymph # (Auto) (1.2-4.9) X10*3/uL [place] # (Auto) (0.1-1.2) X10*3/uL Eos # (Auto) (0.0-0.4) X10*3/uL Baso # (Auto) (0.0-0.2) X10*3/uL Abs Immat Gran (auto) (0.00-0.03) X10*3/uL Absolute Neuts (auto) (2.0-8.3) x10*3/uL Absolute Nucleated RBC (0.0-0.012) X10*3/uL Nucleated RBC % (auto) (0.0-0.2) /100WBC Smear Tech's Comments Sodium (135-145) mmol/L Potassium (3.3-5.1) mmol/L Chloride (96-108) mmol/L Carbon Dioxide (22-29) mmol/L Anion Gap (12-20) BUN (9-16) mg/dL Creatinine (0.5-1.4) mg/dL Estim Creat Clear Calc Estimated GFR Random Glucose (60-115) mg/dL Calcium (8.4-10.2) mg/dL Magnesium 1.5 L (1.6-2.6) mg/dL Total Bilirubin (0.0-1.0) mg/dL AST (5-37) U/L ALT (0-40) U/L Alkaline Phosphatase (39-117) U/L Total Protein (6.5-8.0) g/dL Albumin (3.5-5.0) g/dL Lipase (8-78) U/L Urine Color Dark Yellow Urine Appearance Cloudy Urine pH 5.5 (5.0-9.0) Ur Specific [place] >= 1.030 H (1.005-1.025) Urine Protein 100 (2+) H (Neg-Trace) mg/dL Urine Glucose (UA) Negative (Negative) mg/dL Urine Ketones Trace (Negative) mg/dL Urine Blood Large (3+) H (Negative) Urine Nitrite Negative (Negative) Ur Leukocyte Esterase Moderate (2+) H (Negative) Urine RBC >20 H (0-2) /HPF Urine WBC 11-20 H (0-5) /HPF Ur Squamous Epith Cells 6-10 (0-2) /HPF Urine Bacteria None Seen (None Seen) Hyaline Casts 0-2 (0-2) /LPF Influenza Type A (KELBY) (Negative) Influenza Type B (KELBY) (Negative) Influenza A & B Note S. pyogenes GrpA KELBY (Negative) Tests considered The following testing was considered but not selected: Considered ordering CT abdomen and pelvis however no abdominal tenderness to palpation. Patient has normoactive bowel sounds as well. Labs essentially unremarkable. Prescription Management I considered prescription management with: Other ( Zofran, Imodium) Chronic Conditions Patient?s care impacted by: Diabetes Critical Care Time Critical Care Time Critical Care Time: Yes Total Critical Care Time: 335 Attestation: I attest to this time spent taking care of the patient, obtaining history, physical, reviewing labs, imaging, speaking to my attending,. Discharge Plan Discharge Clinical Impression: Nausea & vomiting, Diarrhea, Hypomagnesemia Patient Disposition: Home, Self-Care Instructions: Acute Nausea and Vomiting (ED), Acute Diarrhea (ED), Nutrition Tips for Relief of Diarrhea (ED), Hypomagnesemia (ED) Additional Instructions: Take your medications as prescribed. If you were prescribed antibiotics today, it is important that you take your medication to their entirety, do not skip any doses, do not finish them early. Follow-up with your primary care provider this week. Return to the emergency department with new or worsening symptoms. Such as fevers, chills, chest pain, shortness of breath, nausea, vomiting, dizziness, headache, vision changes, lethargy In case of emergency call 911 Prescriptions: New loperamide 2 mg capsule 2 mg PO Q6H PRN (Reason: loose stool) Qty: 20 0RF ondansetron 4 mg tablet,disintegrating 4 mg PO Q6H PRN (Reason: nausea and vomiting) Qty: 14 0RF No Action Dilantin Extended 200 mg See Rx Instructions .ROUTE .COMPLEX Rx Instructions: 200mg bid wednesday thru wednesday and 400mg bid on sundays. finasteride [Proscar] 5 mg tablet 5 mg PO DAILY Qty: 30 0RF phenazopyridine [Pyridium] 200 mg tablet 200 mg PO TID Qty: 60 0RF oxycodone 5 mg capsule 5 mg PO Q8H PRN (Reason: pain) Qty: 16 0RF Rx Instructions: Partial Fill upon patient request. Take one to two tabs every 8 hours as needed for pain tamsulosin 0.4 mg capsule 0.8 mg PO BEDTIME Qty: 60 3RF Rx Instructions: flomax 0.4 mg take 2 tabs at bedtime to replace cardura 8 mg aspirin 81 mg tablet,delayed release (DR/EC) 81 mg PO DAILY Hold Instructions: Resume on 04/16/23. ibuprofen 800 mg tablet 800 mg PO Q8H Hold Instructions: Resume on 04/16/23. nitroglycerin 0.4 mg tablet, sublingual 0.4 mg sublingual Q5M PRN (Reason: CHEST PAIN ) Rx Instructions: do not exceed 3 doses per episode metformin 500 mg tablet 500 mg PO DAILY losartan-hydrochlorothiazide 50-12.5 mg tablet 1 tab PO DAILY fluticasone propionate [Allergy Relief (fluticasone)] 50 mcg/actuation spray,suspension 1 spray intranasal BID Rx Instructions: administer into each nostril multivitamin Tablet 1 tab PO DAILY cholecalciferol (vitamin D3) 125 mcg (5,000 unit) capsule 125 mcg PO DAILY metoprolol succinate 25 mg tablet extended release 24 hr 25 mg PO DAILY Artificial Tears (cmc) 1 % drops 1 drp ophthalmic (eye) TID atorvastatin 80 mg tablet 80 mg PO BEDTIME (DME) compressive stocking 0 .Route .MEDSUPPLY ammonium lactate 12 % cream 1 appl topical DAILY Referrals: Satnam Purcell MD [Primary Care Provider] - 2 days [facility] [Provider Group] - 2 days Stand Alone Forms: Work/School Release
[2023-04-19 08:18] VITALS: BP 119/81; PULSE 97; RESP 20; TEMP 36; O2SAT 99; BMI 55.2
[2023-04-19 08:29] VITALS: RESP 20
[2023-04-19] MEDS: 0.9 % Sodium Chloride 1,000 ML 999 ML IV (08:40)
--- NOTE | 2023-04-19 09:11 | PC.NURSE ---
pt is alert and oriented, skin appropriate foe ethnicity, respirations even and unlabored, pt reports for the last 24hours has been having brown diarrhea with vomiting, cant keep anything down comes right back up, did have a kidney stent put in about one week ago on the left side side, some pain on the left flank pain at 2/10
[2023-04-19 09:24] LABS: Basophils Percent Auto 0.1 % (0-2); Eosinophils Absolute Auto 0.2 X10*3/uL (0.0-0.4); Eosinophils Percent Auto 2.2 % (0-4); Hematocrit 43.7 % (42.0-52.0); Hemoglobin 15.1 g/dl (14.0-18.0); Imm Gran Abs Auto 0.05 X10*3/uL (0.00-0.03); Imm Gran Pct Auto 0.6 % (0.0-0.4); Lymphocytes Absolute Auto 0.7 X10*3/uL (1.2-4.9); Lymphocytes Percent Auto 8.1 % (20-40); MANUAL DIFF FLAG SCAN; Mean Corpuscular HGB Conc 34.6 g/dl (31.0-36.0); Mean Corpuscular Hemoglobin 30.6 pg (27.0-33.0); Mean Corpuscular Volume 88.5 fL (80.0-98.0); Mean Platelet Volume 10.6 fL (9.4-12.4); Monocytes Absolute Auto 0.7 X10*3/uL (0.1-1.2); Monocytes Percent Auto 8.7 % (2-11); Neutrophils Absolute Auto 6.6 x10*3/uL (2.0-8.3); Neutrophils Percent Auto 80.3 % (45-73); PLT CLUMP 1; Red Blood Count 4.94 X10*6/uL (4.60-5.80); Red Cell Distribution Width 13.4 % (11.0-16.0); SCAN SMEAR FLAG 1
[2023-04-19 09:40] LABS: IDNOW Serial# 08D9AD1C; IDNOW Serial# 9DB6401D; Influenza A Negative (Negative); Influenza B2 Negative (Negative); Strep A Nucleic Acid Negative (Negative)
[2023-04-19 09:42] LABS: Appearance Urine Cloudy; Color Urine Dark Yellow; Glucose Urine UA Negative (Negative); Leukocyte Esterase Urine Moderate (2+) (Negative); Nitrite Urine Negative (Negative); PH 5.5 (5.0-9.0); Specific Gravity - Urine >= 1.030 (1.005-1.025); UMIC TRIGGER UACC YES; Urine Blood Large (3+) (Negative); Urine Ketones Trace mg/dL (Negative); Urine Protein 100 (2+) mg/dL (Neg-Trace)
[2023-04-19 09:46] LABS: Platelet Count 190 X10*3/uL (160-400); White Blood Count 8.2 X10*3/uL (4.8-10.8)
[2023-04-19 09:47] LABS: SLIDE REVIEW VERIFIED
[2023-04-19 09:47] LABS: Bacteria Urine None Seen (None Seen); Hyaline Casts Urine 0-2 /LPF (0-2); RBC Urine >20 /HPF (0-2); UACC Culture Trigger YES
[2023-04-19 09:51] LABS: Alanine Aminotransferase 89 U/L (0-40); Albumin Level 4.1 g/dL (3.5-5.0); Alkaline Phosphatase 132 U/L (39-117); Anion Gap 11 (12-20); Aspartate Amino Transferase 39 U/L (5-37); Bilirubin Total 0.4 mg/dL (0.0-1.0); Blood Urea Nitrogen 15 mg/dL (9-16); Calcium 8.6 mg/dL (8.4-10.2); Carbon Dioxide 26 mmol/L (22-29); Chloride 105 mmol/L (96-108); Creatinine Clr Calc Pharmacy 184.3; Estimated Glomerular Filt Rate > 60; Glucose Random 100 mg/dL (60-115); Lipase 15 U/L (8-78); Magnesium 1.4 mg/dL (1.6-2.6); Potassium 3.4 mmol/L (3.3-5.1); Sodium 139 mmol/L (135-145); Total Protein 7.4 g/dL (6.5-8.0)
[2023-04-19] MEDS: Magnesium Sulfate/H2O 2 GM/50 ML PIGGYBACK IV (10:21)
[2023-04-19 10:26] VITALS: BP 104/66; PULSE 88; RESP 20
[2023-04-19 11:12] LABS: Magnesium 1.5 mg/dL (1.6-2.6)
[2023-04-19 20:23] LABS: COVID-19 Test Negative (Negative); IDNOW Serial# 58CA691E
== END 2023-04-19 12:00 | disposition home or self-care (01) ==
PROVIDERS: Physician Assistant; Emergency Provider Emergency Medicine; PCP Internal Medicine
DX: E83.42 Hypomagnesemia (principal); R11.2 Nausea with vomiting, unspecified; E11.9 Type 2 diabetes mellitus without complications; I10 Essential (primary) hypertension; E78.5 Hyperlipidemia, unspecified; R19.7 Diarrhea, unspecified; J02.9 Acute pharyngitis, unspecified; G40.909 Epilepsy, unspecified, not intractable, without status epilepticus; E78.00 Pure hypercholesterolemia, unspecified; Z87.442 Personal history of urinary calculi; Z96.0 Presence of urogenital implants; Z79.899 Other long term (current) drug therapy; Z11.52 Encounter for screening for COVID-19
CPT/HCPCS: 36415; 80053; 81001; 83690; 83735; 85025; 87086; 87502; 87635; 87651; 96361; 96374; 99284; J3475

== ENCOUNTER 2023-04-21 12:53 | Outpatient (AMB) | payer MEDICARE, MEDICAID, SELFPAY ==
--- NOTE | 2023-04-21 12:56 | MHC.OFFVIS ---
Intake Intake Visit Reasons: Stent Removal Intake Note: Patient presents today for a CYSTOSCOPY Procedure & Stent Removal: Meds: Tamsulosin, Finasteride & Pyridium Allergies to Antibiotic: No Known Allergies Blood Thinner: Aspirin Urinalysis test cleared for Cysto Disposable Uro-G Cystoscope Cannula: Lot: [id number] Exp: 10/14/2024 Manager Post Required: No Accompanied by: Self / Same As Patient Allergies betamethasone Allergy (Verified 04/21/23 13:04) Redness of Skin levetiracetam [From Keppra] Allergy (Verified 04/21/23 13:04) Anxiety pseudoephedrine Allergy (Verified 04/21/23 13:04) Anxiety HPI HPI Comments History of Present Illness Details Enmanuel is a 52-year-old male who presents today to the office for a follow-up. 04/21/2023? Enmanuel is a 52 year old male with non insulin dependent diabetes, Co morbidity Obesity. He is followed today for stent removal and cystoscopy procedure. He is a status post ureteroscopy, left lithotripsy of renal pelvis stone done on 04/05/2023. Left ureteral stent removed without difficulty. I reviewed the KUB X ray results from 04/14/2023 revealed no radioplaque calculi visualized; however the imaging is limited due to the patient?s body habitus and presence of bowel gas. Review of charts: Imaging: CAT scan of the abdomen/pelvis without contrast results from 01/20/2023 revealed 1.3 cm radiopaque calculi left renal pelvis without caliectasis. Therapeutic Plan: Diet modification - 04/21/2023: Plan: Metabolic work up: 24-hour urine collection test was ordered. Ordered blood work including calcium and PTH. [facility] Medical History JOE (obstructive sleep apnea) Renal stones Seizure disorder Diabetes mellitus, type II Hypercholesteremia Hypertension Surgical History Hx of tonsillectomy History of ankle surgery Family History Father Diabetes mellitus Mother Pancreas cancer Social History Alcohol intake: never Patient Tobacco Use Status: Never used Tobacco Second Hand Smoke Exposure: No service: No Review of Systems Const All systems reviewed & are unremarkable except as noted in HPI and below Reports no additional complaints Eyes Reports no additional complaints ENT Reports no additional complaints Card Denies dyspnea Resp Denies cough and Denies dyspnea GI Reports no additional complaints Musc Reports no additional complaints Skin/Breast Denies rash and Denies unusual bruising Neuro Reports no additional complaints Psych Reports no additional complaints Endo Reports no additional complaints Vince/Lymph Reports no additional complaints Aller/Immun Reports no additional complaints Office Procedures Cystoscopy Consent Discussed risk and benefit or proposed procedure with the patient. Information consent for procedure given to the patient. Discussed technical aspects, risks, benefits and alternatives in full. Addressed all of the patient's questions and concerns regarding the procedure. The patient demonstrated knowledge and understanding. They wish to proceed with this procedure. Preparation The patient was prepped in the usual manner. A compensation intern was present and in the room. Genitalia was prepped with betadine solution in a sterile manner. Lidocaine Jelly 2% was placed into the urethra and 16Fr flexible Olympus cystoscope was inserted into the meatus after adequate lubrication. Procedure Time out per protocol performed. Bladder Inspection Cystoscopy findings: mild edema right ureteral orifice which is expected, distal end of ureteral stent visualized. The grasping forceps were used and the stent was removed without difficulty. [id number] with stent removal DISPOSABLE SCOPE URO-G FLEXIBLE SCOPE Procedure code (CPT) selection complete Office Meds lidocaine HCl 2 % mucosal jelly in applicator Performing Provider: Michelle Hartmann MD Performing Location: [facility] [place] [facility] Administered by: Laquita Chris RN on 04/21/23 13:14 Dose Route Admin Location Dispensed Lot Number Expiration Date [facility] Glass Cut Off Tender 10 mL intra-urethral 20 mL naproxen 500 mg tablet Performing Provider: Michelle Hartmann MD Performing Location: [facility] [place] [facility] Administered by: Laquita Chris RN on 04/21/23 13:14 Dose Route Admin Location Dispensed Lot Number Expiration Date [facility] Glass Cut Off Tender 500 mg PO 1 tab ciprofloxacin HCl 500 mg tablet Performing Provider: Michelle Hartmann MD Performing Location: [facility] [place] [facility] Administered by: Laquita Chris RN on 04/21/23 13:14 Dose Route Admin Location Dispensed Lot Number Expiration Date [facility] Glass Cut Off Tender 500 mg PO 1 tab Results AMB Urinalysis, Automated UA Leukoctes 70 Tulio/uL Last Edit by Julisa Butcher [facility] on 04/21/23 13:05 UA Nitrite Negative Last Edit by Julisa Butcher [facility] on 04/21/23 13:05 UA Urobilinogen 0.2 mg/dL Last Edit by Julisa Butcher [facility] on 04/21/23 13:05 UA Protein 15 mg/dL Last Edit by Julisa Butcher [facility] on 04/21/23 13:05 UA pH 6.0 Last Edit by Julisa Butcher [facility] on 04/21/23 13:05 UA Blood 200 Nathan/uL Last Edit by Julisa Butcher [facility] on 04/21/23 13:05 3+ Julisa Butcher 04/21/23 13:05 UA Specific Ruffin 1.020 Last Edit by Julisa Butcher [facility] on 04/21/23 13:05 UA Ketone Negative Last Edit by Julisa Butcher [facility] on 04/21/23 13:05 UA Bilirubin 0 mg/dL Last Edit by Julisa Butcher [facility] on 04/21/23 13:05 UA Glucose 0 mg/dL Last Edit by Julisa Butcher [facility] on 04/21/23 13:05 Results Reviewed Results Reviewed: Laboratory Last Values Urine pH (Auto) 6.0 04/21/23 13:01 Specific Ruffin (Auto) 1.020 04/21/23 13:01 Urine Protein (Auto) 15 mg/dL 04/21/23 13:01 Glucose (UA)(Auto) 0 mg/dL 04/21/23 13:01 Urine Ketones (Auto) Negative 04/21/23 13:01 Urine Blood (Auto) 200 Nathan/uL 04/21/23 13:01 Urine Nitrite (Auto) Negative 04/21/23 13:01 Urine Bilirubin (Auto) 0 mg/dL 04/21/23 13:01 Urine Urobilinogen (Auto) 0.2 mg/dL 04/21/23 13:01 Leukocyte Esterase (Auto) 70 Tulio/uL 04/21/23 13:01 Date of Service: 04/14/23 EXAMINATION: XR ABDOMEN KUB CLINICAL INDICATION: Status post left ureteroscopy laser stent 04/06/2020. COMPARISON: Single image 04/06/2000 and fluoroscopy for left retrograde exam and stent placement. CT abdomen and pelvis 01/21/2020. FINDINGS: Nonobstructive bowel gas pattern. Moderate amount of stool in the colon. No definitive renal calculi identified, although visualization limited due to overlying bowel and body habitus. Degenerative changes in the lumbar spine. Tiny pelvic calcifications are likely vascular. Left double-J ureteral stent with proximal portion coiled over left kidney and distal portion coiled over the pelvis. IMPRESSION: No definitive renal calculi identified, although visualization limited due to overlying bowel. Left double-J ureteral stent Date of Service: 01/20/23 EXAMINATION: CT ABDOMEN AND PELVIS WITHOUT CONTRAST CLINICAL INFORMATION: Left flank pain. COMPARISON: None available. FINDINGS: LUNG BASES: The visualized lung bases are unremarkable. LIVER, GALLBLADDER, AND BILIARY TREE: The liver is normal in size, shape, and attenuation. No focal hepatic lesion or biliary ductal dilatation is present. The gallbladder is unremarkable with no evidence of radiopaque gallstones, gallbladder wall thickening, or obvious pericholecystic inflammatory changes. PANCREAS: Unremarkable. SPLEEN: Unremarkable. ADRENAL GLANDS: Unremarkable. KIDNEYS AND URETERS: The kidneys are normal in size, shape, and attenuation. There is a 1.3 cm radiopaque calculi left renal pelvis without caliectasis. The stone is 19.4 cm from posterior skin line. No additional radiopaque calculi seen. There is mild perinephric stranding. Mild fullness of left kidney pelvis is present.. BLADDER: Unremarkable. GASTROINTESTINAL TRACT: There is scattered stool and diverticuli and colon without distention or diverticulitis. The small bowel loops are normal caliber. Appendix is normal caliber. The stomach is nondistended. No free air or free fluid seen. ABDOMINAL WALL: There is umbilical hernia containing intraperitoneal fat. The neck is 2.1 cm wide on axial view and 2 cm wide on craniocaudad view. LYMPH NODES: Normal. VASCULAR: Unremarkable. PELVIC VISCERA: Unremarkable. OSSEOUS STRUCTURES: Unremarkable. IMPRESSION: 1. 1.3 cm radiopaque calculi left renal pelvis without caliectasis. There is mild fullness of left kidney pelvis. 2. Scattered colonic diverticulosis without diverticulitis. 3. Small umbilical hernia containing intraperitoneal fat. Assessment & Plan Assessment & Plan (1) Calculus of left kidney: Code(s): N20.0 - Calculus of kidney (2) Obesity: Code(s): E66.9 - Obesity, unspecified Qualifiers: Obesity type: due to excess calories Obesity classification: adult class 3 (BMI >= 40) Serious obesity comorbidity presence: with serious comorbidity Body mass index: BMI 50.0-59.9 Qualified Code(s): E66.01 - Morbid (severe) obesity due to excess calories; Z68.43 - Body mass index [BMI] 50.0-59.9, adult (3) Diabetes: Code(s): E11.9 - Type 2 diabetes mellitus without complications Plan Metabolic work up: 24-hour urine collection test was ordered. Ordered blood work including calcium and PTH. Orders: Orders AMB Urinalysis Automated Today Z13.9 - Encounter for screening, unspecified AMB Cystoscopy Today Z96.0 - Presence of urogenital implants Patient Instructions: The patient had an opportunity to ask questions regarding treatment plan. All questions were answered. Imaging, Laboratory studies and physical exam results were discussed and reviewed in detail. No major barriers to understanding were identified. The patient expressed understanding and agreement with the above treatment plan. The patient is aware they should contact our office by phone for worsening of their current condition or the appearance of new symptoms. Compliance is encouraged with any medications and followup testing that is ordered. It is a privilege to be allowed the opportunity to participate in the urologic care of your patient. If you have any questions or concerns regarding treatment for the above conditions please do not hesitate to contact me. The office telephone contact is [phone]. This note is constructed in part using voice recognition software. While every effort has been made to ensure accuracy client experience administrator errors may have been included. Yours sincerely, Michelle Hartmann MD Coding Level of Care Code Procedure Only Diagnoses Calculus of left kidney N20.0 Class 3 severe obesity due to excess calories with serious comorbidity and body mass index (BMI) of 50.0 to 59.9 in adult E66.01; Z68.43 Obesity type: due to excess calories Obesity classification: adult class 3 (BMI >= 40) Serious obesity comorbidity presence: with serious comorbidity Body mass index: BMI 50.0-59.9 Diabetes E11.9 CPT Codes Cystoscopy - CPT: 68303-[id number] with stent removal ([id number])
== END 2023-04-21 14:58 | disposition home or self-care (01) ==
LOC: HO.HUSH 12:53
PROVIDERS: PCP Internal Medicine; Visit Provider Urology
DX: N20.0 Calculus of kidney (principal); E66.01 Morbid (severe) obesity due to excess calories; Z68.43 Body mass index [BMI] 50.0-59.9, adult; E11.9 Type 2 diabetes mellitus without complications; Z13.9 Encounter for screening, unspecified; Z96.0 Presence of urogenital implants
CPT/HCPCS: 52310

== ENCOUNTER → 2023-04-21 12:53 | Outpatient (BNVA) | payer MEDICARE, MEDICAID, SELFPAY | PROVIDERS: PCP Internal Medicine; Visit Provider Urology | DX: N20.0 Calculus of kidney (principal); E66.01 Morbid (severe) obesity due to excess calories; Z68.43 Body mass index [BMI] 50.0-59.9, adult | CPT/HCPCS: 52310; 81003 ==

== ENCOUNTER 2023-09-13 00:20 | Emergency (ER) | payer MEDICARE, MEDICAID, SELFPAY ==
[2023-09-13 00:36] VITALS: BP 135/72; PULSE 63; RESP 18; TEMP 36.6; O2SAT 93; BMI 54.4
[2023-09-13 01:26] LABS: IDNOW Serial# 08D9AD1C; Strep A Nucleic Acid Negative (Negative)
[2023-09-13 01:45] LABS: Influenza A PCR NEGATIVE (Negative); Influenza B PCR NEGATIVE (Negative); Resp Syncy Virus RNA Qual PCR NEGATIVE (Negative); SARS COV2 PCR INHOUSE NEGATIVE (Negative)
[2023-09-13] MEDS: Ondansetron ODT 4 MG TAB.RAPDIS TRANSLINGU (03:59)
[2023-09-13 04:06] LABS: Glucose, Whole Blood 151 mg/dL (60-115)
[2023-09-13 04:12] VITALS: BP 151/64; PULSE 67; RESP 18; TEMP 36.4; O2SAT 95
--- NOTE | 2023-09-13 04:22 | ED.GENADULT ---
HPI - General Adult General Chief complaint: General Medical Stated complaint: vomiting, COVID sym Time Seen by Provider: 09/13/23 03:46 Source: patient Mode of arrival: ambulatory History of Present Illness HPI narrative: 53-year-old male who is diabetic comes in with reported sore throat since /Wednesday and an episode nausea and vomiting but otherwise denies any shortness of breath/chest pain or abdominal discomfort. Related Data Home Medications ?Medication ?Instructions ?Recorded ?Confirmed ammonium lactate 12 % topical cream 1 appl topical DAILY 01/25/23 04/01/23 aspirin 81 mg tablet,delayed 81 mg PO DAILY 01/25/23 04/01/23 release atorvastatin 80 mg tablet 80 mg PO BEDTIME 01/25/23 04/01/23 carboxymethylcellulose sodium 1 % 1 drp ophthalmic (eye) TID 01/25/23 04/01/23 eye drops (Artificial Tears (carboxymethylcellulose)) cholecalciferol (vitamin D3) 125 125 mcg PO DAILY 01/25/23 04/01/23 mcg (5,000 unit) capsule compressive stocking 01/25/23 04/01/23 fluticasone propionate 50 1 spray intranasal BID 01/25/23 04/01/23 mcg/actuation nasal spray,suspension (Allergy Relief (fluticasone)) ibuprofen 800 mg tablet 800 mg PO Q8H 01/25/23 04/01/23 losartan 50 mg-hydrochlorothiazide 1 tab PO DAILY 01/25/23 04/01/23 12.5 mg tablet metformin 500 mg tablet 500 mg PO DAILY 01/25/23 04/01/23 metoprolol succinate 25 mg 25 mg PO DAILY 01/25/23 04/01/23 tablet,extended release 24 hr multivitamin 1 tab PO DAILY 01/25/23 04/01/23 nitroglycerin 0.4 mg sublingual 0.4 mg sublingual Q5M PRN CHEST 01/25/23 04/01/23 tablet PAIN Dilantin Extended See Rx Instructions .Route .COMPLEX 04/06/23 04/06/23 Previous Rx's ?Medication ?Instructions ?Recorded phenazopyridine 200 mg tablet 200 mg PO TID #60 tabs 04/06/23 (Pyridium) oxycodone 5 mg capsule 5 mg PO Q8H PRN pain #16 caps 04/07/23 tamsulosin 0.4 mg capsule 0.8 mg (2 x 0.4 mg) PO BEDTIME #60 04/07/23 caps loperamide 2 mg capsule 2 mg PO Q6H PRN loose stool #20 04/19/23 caps ondansetron 4 mg disintegrating 4 mg PO Q6H PRN nausea and 04/19/23 tablet vomiting #14 tabs finasteride 5 mg tablet 5 mg PO DAILY #90 tabs 05/24/23 Allergies Allergy/AdvReac Type Severity Reaction Status Date / Time betamethasone Allergy Redness of Verified 09/13/23 00:39 Skin levetiracetam [From Keppra] Allergy Anxiety Verified 09/13/23 00:39 pseudoephedrine Allergy Anxiety Verified 09/13/23 00:39 Review of Systems Review of Systems: Pertinent positives and negatives as stated in HPI [facility] Past Medical History Source: nursing notes reviewed Medical History JOE (obstructive sleep apnea) Renal stones Seizure disorder Diabetes mellitus, type II Hypercholesteremia Hypertension Surgical History Hx of tonsillectomy History of ankle surgery Family History Family History Father Diabetes mellitus Mother Pancreas cancer Social History Social History Alcohol intake: never Patient Tobacco Use Status: Never used Tobacco Second Hand Smoke Exposure: No Advance Directives: No Advance Directives Information Provided: No service: No Physical Exam ED Vital Signs: Vital Signs - 24 hr 09/13/23 00:36 09/13/23 04:12 Temperature 97.8 F 97.5 F Pulse Rate 63 67 Respiratory Rate 18 18 Blood Pressure 135/72 151/64 H Pulse Oximetry 93 95 Oxygen Delivery Method Room Air Room Air BMI result Body Mass Index 54.4 VITAL SIGNS: Reviewed. GENERAL: Elevated BMI, Well developed, well nourished, in no acute distress. HEAD: Normocephalic/atraumatic EYES: PERRLA, EOMI EARS: Ext canals without abnormality, TMs non-bulging and non-erythematous NOSE: Nares patent bilateral OROPHARYNX: no oral lesions noted, posterior pharynx clear and non-erythematous without noted tonsillar enlargement/erythema/exudates, no noted oral thrush NECK: Supple, no adenopathy LUNGS: Normal breath sounds. No adventitious sounds or accessory muscle use. SpO2<95> CARDIOVASCULAR: Regular rate and rhythm without noted murmurs, no JVD or lower extremity edema. ABDOMEN: Soft, non-tender, non-distended with bowel sounds. MUSCULOSKELETAL: No tenderness, deformities, or effusions noted on gross inspection. EXTREMITIES: No cyanosis, clubbing or edema. SKIN: Inspection of the skin reveals no rashes NEUROLOGIC: Alert and oriented x 4. Strength and sensation to light touch were grossly intact x 4. Medications Administered Discontinued Medications Generic Name Dose Route Start Last Admin Trade Name Freq PRN Reason Stop Dose Admin Ondansetron HCl 4 mg 09/13/23 03:46 09/13/23 03:59 Ondansetron Odt 4 Mg Tab.Rapdis TRANSLINGU 09/13/23 03:47 4 mg ONCE ONE Administration Medical Decision Making Medical Decision Making [facility] Narrative: 53-year-old male with history and clinical presentation mildly suggestive of viral pharyngitis and review of viral testing is negative for influenza/COVID-19/RSV, rapid strep testing is also negative. Oriented care is noted to be 151 and patient is otherwise stable for discharge. Differential Diagnosis Differential Diagnoses: The differential diagnosis associated with the presentation includes Please see the discussion above Admission/Observation Consideration of admission/observation: Escalation of care including admission/observation considered Please see the discussion above Lab Data [facility] Lab Attestation statement: I reviewed the patient's lab results. Please see the discussion above Labs: Lab Results 09/13/23 09/13/23 Range/Units 01:00 04:01 POC Glucose 151 H (60-115) mg/dL Influenza Type A (PCR) NEGATIVE (Negative) Influenza Type B (PCR) NEGATIVE (Negative) RSV RNA Qual (PCR) NEGATIVE (Negative) SARS-CoV-2 RNA (RT-PCR) NEGATIVE (Negative) S. pyogenes GrpA KELBY Negative (Negative) External Record Review External record reviewed: Outpatient record and Prior outpatient labs Chronic Conditions Patient?s care impacted by: Diabetes Critical Care Time Critical Care Time Critical Care Time: Yes Total Critical Care Time: 30 Attestation: I personally attest to this time spent taking care of the patient. Discharge Plan Discharge Clinical Impression: Viral pharyngitis Patient Disposition: Home, Self-Care Instructions: Pharyngitis (ED) Additional Instructions: Recommend gargling with warm tap water mixed with table salt, 5 minutes, twice a day for the next 2-3 days. Follow-up with your primary care doctor in the next 2-3 days. Return to the ER for any worsening symptoms. Prescriptions: No Action finasteride 5 mg tablet 5 mg PO DAILY Qty: 90 2RF Dilantin Extended 200 mg See Rx Instructions .ROUTE .COMPLEX Rx Instructions: 200mg bid wednesday thru wednesday and 400mg bid on sundays. phenazopyridine [Pyridium] 200 mg tablet 200 mg PO TID Qty: 60 0RF oxycodone 5 mg capsule 5 mg PO Q8H PRN (Reason: pain) Qty: 16 0RF Rx Instructions: Partial Fill upon patient request. Take one to two tabs every 8 hours as needed for pain tamsulosin 0.4 mg capsule 0.8 mg PO BEDTIME Qty: 60 3RF Rx Instructions: flomax 0.4 mg take 2 tabs at bedtime to replace cardura 8 mg loperamide 2 mg capsule 2 mg PO Q6H PRN (Reason: loose stool) Qty: 20 0RF ondansetron 4 mg tablet,disintegrating 4 mg PO Q6H PRN (Reason: nausea and vomiting) Qty: 14 0RF aspirin 81 mg tablet,delayed release (DR/EC) 81 mg PO DAILY Hold Instructions: Resume on 04/16/23. ibuprofen 800 mg tablet 800 mg PO Q8H Hold Instructions: Resume on 04/16/23. nitroglycerin 0.4 mg tablet, sublingual 0.4 mg sublingual Q5M PRN (Reason: CHEST PAIN ) Rx Instructions: do not exceed 3 doses per episode metformin 500 mg tablet 500 mg PO DAILY losartan-hydrochlorothiazide 50-12.5 mg tablet 1 tab PO DAILY fluticasone propionate [Allergy Relief (fluticasone)] 50 mcg/actuation spray,suspension 1 spray intranasal BID Rx Instructions: administer into each nostril multivitamin Tablet 1 tab PO DAILY cholecalciferol (vitamin D3) 125 mcg (5,000 unit) capsule 125 mcg PO DAILY metoprolol succinate 25 mg tablet extended release 24 hr 25 mg PO DAILY Artificial Tears (cmc) 1 % drops 1 drp ophthalmic (eye) TID atorvastatin 80 mg tablet 80 mg PO BEDTIME (DME) compressive stocking 0 .Route .MEDSUPPLY ammonium lactate 12 % cream 1 appl topical DAILY Print Language: Armenian
[2023-09-13 04:37] VITALS: BP 151/64; PULSE 67; RESP 18; TEMP 36.4
== END 2023-09-13 04:39 | disposition home or self-care (01) ==
PROVIDERS: Emergency Provider Student in an Organized Health Care Education/Training Program
DX: J02.8 Acute pharyngitis due to other specified organisms (principal); E11.9 Type 2 diabetes mellitus without complications; I10 Essential (primary) hypertension; Z03.818 Encounter for observation for suspected exposure to other biological agents ruled out
CPT/HCPCS: 0241U; 82947; 87651; 99283; 99284

== ENCOUNTER 2023-10-14 10:11 | Outpatient (AMB) | payer MEDICARE, SELFPAY ==
[2023-10-14 10:14] VITALS: BP 130/64; PULSE 69; O2SAT 97; BMI 53.8
--- NOTE | 2023-10-14 10:14 | A.OFFVIS_ITS ---
Vital Signs 10/14/23 10:14 Height 6 ft Weight 396 lb 6.258 oz BMI 53.8 BP 130/64 Blood Pressure Location Lt radial Position Sitting Pulse 69 Pulse Source Pulse Oximeter Pulse Oximetry (%) 97 Intake Visit Reasons: 6 month follow up Third Officer Required: No Accompanied by: Self / Same As Patient Allergies betamethasone Allergy (Verified 09/13/23 00:39) Redness of Skin levetiracetam [From Keppra] Allergy (Verified 09/13/23 00:39) Anxiety pseudoephedrine Allergy (Verified 09/13/23 00:39) Anxiety Medication List - Last Reconciled 10/14/23 by Quentin Quintanilla MD aspirin 81 mg PO DAILY atorvastatin 80 mg PO BEDTIME carboxymethylcellulose sodium 1% (Artificial Tears (carboxymethylcellulose)) 1 drp ophthalmic (eye) TID cholecalciferol (vitamin D3) 125 mcg PO DAILY [compressive stocking ] fluticasone propionate 50 mcg/actuation (Allergy Relief (fluticasone)) 1 spray intranasal BID ibuprofen 800 mg PO Q8H loperamide 2 mg PO Q6H PRN losartan-hydrochlorothiazide 50-12.5 mg 1 tab PO DAILY metformin 500 mg PO DAILY metoprolol succinate ER 25 mg PO DAILY multivitamin 1 tab PO DAILY nitroglycerin 0.4 mg sublingual Q5M PRN ondansetron 4 mg PO Q6H PRN oxycodone 5 mg PO Q8H PRN phenazopyridine (Pyridium) 200 mg PO TID HPI Comments Details: Enmanuel returns for follow-up. In the past, he was seen regarding preoperative stratification for urology surgery. He used to live in [facility] but apparently moved to the local area because of cost of living issues. Has morbid obesity. He weighs almost 400 lb. Has comorbidities including diabetes, hypertension, dyslipidemia. He has had chronic chest pains close with the left shoulder area which are nonexertional and happen randomly. Sometimes he notices them after eating fried foods. Hence not clear if it is just reflux or something musculoskeletal. He is even undergone cardiac catheterization to evaluate but that did not have any significant coronary disease. Overall, no new issues and he seems to be mostly doing well. [facility] Medical History JOE (obstructive sleep apnea) Renal stones Seizure disorder Diabetes mellitus, type II Hypercholesteremia Hypertension Surgical History Hx of tonsillectomy History of ankle surgery Family History Father Diabetes mellitus Mother Pancreas cancer Social History Alcohol intake: never Patient Tobacco Use Status: Never used Tobacco Second Hand Smoke Exposure: No service: No Review of Systems Const Denies chills, Denies fatigue, Denies fever(s), Denies frequent falls, Denies weakness, Denies weight gain and Denies weight loss ENT Denies dizziness Card Denies chest pain, Denies leg edema, Denies lightheadedness, Denies palpitations, Denies dyspnea and Denies dyspnea on exertion Resp Denies cough, Denies dyspnea and Denies dyspnea on exertion GI Denies hematochezia Musc Denies abnormal gait, Denies muscle weakness, Denies numbness, Denies radiating pain into limb and Denies tingling Neuro Denies abnormal gait, Denies dizziness, Denies frequent falls, Denies numbness, Denies tingling and Denies weakness Endo Denies fatigue and Denies palpitations Physical Exam Vital Signs: Last Vital Signs Pulse 69 10/14/23 10:14 BP 130/64 10/14/23 10:14 Pulse Ox 97 10/14/23 10:14 BMI result Body Mass Index 53.8 Const General: comfortable and no acute distress Orientation/consciousness: patient oriented x3 HEENT Other: Unremarkable Head: Yes normal to inspection Neck Neck: Yes normal visual inspection Chest Chest palpation & inspection: normal inspection of the chest Resp Auscultation: clear to auscultation bilaterally Cardio Palpation: normal PMI Heart sounds: S1 normal heart sound present, S2 normal heart sound present, no gallops, no murmurs and no rubs GI Palpation (GI): Soft to palpation Back/Spine/Pelvis Other: unremarkable Skin General skin exam: no rashes or lesions noted Neuro General: patient oriented x3 Extrem General: Yes normal to inspection Psych Mental Status: mental status grossly normal Assessment & Plan Assessment & Plan (1) Precordial chest pain: Code(s): R07.2 - Precordial pain Category: Medical (2) Obesity: Code(s): E66.9 - Obesity, unspecified Category: Medical Qualifiers: Body mass index: BMI 50.0-59.9 Obesity classification: adult class 3 (BMI >= 40) Obesity type: due to excess calories Serious obesity comorbidity presence: with serious comorbidity Qualified Code(s): E66.01 - Morbid (severe) obesity due to excess calories; Z68.43 - Body mass index [BMI] 50.0-59.9, adult (3) Diabetes mellitus, type II: Code(s): E11.9 - Type 2 diabetes mellitus without complications Category: Medical (4) Hypertension: Code(s): I10 - Essential (primary) hypertension Category: Medical Qualifiers: Hypertension type: primary hypertension Qualified Code(s): I10 - Essential (primary) hypertension (5) Hypercholesteremia: Code(s): E78.00 - Pure hypercholesterolemia, unspecified Category: Medical Plan Overall, morbid obesity, many comorbidities as listed above. In the echocardiogram, hyperdynamic LVEF and no significant valvular abnormalities. Per faxed information, cardiac catheterization 2020 without any significant CAD. Overall, mainly aggressive risk factor modification. His weight is the major source for lot of his issues and hence recommend referral to bariatric for evaluation. He agrees. Orders: Referrals Bariatric Surgery Referral E66.01 - Morbid (severe) obesity due to excess calories Coding Level of Care Code Est Pt Level 4 (53272) Diagnoses Precordial chest pain R07.2 Class 3 severe obesity due to excess calories with serious comorbidity and body mass index (BMI) of 50.0 to 59.9 in adult E66.01; Z68.43 Body mass index: BMI 50.0-59.9 Obesity classification: adult class 3 (BMI >= 40) Obesity type: due to excess calories Serious obesity comorbidity presence: with serious comorbidity Diabetes mellitus, type II E11.9 Primary hypertension I10 Hypertension type: primary hypertension Hypercholesteremia E78.00
== END 2023-10-14 10:57 | disposition home or self-care (01) ==
PROVIDERS: PCP Internal Medicine; Visit Provider Internal Medicine
DX: R07.2 Precordial pain (principal); E66.01 Morbid (severe) obesity due to excess calories; Z68.43 Body mass index [BMI] 50.0-59.9, adult; E11.9 Type 2 diabetes mellitus without complications; I10 Essential (primary) hypertension; E78.00 Pure hypercholesterolemia, unspecified
CPT/HCPCS: 99214

== ENCOUNTER → 2023-10-14 10:11 | Outpatient (BNVA) | payer MEDICARE, SELFPAY | PROVIDERS: PCP Internal Medicine; Visit Provider Internal Medicine | DX: R07.2 Precordial pain (principal); I10 Essential (primary) hypertension; E78.00 Pure hypercholesterolemia, unspecified; E11.9 Type 2 diabetes mellitus without complications; E66.01 Morbid (severe) obesity due to excess calories; Z68.43 Body mass index [BMI] 50.0-59.9, adult | CPT/HCPCS: 99212 ==

== ENCOUNTER 2023-12-12 11:59 | Emergency (ER) | payer MEDICARE, SELFPAY ==
[2023-12-12 12:16] VITALS: BP 165/90; PULSE 75; RESP 20; TEMP 36.6; O2SAT 96; BMI 55.5
[2023-12-12 12:31] LABS: MANUAL DIFF FLAG NO
[2023-12-12 12:32] LABS: Basophils Percent Auto 0.4 % (0-2); Eosinophils Absolute Auto 0.2 X10*3/uL (0.0-0.4); Eosinophils Percent Auto 2.1 % (0-4); Hematocrit 40.2 % (42.0-52.0); Hemoglobin 13.7 g/dl (14.0-18.0); Imm Gran Abs Auto 0.02 X10*3/uL (0.00-0.03); Imm Gran Pct Auto 0.3 % (0.0-0.4); Lymphocytes Absolute Auto 1.9 X10*3/uL (1.2-4.9); Mean Corpuscular HGB Conc 34.1 g/dl (31.0-36.0); Mean Corpuscular Hemoglobin 30.8 pg (27.0-33.0); Mean Corpuscular Volume 90.3 fL (80.0-98.0); Mean Platelet Volume 9.5 fL (9.4-12.4); Monocytes Absolute Auto 0.8 X10*3/uL (0.1-1.2); Monocytes Percent Auto 11.3 % (2-11); Neutrophils Absolute Auto 4.2 x10*3/uL (2.0-8.3); Neutrophils Percent Auto 58.9 % (45-73); Platelet Count 213 X10*3/uL (160-400); Red Blood Count 4.45 X10*6/uL (4.60-5.80); Red Cell Distribution Width 13.2 % (11.0-16.0); White Blood Count 7.1 X10*3/uL (4.8-10.8)
[2023-12-12 12:45] LABS: Alanine Aminotransferase 90 U/L (0-40); Albumin Level 4.1 g/dL (3.5-5.0); Alkaline Phosphatase 129 U/L (39-117); Anion Gap 12 (12-20); Aspartate Amino Transferase 43 U/L (5-37); Bilirubin Total 0.3 mg/dL (0.0-1.0); Blood Urea Nitrogen 14 mg/dL (9-16); Calcium 9.2 mg/dL (8.4-10.2); Carbon Dioxide 29 mmol/L (22-29); Chloride 104 mmol/L (96-108); Creatinine Clr Calc Pharmacy 182.9; Estimated Glomerular Filt Rate > 60; Glucose Random 107 mg/dL (60-115); Potassium 3.7 mmol/L (3.3-5.1); Sodium 141 mmol/L (135-145); Total Protein 7.2 g/dL (6.5-8.0)
[2023-12-12 13:03] LABS: Appearance Urine Clear; Color Urine Yellow; Glucose Urine UA Negative (Negative); Leukocyte Esterase Urine Negative (Negative); Nitrite Urine Negative (Negative); PH 5.5 (5.0-9.0); Specific Gravity - Urine 1.015 (1.005-1.025); UMIC TRIGGER UACC YES; Urine Blood Moderate (2+) (Negative); Urine Ketones Negative (Negative); Urine Protein Negative (Neg-Trace)
[2023-12-12 13:08] LABS: Bacteria Urine None Seen (None Seen); Hyaline Casts Urine 0-2 /LPF (0-2); Squamous Epithelial Cell Urine 0-2 /HPF (0-2); WBC Urine 0-5 /HPF (0-5)
--- NOTE | 2023-12-12 14:32 | ED_ITS ---
HPI - Male Genitourinary General Chief complaint: Urogenital-Male Stated complaint: lower abd pain Time Seen by Provider: 12/12/23 14:11 Source: patient Mode of arrival: ambulatory Limitations: no limitations History of Present Illness HPI Narrative: This is a 53 years old male with history of kidney stone, morbid obesity presented to emergency department with a chief complaint of lower abdominal pain started around 11 no radiation no vomiting no fever. Onset (ago): hour(s) (4) Duration: improved Location: abdomen Severity: moderate Quality: aching Relieving factors: none Exacerbating factors: none Related Data Home Medications ?Medication ?Instructions ?Recorded ?Confirmed aspirin 81 mg tablet,delayed 81 mg PO DAILY 01/25/23 10/14/23 release atorvastatin 80 mg tablet 80 mg PO BEDTIME 01/25/23 10/14/23 carboxymethylcellulose sodium 1 % 1 drp ophthalmic (eye) TID 01/25/23 10/14/23 eye drops (Artificial Tears (carboxymethylcellulose)) cholecalciferol (vitamin D3) 125 125 mcg PO DAILY 01/25/23 10/14/23 mcg (5,000 unit) capsule compressive stocking 01/25/23 04/01/23 fluticasone propionate 50 1 spray intranasal BID 01/25/23 10/14/23 mcg/actuation nasal spray,suspension (Allergy Relief (fluticasone)) ibuprofen 800 mg tablet 800 mg PO Q8H 01/25/23 10/14/23 losartan 50 mg-hydrochlorothiazide 1 tab PO DAILY 01/25/23 10/14/23 12.5 mg tablet metformin 500 mg tablet 500 mg PO DAILY 01/25/23 10/14/23 metoprolol succinate 25 mg 25 mg PO DAILY 01/25/23 10/14/23 tablet,extended release 24 hr multivitamin 1 tab PO DAILY 01/25/23 10/14/23 nitroglycerin 0.4 mg sublingual 0.4 mg sublingual Q5M PRN CHEST 01/25/23 10/14/23 tablet PAIN Previous Rx's ?Medication ?Instructions ?Recorded phenazopyridine 200 mg tablet 200 mg PO TID #60 tabs 04/06/23 (Pyridium) oxycodone 5 mg capsule 5 mg PO Q8H PRN pain #16 caps 04/07/23 loperamide 2 mg capsule 2 mg PO Q6H PRN loose stool #20 04/19/23 caps ondansetron 4 mg disintegrating 4 mg PO Q6H PRN nausea and 04/19/23 tablet vomiting #14 tabs Allergies Allergy/AdvReac Type Severity Reaction Status Date / Time betamethasone Allergy Redness of Verified 12/12/23 12:21 Skin levetiracetam [From Kera] Allergy Anxiety Verified 12/12/23 12:21 pseudoephedrine Allergy Anxiety Verified 12/12/23 12:21 Review of Systems 2 Constitutional: Constitutional: Reports no additional constitutional complaints ENT: Reports system reviewed and no additional complaints, except as documented Cardiovascular: Cardiovascular: Reports no additional cardiovascular complaints Musculoskeletal: Musculoskeletal: Reports no additional musculoskeletal complaints [facility] Past Medical History Attestation statement: The following information was validated with the patient. [facility] Narrative: Obesity/kidney stone Medical History JOE (obstructive sleep apnea) Renal stones Seizure disorder Diabetes mellitus, type II Hypercholesteremia Hypertension Surgical History Hx of tonsillectomy History of ankle surgery Family History Family History Father Diabetes mellitus Mother Pancreas cancer Social History Social History Alcohol intake: never Patient Tobacco Use Status: Never used Tobacco Smoked in Last 30 Days: No Second Hand Smoke Exposure: No Use of substances other than those prescribed or required for medical reasons: No Advance Directives: No Advance Directives Information Provided: No Do you have a plan to hurt others: No Plan service: No Physical Exam 2 Vital Signs: Vital Signs: Last Vital Signs Temp 97.5 F 12/12/23 15:13 Pulse 69 12/12/23 15:13 Resp 16 12/12/23 15:13 BP 136/70 12/12/23 15:13 Pulse Ox 97 12/12/23 15:13 O2 Del Method Room Air 12/12/23 15:13 BMI result Body Mass Index 55.5 Const: General: cooperative Nutritional Appearance: well nourished O rientation/consciousness: patient oriented x3 Limitations: no limitations HEENT: Head: Yes normal to inspection Neuro: General: patient oriented x3 Course Course Course Narrative: Patient was discharged home he improved discussed with the patient possible CT scan given the fact that symptoms improved we held on the CT scan he was comfortable with this he will return if worse Reevaluation(s) Reevaluation #1: Patient refuse the CT scan at this time he is feeling better labs are normal he will return if worse Time: 15:05 Medical Decision Making Medical Decision Making [facility] Narrative: Patient presented with abdominal pain we will obtain labs UA and reassessed Differential Diagnosis Differential Diagnoses: The differential diagnosis associated with the presentation includes Differential diagnosis is kidney stone colitis diverticulitis Admission/Observation Consideration of admission/observation: Escalation of care including admission/observation considered Lab Data [facility] Lab Attestation statement: I reviewed the patient's lab results. 12/12/23 12:26 12/12/23 12:26 Labs: Lab Results 12/12/23 12/12/23 Range/Units 12:26 12:35 WBC 7.1 (4.8-10.8) X10*3/uL RBC 4.45 L (4.60-5.80) X10*6/uL Hgb 13.7 L (14.0-18.0) g/dl Hct 40.2 L (42.0-52.0) % MCV 90.3 (80.0-98.0) fL MCH 30.8 (27.0-33.0) pg MCHC 34.1 (31.0-36.0) g/dl RDW 13.2 (11.0-16.0) % Plt Count 213 (160-400) X10*3/uL MPV 9.5 (9.4-12.4) fL Immature Gran % (Auto) 0.3 (0.0-0.4) % Neut % (Auto) 58.9 (45-73) % Lymph % (Auto) 27.0 (20-40) % [place] % (Auto) 11.3 H (2-11) % Eos % (Auto) 2.1 (0-4) % Baso % (Auto) 0.4 (0-2) % Lymph # (Auto) 1.9 (1.2-4.9) X10*3/uL [place] # (Auto) 0.8 (0.1-1.2) X10*3/uL Eos # (Auto) 0.2 (0.0-0.4) X10*3/uL Baso # (Auto) 0.0 (0.0-0.2) X10*3/uL Abs Immat Gran (auto) 0.02 (0.00-0.03) X10*3/uL Absolute Neuts (auto) 4.2 (2.0-8.3) x10*3/uL Absolute Nucleated RBC 0.000 (0.0-0.012) X10*3/uL Nucleated RBC % (auto) 0.0 (0.0-0.2) /100WBC Sodium 141 (135-145) mmol/L Potassium 3.7 (3.3-5.1) mmol/L Chloride 104 (96-108) mmol/L Carbon Dioxide 29 (22-29) mmol/L Anion Gap 12 (12-20) BUN 14 (9-16) mg/dL Creatinine 0.78 (0.5-1.4) mg/dL Estim Creat Clear Calc 182.9 Estimated GFR > 60 Random Glucose 107 (60-115) mg/dL Calcium 9.2 D (8.4-10.2) mg/dL Total Bilirubin 0.3 (0.0-1.0) mg/dL AST 43 H (5-37) U/L ALT 90 H (0-40) U/L Alkaline Phosphatase 129 H (39-117) U/L Total Protein 7.2 (6.5-8.0) g/dL Albumin 4.1 (3.5-5.0) g/dL Urine Color Yellow Urine Appearance Clear Urine pH 5.5 (5.0-9.0) Ur Specific [place] 1.015 (1.005-1.025) Urine Protein Negative (Neg-Trace) mg/dL Urine Glucose (UA) Negative (Negative) mg/dL Urine Ketones Negative (Negative) mg/dL Urine Blood Moderate (2+) H (Negative) Urine Nitrite Negative (Negative) Ur Leukocyte Esterase Negative (Negative) Urine RBC 6-10 H (0-2) /HPF Urine WBC 0-5 (0-5) /HPF Ur Squamous Epith Cells 0-2 (0-2) /HPF Urine Bacteria None Seen (None Seen) Hyaline Casts 0-2 (0-2) /LPF Chronic Conditions Patient?s care impacted by: Other (obesity) Discharge Plan Discharge Clinical Impression: Abdominal pain Patient Disposition: Home, Self-Care Instructions: Abdominal Pain (ED) Additional Instructions: We discussed with you possible CT scan, however because you getting better we decided to hold off the CT scan for now. Return to the emergency room department if you are worse Prescriptions: No Action phenazopyridine [Pyridium] 200 mg tablet 200 mg PO TID Qty: 60 0RF oxycodone 5 mg capsule 5 mg PO Q8H PRN (Reason: pain) Qty: 16 0RF Rx Instructions: Partial Fill upon patient request. Take one to two tabs every 8 hours as needed for pain loperamide 2 mg capsule 2 mg PO Q6H PRN (Reason: loose stool) Qty: 20 0RF ondansetron 4 mg tablet,disintegrating 4 mg PO Q6H PRN (Reason: nausea and vomiting) Qty: 14 0RF aspirin 81 mg tablet,delayed release (DR/EC) 81 mg PO DAILY Hold Instructions: Resume on 04/16/23. ibuprofen 800 mg tablet 800 mg PO Q8H Hold Instructions: Resume on 04/16/23. nitroglycerin 0.4 mg tablet, sublingual 0.4 mg sublingual Q5M PRN (Reason: CHEST PAIN ) Rx Instructions: do not exceed 3 doses per episode metformin 500 mg tablet 500 mg PO DAILY losartan-hydrochlorothiazide 50-12.5 mg tablet 1 tab PO DAILY fluticasone propionate [Allergy Relief (fluticasone)] 50 mcg/actuation spray,suspension 1 spray intranasal BID Rx Instructions: administer into each nostril multivitamin Tablet 1 tab PO DAILY cholecalciferol (vitamin D3) 125 mcg (5,000 unit) capsule 125 mcg PO DAILY metoprolol succinate 25 mg tablet extended release 24 hr 25 mg PO DAILY Artificial Tears (cmc) 1 % drops 1 drp ophthalmic (eye) TID atorvastatin 80 mg tablet 80 mg PO BEDTIME (DME) compressive stocking 0 .Route .MEDSUPPLY Referrals: Satnam Purcell MD [Primary Care Provider] - 2 days Interventions: ED Discharge Assessment Last Done: 12/12/23 15:13 Discharge Date/Time: 12/12/23 15:14 Print Language: Romanian
[2023-12-12 15:13] VITALS: BP 136/70; PULSE 69; RESP 16; TEMP 36.4; O2SAT 97
== END 2023-12-12 15:14 | disposition home or self-care (01) ==
PROVIDERS: Emergency Provider Emergency Medicine; PCP Internal Medicine
DX: R10.30 Lower abdominal pain, unspecified (principal); E66.01 Morbid (severe) obesity due to excess calories; E11.9 Type 2 diabetes mellitus without complications; I10 Essential (primary) hypertension; G40.909 Epilepsy, unspecified, not intractable, without status epilepticus; Z68.43 Body mass index [BMI] 50.0-59.9, adult; Z79.899 Other long term (current) drug therapy
CPT/HCPCS: 36415; 80053; 81001; 81003; 85025; 99283; 99284

== ENCOUNTER 2023-12-31 10:56 | Emergency (ER) | payer MEDICARE, SELFPAY ==
--- NOTE | ~2023-12-31 | US_ITS ---
EXAMINATION: US VENOUS ULTRASOUND WITH DOPPLER LOWER EXTREMITY, RIGHT CLINICAL INFORMATION: Right lower extremity pain. COMPARISON: None available. TECHNIQUE: Ultrasound of the deep veins is performed from the hip to the calf with compression sonography and color and pulse Doppler assessment. Spectral analysis with color-flow imaging is performed. Sonographic evaluation was technically limited by patient body habitus. FINDINGS: There is normal venous compression and respiratory variation and augmented flow. The visualized common femoral vein, superficial femoral vein, profunda femoral vein, popliteal vein, and the trifurcation region shows no evidence of deep venous thrombosis. Incidental right groin lymph node measures 1.5 x 0.4 x 3.6 cm with echogenic center and vascular flow to the hilum. Right calf subcutaneous edema. If the patient's symptoms persist, followup ultrasound in 5 days 7 days might be of value to exclude proximal propagation from a non-visualized calf vein. US/US venous duplex LE RT IMPRESSION: Technically limited study. No DVT demonstrated in the right lower extremity. Benign-appearing right groin lymph node measuring 1.5 x 0.4 x 3.6 cm.
--- NOTE | ~2023-12-31 | XR_ITS ---
EXAMINATION: XR CHEST CLINICAL INFORMATION: Shortness of breath. COMPARISON: 01/20/2023 TECHNIQUE: Frontal view of the chest was obtained. FINDINGS: Low lung volumes. No focal consolidation. No pleural effusion. Cardiac silhouette is unchanged. XR/XR chest 1V IMPRESSION: No acute abnormality.
[2023-12-31 11:12] VITALS: BP 158/77; PULSE 91; RESP 24; O2SAT 95; BMI 54.9
[2023-12-31 11:21] VITALS: BP 158/77; PULSE 87; RESP 23; TEMP 36.9; O2SAT 97
[2023-12-31 11:25] VITALS: TEMP 36.9
--- NOTE | 2023-12-31 11:27 | ECG_ITS ---
Test Reason : dypnea Blood Pressure : / mmHG Vent. Rate : 084 BPM Atrial Rate : 084 BPM P-R Int : 180 ms QRS Dur : 084 ms QT Int : 344 ms P-R-T Axes : 034 076 002 degrees QTc Int : 406 ms Normal sinus rhythm T wave abnormality, consider anterolateral ischemia Abnormal ECG When compared with ECG of 20-JAN-2023 14:07, T wave inversion now evident in Anterior leads QT has lengthened Referred By: Generic ED Physician Electronically Signed By:ZAK RUELAS
[2023-12-31 11:49] LABS: MANUAL DIFF FLAG NO
[2023-12-31 11:53] LABS: Basophils Percent Auto 0.4 % (0-2); Eosinophils Absolute Auto 0.1 X10*3/uL (0.0-0.4); Hematocrit 42.3 % (42.0-52.0); Hemoglobin 14.4 g/dl (14.0-18.0); Imm Gran Abs Auto 0.03 X10*3/uL (0.00-0.03); Imm Gran Pct Auto 0.4 % (0.0-0.4); Lymphocytes Absolute Auto 1.6 X10*3/uL (1.2-4.9); Lymphocytes Percent Auto 19.8 % (20-40); Mean Corpuscular Hemoglobin 30.9 pg (27.0-33.0); Mean Corpuscular Volume 90.8 fL (80.0-98.0); Mean Platelet Volume 9.8 fL (9.4-12.4); Monocytes Absolute Auto 0.7 X10*3/uL (0.1-1.2); Monocytes Percent Auto 9.2 % (2-11); Neutrophils Absolute Auto 5.5 x10*3/uL (2.0-8.3); Neutrophils Percent Auto 69.2 % (45-73); Platelet Count 222 X10*3/uL (160-400); Red Blood Count 4.66 X10*6/uL (4.60-5.80); Red Cell Distribution Width 13.4 % (11.0-16.0); White Blood Count 7.9 X10*3/uL (4.8-10.8)
--- NOTE | 2023-12-31 11:54 | ED.SOB ---
HPI - SOB/Dyspnea General Chief Complaint: Dyspnea Stated Complaint: diff breathing Time Seen by Provider: 12/31/23 11:14 Source: patient, RN notes reviewed and old records reviewed Mode of arrival: ambulatory History of Present Illness ED Provider: Meaghan Cobb PA-C HPI Narrative: 53-year-old male with past medical history of JOE, seizures, diabetes, HLD, HTN, morbid obesity, presenting to the ED complaining of increasing SOB since slight Hein's 2 weeks ago. Reports SOB worse on exertion. Also reports RLE pain from muscle injury a few weeks ago. Denies cough, chest pain, calf pain, fever/chills, history of clots. Denies taking AC Related Data Home Medications ?Medication ?Instructions ?Recorded ?Confirmed aspirin 81 mg tablet,delayed 81 mg PO DAILY 01/25/23 10/14/23 release atorvastatin 80 mg tablet 80 mg PO BEDTIME 01/25/23 10/14/23 carboxymethylcellulose sodium 1 % 1 drp ophthalmic (eye) TID 01/25/23 10/14/23 eye drops (Artificial Tears (carboxymethylcellulose)) cholecalciferol (vitamin D3) 125 125 mcg PO DAILY 01/25/23 10/14/23 mcg (5,000 unit) capsule compressive stocking 01/25/23 04/01/23 fluticasone propionate 50 1 spray intranasal BID 01/25/23 10/14/23 mcg/actuation nasal spray,suspension (Allergy Relief (fluticasone)) ibuprofen 800 mg tablet 800 mg PO Q8H 01/25/23 10/14/23 losartan 50 mg-hydrochlorothiazide 1 tab PO DAILY 01/25/23 10/14/23 12.5 mg tablet metformin 500 mg tablet 500 mg PO DAILY 01/25/23 10/14/23 metoprolol succinate 25 mg 25 mg PO DAILY 01/25/23 10/14/23 tablet,extended release 24 hr multivitamin 1 tab PO DAILY 01/25/23 10/14/23 nitroglycerin 0.4 mg sublingual 0.4 mg sublingual Q5M PRN CHEST 01/25/23 10/14/23 tablet PAIN Previous Rx's ?Medication ?Instructions ?Recorded phenazopyridine 200 mg tablet 200 mg PO TID #60 tabs 04/06/23 (Pyridium) oxycodone 5 mg capsule 5 mg PO Q8H PRN pain #16 caps 04/07/23 loperamide 2 mg capsule 2 mg PO Q6H PRN loose stool #20 04/19/23 caps ondansetron 4 mg disintegrating 4 mg PO Q6H PRN nausea and 04/19/23 tablet vomiting #14 tabs Allergies Allergy/AdvReac Type Severity Reaction Status Date / Time betamethasone Allergy Redness of Verified 12/31/23 11:13 Skin levetiracetam [From [facility]] Allergy Anxiety Verified 12/31/23 11:13 pseudoephedrine Allergy Anxiety Verified 12/31/23 11:13 Review of Systems Review of Systems: Constitutional: No Fever, No Chills ENT/Mouth: No Ear Pain, No Nasal Congestion, No sore throat, No Rhinorrhea, No Swallowing Difficulty Cardiovascular: No Chest Pain, +SOB Respiratory: No Cough, No Sputum, No Wheezing Gastrointestinal: No Nausea, No Vomiting, No Diarrhea, No Constipation, No Abdominal pain Genitourinary: No Dysuria, No Urinary Frequency, No Hematuria, No Flank Pain Musculoskeletal: +joint pain, No Myalgias, No Joint Swelling Skin: No Skin Lesions, No rash Neuro: No Weakness, No Numbness, No Paresthesias Yes all other systems are reviewed and are negative Constitutional: Constitutional: Reports as per [facility] Past Medical History Attestation statement: The following information was validated with the patient. Source: old records reviewed Medical History JOE (obstructive sleep apnea) Renal stones Seizure disorder Diabetes mellitus, type II Hypercholesteremia Hypertension Surgical History Hx of tonsillectomy History of ankle surgery Family History Family History Father Diabetes mellitus Mother Pancreas cancer Social History Social History Alcohol intake: never Patient Tobacco Use Status: Never used Tobacco Smoked in Last 30 Days: No Second Hand Smoke Exposure: No Use of substances other than those prescribed or required for medical reasons: No Advance Directives: No Advance Directives Information Provided: Yes Do you have a plan to hurt others: No Plan service: No Physical Exam Vital Signs: Vital Signs: Last Vital Signs Temp 98.4 F 12/31/23 11:25 Pulse 70 12/31/23 14:07 Resp 20 12/31/23 14:07 BP 128/91 H 12/31/23 14:07 Pulse Ox 96 12/31/23 14:07 O2 Del Method Room Air 12/31/23 14:07 BMI result Body Mass Index 54.9 Const: General: cooperative, healthy appearing and no acute distress Orientation/consciousness: patient oriented x3 Limitations: no limitations HEENT: Head: Yes normal to inspection and Yes atraumatic Ears: hearing grossly normal bilaterally General nose exam: Normal external nose present Face and sinus: Yes normal facial exam Eyes: General: appearance normal, both eyes and all related structures EOM: EOMs intact bilaterally Neck: Neck: Yes normal visual inspection and Yes no meningeal signs Resp: Effort & Inspection: normal respiratory effort and no respiratory distress Auscultation: clear to auscultation bilaterally and no wheezes Cardio: Rate: regular rate Heart sounds: S1 normal heart sound present and S2 normal heart sound present GI: Inspection: Yes normal to inspection Palpation (GI): Soft to palpation, nontender, no guarding and not rigid : General: Yes no CVA tenderness Back/Spine/Pelvis: Back: no CVA tenderness Skin: Rashes: no rashes Wounds: no wounds Neuro: General: patient oriented x3, tone normal and no meningeal signs Cranial nerves: Yes CN's II-XII intact bilaterally Gait exam (Neuro): Normal gait present Extrem: Other: + bilateral LE edema. No calf tenderness General: Yes normal to inspection Course Course Course Narrative: -no leukocytosis. D-dimer negative > PE unlikely -hypokalemic to 2.8 >> p.o. repletion ordered > will repeat -calcium noted to be low at 7.5 > will give oral repletion XR chest 1V IMPRESSION: No acute abnormality. -hypomagnesemic to 1.3 > 2g IV repletion ordered. Phosphorus also noted to be low. -COVID/FLU/RSV negative US venous duplex LE RT IMPRESSION: Technically limited study. No DVT demonstrated in the right lower extremity. Benign-appearing right groin lymph node measuring 1.5 x 0.4 x 3.6 cm. -1615--repeat potassium, magnesium, and calcium improved after repletion in the ED Results discussed with patient including worrisome signs and symptoms and strict return precautions, and when to return to the emergency department. They verbalized understanding and feel safe for discharge at this time. Medications Administered Discontinued Medications Generic Name Dose Route Start Last Admin Trade Name Fernanda PRN Reason Stop Dose Admin Calcium Carbonate/Cholecalciferol 500 mg 12/31/23 13:12 12/31/23 13:36 Calcium + Vitamin D 250 Mg Tablet PO 12/31/23 13:13 500 mg ONCE ONE Administration Hydroxyzine HCl 50 mg 12/31/23 12:03 12/31/23 12:09 Hydroxyzine Hcl 50 Mg Tablet PO 12/31/23 12:04 50 mg ONCE ONE Administration Magnesium Sulfate 2 gm in 50 mls @ 25 mls/hr 12/31/23 13:39 12/31/23 13:54 Magnesium Sulfate/H2o IV 12/31/23 15:38 25 mls/hr ONCE ONE Administration Potassium Chloride 60 meq 12/31/23 12:49 12/31/23 13:36 Potassium Chloride Er 20 Meq Tab.Er.Prt PO 12/31/23 12:50 60 meq ONCE ONE Administration Potassium Chloride 40 meq 12/31/23 14:05 12/31/23 14:38 Potassium Chloride Er 20 Meq Tab.Er.Prt PO 12/31/23 14:06 40 meq ONCE ONE Administration Medical Decision Making Medical Decision Making MDM Narrative: 53-year-old male with past medical history of JOE, seizures, diabetes, HLD, HTN, morbid obesity, presenting to the ED complaining of increasing SOB since slight Hein's 2 weeks ago. Reports SOB worse on exertion. On exam tachypneic, overweight, NAD, talking in complete sentences, lungs CTA, bilateral LE edema appreciated, no calf tenderness. Concern for pulmonary embolism vs DVT vs viral illness vs pneumonia. Low suspicion for severe sepsis Plan: EKG, labs, CXR, viral testing, venous duplex ultrasound Please refer to course for remaining clinical decision making, interpretation of labs/imaging results, and discussions with consultants and/or family members. Differential Diagnosis Differential Diagnoses: The differential diagnosis associated with the presentation includes As above Admission/Observation Consideration of admission/observation: Escalation of care including admission/observation considered Lab Data [facility] Lab Attestation statement: I reviewed the patient's lab results. 12/31/23 11:44 12/31/23 15:30 Labs: Lab Results 12/31/23 12/31/23 12/31/23 Range/Units 11:44 12:14 12:16 WBC 7.9 (4.8-10.8) X10*3/uL RBC 4.66 (4.60-5.80) X10*6/uL Hgb 14.4 (14.0-18.0) g/dl Hct 42.3 (42.0-52.0) % MCV 90.8 (80.0-98.0) fL MCH 30.9 (27.0-33.0) pg MCHC 34.0 (31.0-36.0) g/dl RDW 13.4 (11.0-16.0) % Plt Count 222 (160-400) X10*3/uL MPV 9.8 (9.4-12.4) fL Immature Gran % (Auto) 0.4 (0.0-0.4) % Neut % (Auto) 69.2 (45-73) % Lymph % (Auto) 19.8 L (20-40) % [place] % (Auto) 9.2 (2-11) % Eos % (Auto) 1.0 (0-4) % Baso % (Auto) 0.4 (0-2) % Lymph # (Auto) 1.6 (1.2-4.9) X10*3/uL [place] # (Auto) 0.7 (0.1-1.2) X10*3/uL Eos # (Auto) 0.1 (0.0-0.4) X10*3/uL Baso # (Auto) 0.0 (0.0-0.2) X10*3/uL Abs Immat Gran (auto) 0.03 (0.00-0.03) X10*3/uL Absolute Neuts (auto) 5.5 (2.0-8.3) x10*3/uL Absolute Nucleated RBC 0.000 (0.0-0.012) X10*3/uL Nucleated RBC % (auto) 0.0 (0.0-0.2) /100WBC Hold Purple Top Cancelled D-Dimer High Sensitivty < 150 NG/ML Hold Blue Top Cancelled Sodium 142 (135-145) mmol/L Potassium 2.8 L* D (3.3-5.1) mmol/L Chloride 111 H (96-108) mmol/L Carbon Dioxide 24 (22-29) mmol/L Anion Gap 10 L (12-20) BUN 11 (9-16) mg/dL Creatinine 0.60 (0.5-1.4) mg/dL Estim Creat Clear Calc 236.1 Estimated GFR > 60 Random Glucose 122 H (60-115) mg/dL Calcium 7.5 L D (8.4-10.2) mg/dL Phosphorus 1.5 L (2.7-4.5) mg/dL Magnesium 1.3 L* (1.6-2.6) mg/dL Troponin I High Sens < 2.7 (<3.5-35.0) ng/L B-Natriuretic Peptide < 10 (<100) pg/mL Influenza Type A (PCR) NEGATIVE (Negative) Influenza Type B (PCR) NEGATIVE (Negative) RSV RNA Qual (PCR) NEGATIVE (Negative) SARS-CoV-2 RNA (RT-PCR) NEGATIVE (Negative) 12/31/23 Range/Units 15:30 WBC (4.8-10.8) X10*3/uL RBC (4.60-5.80) X10*6/uL Hgb (14.0-18.0) g/dl Hct (42.0-52.0) % MCV (80.0-98.0) fL MCH (27.0-33.0) pg MCHC (31.0-36.0) g/dl RDW (11.0-16.0) % Plt Count (160-400) X10*3/uL MPV (9.4-12.4) fL Immature Gran % (Auto) (0.0-0.4) % Neut % (Auto) (45-73) % Lymph % (Auto) (20-40) % [place] % (Auto) (2-11) % Eos % (Auto) (0-4) % Baso % (Auto) (0-2) % Lymph # (Auto) (1.2-4.9) X10*3/uL [place] # (Auto) (0.1-1.2) X10*3/uL Eos # (Auto) (0.0-0.4) X10*3/uL Baso # (Auto) (0.0-0.2) X10*3/uL Abs Immat Gran (auto) (0.00-0.03) X10*3/uL Absolute Neuts (auto) (2.0-8.3) x10*3/uL Absolute Nucleated RBC (0.0-0.012) X10*3/uL Nucleated RBC % (auto) (0.0-0.2) /100WBC Hold Purple Top D-Dimer High Sensitivty NG/ML Hold Blue Top Sodium 142 (135-145) mmol/L Potassium 4.3 D (3.3-5.1) mmol/L Chloride 103 (96-108) mmol/L Carbon Dioxide 28 (22-29) mmol/L Anion Gap 15 (12-20) BUN 12 (9-16) mg/dL Creatinine 0.70 (0.5-1.4) mg/dL Estim Creat Clear Calc 202.4 Estimated GFR > 60 Random Glucose 94 (60-115) mg/dL Calcium 9.3 D (8.4-10.2) mg/dL Phosphorus (2.7-4.5) mg/dL Magnesium 2.3 (1.6-2.6) mg/dL Troponin I High Sens (<3.5-35.0) ng/L B-Natriuretic Peptide (<100) pg/mL Influenza Type A (PCR) (Negative) Influenza Type B (PCR) (Negative) RSV RNA Qual (PCR) (Negative) SARS-CoV-2 RNA (RT-PCR) (Negative) Independent Interpretation I performed an independent interpretation of an: EKG (My interpretation EKG normal sinus rhythm rate of 84. Pr interval 180. QTC 406. Diffuse inverted T-waves ), Plain X-Ray and Ultrasound Radiology Impression Discussion of test interpretation with radiology: I have reviewed the radiologist's reading. External Record Review External record reviewed: Inpatient record, Office record, Outpatient record, Prior outpatient labs, Prior outpatient radiology, Primary care record and Outside ED record Tests considered The following testing was considered but not selected: As above Chronic Conditions Patient?s care impacted by: Diabetes, Hypertension and Other (Obesity) Critical Care Time Critical Care Time Critical Care Time: Yes Total Critical Care Time: 40 Attestation: I have personally provided critical care time exclusive of time spent on separately billable procedures. Time includes review of lab data, radiology results, discussion with consultants, and monitoring for potential decompensation. Intervention performed as documented. Discharge Plan Discharge Clinical Impression: Shortness of breath, Hypokalemia, Hypomagnesemia Patient Disposition: Home, Self-Care Instructions: Hypokalemia (ED), Hypomagnesemia (ED), Shortness of Breath (ED) Additional Instructions: You do not have a blood clot Your potassium and magnesium were low today, we have repleted them. Consider taking outpatient potassium and magnesium supplements daily You should have repeat blood work in 1 week If her symptoms persist or worsen you have chest pain, or worsening swelling in her legs return to the ED Prescriptions: No Action phenazopyridine [Pyridium] 200 mg tablet 200 mg PO TID Qty: 60 0RF oxycodone 5 mg capsule 5 mg PO Q8H PRN (Reason: pain) Qty: 16 0RF Rx Instructions: Partial Fill upon patient request. Take one to two tabs every 8 hours as needed for pain loperamide 2 mg capsule 2 mg PO Q6H PRN (Reason: loose stool) Qty: 20 0RF ondansetron 4 mg tablet,disintegrating 4 mg PO Q6H PRN (Reason: nausea and vomiting) Qty: 14 0RF aspirin 81 mg tablet,delayed release (DR/EC) 81 mg PO DAILY Hold Instructions: Resume on 04/16/23. ibuprofen 800 mg tablet 800 mg PO Q8H Hold Instructions: Resume on 04/16/23. nitroglycerin 0.4 mg tablet, sublingual 0.4 mg sublingual Q5M PRN (Reason: CHEST PAIN ) Rx Instructions: do not exceed 3 doses per episode metformin 500 mg tablet 500 mg PO DAILY losartan-hydrochlorothiazide 50-12.5 mg tablet 1 tab PO DAILY fluticasone propionate [Allergy Relief (fluticasone)] 50 mcg/actuation spray,suspension 1 spray intranasal BID Rx Instructions: administer into each nostril multivitamin Tablet 1 tab PO DAILY cholecalciferol (vitamin D3) 125 mcg (5,000 unit) capsule 125 mcg PO DAILY metoprolol succinate 25 mg tablet extended release 24 hr 25 mg PO DAILY Artificial Tears (cmc) 1 % drops 1 drp ophthalmic (eye) TID atorvastatin 80 mg tablet 80 mg PO BEDTIME (DME) compressive stocking 0 .Route .MEDSUPPLY Referrals: Satnam Purcell MD [Primary Care Provider] - 5 days Print Language: [place]an
--- NOTE | 2023-12-31 12:00 | PC.NURSE ---
US-guided IV inserted by ERIC Jacobson
--- NOTE | 2023-12-31 12:03 | PC.NURSE ---
Pt. requesting medication for anxiety. JOSE M Zuluaga aware.
[2023-12-31 12:07] LABS: D Dimer High Sensitivity < 150 NG/ML
[2023-12-31] MEDS: hydrOXYzine HCL 50 MG TABLET PO (12:09)
[2023-12-31 12:14] LABS: Troponin-I High Sensitivity < 2.7 ng/L (<3.5-35.0)
[2023-12-31 12:37] LABS: B Type Natriuretic Peptide < 10 pg/mL (<100)
[2023-12-31 12:40] LABS: Anion Gap 10 (12-20)
[2023-12-31 12:49] LABS: Blood Urea Nitrogen 11 mg/dL (9-16); Calcium 7.5 mg/dL (8.4-10.2); Carbon Dioxide 24 mmol/L (22-29); Chloride 111 mmol/L (96-108); Creatinine Clr Calc Pharmacy 236.1; Estimated Glomerular Filt Rate > 60; Glucose Random 122 mg/dL (60-115); Potassium 2.8 mmol/L (3.3-5.1); Sodium 142 mmol/L (135-145)
[2023-12-31 13:13] LABS: Influenza A PCR NEGATIVE (Negative); Influenza B PCR NEGATIVE (Negative); Resp Syncy Virus RNA Qual PCR NEGATIVE (Negative); SARS COV2 PCR INHOUSE NEGATIVE (Negative)
[2023-12-31] MEDS: Potassium Chloride ER 20 MEQ TAB.ER.PRT 60 MEQ PO (13:36)
[2023-12-31] MEDS: Calcium + Vitamin D 250 MG TABLET 500 MG PO (13:36)
[2023-12-31 13:39] LABS: Magnesium 1.3 mg/dL (1.6-2.6); Phosphorus 1.5 mg/dL (2.7-4.5)
[2023-12-31] MEDS: Magnesium Sulfate/H2O 2 GM/50 ML PIGGYBACK IV (13:54)
[2023-12-31 14:07] VITALS: BP 128/91; PULSE 70; RESP 20; O2SAT 96
[2023-12-31] MEDS: Potassium Chloride ER 20 MEQ TAB.ER.PRT 40 MEQ PO (14:38)
[2023-12-31 16:07] LABS: Anion Gap 15 (12-20); Blood Urea Nitrogen 12 mg/dL (9-16); Calcium 9.3 mg/dL (8.4-10.2); Carbon Dioxide 28 mmol/L (22-29); Chloride 103 mmol/L (96-108); Creatinine Clr Calc Pharmacy 202.4; Estimated Glomerular Filt Rate > 60; Glucose Random 94 mg/dL (60-115); Magnesium 2.3 mg/dL (1.6-2.6); Potassium 4.3 mmol/L (3.3-5.1); Sodium 142 mmol/L (135-145)
[2023-12-31 16:31] VITALS: BP 126/86; PULSE 74; RESP 20; O2SAT 94
[2023-12-31 16:54] VITALS: BP 126/86; PULSE 74; RESP 20; TEMP 36.9; O2SAT 94
== END 2023-12-31 16:55 | disposition home or self-care (01) ==
PROVIDERS: Physician Assistant; Emergency Provider Emergency Medicine; PCP Internal Medicine
DX: E87.6 Hypokalemia (principal); E83.42 Hypomagnesemia; R06.02 Shortness of breath; R60.0 Localized edema; F41.9 Anxiety disorder, unspecified; Z03.818 Encounter for observation for suspected exposure to other biological agents ruled out; E11.9 Type 2 diabetes mellitus without complications; I10 Essential (primary) hypertension; E78.00 Pure hypercholesterolemia, unspecified; Z79.82 Long term (current) use of aspirin; Z79.84 Long term (current) use of oral hypoglycemic drugs; Z79.02 Long term (current) use of antithrombotics/antiplatelets
CPT/HCPCS: 0241U; 36415; 71045; 80048; 83735; 83880; 84100; 84484; 85025; 85379; 93005; 93971; 96374; 99285; J3475

== ENCOUNTER → 2023-12-31 11:27 | Outpatient (BNV) | payer MEDICARE, SELFPAY | PROVIDERS: Emergency Provider Emergency Medicine; PCP Internal Medicine; Visit Provider Internal Medicine | DX: R94.31 Abnormal electrocardiogram [ECG] [EKG] (principal); R06.09 Other forms of dyspnea | CPT/HCPCS: 93010 ==

== ENCOUNTER 2024-03-26 09:47 | Emergency (ER) | payer MEDICARE, SELFPAY ==
--- NOTE | ~2024-03-26 | XR_ITS ---
EXAMINATION: XR CHEST CLINICAL INFORMATION: Cough. COMPARISON: Chest radiograph 12/31/2023. TECHNIQUE: 2 views of the chest were obtained. FINDINGS: Stable prominence of the cardiomediastinal silhouette. Increased bronchovascular markings in the central and lower lungs. No consolidation, pleural effusion or pneumothorax. No acute osseous findings. XR/XR chest 2V IMPRESSION: 1. Increased bronchovascular markings which could be seen with asthma, bronchitis, reactive airways disease or atypical infections. 2. No focal consolidation or pleural effusion. Electronically signed by: Rabia Jordan MD 03/26/2024 10:20 AM EDT
[2024-03-26 09:53] VITALS: PULSE 67; RESP 18; TEMP 36.6; O2SAT 95; BMI 55.3
[2024-03-26 10:43] LABS: Influenza A PCR NEGATIVE (Negative); Influenza B PCR NEGATIVE (Negative); Resp Syncy Virus RNA Qual PCR NEGATIVE (Negative); SARS COV2 PCR INHOUSE NEGATIVE (Negative)
--- NOTE | 2024-03-26 10:43 | ED.GENADULT ---
HPI - General Adult General Chief complaint: Upper Respiratory Symptoms Stated complaint: Cough Time Seen by Provider: 03/26/24 10:02 Source: patient Mode of arrival: ambulatory Limitations: no limitations History of Present Illness ED Provider: Jonathan MANZANO HPI narrative: 53 yo male with PMH of DM II, HTN, HLD, JOE, seizures, and recent vaccination per his report for COVID booster. Pt reports an intermittent cough x 2 weeks, can be both productive and nonproductive, is without any pattern. When productive, the sputum is without color ( clear ). Denies any recent sick contacts, denies any other URI symptoms. Denies CP, SOB, fever, N/V/D. Denies any trial of OTC cough suppressants, reports he takes a lot of meds so, that's like adding and I don't need to add ya know . States he really just wants to check if it's like COVID or related to that or the weather, or I don't know, maybe the construction around my apartment building . MD complaint: cough Onset (ago): week(s) Location: chest Radiation: non-radiation Relieving factors: none Exacerbating factors: none Associated symptoms: denies other symptoms Treatments prior to arrival: none Related Data Home Medications ?Medication ?Instructions ?Recorded ?Confirmed aspirin 81 mg tablet,delayed 81 mg PO DAILY 01/25/23 10/14/23 release atorvastatin 80 mg tablet 80 mg PO BEDTIME 01/25/23 10/14/23 carboxymethylcellulose sodium 1 % 1 drp ophthalmic (eye) TID 01/25/23 10/14/23 eye drops (Artificial Tears (carboxymethylcellulose)) cholecalciferol (vitamin D3) 125 125 mcg PO DAILY 01/25/23 10/14/23 mcg (5,000 unit) capsule compressive stocking 01/25/23 04/01/23 fluticasone propionate 50 1 spray intranasal BID 01/25/23 10/14/23 mcg/actuation nasal spray,suspension (Allergy Relief (fluticasone)) ibuprofen 800 mg tablet 800 mg PO Q8H 01/25/23 10/14/23 losartan 50 mg-hydrochlorothiazide 1 tab PO DAILY 01/25/23 10/14/23 12.5 mg tablet metformin 500 mg tablet 500 mg PO DAILY 01/25/23 10/14/23 metoprolol succinate 25 mg 25 mg PO DAILY 01/25/23 10/14/23 tablet,extended release 24 hr multivitamin 1 tab PO DAILY 01/25/23 10/14/23 nitroglycerin 0.4 mg sublingual 0.4 mg sublingual Q5M PRN CHEST 01/25/23 10/14/23 tablet PAIN Previous Rx's ?Medication ?Instructions ?Recorded phenazopyridine 200 mg tablet 200 mg PO TID #60 tabs 04/06/23 (Pyridium) oxycodone 5 mg capsule 5 mg PO Q8H PRN pain #16 caps 04/07/23 loperamide 2 mg capsule 2 mg PO Q6H PRN loose stool #20 04/19/23 caps ondansetron 4 mg disintegrating 4 mg PO Q6H PRN nausea and 04/19/23 tablet vomiting #14 tabs Allergies Allergy/AdvReac Type Severity Reaction Status Date / Time betamethasone Allergy Redness of Verified 03/26/24 09:55 Skin levetiracetam [From [facility]] Allergy Anxiety Verified 03/26/24 09:55 pseudoephedrine Allergy Anxiety Verified 03/26/24 09:55 Review of Systems Review of Systems: Yes all other systems are reviewed and are negative [facility] Past Medical History Medical History JOE (obstructive sleep apnea) Renal stones Seizure disorder Diabetes mellitus, type II Hypercholesteremia Hypertension Surgical History Hx of tonsillectomy History of ankle surgery Family History Family History Father Diabetes mellitus Mother Pancreas cancer Social History Social History Alcohol intake: never Patient Tobacco Use Status: Never used Tobacco Second Hand Smoke Exposure: No Advance Directives: No Advance Directives Information Provided: Yes Do you have a plan to hurt others: No Plan service: No Physical Exam ED Vital Signs: Vital Signs - 24 hr 03/26/24 09:53 Temperature 97.8 F Pulse Rate 67 Respiratory Rate 18 Pulse Oximetry 95 Oxygen Delivery Method Room Air BMI result Body Mass Index 55.3 Appearance: Alert. Oriented X3. No acute distress. Head: normocephalic, atraumatic. Eyes: Pupils equal, round and reactive to light. ENT: Pharynx normal. No tonsillar swelling or exudate. Neck: Normal inspection. Neck supple. CVS: Normal heart rate and rhythm. Pulses normal. Respiratory: No respiratory distress. Breath sounds normal. Abdomen: Obese, Soft and nontender. +BS x4 Skin: Skin warm and dry. Normal skin color. Normal skin turgor. No rashes. Extremities: No lower extremity edema. No joint swelling. Neuro/psych: Oriented X 3. Grossly normal, nonfocal CN II-XII intact. Normal speech and cognition. Medical Decision Making Medical Decision Making [facility] Narrative: 53-year-old morbidly obese male with a history of HTN, dm, HLD who presents to the ER for evaluation of a nonproductive cough for the last 2 weeks. No other symptoms. Vital signs are stable on arrival. Lungs are clear. No wheezing or rhonchi. Not hypoxic. Speaking in complete sentences and appears well. He is having construction in his apartment building and may be having reactive bronchitis from environmental exposures. Chest x-ray shows increased bronchovascular markings which could be seen with asthma, bronchitis, reactive airway disease or atypical infections. ? no evidence of pneumonia. He is negative for COVID, flu, RSV. Symptoms most likely viral versus environmental in etiology. Treatment is supportive care. No role for steroids. Encouraged [id number] cough suppressants, wearing a mask when around the construction. Encouraged follow-up with primary care doctor. Stable for discharge home. Differential Diagnosis Differential Diagnoses: The differential diagnosis associated with the presentation includes COVID, flu, RSV, bronchitis, pneumonia, reactive airway disease, other viral etiology Lab Data [facility] Lab Attestation statement: I reviewed the patient's lab results. Labs: Lab Results 03/26/24 Range/Units 10:01 Influenza Type A (PCR) NEGATIVE (Negative) Influenza Type B (PCR) NEGATIVE (Negative) RSV RNA Qual (PCR) NEGATIVE (Negative) SARS-CoV-2 RNA (RT-PCR) NEGATIVE (Negative) Independent Interpretation I performed an independent interpretation of an: Plain X-Ray Interpretation: no focal infiltrate or PNA Radiology Impression Discussion of test interpretation with radiology: I have reviewed the radiologist's reading. Radiologist Impression: XR/XR chest 2V IMPRESSION: 1. Increased bronchovascular markings which could be seen with asthma, bronchitis, reactive airways disease or atypical infections. 2. No focal consolidation or pleural effusion. External Record Review External record reviewed: Outpatient record and Prior outpatient labs Prescription Management I considered prescription management with: Antiviral and Antibiotic Chronic Conditions Patient?s care impacted by: Diabetes and Hypertension Social Determinants Patient?s care significantly limited by Social Determinants of Health including: Other Social Determinant of Health Critical Care Time Critical Care Time Critical Care Time: No Discharge Plan Discharge Clinical Impression: Bronchitis Patient Disposition: Home, Self-Care Instructions: Acute Bronchitis (ED) Additional Instructions: Your chest x-ray did not show any evidence of pneumonia. You tested negative for COVID, flu, RSV. Recommend rest and plenty of oral hydration. Recommend [id number] cough medication. Do your best to avoid areas of construction in your home or apartment building. Wear a mask when around dust or lung irritants. Follow-up with your doctor. If you develop new or worsening symptoms call 911 or come back to the ER for further evaluation. Prescriptions: No Action phenazopyridine [Pyridium] 200 mg tablet 200 mg PO TID Qty: 60 0RF oxycodone 5 mg capsule 5 mg PO Q8H PRN (Reason: pain) Qty: 16 0RF Rx Instructions: Partial Fill upon patient request. Take one to two tabs every 8 hours as needed for pain loperamide 2 mg capsule 2 mg PO Q6H PRN (Reason: loose stool) Qty: 20 0RF ondansetron 4 mg tablet,disintegrating 4 mg PO Q6H PRN (Reason: nausea and vomiting) Qty: 14 0RF aspirin 81 mg tablet,delayed release (DR/EC) 81 mg PO DAILY ibuprofen 800 mg tablet 800 mg PO Q8H nitroglycerin 0.4 mg tablet, sublingual 0.4 mg sublingual Q5M PRN (Reason: CHEST PAIN ) Rx Instructions: do not exceed 3 doses per episode metformin 500 mg tablet 500 mg PO DAILY losartan-hydrochlorothiazide 50-12.5 mg tablet 1 tab PO DAILY fluticasone propionate [Allergy Relief (fluticasone)] 50 mcg/actuation spray,suspension 1 spray intranasal BID Rx Instructions: administer into each nostril multivitamin Tablet 1 tab PO DAILY cholecalciferol (vitamin D3) 125 mcg (5,000 unit) capsule 125 mcg PO DAILY metoprolol succinate 25 mg tablet extended release 24 hr 25 mg PO DAILY Artificial Tears (cmc) 1 % drops 1 drp ophthalmic (eye) TID atorvastatin 80 mg tablet 80 mg PO BEDTIME (DME) compressive stocking 0 .Route .MEDSUPPLY Interventions: ED Discharge Assessment Last Done: 03/26/24 11:13 Print Language: Urdu
[2024-03-26 11:13] VITALS: BP 145/78; PULSE 67; RESP 18; TEMP 36.6; O2SAT 95
== END 2024-03-26 11:16 | disposition home or self-care (01) ==
PROVIDERS: Emergency Provider Emergency Medicine
DX: J40 Bronchitis, not specified as acute or chronic (principal); R05.9 Cough, unspecified; E11.9 Type 2 diabetes mellitus without complications; I10 Essential (primary) hypertension; R11.2 Nausea with vomiting, unspecified; Z03.818 Encounter for observation for suspected exposure to other biological agents ruled out; Z79.899 Other long term (current) drug therapy; Z79.84 Long term (current) use of oral hypoglycemic drugs
CPT/HCPCS: 0241U; 71046; 99284

== ENCOUNTER 2024-03-27 00:50 | Emergency (ER) | payer MEDICARE, SELFPAY ==
[2024-03-27 00:54] VITALS: PULSE 75; RESP 18; TEMP 36; O2SAT 97; BMI 54.7
[2024-03-27] MEDS: Tetracaine HCl 0.5% Oph Sol 5 ML DROPS 1 DROP EYE-RIGHT (02:07)
[2024-03-27] MEDS: Fluorescein Sodium STRIP 1 STRIP EYE-RIGHT (02:07)
[2024-03-27] MEDS: Diphth,Pertus(ACell),Tet Adult 0.5 ML SYRINGE IM (02:25)
--- NOTE | 2024-03-27 02:34 | ED.GENADULT ---
HPI - General Adult General Chief complaint: Eye Problems Stated complaint: irritated right eye Time Seen by Provider: 03/27/24 01:09 Source: patient Mode of arrival: ambulatory Limitations: no limitations History of Present Illness ED Provider: Dhaval Villegas PA-C HPI narrative: 53 yold male with pmh of Diabetes and severe anxiety presents to the ED for right eye irratiation soon as woke up form sleeping. Patient states he woke up with right eye redness, discharge and irratation. patient denies any headache, loss of vision, recent trauma, fever, chills, wearing contacts, slurred speech, loss of vision, facial droop, or paralysis of extremitees. patient states there has been construction in his apartment causing constant dust particles and wood particles in the air. Related Data Home Medications ?Medication ?Instructions ?Recorded ?Confirmed aspirin 81 mg tablet,delayed 81 mg PO DAILY 01/25/23 10/14/23 release atorvastatin 80 mg tablet 80 mg PO BEDTIME 01/25/23 10/14/23 carboxymethylcellulose sodium 1 % 1 drp ophthalmic (eye) TID 01/25/23 10/14/23 eye drops (Artificial Tears (carboxymethylcellulose)) cholecalciferol (vitamin D3) 125 125 mcg PO DAILY 01/25/23 10/14/23 mcg (5,000 unit) capsule compressive stocking 01/25/23 04/01/23 fluticasone propionate 50 1 spray intranasal BID 01/25/23 10/14/23 mcg/actuation nasal spray,suspension (Allergy Relief (fluticasone)) ibuprofen 800 mg tablet 800 mg PO Q8H 01/25/23 10/14/23 losartan 50 mg-hydrochlorothiazide 1 tab PO DAILY 01/25/23 10/14/23 12.5 mg tablet metformin 500 mg tablet 500 mg PO DAILY 01/25/23 10/14/23 metoprolol succinate 25 mg 25 mg PO DAILY 01/25/23 10/14/23 tablet,extended release 24 hr multivitamin 1 tab PO DAILY 01/25/23 10/14/23 nitroglycerin 0.4 mg sublingual 0.4 mg sublingual Q5M PRN CHEST 01/25/23 10/14/23 tablet PAIN Previous Rx's ?Medication ?Instructions ?Recorded phenazopyridine 200 mg tablet 200 mg PO TID #60 tabs 04/06/23 (Pyridium) oxycodone 5 mg capsule 5 mg PO Q8H PRN pain #16 caps 04/07/23 loperamide 2 mg capsule 2 mg PO Q6H PRN loose stool #20 04/19/23 caps ondansetron 4 mg disintegrating 4 mg PO Q6H PRN nausea and 04/19/23 tablet vomiting #14 tabs erythromycin 5 mg/gram (0.5 %) eye 0.5 inch ophthalmic (eye) QID 7 03/27/24 ointment days #3.5 grams Allergies Allergy/AdvReac Type Severity Reaction Status Date / Time betamethasone Allergy Redness of Verified 03/27/24 00:56 Skin levetiracetam [From [facility]] Allergy Anxiety Verified 03/27/24 00:56 pseudoephedrine Allergy Anxiety Verified 03/27/24 00:56 Review of Systems Review of Systems: right eye redness, discharge and irratation Yes all other systems are reviewed and are negative [facility] Past Medical History Medical History JOE (obstructive sleep apnea) Renal stones Seizure disorder Diabetes mellitus, type II Hypercholesteremia Hypertension Surgical History Hx of tonsillectomy History of ankle surgery Family History Family History Father Diabetes mellitus Mother Pancreas cancer Social History Social History Alcohol intake: never Patient Tobacco Use Status: Never used Tobacco Smoked in Last 30 Days: No Second Hand Smoke Exposure: No Use of substances other than those prescribed or required for medical reasons: No Advance Directives: No Advance Directives Information Provided: Yes service: No Physical Exam ED Vital Signs: Vital Signs - 24 hr 03/27/24 00:54 Temperature 96.8 F Pulse Rate 75 Respiratory Rate 18 Pulse Oximetry 97 Oxygen Delivery Method Room Air BMI result Body Mass Index 54.7 Const General: cooperative, healthy appearing, comfortable, no acute distress, well developed, alert and awake Orientation/consciousness: patient oriented x3 HENMT Head: Yes normal to inspection, Yes No palpable skull fracture present, Yes normocephalic and Yes atraumatic Ears: hearing grossly normal bilaterally, external ears normal, TM's normal bilaterally, TM normal on the right, TM normal on the left, EAC's normal, mastoids normal and no periauricular adenopathy Throat: Yes posterior oropharynx normal, Yes tonsils normal and Yes uvula midline Eyes Other: Right eye Positive for slight right conjunctiva redness with slight clear discharge. Negative for photophobia. Negative for foreign body. Tetracaine placed in IN for numbing. Fluorescein dye placed in eye. Wood's lamp exam positive for corneal abrasion. Negative for corneal ulcer. Tonometry pressure 10. Negative for signs of globe rupture or hyphema. Visual acuity 20/25. Negative foreign body Left eye; normal. Tonometry pressure 10. Visual acuity 20/20 General: appearance normal, both eyes and all related structures Neck Neck: Yes normal visual inspection, Yes full ROM, Yes no lymphadenopathy, Yes no meningeal signs, Yes trachea midline, Yes supple, No anterior neck swelling and No tender Chest Chest palpation & inspection: normal inspection of the chest and normal palpation of entire chest wall Resp Effort & Inspection: normal respiratory effort and able to speak in complete sentences Auscultation: clear to auscultation bilaterally Cardio Jugular venous distension: no JVD Heart sounds: S1 normal heart sound present and S2 normal heart sound present GI Inspection: Yes normal to inspection Palpation (GI): Soft to palpation, not firm, nontender, no guarding and not rigid General: No CVA tenderness and Yes no CVA tenderness Back/Spine/Pelvis Back: no CVA tenderness, No CVA tenderness and No back tenderness Skin General skin exam: no rashes or lesions noted, elasticity normal and turgor normal Neuro General: patient oriented x3, gait normal, tone normal, moves all extremities, Normal light touch and pain sensation, no meningeal signs, no focal motor deficits, CN's II-XI intact bilaterally, normal sensation to monofilament and decrease sensation to monofilament Extrem General: Yes normal to inspection, Yes full ROM and Yes capillary refill normal Psych Appearance: grossly normal, well kempt and not disheveled Medications Administered Discontinued Medications Generic Name Dose Route Start Last Admin Trade Name Freq PRN Reason Stop Dose Admin Diphtheria/Tetanus/Acell Pertussis 0.5 ml 03/27/24 02:19 03/27/24 02:25 Diphth,Pertus(Acell),Tet Adult 0.5 Ml Syringe IM 03/27/24 02:20 0.5 ml .ONCE ONE Administration Fluorescein Sodium 1 strip 03/27/24 01:09 03/27/24 02:07 Fluorescein Sodium Strip EYE-RIGHT 03/27/24 01:10 1 strip ONCE ONE Administration Tetracaine HCl 1 drop 03/27/24 02:05 03/27/24 02:07 Tetracaine Hcl 0.5% Oph Kandice 5 Ml Drops EYE-RIGHT 03/27/24 02:06 1 drop ONCE ONE Administration Medical Decision Making Medical Decision Making MDM Narrative: 53 Yold male with pmh of DM with right irration. positive for corneal abrasions. Patient given Tdap. Patient will be discharged with eye ointment. Patient informed to follow up with eye doctor. Not suspecting stroke, arterial venous I occlusion, glaucoma, globe rupture, orbital cellulitis, corneal ulcer, herpes, or hyphema. Patient explained worrisome signs and informed to return to the ED immediately Differential Diagnosis Differential Diagnoses: The differential diagnosis associated with the presentation includes (glaucoma. Conjunctivitis, corneal abrasion, corneal ulcer,) Admission/Observation Consideration of admission/observation: Escalation of care including admission/observation considered Lab Data [facility] Lab Attestation statement: I reviewed the patient's lab results. Independent Historian Clinical information obtained from an independent historian. History obtained from or confirmed by: Other (Patient) External Record Review External record reviewed: Other (Prior visits) Prescription Management I considered prescription management with: Antibiotic Discharge Plan Discharge Clinical Impression: Abrasion, corneal Patient Disposition: Home, Self-Care Instructions: Corneal Abrasion (ED) Additional Instructions: Follow-up with primary care provider and coffee maker. Return to the ED for any eye pain, eye redness, yellow/green discharge, eye crusting, photophobia, headache, dizziness, nausea, vomiting, slurred speech, loss of vision, facial droop, paralysis of extremities, blurry vision, or any other concerning symptoms. Prescriptions: New erythromycin 5 mg/gram (0.5 %) ointment 0.5 inch ophthalmic (eye) QID 7 Days Qty: 3.5 0RF No Action phenazopyridine [Pyridium] 200 mg tablet 200 mg PO TID Qty: 60 0RF oxycodone 5 mg capsule 5 mg PO Q8H PRN (Reason: pain) Qty: 16 0RF Rx Instructions: Partial Fill upon patient request. Take one to two tabs every 8 hours as needed for pain loperamide 2 mg capsule 2 mg PO Q6H PRN (Reason: loose stool) Qty: 20 0RF ondansetron 4 mg tablet,disintegrating 4 mg PO Q6H PRN (Reason: nausea and vomiting) Qty: 14 0RF aspirin 81 mg tablet,delayed release (DR/EC) 81 mg PO DAILY ibuprofen 800 mg tablet 800 mg PO Q8H nitroglycerin 0.4 mg tablet, sublingual 0.4 mg sublingual Q5M PRN (Reason: CHEST PAIN ) Rx Instructions: do not exceed 3 doses per episode metformin 500 mg tablet 500 mg PO DAILY losartan-hydrochlorothiazide 50-12.5 mg tablet 1 tab PO DAILY fluticasone propionate [Allergy Relief (fluticasone)] 50 mcg/actuation spray,suspension 1 spray intranasal BID Rx Instructions: administer into each nostril multivitamin Tablet 1 tab PO DAILY cholecalciferol (vitamin D3) 125 mcg (5,000 unit) capsule 125 mcg PO DAILY metoprolol succinate 25 mg tablet extended release 24 hr 25 mg PO DAILY Artificial Tears (cmc) 1 % drops 1 drp ophthalmic (eye) TID atorvastatin 80 mg tablet 80 mg PO BEDTIME (DME) compressive stocking 0 .Route .MEDSUPPLY Referrals: Eh Gallegos [Physician] - (corneal abrasions) Stand Alone Forms: Work/School Release Interventions: ED Discharge Assessment Last Done: 03/27/24 02:46 Discharge Date/Time: 03/27/24 02:47 Print Language: Azeri
[2024-03-27 02:46] VITALS: BP 135/78; PULSE 75; RESP 18; TEMP 36; O2SAT 97
== END 2024-03-27 02:47 | disposition home or self-care (01) ==
PROVIDERS: Emergency Provider Internal Medicine
DX: S05.01XA Injury of conjunctiva and corneal abrasion without foreign body, right eye, initial encounter (principal); X58.XXXA Exposure to other specified factors, initial encounter; Y93.9 Activity, unspecified; Y92.9 Unspecified place or not applicable; Y99.9 Unspecified external cause status; H57.89 Other specified disorders of eye and adnexa; E11.9 Type 2 diabetes mellitus without complications; I10 Essential (primary) hypertension; G40.909 Epilepsy, unspecified, not intractable, without status epilepticus; Z79.899 Other long term (current) drug therapy
CPT/HCPCS: 90471; 90715; 99284

== ENCOUNTER 2024-05-21 07:04 | Emergency (ER) | payer MEDICARE, SELFPAY ==
[2024-05-21 07:08] VITALS: BP 147/69; PULSE 79; RESP 18; TEMP 36.6; O2SAT 94; BMI 54.8
[2024-05-21 07:25] LABS: MANUAL DIFF FLAG NO
[2024-05-21 07:27] LABS: Basophils Percent Auto 0.2 % (0-2); Eosinophils Absolute Auto 0.1 X10*3/uL (0.0-0.4); Eosinophils Percent Auto 2.3 % (0-4); Hematocrit 41.8 % (42.0-52.0); Hemoglobin 14.4 g/dl (14.0-18.0); Imm Gran Abs Auto 0.01 X10*3/uL (0.00-0.03); Imm Gran Pct Auto 0.2 % (0.0-0.4); Lymphocytes Absolute Auto 1.6 X10*3/uL (1.2-4.9); Lymphocytes Percent Auto 26.1 % (20-40); Mean Corpuscular HGB Conc 34.4 g/dl (31.0-36.0); Mean Corpuscular Hemoglobin 30.6 pg (27.0-33.0); Mean Corpuscular Volume 88.9 fL (80.0-98.0); Mean Platelet Volume 9.8 fL (9.4-12.4); Monocytes Absolute Auto 0.9 X10*3/uL (0.1-1.2); Monocytes Percent Auto 14.4 % (2-11); Neutrophils Absolute Auto 3.5 x10*3/uL (2.0-8.3); Neutrophils Percent Auto 56.8 % (45-73); Platelet Count 209 X10*3/uL (160-400); Red Cell Distribution Width 13.4 % (11.0-16.0); White Blood Count 6.1 X10*3/uL (4.8-10.8)
[2024-05-21 07:45] LABS: Alanine Aminotransferase 79 U/L (0-40); Albumin Level 3.9 g/dL (3.5-5.0); Alkaline Phosphatase 140 U/L (39-117); Anion Gap 11 (12-20); Aspartate Amino Transferase 44 U/L (5-37); Bilirubin Total 0.3 mg/dL (0.0-1.0); Blood Urea Nitrogen 11 mg/dL (9-16); Calcium 8.3 mg/dL (8.4-10.2); Carbon Dioxide 27 mmol/L (22-29); Chloride 106 mmol/L (96-108); Creatinine Clr Calc Pharmacy 178.7; Estimated Glomerular Filt Rate > 60; Glucose Random 127 mg/dL (60-115); Potassium 3.5 mmol/L (3.3-5.1); Sodium 140 mmol/L (135-145); Total Protein 7.2 g/dL (6.5-8.0)
--- NOTE | 2024-05-21 07:55 | ED.NAVMDI ---
HPI - Nausea/Vomiting/Diarrhea General Chief complaint: Nausea/Vomiting/Diarrhea Stated complaint: Diarrhea Time Seen by Provider: 05/21/24 07:29 Source: patient and old records reviewed Mode of arrival: ambulatory Limitations: no limitations History of Present Illness ED Provider: MICKEY HERRERA Narrative: 54 yo male with morbid obesity, HTN, HLD, DM notes on Wednesday he went to his doctor for new patient appointment had labs and everything seemed good on the way home from the visit he started to have upset stomach and queasiness. He vomited most of Wednesday and started with diarrhea at the same time. He denies travel/sick contacts/abx use. He notes his vomiting stopped Wednesday he was able to eat 2 breakfast sandwhiches and 5 hot dogs and can of beans which all stayed down. He still now has diarrhea any time he eats. No fevers, abd pain, bloody stools. He came as he has a hx of low K and mag. He is not on diuretics right now he is very worried because he lost 8lbs MD elicited complaint: diarrhea Onset (ago): day(s) (2) Description of diarrhea: watery and loose Associated nausea: No Associated abdominal pain: No Location of pain: none Severity: moderate Exacerbating factors: eating Relieving factors: none Context: possible food poisoning Associated symptoms: denies other symptoms Related Data Home Medications ?Medication ?Instructions ?Recorded ?Confirmed aspirin 81 mg tablet,delayed 81 mg PO DAILY 01/25/23 10/14/23 release atorvastatin 80 mg tablet 80 mg PO BEDTIME 01/25/23 10/14/23 carboxymethylcellulose sodium 1 % 1 drp ophthalmic (eye) TID 01/25/23 10/14/23 eye drops (Artificial Tears (carboxymethylcellulose)) cholecalciferol (vitamin D3) 125 125 mcg PO DAILY 01/25/23 10/14/23 mcg (5,000 unit) capsule compressive stocking 01/25/23 04/01/23 fluticasone propionate 50 1 spray intranasal BID 01/25/23 10/14/23 mcg/actuation nasal spray,suspension (Allergy Relief (fluticasone)) ibuprofen 800 mg tablet 800 mg PO Q8H 01/25/23 10/14/23 losartan 50 mg-hydrochlorothiazide 1 tab PO DAILY 08/21/23 05/09/24 12.5 mg tablet metformin 500 mg tablet 500 mg PO DAILY 01/25/23 10/14/23 metoprolol succinate 25 mg 25 mg PO DAILY 01/25/23 10/14/23 tablet,extended release 24 hr multivitamin 1 tab PO DAILY 01/25/23 10/14/23 nitroglycerin 0.4 mg sublingual 0.4 mg sublingual Q5M PRN CHEST 01/25/23 10/14/23 tablet PAIN Previous Rx's ?Medication ?Instructions ?Recorded phenazopyridine 200 mg tablet 200 mg PO TID #60 tabs 04/06/23 (Pyridium) oxycodone 5 mg capsule 5 mg PO Q8H PRN pain #16 caps 04/07/23 loperamide 2 mg capsule 2 mg PO Q6H PRN loose stool #20 04/19/23 caps ondansetron 4 mg disintegrating 4 mg PO Q6H PRN nausea and 04/19/23 tablet vomiting #14 tabs erythromycin 5 mg/gram (0.5 %) eye 0.5 inch ophthalmic (eye) QID 7 03/27/24 ointment days #3.5 grams diphenoxylate-atropine 2.5 1 tab PO Q12H PRN diarrhea #20 tabs 05/21/24 mg-0.025 mg tablet (Lomotil) Allergies Allergy/AdvReac Type Severity Reaction Status Date / Time betamethasone Allergy Redness of Verified 05/21/24 07:08 Skin levetiracetam [From [facility]] Allergy Anxiety Verified 05/21/24 07:08 pseudoephedrine Allergy Anxiety Verified 05/21/24 07:08 Review of Systems Review of Systems: Constitutional : No Weight loss, No Fever, No Chills ENT/Mouth : No sore throat, No Rhinorrhea Eyes: No Swelling, No Redness Cardiovascular : No Chest Pain, No SOB, NoEdema Respiratory : No Cough, No Sputum, No Wheezing Gastrointestinal : no Nausea, no Vomiting, no Diarrhea, positive abdominal Pain, No Hematochezia, No Melena Genitourinary : No Dysuria, No Urinary Frequency, No Hematuria, No Urgency Musculoskeletal : No joint pain, No Myalgias, No Joint Swelling Skin : No Skin Lesions, No rash Neuro : No Weakness, No Numbness, No Dizziness, No Headache All other systems reviewed and are negative. Gastrointestinal: Gastrointestinal: Denies nausea PMF Past Medical History Attestation statement: The following information was validated with the patient. Source: old records reviewed Medical History JOE (obstructive sleep apnea) Renal stones Seizure disorder Diabetes mellitus, type II Hypercholesteremia Hypertension Surgical History Hx of tonsillectomy History of ankle surgery Family History Family History Father Diabetes mellitus Mother Pancreas cancer Social History Social History Alcohol intake: never Patient Tobacco Use Status: Never used Tobacco Second Hand Smoke Exposure: No Advance Directives: No Advance Directives Information Provided: Yes Do you have a plan to hurt others: No Plan service: No Physical Exam Vital Signs: Vital Signs: Last Vital Signs Temp 97.8 F 05/21/24 07:08 Pulse 79 05/21/24 07:08 Resp 18 05/21/24 07:08 BP 147/69 H 05/21/24 07:08 Pulse Ox 94 05/21/24 07:08 O2 Del Method Room Air 05/21/24 07:08 BMI result Body Mass Index 54.8 Appearance: Alert. Oriented X3. No acute distress. Eyes: Pupils equal, round and reactive to light. ENT: Pharynx normal. Neck: Normal inspection. Neck supple. CVS: Normal heart rate and rhythm. Pulses normal. Respiratory: No respiratory distress. Breath sounds normal. Abdomen: Soft and nontender. Skin: Skin warm and dry. Normal skin color. Normal skin turgor. Extremities: normal ROM Neuro: Oriented X 3. No motor deficit. No sensory deficit. Medical Decision Making Medical Decision Making MDM Narrative: 54 yo male with morbid obesity, HTN, HLD, DM here with c/o resolved n/v on Wednesday now eating but still having diarrhea non bloody without pain or fevers. No travel, sick contacts, abx use. At this time he looks well has benign abdomen suspect self limiting viral syndrome vs food toxicity. PO immodium ordered. Differential Diagnosis Differential Diagnoses: The differential diagnosis associated with the presentation includes viral syndrome, food toxicity Admission/Observation Consideration of admission/observation: Escalation of care including admission/observation considered labs reassuring stable for DC Lab Data MDM Lab Attestation statement: I reviewed the patient's lab results. 05/21/24 07:21 05/21/24 07:21 Labs: Lab Results 05/21/24 Range/Units 07:21 WBC 6.1 (4.8-10.8) X10*3/uL RBC 4.70 (4.60-5.80) X10*6/uL Hgb 14.4 (14.0-18.0) g/dl Hct 41.8 L (42.0-52.0) % MCV 88.9 (80.0-98.0) fL MCH 30.6 (27.0-33.0) pg MCHC 34.4 (31.0-36.0) g/dl RDW 13.4 (11.0-16.0) % Plt Count 209 (160-400) X10*3/uL MPV 9.8 (9.4-12.4) fL Immature Gran % (Auto) 0.2 (0.0-0.4) % Neut % (Auto) 56.8 (45-73) % Lymph % (Auto) 26.1 (20-40) % [place] % (Auto) 14.4 H (2-11) % Eos % (Auto) 2.3 (0-4) % Baso % (Auto) 0.2 (0-2) % Lymph # (Auto) 1.6 (1.2-4.9) X10*3/uL [place] # (Auto) 0.9 (0.1-1.2) X10*3/uL Eos # (Auto) 0.1 (0.0-0.4) X10*3/uL Baso # (Auto) 0.0 (0.0-0.2) X10*3/uL Abs Immat Gran (auto) 0.01 (0.00-0.03) X10*3/uL Absolute Neuts (auto) 3.5 (2.0-8.3) x10*3/uL Absolute Nucleated RBC 0.000 (0.0-0.012) X10*3/uL Nucleated RBC % (auto) 0.0 (0.0-0.2) /100WBC Sodium 140 (135-145) mmol/L Potassium 3.5 (3.3-5.1) mmol/L Chloride 106 (96-108) mmol/L Carbon Dioxide 27 (22-29) mmol/L Anion Gap 11 L (12-20) BUN 11 (9-16) mg/dL Creatinine 0.76 (0.5-1.4) mg/dL Estim Creat Clear Calc 178.7 Estimated GFR > 60 Random Glucose 127 H (60-115) mg/dL Calcium 8.3 L D (8.4-10.2) mg/dL Magnesium 1.8 (1.6-2.6) mg/dL Total Bilirubin 0.3 (0.0-1.0) mg/dL AST 44 H (5-37) U/L ALT 79 H (0-40) U/L Alkaline Phosphatase 140 H (39-117) U/L Total Protein 7.2 (6.5-8.0) g/dL Albumin 3.9 (3.5-5.0) g/dL External Record Review External record reviewed: Outpatient record Tests considered The following testing was considered but not selected: CT scan but no pain and just residual diarrhea without fevers or bloody stools Prescription Management I considered prescription management with: Other Discharge Plan Discharge Clinical Impression: Diarrhea Qualifiers: Diarrhea type: presumed infectious Qualified Code(s): R19.7 - Diarrhea, unspecified Patient Disposition: Home, Self-Care Instructions: Acute Diarrhea (ED) Additional Instructions: return for any worsening symptoms or concerns pain/blood in stools/fevers - those are worrisome signs eat a bland diet - apple sauce rice toast yogurt follow up with your doctor is not better by Wednesday you can take immodium to help slow the diarrhea as long as you have no pain, fevers, bloody stools your labs were reassuring today potassium and magnesium were normal Prescriptions: New diphenoxylate-atropine [Lomotil] 2.5-0.025 mg tablet 1 tab PO Q12H PRN (Reason: diarrhea) Qty: 20 0RF No Action phenazopyridine [Pyridium] 200 mg tablet 200 mg PO TID Qty: 60 0RF oxycodone 5 mg capsule 5 mg PO Q8H PRN (Reason: pain) Qty: 16 0RF Rx Instructions: Partial Fill upon patient request. Take one to two tabs every 8 hours as needed for pain loperamide 2 mg capsule 2 mg PO Q6H PRN (Reason: loose stool) Qty: 20 0RF ondansetron 4 mg tablet,disintegrating 4 mg PO Q6H PRN (Reason: nausea and vomiting) Qty: 14 0RF erythromycin 5 mg/gram (0.5 %) ointment 0.5 inch ophthalmic (eye) QID 7 Days Qty: 3.5 0RF aspirin 81 mg tablet,delayed release (DR/EC) 81 mg PO DAILY ibuprofen 800 mg tablet 800 mg PO Q8H nitroglycerin 0.4 mg tablet, sublingual 0.4 mg sublingual Q5M PRN (Reason: CHEST PAIN ) Rx Instructions: do not exceed 3 doses per episode metformin 500 mg tablet 500 mg PO DAILY losartan-hydrochlorothiazide 50-12.5 mg tablet 1 tab PO DAILY fluticasone propionate [Allergy Relief (fluticasone)] 50 mcg/actuation spray,suspension 1 spray intranasal BID Rx Instructions: administer into each nostril multivitamin Tablet 1 tab PO DAILY cholecalciferol (vitamin D3) 125 mcg (5,000 unit) capsule 125 mcg PO DAILY metoprolol succinate 25 mg tablet extended release 24 hr 25 mg PO DAILY Artificial Tears (cmc) 1 % drops 1 drp ophthalmic (eye) TID atorvastatin 80 mg tablet 80 mg PO BEDTIME (DME) compressive stocking 0 .Route .MEDSUPPLY Print Language: Setswana
[2024-05-21 08:10] LABS: Magnesium 1.8 mg/dL (1.6-2.6)
[2024-05-21 08:23] VITALS: BP 117/82; PULSE 78; RESP 20; TEMP 37.3; O2SAT 95
== END 2024-05-21 08:24 | disposition home or self-care (01) ==
PROVIDERS: Emergency Provider Emergency Medicine
DX: R11.2 Nausea with vomiting, unspecified (principal); E11.9 Type 2 diabetes mellitus without complications; I10 Essential (primary) hypertension; R19.7 Diarrhea, unspecified; Z79.899 Other long term (current) drug therapy
CPT/HCPCS: 36415; 80053; 83735; 85025; 99283

== ENCOUNTER 2024-05-25 02:03 | Emergency (ER) | payer MEDICARE, SELFPAY ==
[2024-05-25 02:08] VITALS: BP 153/76; PULSE 79; RESP 20; TEMP 36.8; O2SAT 97; BMI 54.2
[2024-05-25 02:32] LABS: Glucose, Whole Blood 164 mg/dL (60-115)
--- NOTE | 2024-05-25 02:42 | ED_ITS ---
HPI - Eye Problem General Chief complaint: Eye Problems Stated complaint: blurry in right eye Time Seen by Provider: 05/25/24 02:32 Source: patient Mode of arrival: ambulatory Limitations: no limitations History of Present Illness ED Provider: HPI Narrative: Patient is diabetic woke up from sleep felt blurred vision from the right eye rubbed his eye washed his eye and no back to now worried about whether he has a tear in her retina or blood sugar is too high on arrival blood sugar was 168 patient denied any scotoma or pain in the eye Related Data Home Medications ?Medication ?Instructions ?Recorded ?Confirmed aspirin 81 mg tablet,delayed 81 mg PO DAILY 01/25/23 10/14/23 release atorvastatin 80 mg tablet 80 mg PO BEDTIME 01/25/23 10/14/23 carboxymethylcellulose sodium 1 % 1 drp ophthalmic (eye) TID 01/25/23 10/14/23 eye drops (Artificial Tears (carboxymethylcellulose)) cholecalciferol (vitamin D3) 125 125 mcg PO DAILY 01/25/23 10/14/23 mcg (5,000 unit) capsule compressive stocking 01/25/23 04/01/23 fluticasone propionate 50 1 spray intranasal BID 01/25/23 10/14/23 mcg/actuation nasal spray,suspension (Allergy Relief (fluticasone)) ibuprofen 800 mg tablet 800 mg PO Q8H 01/25/23 10/14/23 losartan 50 mg-hydrochlorothiazide 1 tab PO DAILY 01/25/23 10/14/23 12.5 mg tablet metformin 500 mg tablet 500 mg PO DAILY 01/25/23 10/14/23 metoprolol succinate 25 mg 25 mg PO DAILY 01/25/23 10/14/23 tablet,extended release 24 hr multivitamin 1 tab PO DAILY 01/25/23 10/14/23 nitroglycerin 0.4 mg sublingual 0.4 mg sublingual Q5M PRN CHEST 01/25/23 10/14/23 tablet PAIN Previous Rx's ?Medication ?Instructions ?Recorded phenazopyridine 200 mg tablet 200 mg PO TID #60 tabs 04/06/23 (Pyridium) oxycodone 5 mg capsule 5 mg PO Q8H PRN pain #16 caps 04/07/23 loperamide 2 mg capsule 2 mg PO Q6H PRN loose stool #20 04/19/23 caps ondansetron 4 mg disintegrating 4 mg PO Q6H PRN nausea and 04/19/23 tablet vomiting #14 tabs erythromycin 5 mg/gram (0.5 %) eye 0.5 inch ophthalmic (eye) QID 7 03/27/24 ointment days #3.5 grams diphenoxylate-atropine 2.5 1 tab PO Q12H PRN diarrhea #20 tabs 05/21/24 mg-0.025 mg tablet (Lomotil) Allergies Allergy/AdvReac Type Severity Reaction Status Date / Time betamethasone Allergy Redness of Verified 05/25/24 02:16 Skin levetiracetam [From Kepp[facility]] Allergy Anxiety Verified 05/25/24 02:16 pseudoephedrine Allergy Anxiety Verified 05/25/24 02:16 Review of Systems Review of Systems: Yes all other systems are reviewed and are negative PMFSH Past Medical History Medical History JOE (obstructive sleep apnea) Renal stones Seizure disorder Diabetes mellitus, type II Hypercholesteremia Hypertension Surgical History Hx of tonsillectomy History of ankle surgery Family History Family History Father Diabetes mellitus Mother Pancreas cancer Social History Social History Alcohol intake: never Patient Tobacco Use Status: Never used Tobacco Second Hand Smoke Exposure: No Advance Directives: No Advance Directives Information Provided: Yes service: No Physical Exam Vital Signs: Vital Signs: Last Vital Signs Temp 98.2 F 05/25/24 02:08 Pulse 79 05/25/24 02:08 Resp 20 05/25/24 02:08 BP 153/76 H 05/25/24 02:08 Pulse Ox 97 05/25/24 02:08 O2 Del Method Room Air 05/25/24 02:08 BMI result Body Mass Index 54.2 Appearance: Alert. Oriented X3. No acute distress. Anxious Eyes: PERRLA, No Nystagmus anterior chamber normal fundus normal visual john normal no scotomas ENT: Pharynx normal. Oral Mucosa moist Neck: Normal inspection. Neck supple. CVS: Normal heart rate and rhythm. Pulses normal. Respiratory: No respiratory distress. Equal air entry bilateral, no wheezing/rales/rhonchi Abdomen: Soft and nontender. Bowel sounds are present, no mass palpable, no CVA tenderness Skin: Skin warm and dry. Normal skin color. Normal skin turgor. Extremities: No lower extremity edema. No calf tenderness Neuro: Oriented X 3. No motor deficit. No sensory deficit.No cerebellar signs , cranial nerves II-XII intact Medical Decision Making Medical Decision Making [facility] Narrative: Patient likely with anxiety attack no signs of irritation of the right eye noticed no visual field loss fundus normal will discharge patient home advised to follow with PCP as needed Lab Data [facility] Lab Attestation statement: I reviewed the patient's lab results. Labs: Lab Results 05/25/24 Range/Units 02:26 POC Glucose 164 H (60-115) mg/dL Discharge Plan Discharge Clinical Impression: Blurred vision, right eye Patient Disposition: Home, Self-Care Instructions: Blurred Vision (ED) Additional Instructions: Your transient blurred vision likely from anxiety/irritation Take medication and follow with your PCP if any concerns Prescriptions: No Action diphenoxylate-atropine [Lomotil] 2.5-0.025 mg tablet 1 tab PO Q12H PRN (Reason: diarrhea) Qty: 20 0RF phenazopyridine [Pyridium] 200 mg tablet 200 mg PO TID Qty: 60 0RF oxycodone 5 mg capsule 5 mg PO Q8H PRN (Reason: pain) Qty: 16 0RF Rx Instructions: Partial Fill upon patient request. Take one to two tabs every 8 hours as needed for pain loperamide 2 mg capsule 2 mg PO Q6H PRN (Reason: loose stool) Qty: 20 0RF ondansetron 4 mg tablet,disintegrating 4 mg PO Q6H PRN (Reason: nausea and vomiting) Qty: 14 0RF erythromycin 5 mg/gram (0.5 %) ointment 0.5 inch ophthalmic (eye) QID 7 Days Qty: 3.5 0RF aspirin 81 mg tablet,delayed release (DR/EC) 81 mg PO DAILY ibuprofen 800 mg tablet 800 mg PO Q8H nitroglycerin 0.4 mg tablet, sublingual 0.4 mg sublingual Q5M PRN (Reason: CHEST PAIN ) Rx Instructions: do not exceed 3 doses per episode metformin 500 mg tablet 500 mg PO DAILY losartan-hydrochlorothiazide 50-12.5 mg tablet 1 tab PO DAILY fluticasone propionate [Allergy Relief (fluticasone)] 50 mcg/actuation spray,suspension 1 spray intranasal BID Rx Instructions: administer into each nostril multivitamin Tablet 1 tab PO DAILY cholecalciferol (vitamin D3) 125 mcg (5,000 unit) capsule 125 mcg PO DAILY metoprolol succinate 25 mg tablet extended release 24 hr 25 mg PO DAILY Artificial Tears (cmc) 1 % drops 1 drp ophthalmic (eye) TID atorvastatin 80 mg tablet 80 mg PO BEDTIME (DME) compressive stocking 0 .Route .MEDSUPPLY Print Language: Niuean
[2024-05-25 03:06] VITALS: BP 146/69; PULSE 73; RESP 18; TEMP 36.9; O2SAT 97
[2024-05-25 03:35] VITALS: BP 146/69; PULSE 73; RESP 18; TEMP 36.9; O2SAT 97
== END 2024-05-25 03:36 | disposition home or self-care (01) ==
PROVIDERS: Emergency Provider Internal Medicine
DX: H53.8 Other visual disturbances (principal); E11.9 Type 2 diabetes mellitus without complications; I10 Essential (primary) hypertension; E78.00 Pure hypercholesterolemia, unspecified; Z79.82 Long term (current) use of aspirin; Z79.899 Other long term (current) drug therapy; Z79.84 Long term (current) use of oral hypoglycemic drugs; Z79.02 Long term (current) use of antithrombotics/antiplatelets
CPT/HCPCS: 82947; 99283

== ENCOUNTER → 2024-06-15 19:50 | Outpatient (BNV) | payer MEDICARE, SELFPAY | PROVIDERS: Visit Provider Radiology Diagnostic Radiology | DX: M79.651 Pain in right thigh (principal); R22.41 Localized swelling, mass and lump, right lower limb | CPT/HCPCS: 93971 ==

== ENCOUNTER 2024-06-18 08:06 | Emergency (ER) | payer MEDICARE, SELFPAY ==
[2024-06-18 08:08] VITALS: BP 143/55; PULSE 85; RESP 20; TEMP 36.7; O2SAT 95; BMI 56.7
--- NOTE | 2024-06-18 09:52 | ED.WOUNDLAC ---
HPI - Wound/Laceration General Chief Complaint: Wound/Laceration Stated Complaint: Remove packing from wound Time Seen by Provider: 06/18/24 09:02 Source: patient Mode of arrival: ambulatory Limitations: no limitations History of Present Illness ED Provider: BENINE FINLEY PA-C HPI narrative: 54-year-old male with past medical history significant for HTN, HDL, T2DM, seizure disorder, JOE presents to the ED today requesting a wound check. He was evaluated in the ED on 06/15/2024 (3 days ago) and was found to have an abscess to his posterior right thigh. This was I and D and packing was placed. He was placed on Keflex and doxycycline which she has been taking at home as prescribed without any missed doses. He was advised to return to the ED in 2 days to have the wound re-evaluated and packing removed. Denies any fever, chills, or drainage from the area. Related Data Home Medications ?Medication ?Instructions ?Recorded ?Confirmed aspirin 81 mg tablet,delayed 81 mg PO DAILY 01/25/23 10/14/23 release atorvastatin 80 mg tablet 80 mg PO BEDTIME 01/25/23 10/14/23 carboxymethylcellulose sodium 1 % 1 drp ophthalmic (eye) TID 01/25/23 10/14/23 eye drops (Artificial Tears (carboxymethylcellulose)) cholecalciferol (vitamin D3) 125 125 mcg PO DAILY 01/25/23 10/14/23 mcg (5,000 unit) capsule compressive stocking 01/25/23 04/01/23 fluticasone propionate 50 1 spray intranasal BID 01/25/23 10/14/23 mcg/actuation nasal spray,suspension (Allergy Relief (fluticasone)) ibuprofen 800 mg tablet 800 mg PO Q8H 01/25/23 10/14/23 losartan 50 mg-hydrochlorothiazide 1 tab PO DAILY 01/25/23 10/14/23 12.5 mg tablet metformin 500 mg tablet 500 mg PO DAILY 01/25/23 10/14/23 metoprolol succinate 25 mg 25 mg PO DAILY 01/25/23 10/14/23 tablet,extended release 24 hr multivitamin 1 tab PO DAILY 01/25/23 10/14/23 nitroglycerin 0.4 mg sublingual 0.4 mg sublingual Q5M PRN CHEST 01/25/23 10/14/23 tablet PAIN Previous Rx's ?Medication ?Instructions ?Recorded phenazopyridine 200 mg tablet 200 mg PO TID #60 tabs 04/06/23 (Pyridium) oxycodone 5 mg capsule 5 mg PO Q8H PRN pain #16 caps 04/07/23 loperamide 2 mg capsule 2 mg PO Q6H PRN loose stool #20 04/19/23 caps ondansetron 4 mg disintegrating 4 mg PO Q6H PRN nausea and 04/19/23 tablet vomiting #14 tabs erythromycin 5 mg/gram (0.5 %) eye 0.5 inch ophthalmic (eye) QID 7 03/27/24 ointment days #3.5 grams diphenoxylate-atropine 2.5 1 tab PO Q12H PRN diarrhea #20 tabs 05/21/24 mg-0.025 mg tablet (Lomotil) cephalexin 500 mg capsule 500 mg PO QID 10 days #40 caps 06/15/24 doxycycline hyclate 100 mg tablet 100 mg PO BID #20 tabs 06/15/24 Allergies Allergy/AdvReac Type Severity Reaction Status Date / Time betamethasone Allergy Redness of Verified 06/18/24 08:09 Skin levetiracetam [From [facility]] Allergy Anxiety Verified 06/18/24 08:09 pseudoephedrine Allergy Anxiety Verified 06/18/24 08:09 Review of Systems Review of Systems: Constitutional: No fever, chills, fatigue, night sweats, weight changes ENT/Mouth: No ear pain, hearing loss, nasal congestion, sinus pain, rhinorrhea, sore throat Eyes: No eye pain, swelling, redness, vision changes, discharge Cardio: No chest pain, palpitations, BARROW, orthopnea, peripheral edema Pulm: No SOB, cough, sputum, wheezing, dyspnea, hemoptysis GI: No nausea, vomiting, hematemesis, abdominal pain, diarrhea, constipation, hematochezia, melena : No irregular bleeding, dysuria, frequency, urgency, hesitancy, hematuria, flank pain, urinary flow changes, urinary incontinence or retention MSK: No back pain, neck pain, joint pain, myalgias Skin: No lesions, rashes, +right thigh wound Neuro: No weakness, numbness, paresthesias, LOC, dizziness, headache Psych: No anxiety/panic, depression, SI/HI, AH/VH All other systems reviewed and are negative. FORMERLY [facility], [facility] Past Medical History Attestation statement: The following information was validated with the patient. Source: old records reviewed and nursing notes reviewed Medical History JOE (obstructive sleep apnea) Renal stones Seizure disorder Diabetes mellitus, type II Hypercholesteremia Hypertension Surgical History Hx of tonsillectomy History of ankle surgery Family History Family History Father Diabetes mellitus Mother Pancreas cancer Social History Social History Alcohol intake: never Patient Tobacco Use Status: Never used Tobacco Second Hand Smoke Exposure: No Advance Directives: No Advance Directives Information Provided: No Do you have a plan to hurt others: No Plan service: No Physical Exam Vital Signs: Vital Signs: Last Vital Signs Temp 98.1 F 06/18/24 08:08 Pulse 85 06/18/24 08:08 Resp 20 06/18/24 08:08 BP 143/55 H 06/18/24 08:08 Pulse Ox 95 06/18/24 08:08 O2 Del Method Room Air 06/18/24 08:08 BMI result Body Mass Index 56.7 Patient hypertensive, afebrile. Not tachycardic. General: Well appearing, in no acute distress. Skin: Warm, dry, intact. No rashes or lesions. Head: Normocephalic, atraumatic. EENT: Hearing is intact b/l. Conjunctiva clear. PERRLA. EOM intact. Moist mucous membranes.? Neck: Supple without LAD Cardiac: Chest wall symmetric. RRR Lungs: Normal respiratory effort without accessory muscle use. CTA bilaterally Ext: +see photo of posterior right thigh below. area of induration/ erythema. upon packing removal, no expressible discharge. no obvious necrosis or ulcerations. no palpable fluctuance. no streaking. 2+ pt/dp pulse intact. Neuro: AOx3. Normal speech. Ambulating with steady gait. Psych: Appropriate mood and affect. Responds appropriately to questions. Course Course Course Narrative: Wound appears to be healing well. There is quite a lot of induration surrounding the area however upon removing the packing, there is no expressible discharge. I do not feel as though the wound needs to be re-packed. Will re-dress wound. Culture + for MRSA, sensitive to clindamycin, tetracycline, Bactrim, vancomycin. Patient was discharged on Keflex and doxy which he has been taking as prescribed. No need for antibiotic change at this time. Advised patient to return to the ED in 2 days for wound check. Patient has remained stable throughout ED visit today. Discussed worrisome signs and symptoms and when to return to the ED. All questions answered at this time. Patient is agreeable with disposition and stable for discharge. Medical Decision Making Medical Decision Making MDM Narrative: 54-year-old male with past medical history significant for HTN, HDL, T2DM, seizure disorder, JOE presents to the ED today requesting a wound check. Vital signs stable. Afebrile. Not tachycardic. He is nontoxic appearing in no acute distress. Please see physical exam portion of note for finding. Differential diagnosis includes cellulitis, abscess. Unlikely osteomyelitis. Plan for packing removal, wound eval. Differential Diagnosis Differential Diagnoses: The differential diagnosis associated with the presentation includes As above Admission/Observation Consideration of admission/observation: Escalation of care including admission/observation considered Admission on presentation Lab Data [facility] Lab Attestation statement: I reviewed the patient's lab results. I reviewed labs obtained on 06/15/2024. Slight leukocytosis to 11.4 without left shift. Normal renal function. Liver function at baseline. Wound culture positive for MRSA. Independent Interpretation I performed an independent interpretation of an: Ultrasound Interpretation: Ultrasound right lower extremity on 06/15/2024 without DVT. Radiology Impression Discussion of test interpretation with radiology: I have reviewed the radiologist's reading. Radiologist Impression: Ordering Physician: Obdulia Howell NP Date of Service: 06/15/24 Procedure(s): US venous duplex LE RT Accession Number(s): [id number] cc: Physician,Unknown ; Obdulia Howell NP~ CLINICAL HISTORY: pain and swelling to posterior thigh Venous duplex ultrasound right lower extremity Comparison: None Findings: The visualized deep veins are fully compressible with normal Doppler color flow and spectral tracings. There is a patent varicosity within the posterior thigh. No popliteal cyst. IMPRESSION: 1. Negative for right lower extremity deep vein thrombosis. This document has been electronically signed by: Lin Badillo MD on 06/15/2024 20:48:36 External Record Review External record reviewed: Inpatient record, Office record, Outpatient record, Prior outpatient labs, Prior outpatient radiology, Primary care record and Outside ED record Prescription Management I considered prescription management with: Pain Medication and Antibiotic Chronic Conditions Patient?s care impacted by: Diabetes Social Determinants Patient?s care significantly limited by Social Determinants of Health including: Other Social Determinant of Health Critical Care Time Critical Care Time Critical Care Time: No Discharge Plan Discharge Clinical Impression: Encounter for wound re-check, MRSA infection Patient Disposition: Home, Self-Care Instructions: Warm Compress or Soak (ED) Additional Instructions: You were evaluated in the ED today for a wound check. Your packing was removed. There was no new packing placed. I advise you to change the dressing daily as discussed. Continue your current antibiotics of Keflex and doxycycline. Return to the ED in 2 days for wound check. Return to the ED with any new or worsening symptoms. In the case of an emergency call 911. Prescriptions: No Action diphenoxylate-atropine [Lomotil] 2.5-0.025 mg tablet 1 tab PO Q12H PRN (Reason: diarrhea) Qty: 20 0RF cephalexin 500 mg capsule 500 mg PO QID 10 Days Qty: 40 0RF doxycycline hyclate 100 mg tablet 100 mg PO BID Qty: 20 0RF phenazopyridine [Pyridium] 200 mg tablet 200 mg PO TID Qty: 60 0RF oxycodone 5 mg capsule 5 mg PO Q8H PRN (Reason: pain) Qty: 16 0RF Rx Instructions: Partial Fill upon patient request. Take one to two tabs every 8 hours as needed for pain loperamide 2 mg capsule 2 mg PO Q6H PRN (Reason: loose stool) Qty: 20 0RF ondansetron 4 mg tablet,disintegrating 4 mg PO Q6H PRN (Reason: nausea and vomiting) Qty: 14 0RF erythromycin 5 mg/gram (0.5 %) ointment 0.5 inch ophthalmic (eye) QID 7 Days Qty: 3.5 0RF aspirin 81 mg tablet,delayed release (DR/EC) 81 mg PO DAILY ibuprofen 800 mg tablet 800 mg PO Q8H nitroglycerin 0.4 mg tablet, sublingual 0.4 mg sublingual Q5M PRN (Reason: CHEST PAIN ) Rx Instructions: do not exceed 3 doses per episode metformin 500 mg tablet 500 mg PO DAILY losartan-hydrochlorothiazide 50-12.5 mg tablet 1 tab PO DAILY fluticasone propionate [Allergy Relief (fluticasone)] 50 mcg/actuation spray,suspension 1 spray intranasal BID Rx Instructions: administer into each nostril multivitamin Tablet 1 tab PO DAILY cholecalciferol (vitamin D3) 125 mcg (5,000 unit) capsule 125 mcg PO DAILY metoprolol succinate 25 mg tablet extended release 24 hr 25 mg PO DAILY Artificial Tears (cmc) 1 % drops 1 drp ophthalmic (eye) TID atorvastatin 80 mg tablet 80 mg PO BEDTIME (DME) compressive stocking 0 .Route .MEDSUPPLY Interventions: ED Discharge Assessment Last Done: 06/18/24 10:14 Print Language: Frisian
[2024-06-18 10:14] VITALS: BP 147/56; PULSE 83; RESP 20; TEMP 36.7; O2SAT 95
== END 2024-06-18 10:15 | disposition home or self-care (01) ==
PROVIDERS: Emergency Provider Emergency Medicine
DX: Z48.01 Encounter for change or removal of surgical wound dressing (principal)
CPT/HCPCS: 99282

== ENCOUNTER 2024-06-20 15:21 | Inpatient (IN) | payer MEDICARE, SELFPAY ==
--- NOTE | ~2024-06-20 | CT_ITS ---
CLINICAL HISTORY: pain and swelling ?abscess Exam: CT of the right lower extremity with intravenous contrast. Comparison: None. Findings: Field of view extends from the knee to the ankle. Extensive induration seen throughout the subcutaneous fat of the knee, calf, and ankle. This is most pronounced at the level of the ankle. No discrete fluid collection seen to suggest abscess. No acute fracture periosteal reaction is identified. Moderate to severe degenerative change of the knee and ankle. No aggressive periosteal reaction. Impression: Findings most characteristic of cellulitis within the right lower extremity as above without abscess or CT findings of osteomyelitis. This document has been electronically signed by: Jonn Schwartz MD on 06/21/2024 01:35:32
--- NOTE | ~2024-06-20 | CT_ITS ---
CLINICAL HISTORY: pain and swelling, abscess CT abdomen and pelvis with contrast Comparison: CT/SR - CT LOWER LEG RT W IV CON - 06/21/24 00:41 EST Findings: No acute fracture or dislocation injury identified. With the distal most portion of the medial femoral condyle is not included on this examination. The right femoral head is appropriately positioned with respect to the right acetabulum. No cortical destruction of the bone or periosteal reaction identified. Degenerative changes are partially visualized at the right knee with probable loose bodies posteriorly. Bwmc-nc-[id number] edema identified within the included right thigh soft tissues, most prominent distally. No organized fluid or abscess collection identified. A small amount of soft tissue gas is identified posteriorly at the distal right thigh, extending toward the skin surface, visualized on axial image number 239 of series 2. Small, fat containing bilateral inguinal hernias are present. Mildly prominent right inguinal lymph node present. Additional borderline prominent bilateral inguinal lymph nodes are identified. IMPRESSION: 1. Sjmk-xz-kyigdjhq nonspecific edema identified within the right thigh soft tissues, possibly related to cellulitis in the appropriate clinical setting. No organized fluid or abscess collection demonstrated. A small amount of soft tissue gas identified within the subcutaneous soft tissues of the posterior aspect of the distal right thigh, extending toward the skin surface. This may be related to the soft tissue infection or posttraumatic change. 2. No acute fracture or dislocation injury identified. No CT evidence for active osteomyelitis. This document has been electronically signed by: Fady Mccray MD on 06/22/2024 02:54:59
[2024-06-20 15:49] VITALS: BP 130/82; PULSE 73; RESP 20; TEMP 36.5; O2SAT 97; BMI 56.3
--- NOTE | 2024-06-20 15:54 | ED.GENADULT ---
HPI - General Adult General Chief complaint: Skin/Abscess/Foreign Body Stated complaint: R leg infection Time Seen by Provider: 06/20/24 19:48 Source: patient Mode of arrival: ambulatory Limitations: no limitations History of Present Illness ED Provider: Nydia Copeland NP HPI narrative: Patient is a 54-year-old male with past medical history of hypertension, hyperlipidemia, type 2 diabetes, seizure disorder, JOE who presents emergency department for re-evaluation of a wound to the right posterior leg. He states that he was seen initially on 06/15/2024 and returned 2 days ago for a wound check. He had packing removed. He states that today he has noticed increasing pain and swelling to the right lower extremity without any acute trauma or injury. Denies numbness or tingling to the leg. Denies fevers or chills. States he has been compliant with his antibiotics including doxycycline and Keflex. Related Data Home Medications ?Medication ?Instructions ?Recorded ?Confirmed aspirin 81 mg tablet,delayed 81 mg PO DAILY 01/25/23 06/21/24 release atorvastatin 80 mg tablet 80 mg PO BEDTIME 01/25/23 06/21/24 cholecalciferol (vitamin D3) 125 125 mcg PO DAILY 01/25/23 06/21/24 mcg (5,000 unit) capsule compressive stocking 01/25/23 04/01/23 fluticasone propionate 50 1 spray intranasal BID PRN Allergy 01/25/23 06/21/24 mcg/actuation nasal Symptoms spray,suspension (Allergy Relief (fluticasone)) ibuprofen 800 mg tablet 800 mg PO Q8H 01/25/23 06/21/24 losartan 50 mg-hydrochlorothiazide 1 tab PO DAILY 01/25/23 06/21/24 12.5 mg tablet metformin 500 mg tablet 500 mg PO DAILY 01/25/23 06/21/24 metoprolol succinate 25 mg 25 mg PO DAILY 01/25/23 06/21/24 tablet,extended release 24 hr multivitamin 1 tab PO DAILY 01/25/23 06/21/24 nitroglycerin 0.4 mg sublingual 0.4 mg sublingual Q5M PRN CHEST 01/25/23 06/21/24 tablet PAIN doxazosin 8 mg tablet 8 mg PO QPM 06/21/24 06/21/24 melatonin 5 mg tablet 5 - 10 mg PO BEDTIME PRN Sleep 06/21/24 06/21/24 phenytoin sodium extended 100 mg 200 mg PO MOTUWETHFRSA@0900,21 06/21/24 06/21/24 capsule phenytoin sodium extended 100 mg 200 mg PO NIEVES@1800 06/21/24 06/21/24 capsule phenytoin sodium extended 100 mg 400 mg PO NIEVES 06/21/24 06/21/24 capsule Previous Rx's ?Medication ?Instructions ?Recorded cephalexin 500 mg capsule 500 mg PO QID 10 days #40 caps 06/15/24 doxycycline hyclate 100 mg tablet 100 mg PO BID #20 tabs 06/15/24 Allergies Allergy/AdvReac Type Severity Reaction Status Date / Time betamethasone Allergy Redness of Verified 06/20/24 15:51 Skin levetiracetam [From [facility]] Allergy Anxiety Verified 06/20/24 15:51 pseudoephedrine Allergy Anxiety Verified 06/20/24 15:51 Review of Systems Review of Systems: Yes all other systems are reviewed and are negative [facility] Past Medical History Attestation statement: The following information was validated with the patient. Source: old records reviewed Medical History JOE (obstructive sleep apnea) Renal stones Seizure disorder Diabetes mellitus, type II Hypercholesteremia Hypertension Surgical History Hx of tonsillectomy History of ankle surgery Family History Family History Father Diabetes mellitus Mother Pancreas cancer Social History Social History Alcohol intake: never Patient Tobacco Use Status: Never used Tobacco Smoked in Last 30 Days: No Second Hand Smoke Exposure: No Use of substances other than those prescribed or required for medical reasons: No Advance Directives: No Advance Directives Information Provided: No service: No Physical Exam ED Vital Signs: Vital Signs - 24 hr 06/20/24 15:49 Temperature 97.7 F Pulse Rate 73 Respiratory Rate 20 Blood Pressure 130/82 Pulse Oximetry 97 Oxygen Delivery Method Room Air BMI result Body Mass Index 56.3 Appearance: Alert.?Oriented to person, place and time. No acute distress.?Normal affect. CVS: Heart sounds normal. Normal heart rate and rhythm.? Pulses normal.?? Respiratory: No respiratory distress.? Lung sounds clear to auscultation bilaterally?? Abdomen: Soft and non-tender. Normoactive bowel sounds. Skin: Skin warm and dry.? Normal skin color.? Purulent drainage on dressing when removed.?? Extremities: Positive bilateral lower extremity edema right greater than left.? No calf ttp? Neuro: Moves all extremities spontaneously. Sensation intact bilaterally. Ambulates with normal steady gait. Course Course Course Narrative: RME: 54-year-old male presents to ED for right turn wound check. Patient had a drained last . Patient denies any fever or chills. Being compliant with antibiotics. Patient to be evaluated [facility]. Reevaluation(s) Reevaluation #1: I attempted to review CT imaging of the right lower extremity to evaluate for possible abscess, discovered at this time that CT only the lower extremity, the wound however is to the posterior upper leg/thigh, reviewed this with hospitalist. Unfortunately since he was initially scan with IV contrast he would not be able to have additional scan at this time. He requests that order be placed for CT tomorrow which was entered. Medications Administered Generic Name Dose Route Start Last Admin Trade Name Freq PRN Reason Stop Dose Admin Aspirin 81 mg 06/21/24 09:00 06/21/24 11:09 Aspirin Enteric Coated 81 Mg Tablet. PO 81 mg DAILY POLO Administration Enoxaparin Sodium 40 mg 06/20/24 23:45 06/21/24 01:09 Enoxaparin Sodium 40 Mg/0.4 Ml Syringe SUBCUT 40 mg BEDTIME POLO Administration Hydrochlorothiazide 12.5 mg 06/21/24 11:00 06/21/24 12:43 Hydrochlorothiazide 12.5 Mg Tablet PO 12.5 mg DAILY POLO Administration Vancomycin HCl 1,000 mg/ 535 mls @ 267.5 mls/hr 06/21/24 11:00 06/21/24 16:53 Vancomycin HCl 750 mg/ Sodium IV Infused Chloride Q12H POLO Infusion Insulin Human Lispro 0 unit 06/21/24 07:30 06/21/24 17:28 Insulin Lispro 100 Unit/Ml 3 Ml Vial SUBCUT Not Given QIDACHS [facility] Protocol Losartan Potassium 50 mg 06/21/24 11:00 06/21/24 12:41 Losartan Potassium 50 Mg Tablet PO 50 mg DAILY POLO Administration Metoprolol Succinate 25 mg 06/21/24 11:00 06/21/24 12:41 Metoprolol Succinate Er 25 Mg Tab.Er.24h PO 25 mg DAILY POLO Administration Protocol Phenytoin Sodium 200 mg 06/21/24 11:00 06/21/24 13:39 Phenytoin Sodium Extended 100 Mg Capsule PO 200 mg [email or web address] POLO Administration Sodium Chloride 3 ml 06/21/24 00:00 06/21/24 17:27 0.9 % Sodium Chloride Flush 3 Ml Syringe IVFLUSH 3 ml QSHIFT POLO Administration Vitamin D 125 mcg 06/21/24 11:00 06/21/24 12:42 Cholecalciferol (Vitamin D3) 25 Mcg Tablet PO 125 mcg DAILY POLO Administration Discontinued Medications Generic Name Dose Route Start Last Admin Trade Name Freq PRN Reason Stop Dose Admin Vancomycin HCl 2,000 mg in 500 mls @ 250 mls/hr 06/20/24 20:32 06/21/24 01:23 Vancomycin/Ns IV 06/20/24 22:31 Infused ONCE ONE Infusion Ibuprofen 400 mg 06/21/24 12:55 06/21/24 13:58 Ibuprofen 400 Mg Tablet PO 06/21/24 12:56 400 mg ONCE ONE Administration Iohexol 85 ml 06/21/24 00:50 06/21/24 00:50 Iohexol 350 Mg/Ml 100 Ml Infus..Btl IV 06/21/24 00:51 85 ml ONCE ONE Administration Lorazepam 0.5 mg 06/20/24 22:50 06/20/24 23:59 Lorazepam 2 Mg/Ml Vial IVPUSH 06/20/24 22:51 0.5 mg ONCE ONE Administration Medical Decision Making Medical Decision Making [facility] Narrative: Patient is a 54-year-old male with past medical history of hypertension, hyperlipidemia, type 2 diabetes, seizure disorder, JOE who presents for re-evaluation of right posterior leg wound as per HPI In comparison to photo from chart on 06/18/2024 appears to have increased surrounding erythema, today has a extensive erythema and swelling to the leg and even down through the calf. No areas of fluctuance around the wound is notably indurated Venous duplex ultrasound was performed on 06/15/2019 5- for DVT, do not see indication for repeat at this time. I suspect that the symptoms are most consistent with worsening cellulitis not responding to outpatient oral antibiotics and he will require inpatient admission for parenteral antibiotics. Obtaining CBC, CMP, lactic acid and blood cultures, will cover with cefazolin and vanco, wound culture from 06/15/2024 revealing MRSA susceptible to vanco. 2+ DP/PT pulse bilaterally. Spoke with hospitalist, Dr. Tyson, who has ordered CT lower extremity to evaluate further for abscess, as advised by cardiac cath lab radiology technologist that he was having significant anxiety with even his foot through the CT scanner due to his claustrophobia, he was provided with lorazepam 0.5 mg IV and was able to tolerate the exam. Differential Diagnosis Differential Diagnoses: The differential diagnosis associated with the presentation includes (See narrative above) Consult Healthcare Provider Management of the patient was discussed with: Hospitalist Lab Data MDM Lab Attestation statement: I reviewed the patient's lab results. CBC reveals no leukocytosis anemia or thrombocytopenia. No electrolyte derangement. No MARGARETTE. No lactic acidosis. 06/21/24 04:20 06/21/24 04:19 Labs: Lab Results 06/20/24 06/20/24 Range/Units 21:28 22:04 WBC 9.1 (4.8-10.8) X10*3/uL RBC 4.57 L (4.60-5.80) X10*6/uL Hgb 14.2 (14.0-18.0) g/dl Hct 41.2 L (42.0-52.0) % MCV 90.2 (80.0-98.0) fL MCH 31.1 (27.0-33.0) pg MCHC 34.5 (31.0-36.0) g/dl RDW 13.5 (11.0-16.0) % Plt Count 185 (160-400) X10*3/uL MPV 10.1 (9.4-12.4) fL Immature Gran % (Auto) 0.4 (0.0-0.4) % Neut % (Auto) 55.4 (45-73) % Lymph % (Auto) 32.3 (20-40) % [place] % (Auto) 8.9 (2-11) % Eos % (Auto) 2.6 (0-4) % Baso % (Auto) 0.4 (0-2) % Lymph # (Auto) 3.0 (1.2-4.9) X10*3/uL [place] # (Auto) 0.8 (0.1-1.2) X10*3/uL Eos # (Auto) 0.2 (0.0-0.4) X10*3/uL Baso # (Auto) 0.0 (0.0-0.2) X10*3/uL Abs Immat Gran (auto) 0.04 H (0.00-0.03) X10*3/uL Absolute Neuts (auto) 5.0 (2.0-8.3) x10*3/uL Absolute Nucleated RBC 0.000 (0.0-0.012) X10*3/uL Nucleated RBC % (auto) 0.0 (0.0-0.2) /100WBC Smear Tech's Comments VERIFIED Sodium 138 (135-145) mmol/L Potassium 3.6 (3.3-5.1) mmol/L Chloride 105 (96-108) mmol/L Carbon Dioxide 25 (22-29) mmol/L Anion Gap 12 (12-20) BUN 13 (9-16) mg/dL Creatinine 0.71 (0.5-1.4) mg/dL Estim Creat Clear Calc 194.6 Estimated GFR > 60 Random Glucose 119 H (60-115) mg/dL Lactic Acid 1.2 (0.5-2.0) mmol/L Calcium 9.3 (8.4-10.2) mg/dL Total Bilirubin 0.2 (0.0-1.0) mg/dL AST 63 H (5-37) U/L ALT 140 H (0-40) U/L Alkaline Phosphatase 141 H (39-117) U/L Total Protein 7.8 (6.5-8.0) g/dL Albumin 3.9 (3.5-5.0) g/dL Independent Interpretation I performed an independent interpretation of an: CT Scan (See course narrative) Radiology Impression Discussion of test interpretation with radiology: I have reviewed the radiologist's reading. Radiologist Impression: Exam: CT of the right lower extremity with intravenous contrast. Comparison: None. Findings: Field of view extends from the knee to the ankle. Extensive induration seen throughout the subcutaneous fat of the knee, calf, and ankle. This is most pronounced at the level of the ankle. No discrete fluid collection seen to suggest abscess. No acute fracture periosteal reaction is identified. Moderate to severe degenerative change of the knee and ankle. No aggressive periosteal reaction. Impression: Findings most characteristic of cellulitis within the right lower extremity as above without abscess or CT findings of osteomyelitis. External Record Review External record reviewed: Outpatient record Chronic Conditions Patient?s care impacted by: Other (See narrative above) Discharge Plan Discharge Clinical Impression: Cellulitis of right lower extremity Patient Disposition: Admitted As Inpatient
--- OUTSIDE RECORDS SUMMARY | 2024-06-20 17:46 | XMS_ITS | Continuity of Care Document ---
Author Organization [facility] Medicine Address [address] [place] [address]- Care Team Providers Care Knuckle Bender Name Role Phone Jorge HAIRSTON, Balbina Murray Primary Care Physician Encounter [facility] Date(s): 05/11/24 - 06/10/[address] [address]- Encounter Type: Triage Allergies, Adverse Reactions, Alerts No Known Medication Allergies Immunizations Given and Recorded Vaccine Date Status Refusal Reason tetanus/diphtheria/pertussis, acel(Tdap) 03/27/24 Recorded tetanus/diphtheria/pertussis, acel(Tdap) 01/25/23 Recorded influenza virus vaccine, inactivated 02/12/24 Chucky rded influenza virus vaccine, inactivated 01/25/23 Chucky rded influenza virus vaccine, inactivated 05/14/22 Chucky rded influenza virus vaccine, inactivated 01/13/22 Chucky rded influenza virus vaccine, inactivated 03/25/21 Chucky rded influenza virus vaccine, inactivated 01/20/21 Chucky rded influenza virus vaccine, inactivated 04/17/20 Chucky rded influenza virus vaccine, inactivated 03/20/19 Chucky rded influenza virus vaccine, inactivated 01/24/19 Chucky rded influenza virus vaccine, inactivated 01/27/18 Chucky rded influenza virus vaccine, inactivated 01/16/17 Chucky rded influenza virus vaccine, inactivated 07/04/15 Chucky rded SARS-CoV-2(COVID-19)mRNA-LNP vac([id number]) 02/12/24 Recorded SARS-CoV-2(COVID-19)mRNA-LNP vac([id number]) 12/01/23 Recorded SARS-CoV-2(COVID-19)mRNA-LNP vac([id number]) 03/09/23 Recorded pneumococcal 20-valent conjugate vaccine 05/24/23 Recorded [id number] bivalent booster vax 10/08/22 Recorded [id number] bivalent booster vax 03/11/22 Recorded SARS-CoV-2 (COVID-19) mRNA-1273 vaccine 09/29/21 R ecorded SARS-CoV-2 (COVID-19) mRNA-1273 vaccine 04/01/21 R ecorded SARS-CoV-2 (COVID-19) mRNA-1273 vaccine 08/19/20 R ecorded SARS-CoV-2 (COVID-19) mRNA-1273 vaccine 07/23/20 R ecorded zoster vaccine, inactivated 07/29/21 Recorded zoster vaccine, inactivated 05/04/21 Recorded Measles/Mumps/Rubella Virus Vaccine 10/31/18 Recor ded Medications ammonium lactate 12% topical cream 1 application, Topically, 2 times a day, # 140 Gm, 0 Refills, Maintenance, 04/16/23 4:38:00 PM EST,[place], [id number], Partial fill upon patient request if the prescription is for a schedule II opioid drug., 1 application Topically 2 times a day, 182, cm, 04/16/23 15:31:00 EST, Height, 185,kg, 04/16/23 15:31:00 EST, Dry Weight Start Date: 04/16/23 Status: Ordered Quantity: 140.0 Unit: g Repeat number: 1 Artificial Tears preserved solution 1 drops, Eyes, Both, 2 times a day, PRN for dry eyes, # 10 mL, 0 Refills, Maintenance, 03/19/23 3:58:00 PM EDT, Solution, Partial fill upon patient request if the prescription is for a schedule II opioid drug. Start Date: 03/19/23 Status: Ordered Quantity: 10.0 Unit: mL Repeat number: 1 aspirin 81 mg oral delayed release tablet 81 mg, 1, tablet, By Mouth, Daily, # 30 tablet, Refills 0, Maintenance, 03/19/23 3:55:00 PM EDT, Partial fill upon patient request if the prescription is for a schedule II opioid drug. Start Date: 03/19/23 Status: Ordered Quantity: 30.0 Unit: tablet Repeat number: 1 atorvastatin 80 mg oral tablet 1 tablet = 80 mg, By Mouth, Daily, # 90 tablet, 0 Refills, Maintenance, 03/19/23 3:57:00 PM EDT, Tablet, Partial fill upon patient request if the prescription is for a schedule II opioid drug. Start Date: 03/19/23 Status: Ordered Quantity: 90.0 Unit: tablet Repeat number: 1 doxazosin 8 mg oral tablet 1 tablet = 8 mg, By Mouth, Daily, # 90 tablet, 0 Refills, Maintenance, 03/19/23 3:56:00 PM EDT, Tablet, Partial fill upon patient request if the prescription is for a schedule II opioid drug. Start Date: 03/19/23 Status: Ordered Quantity: 90.0 Unit: tablet Repeat number: 1 fluticasone 50 mcg/inh nasal spray 2 sprays, Nares, Both, Daily in AM, 0 Refills, Maintenance, 03/19/23 3:57:00 PM EDT, [place], Partialfill upon patient request if the prescription is for a schedule II opioid drug. Start Date: 03/19/23 Status: Ordered Repeat number: 1 hydrochlorothiazide-losartan 12.5 mg-50 mg oral tablet 1 tablet, By Mouth, Daily, # 90 tablet, 0 Refills, Maintenance, 05/19/24 8:47:00 AM EST, Tablet, [id number], Partial fill upon patient request if the prescription is for a schedule II opioid drug., 1 tablet By Mouth Daily,x90 days, 181.2, cm, 05/19/24 8:33:00 EST, Height, 185, kg, 04/16/23 15:31:00 EST, Dry Weight Start Date: 05/19/24 Stop Date: 08/17/24 Status: Ordered Quantity: 90.0 Unit: tablet Repeat number: 1 ibuprofen 800 mg oral tablet 800 mg, 1, tablet, By Mouth, 3 times a day, PRN, # 30 tablet, Refills 0, Maintenance, for pain, 03/19/23 3:54:00 PM EDT, Partial fill upon patient request if the prescription is for a schedule II opioid drug. Start Date: 03/19/23 Status: Ordered Quantity: 30.0 Unit: tablet Repeat number: 1 melatonin 5 mg oral tablet 1 tablet = 5 mg, By Mouth, Daily at bedtime, PRN for insomnia, # 60 tablet, 0 Refills, Maintenance,03/19/23 3:57:00 PM EDT, Tablet, Partial fill upon patient request if the prescription is for a schedule II opioid drug. Start Date: 03/19/23 Status: Ordered Quantity: 60.0 Unit: tablet Repeat number: 1 metFORMIN 500 mg oral tablet 1 tablet = 500 mg, By Mouth, Daily, with meals, # 30 tablet, 0 Refills, Maintenance, 03/19/23 3:56:00 PM EDT, Tablet, Partial fill upon patient request if the prescription is for a schedule II opioiddrug. Start Date: 03/19/23 Status: Ordered Quantity: 30.0 Unit: tablet Repeat number: 1 Metoprolol Succinate ER 25 mg oral tablet, extended release 1 tablet = 25 mg, By Mouth, Daily, # 30 tablet, 0 Refills, Maintenance, 03/19/23 4:00:00 PM EDT, ERTablet, Partial fill upon patient request if the prescription is for a schedule II opioid drug. Start Date: 03/19/23 Status: Ordered Quantity: 30.0 Unit: tablet Repeat number: 1 nitroglycerin 0.4 mg sublingual tablet 1 tablet = 0.4 mg, Sublingual, Every 5 minutes, PRN as needed for chest pain, not to exceed 3 doses/15 min--if pain persists, seek medical attention, # 25 tablet, 0 Refills, Maintenance, 03/19/23 3:55:00 PM EDT, Tablet, Partial fill upon patient request if the prescription is for a schedule II opioid drug. Start Date: 03/19/23 Status: Ordered Quantity: 25.0 Unit: tablet Repeat number: 1 phenytoin 200 mg oral capsule, extended release 1 capsule = 200 mg, By Mouth, 2 times a day, On Wednesday he takes 2 tablets 2 times a day., # 90 capsule, 0 Refills, Maintenance, 03/19/23 3:54:00 PM EDT, CR Capsule, Partial fill upon patient request if the prescription is for a schedule II opioid drug. Start Date: 03/19/23 Status: Ordered Quantity: 90.0 Unit: capsule Repeat number: 1 Vitamin C 500 mg oral tablet 2 tablet = 1,000 mg, By Mouth, 2 times a day, # 30 tablet, 0 Refills, Maintenance, 03/19/23 3:53:00PM EDT, Tablet, Partial fill upon patient request if the prescription is for a schedule II opioid drug. Start Date: 03/19/23 Status: Ordered Quantity: 30.0 Unit: tablet Repeat number: 1 Vitamin D3 125 mcg (5000 intl units) oral tablet, disintegrating 1 tablet = 125 mcg, By Mouth, Daily, 0 Refills, Maintenance, 03/19/23 3:57:00 PM EDT, Partial fill upon patient request if the prescription is for a schedule II opioid drug. Start Date: 03/19/23 Status: Ordered Repeat number: 1 Problem List Condition Confirmation Course Effective Dates Status H ealth Status Informant Hyperlipidemia Confirmed Active Hypertension Confirmed Active Establishing care with new doctor, encounter for Confirmed Active Seizure disorder Confirmed Active Severe obesity Confirmed Active Type 2 diabetes mellitus Confirmed Active Venous insufficiency of both lower extremities Confirmed Active Patient Care team information Care Team Personnel Name: Jorge HAIRSTON, Balbina Murray Position: S Physician - Primary Care Member Role: PCP Address: [address] [place] [address] Telecom: Insurance Providers Guarantor name: MELISSA Health Plan Information #: 1 Payer: [employer] [facility] Member Number: NA Policy Number: NA Group Number: NA
[2024-06-20 21:37] LABS: Basophils Percent Auto 0.4 % (0-2); Eosinophils Absolute Auto 0.2 X10*3/uL (0.0-0.4); Eosinophils Percent Auto 2.6 % (0-4); Hematocrit 41.2 % (42.0-52.0); Hemoglobin 14.2 g/dl (14.0-18.0); Imm Gran Abs Auto 0.04 X10*3/uL (0.00-0.03); Imm Gran Pct Auto 0.4 % (0.0-0.4); Lymphocytes Percent Auto 32.3 % (20-40); MANUAL DIFF FLAG SCAN; Mean Corpuscular HGB Conc 34.5 g/dl (31.0-36.0); Mean Corpuscular Hemoglobin 31.1 pg (27.0-33.0); Mean Corpuscular Volume 90.2 fL (80.0-98.0); Monocytes Absolute Auto 0.8 X10*3/uL (0.1-1.2); Monocytes Percent Auto 8.9 % (2-11); Neutrophils Percent Auto 55.4 % (45-73); PLT CLUMP 1; Red Blood Count 4.57 X10*6/uL (4.60-5.80); Red Cell Distribution Width 13.5 % (11.0-16.0); SCAN SMEAR FLAG 1; White Blood Count 9.1 X10*3/uL (4.8-10.8)
[2024-06-20 21:49] LABS: Alanine Aminotransferase 140 U/L (0-40); Albumin Level 3.9 g/dL (3.5-5.0); Alkaline Phosphatase 141 U/L (39-117); Anion Gap 12 (12-20); Aspartate Amino Transferase 63 U/L (5-37); Bilirubin Total 0.2 mg/dL (0.0-1.0); Blood Urea Nitrogen 13 mg/dL (9-16); Calcium 9.3 mg/dL (8.4-10.2); Carbon Dioxide 25 mmol/L (22-29); Chloride 105 mmol/L (96-108); Creatinine Clr Calc Pharmacy 194.6; Estimated Glomerular Filt Rate > 60; Glucose Random 119 mg/dL (60-115); Potassium 3.6 mmol/L (3.3-5.1); Sodium 138 mmol/L (135-145); Total Protein 7.8 g/dL (6.5-8.0)
[2024-06-20 21:53] LABS: Mean Platelet Volume 10.1 fL (9.4-12.4); Platelet Count 185 X10*3/uL (160-400); SLIDE REVIEW VERIFIED
--- NOTE | 2024-06-20 22:04 | PC.NURSE ---
Abx delayed due to pt being a difficult stick. #20 PIV initiated to right AC. second set of blood cultures and lactic obtained.
[2024-06-20] MEDS: vancomycin/NS 2,000 MG/500 ML PLAST..BAG 250 MG IV (22:14)
[2024-06-20 22:28] LABS: Lactic Acid 1.2 mmol/L (0.5-2.0)
--- NOTE | 2024-06-20 23:54 | PM.IMHP ---
History of Present Illness Date of Service: 06/20/24 Chief Complaint: right leg wound This is a 54-year-old male with pertinent history of vox-baehafu-onkqbjvww type 2 diabetes mellitus, JOE not on CPAP, mixed hyperlipidemia, hypertension, obesity who presents to the emergency department evaluation of right leg wound. Patient was seen in the ER for draining posterior leg wound on 06/15 when the wound was drained and sent for culture. Patient return on 06/17 for wound check when packing was removed. Patient was prescribed doxycycline and Keflex and has been compliant with his oral antibiotics. Patient states he noticed increasing pain and swelling despite antibiotics. No fever, chills, nausea, vomiting, chest pain, palpitations, shortness of breath, abdominal pain, changes in urinary or bowel habits. In the emergency department, patient was given IV vancomycin. Wound culture from 06/15 positive for MRSA Review of Systems Constitutional: Constitutional: Reports no additional constitutional complaints Cardiovascular: Cardiovascular: Reports no additional cardiovascular complaints Respiratory: Respiratory: Reports no additional respiratory complaints Gastrointestinal: Gastrointestinal: Reports no additional gastrointestinal complaints [facility] Medical History JOE (obstructive sleep apnea) Renal stones Seizure disorder Diabetes mellitus, type II Hypercholesteremia Hypertension Family History Father Diabetes mellitus Mother Pancreas cancer Surgical History Hx of tonsillectomy History of ankle surgery Social History Alcohol intake: never Patient Tobacco Use Status: Never used Tobacco Second Hand Smoke Exposure: No Advance Directives: No Advance Directives Information Provided: No service: No Meds Allergies Allergy/AdvReac Type Severity Reaction Status Date / Time betamethasone Allergy Redness of Verified 06/20/24 15:51 Skin levetiracetam [From Ezra] Allergy Anxiety Verified 06/20/24 15:51 pseudoephedrine Allergy Anxiety Verified 06/20/24 15:51 Home Medications ?Medication ?Instructions ?Recorded ?Confirmed ?Last Taken ?Type aspirin 81 mg tablet,delayed 81 mg PO DAILY 01/25/23 10/14/23 04/01/23 History release atorvastatin 80 mg tablet 80 mg PO BEDTIME 01/25/23 10/14/23 Unknown History carboxymethylcellulose sodium 1 % 1 drp ophthalmic (eye) TID 01/25/23 10/14/23 Unknown History eye drops (Artificial Tears (carboxymethylcellulose)) cholecalciferol (vitamin D3) 125 125 mcg PO DAILY 01/25/23 10/14/23 Unknown History mcg (5,000 unit) capsule compressive stocking 01/25/23 04/01/23 Unknown History fluticasone propionate 50 1 spray intranasal BID 01/25/23 10/14/23 Unknown History mcg/actuation nasal spray,suspension (Allergy Relief (fluticasone)) ibuprofen 800 mg tablet 800 mg PO Q8H 01/25/23 10/14/23 Unknown History losartan 50 mg-hydrochlorothiazide 1 tab PO DAILY 01/25/23 10/14/23 Unknown History 12.5 mg tablet metformin 500 mg tablet 500 mg PO DAILY 01/25/23 10/14/23 Unknown History metoprolol succinate 25 mg 25 mg PO DAILY 01/25/23 10/14/23 Unknown History tablet,extended release 24 hr multivitamin 1 tab PO DAILY 01/25/23 10/14/23 Unknown History nitroglycerin 0.4 mg sublingual 0.4 mg sublingual Q5M PRN CHEST 01/25/23 10/14/23 Unknown History tablet PAIN Physical Exam Vital Signs and Narrative: Vital Signs: Last Vital Signs Temp 97.7 F 06/20/24 15:49 Pulse 73 06/20/24 15:49 Resp 20 06/20/24 15:49 BP 130/82 06/20/24 15:49 Pulse Ox 97 06/20/24 15:49 O2 Del Method Room Air 06/20/24 15:49 BMI result Body Mass Index 56.3 Middle-aged male lying in bed in no distress Neck supple, no JVD Regular rate and rhythm, S1-S2 heard Regular breath sounds bilaterally, no wheezing or crackles appreciated Abdomen soft nontender, no guarding, no rigidity Patient is awake, alert and oriented to self, place, time and person ; no focal motor deficit Psych: Normal mood Right posterior leg wound with erythema, warmth (as pictured below) Skin: Other: Results Labs 06/20/24 21:28 06/20/24 21:28 Labs: Laboratory Results - last 24 hr 06/20/24 06/20/24 21:28 22:04 MCV 90.2 MCH 31.1 MCHC 34.5 RDW 13.5 Plt Count 185 MPV 10.1 Immature Gran % (Auto) 0.4 Neut % (Auto) 55.4 Lymph % (Auto) 32.3 [place] % (Auto) 8.9 Eos % (Auto) 2.6 Baso % (Auto) 0.4 Lymph # (Auto) 3.0 [place] # (Auto) 0.8 Eos # (Auto) 0.2 Baso # (Auto) 0.0 Abs Immat Gran (auto) 0.04 H Absolute Neuts (auto) 5.0 Absolute Nucleated RBC 0.000 Nucleated RBC % (auto) 0.0 Smear Tech's Comments VERIFIED Anion Gap 12 Estim Creat Clear Calc 194.6 Estimated GFR > 60 Random Glucose 119 H Lactic Acid 1.2 Calcium 9.3 Total Bilirubin 0.2 AST 63 H ALT 140 H Alkaline Phosphatase 141 H Total Protein 7.8 Albumin 3.9 Assessment and Plan (1) Cellulitis of right lower extremity: Status: Acute Plan This is a 54-year-old male with pertinent history of xhl-hhkrili-ebrglxqph type 2 diabetes mellitus, JOE not on CPAP, mixed hyperlipidemia, hypertension, obesity who presents to the emergency department evaluation of right leg wound. #. Right lower extremity purulent cellulitis: Will admit patient with IV vancomycin as he failed outpatient p.o. antibiotics. Wound culture from 06/15 positive for MRSA. Imaging pending. Wound care consult. No sepsis #. Mho-rqjovwg-wnywyiksc diabetes mellitus: Initiating Accu-Cheks with sliding scale insulin before meals and at bedtime. Hold metformin #. JOE: Ordered CPAP at bedtime while in the hospital #. Mixed hyperlipidemia: On statin #. Hypertension: Continue home antihypertensives #. Obesity: Counseled regarding diet and exercise Med rec pending DVT prophylaxis: Lovenox Full code Admit as inpatient and will require two night minimum hospital stay for IV antibiotics (as above), which is not possible in a lesser acute setting. Quality Stroke Does the patient have a stroke diagnosis?: No VTE Prior VTE?: No VTE Risk Level:: Medical - moderate - high VTE Device Contraindication: Treatment Not Indicated VTE Drug Contraindication: N/A - Med Ordered
[2024-06-20] MEDS: LORazepam 2 MG/ML VIAL 0.5 MG IVPUSH (23:59)
[2024-06-21] MEDS: iohexoL 350 MG/ML 100 ML INFUS..BTL 85 ML IV (00:50)
[2024-06-21] MEDS: Enoxaparin Sodium 40 MG/0.4 ML SYRINGE SUBCUT ×2 (01:09→21:09)
[2024-06-21 02:00] VITALS: BP 145/70; PULSE 64; RESP 15; TEMP 37; O2SAT 95
[2024-06-21 04:24] LABS: MANUAL DIFF FLAG NO
[2024-06-21 04:34] LABS: Basophils Percent Auto 0.5 % (0-2); Eosinophils Absolute Auto 0.2 X10*3/uL (0.0-0.4); Eosinophils Percent Auto 2.6 % (0-4); Hematocrit 40.2 % (42.0-52.0); Hemoglobin 13.8 g/dl (14.0-18.0); Imm Gran Abs Auto 0.07 X10*3/uL (0.00-0.03); Imm Gran Pct Auto 0.8 % (0.0-0.4); Lymphocytes Absolute Auto 2.5 X10*3/uL (1.2-4.9); Lymphocytes Percent Auto 29.7 % (20-40); Mean Corpuscular HGB Conc 34.3 g/dl (31.0-36.0); Mean Corpuscular Hemoglobin 30.8 pg (27.0-33.0); Mean Corpuscular Volume 89.7 fL (80.0-98.0); Mean Platelet Volume 9.5 fL (9.4-12.4); Monocytes Absolute Auto 0.7 X10*3/uL (0.1-1.2); Monocytes Percent Auto 8.1 % (2-11); Neutrophils Absolute Auto 4.9 x10*3/uL (2.0-8.3); Neutrophils Percent Auto 58.3 % (45-73); Platelet Count 263 X10*3/uL (160-400); Red Blood Count 4.48 X10*6/uL (4.60-5.80); Red Cell Distribution Width 13.4 % (11.0-16.0); White Blood Count 8.4 X10*3/uL (4.8-10.8)
[2024-06-21 04:38] LABS: Anion Gap 16 (12-20); Blood Urea Nitrogen 10 mg/dL (9-16); Calcium 8.9 mg/dL (8.4-10.2); Carbon Dioxide 22 mmol/L (22-29); Chloride 107 mmol/L (96-108); Creatinine Clr Calc Pharmacy 200.3; Estimated Glomerular Filt Rate > 60; Glucose Random 142 mg/dL (60-115); Potassium 4.2 mmol/L (3.3-5.1); Sodium 141 mmol/L (135-145)
[2024-06-21 06:03] VITALS: BP 124/65; PULSE 69; RESP 18; TEMP 36.9; O2SAT 96
--- NOTE | 2024-06-21 06:54 | PHA.PROG ---
Admission Date/Time: June 20, 2024 23:52 Indication: SKIN Weight in k.251 kg Adjusted body weight in Kg: [place] body weight in Kg: Obesity Dosing Indication % IBW: Serum Creatinine - Last 168 Hours 06/20/24 06/21/24 21:28 04:19 Creatinine 0.71 0.69 Estimated CrCl and GFR - Last 168 Hours 06/20/24 06/21/24 21:28 04:19 Estim Creat Clear Calc 194.6 200.3 Estimated GFR > 60 > 60 Vancomycin Loading Dose: 2000 MG Current Vancomycin Dosing Regimen: 1750 MG Q12H Vancomycin Monitoring using AUC goal of 400 - 600 range with trough as surrogate marker: KDC=230 TROUGH=13.2 Date and Time for next Vancomycin Level to be drawn: 06/22/24 @0900 Pharmacist Comments on Vancomycin Plan: Vancomycin dosing will take advantage of [employer] as a clinical decision support tool that uses Bayesian modeling to calculate individual patient's pharmacokinetic parameters and forecast the patient's drug concentration time course with the target goal AUC 24 range of 400 - 600 mg/L/hr.
[2024-06-21 07:30] LABS: Glucose, Whole Blood 126 mg/dL (60-115)
--- NOTE | 2024-06-21 08:30 | PC.NURSE ---
RN was able to confirm that the pt takes phenytoin sodium 200mg BID (except Wednesday's when he takes 400mg BID). Med rec updated and hospitalist made aware, hospitalist stated she is not caring for this patient. RN outsourcing to other providers for follow through on medication addition
--- NOTE | 2024-06-21 09:59 | PHA.MEDREC ---
Addendum entered by Lacie Gomez RPh 06/21/24 10:31: Reviewed by [facility]. Original Note: Pharmacy Consult ? Medication Reconciliation Pharmacy has completed the medication reconciliation. Spoke to patient to confirm med list. Patient states he no longer takes Lomotil, Erythromycin oint, Fluticasone nasal spray, Loperamide 2 mg. Patient states he isn't on any pain meds other than Ibuprofen 800 mg. Patient confirmed Phenytoin Sod is 200 Mg BID Wednesday through Wednesday and on Sundays patient takes 400 mg QAM and 200 mg QPM (Claims states on Sundays is 400 mg BID). Patient states he is still taking Cephalexin 500 mg QID ( End date 06/26/24) and Doxycycline Hyc 100 mg BID( End date 06/26/24).
[2024-06-21 10:46] VITALS: BP 145/78; PULSE 66; RESP 20; TEMP 36.6; O2SAT 97
--- NOTE | 2024-06-21 11:04 | PC.NURSE ---
report given to ERIC Fitch In overflow pt to go to Overflow 3
[2024-06-21] MEDS: Aspirin Enteric Coated 81 MG TABLET.DR PO (11:09)
[2024-06-21 11:43] LABS: Glucose, Whole Blood 102 mg/dL (60-115)
--- NOTE | 2024-06-21 12:32 | HO.PM.IMPN ---
Subjective Subjective Date of Service: 06/21/24 Interval History: ongiong drainage from RLE wound Physical Exam Vital Signs: Vital Signs: Last Vital Signs Temp 97.8 F 06/21/24 10:46 Pulse 66 06/21/24 10:46 Resp 20 06/21/24 10:46 BP 145/78 H 06/21/24 10:46 Pulse Ox 97 06/21/24 10:46 O2 Del Method Room Air 06/21/24 10:46 BMI result Body Mass Index 56.3 unchange rle wound and swelling Objective Data Active Medications Acetaminophen (Acetaminophen 325 Mg Tablet) 650 mg PO Q6H PRN PRN Reason: Pain, Mild 1-3,fever,headache Aspirin (Aspirin Enteric Coated 81 Mg Tablet.) 81 mg PO DAILY [facility] Last Admin: 06/21/24 11:09 Dose: 81 mg Documented By: SHREYA Atorvastatin Calcium (Atorvastatin Calcium 80 Mg Tablet) 80 mg PO BEDTIME [facility] Calcium Carbonate (Calcium Carbonate 750 Mg Tab.Chew) 750 mg PO Q4H PRN PRN Reason: Heartburn Enoxaparin Sodium (Enoxaparin Sodium 40 Mg/0.4 Ml Syringe) 40 mg SUBCUT BEDTIME [facility] Last Admin: 06/21/24 01:09 Dose: 40 mg Documented By: DANK Glucose (Glucose Gel 15 Gm Gel..Gram.) 15 gm PO Q15M PRN; Protocol PRN Reason: per Hypoglycemia Standing Ord. Hydrochlorothiazide (Hydrochlorothiazide 12.5 Mg Tablet) 12.5 mg PO DAILY [facility] Dextrose (D10) 250 mls @ 750 mls/hr IV Q15M PRN; Protocol PRN Reason: per Hypoglycemia Standing Ord. Vancomycin HCl 1,000 mg/Vancomycin HCl 750 mg/ Sodium Chloride 535 mls @ 267.5 mls/hr IV Q12H [facility] Insulin Human Lispro (Insulin Lispro 100 Unit/Ml 3 Ml Vial) 0 unit SUBCUT QIDACHS [facility]; Protocol Last Admin: 06/21/24 07:27 Dose: Not Given Documented By: BRONWYN Non-Admin Reason: POC 126 Losartan Potassium (Losartan Potassium 50 Mg Tablet) 50 mg PO DAILY [facility] Magnesium Hydroxide (Milk Of Magnesia 30 Ml Oral.Susp) 30 ml PO DAILY PRN PRN Reason: Constipation Melatonin (Melatonin 3 Mg Tablet) 6 mg PO BEDTIME PRN PRN Reason: Insomnia Metoprolol Succinate (Metoprolol Succinate Er 25 Mg Tab.Er.24h) 25 mg PO DAILY [facility]; Protocol Ondansetron HCl (Ondansetron Hcl 4 Mg/2 Ml Vial) 4 mg IVPUSH Q8H PRN PRN Reason: Nausea and Vomiting Pharmacy Consult (Consult Rx Vancomycin Dosing) 1 each MISCELLANE DAILY PRN PRN Reason: Consult order Phenytoin Sodium (Phenytoin Sodium Extended 100 Mg Capsule) 200 mg PO [email or web address] [facility] Sodium Chloride (0.9 % Sodium Chloride Flush 3 Ml Syringe) 3 ml IVFLUSH QSHIFT [facility] Last Admin: 06/21/24 07:57 Dose: Not Given Documented By: BRONWYN Non-Admin Reason: 10ml flush used Vitamin D (Cholecalciferol (Vitamin D3) 25 Mcg Tablet) 125 mcg PO DAILY [facility] Labs 06/21/24 04:20 06/21/24 04:19 Labs: Laboratory Results - last 24 hr 06/20/24 06/20/24 06/21/24 21:28 22:04 04:19 MCV 90.2 MCH 31.1 MCHC 34.5 RDW 13.5 Plt Count 185 MPV 10.1 Immature Gran % (Auto) 0.4 Neut % (Auto) 55.4 Lymph % (Auto) 32.3 [place] % (Auto) 8.9 Eos % (Auto) 2.6 Baso % (Auto) 0.4 Lymph # (Auto) 3.0 [place] # (Auto) 0.8 Eos # (Auto) 0.2 Baso # (Auto) 0.0 Abs Immat Gran (auto) 0.04 H Absolute Neuts (auto) 5.0 Absolute Nucleated RBC 0.000 Nucleated RBC % (auto) 0.0 Smear Tech's Comments VERIFIED Anion Gap 12 16 Estim Creat Clear Calc 194.6 200.3 Estimated GFR > 60 > 60 POC Glucose Random Glucose 119 H 142 H Lactic Acid 1.2 Calcium 9.3 8.9 Total Bilirubin 0.2 AST 63 H ALT 140 H Alkaline Phosphatase 141 H Total Protein 7.8 Albumin 3.9 06/21/24 06/21/24 06/21/24 04:20 07:24 11:39 MCV 89.7 MCH 30.8 MCHC 34.3 RDW 13.4 Plt Count 263 D MPV 9.5 Immature Gran % (Auto) 0.8 H Neut % (Auto) 58.3 Lymph % (Auto) 29.7 [place] % (Auto) 8.1 Eos % (Auto) 2.6 Baso % (Auto) 0.5 Lymph # (Auto) 2.5 [place] # (Auto) 0.7 Eos # (Auto) 0.2 Baso # (Auto) 0.0 Abs Immat Gran (auto) 0.07 H Absolute Neuts (auto) 4.9 Absolute Nucleated RBC 0.000 Nucleated RBC % (auto) 0.0 Smear Tech's Comments Anion Gap Estim Creat Clear Calc Estimated GFR POC Glucose 126 H 102 Random Glucose Lactic Acid Calcium Total Bilirubin AST ALT Alkaline Phosphatase Total Protein Albumin Assessment and Plan (1) Diabetes mellitus, type II: Status: Acute Plan 54M PMH diabetes, morbid obesity, JOE not on CPAP, hyperlipidemia, seizure disorder, hypertension presented with worsening swelling and drainage from right lower extremity wound Right lower extremity cellulitis and drainage Failed p.o. antibiotics, continue IV vancomycin, follow up cultures, follow up wound care, follow up CT Diabetes Home metformin, insulin sliding scale Morbid obesity Weight loss recommended JOE Recommend CPAP at night Hypertension Continue losartan, hydrochlorothiazide, metoprolol Seizure disorder Continue phenytoin DVT prophylaxis Lovenox Full Code reason for continued hospitalization: IV antibiotics due to failure p.o. Quality Stroke Does the patient have a stroke diagnosis?: No VTE Prior VTE?: No VTE Risk Level:: Medical - moderate - high VTE Device Contraindication: Treatment Not Indicated VTE Drug Contraindication: N/A - Med Ordered
[2024-06-21] MEDS: Losartan Potassium 50 MG TABLET PO (12:41)
[2024-06-21] MEDS: Metoprolol Succinate ER 25 MG TAB.ER.24H PO (12:41)
[2024-06-21] MEDS: Cholecalciferol (Vitamin D3) 25 MCG TABLET 125 MCG PO (12:42)
[2024-06-21] MEDS: hydroCHLOROthiazide 12.5 MG TABLET PO (12:43)
[2024-06-21] MEDS: vancomycin HCL 1,000 MG, vancomycin HCL 750 MG in 0.9 % Sodium Chloride 500 ML 267.5 MG IV ×2 (12:45→22:59)
[2024-06-21] MEDS: Phenytoin Sodium Extended 100 MG CAPSULE 200 MG PO ×2 (13:39→21:08)
--- NOTE | 2024-06-21 13:48 | MHC.CM.PN ---
PT LIVES ALONE IS INDEPENDENT HAS NO SERVIES HAS OWN RIDE HOME PTS CAR [place] [facility]
[2024-06-21] MEDS: Ibuprofen 400 MG TABLET PO (13:58)
[2024-06-21 14:58] VITALS: BP 155/69; PULSE 66; RESP 16; TEMP 36.6; O2SAT 98
[2024-06-21 15:04] VITALS: BMI 57.5
[2024-06-21 17:21] LABS: Glucose, Whole Blood 110 mg/dL (60-115)
[2024-06-21] MEDS: 0.9 % Sodium Chloride Flush 3 ML SYRINGE IVFLUSH (17:27)
[2024-06-21 20:19] LABS: Glucose, Whole Blood 135 mg/dL (60-115)
[2024-06-21 21:01] VITALS: BP 133/77
[2024-06-21] MEDS: Atorvastatin Calcium 80 MG TABLET PO (21:01)
[2024-06-21] MEDS: Doxazosin Mesylate 2 MG TABLET 8 MG PO (21:01)
[2024-06-22] MEDS: LORazepam 2 MG/ML VIAL IVPUSH (00:51)
[2024-06-22] MEDS: Acetaminophen 325 MG TABLET 650 MG PO ×2 (00:55→09:56)
[2024-06-22] MEDS: 0.9 % Sodium Chloride Flush 3 ML SYRINGE IVFLUSH ×2 (00:58→08:53)
[2024-06-22] MEDS: iohexoL 350 MG/ML 100 ML INFUS..BTL IV (01:45)
[2024-06-22] MEDS: ondansetron HCL 4 MG/2 ML VIAL IVPUSH (04:11)
[2024-06-22] MEDS: Melatonin 3 MG TABLET 6 MG PO (04:15)
--- NOTE | 2024-06-22 04:17 | PC.NURSE ---
Pt awoke from his sleep and rushed to the restroom stating he had one episode of vomiting and diarrhea, soiling his pants. Zofran given. Pt requested melatonin. Pt requested a new pair of pants, largest size we have is 3X which was too small for pt. Notified pt to contact a family member later in the morning to see if they could bring him another pair.
[2024-06-22 06:15] VITALS: BP 126/84; PULSE 100; RESP 18; TEMP 36.7; O2SAT 92
[2024-06-22 06:37] LABS: Creatinine Clr Calc Pharmacy 186.6; Estimated Glomerular Filt Rate > 60
[2024-06-22 07:52] LABS: Glucose, Whole Blood 176 mg/dL (60-115)
[2024-06-22 08:32] VITALS: BP 142/73; PULSE 93; RESP 16; TEMP 37.1; O2SAT 92
[2024-06-22] MEDS: Insulin Lispro 100 UNIT/ML 3 ML VIAL SUBCUT (08:54)
--- NOTE | 2024-06-22 09:14 | P.DS_ITS ---
DS: Providers Provider Date of Service: 06/22/24 Date of admission: 06/20/24 23:52 Date of discharge: 06/22/24 Primary care physician: Claudette Patel MD DS: Diagnosis Discharge Diagnosis (1) Diabetes mellitus, type II: Status: Acute DS: Summary Hospital Course Hospital Course: from initial hpi: 54-year-old male with pertinent history of xcd-[id number] type 2 diabetes mellitus, JOE not on CPAP, mixed hyperlipidemia, hypertension, obesity who presents to the emergency department evaluation of right leg wound. Patient was seen in the ER for draining posterior leg wound on 06/15 when the wound was drained and sent for culture. Patient return on 06/17 for wound check when packing was removed. Patient was prescribed doxycycline and Keflex and has been compliant with his oral antibiotics. Patient states he noticed increasing pain and swelling despite antibiotics. No fever, chills, nausea, vomiting, chest pain, palpitations, shortness of breath, abdominal pain, changes in urinary or bowel habits. In the emergency department, patient was given IV vancomycin. Wound culture from 06/15 positive for MRSA hospital course: For right lower extremity cellulitis and drainage and failure of p.o. antibiotics. He was treated with IV vancomycin. Imaging did not reveal any drainable abscess. Erythema improved. Still has some leftover induration. Drainage slowed down. We will continue with Keflex [facility]. For diabetes was continued on insulin sliding scale. For morbid obesity weight loss recommended. For JOE was recommended CPAP at night. For hypertension continued on losartan, hydrochlorothiazide, metoprolol. For seizure disorder continued on phenytoin. Time Attestation Discharge Coordination Time (in mins): 32 Quality: Safe Use of Opioids Does Pt have an Active Cancer Diagnosis on the Problem List?: No Quality: Stroke Does the patient have a stroke diagnosis?: No Physical Exam Vital Signs: Vital Signs: Last Vital Signs Temp 98.8 F 06/22/24 08:32 Pulse 93 06/22/24 08:32 Resp 16 06/22/24 08:32 BP 142/73 H 06/22/24 08:32 Pulse Ox 92 06/22/24 08:32 O2 Del Method Room Air 06/22/24 08:32 BMI result Body Mass Index 57.5 Improved drainage, no erythema, mostly induration. DS: Data Data Completed and Pending Labs on day of discharge: Laboratory Results - last 24 hr 06/21/24 06/21/24 06/21/24 11:39 16:58 20:09 Creatinine Estim Creat Clear Calc Estimated GFR POC Glucose 102 110 135 H 06/22/24 06/22/24 06:16 07:49 Creatinine 0.75 Estim Creat Clear Calc 186.6 Estimated GFR > 60 POC Glucose 176 H Preliminary micro results at discharge 06/20/24 22:04 Blood Culture - Preliminary Blood - Venous No growth after 24 hours. 06/20/24 21:28 Blood Culture - Preliminary Blood - Venous No growth after 24 hours. Discharge Plan Discharge Anticipated Discharge Date/Time: 06/22/24 09:13 Patient Disposition: Home, Self-Care Discharge Diagnosis: cellulitis Referrals: Claudette Patel MD [Primary Care Provider] - 1 Week Discharge Medications: Continued cephalexin 500 mg capsule 500 mg PO QID 10 Days Qty: 40 0RF Rx Instructions: End date 06/26/24 doxycycline hyclate 100 mg tablet 100 mg PO BID Qty: 20 0RF Rx Instructions: End date 06/26/24 phenytoin sodium extended 100 mg capsule 200 mg PO MOTUWETHFRSA@0900,21 Rx Instructions: EXCEPT ON SUNDAYS WHEN HE TAKES 4 CAPSULES BID doxazosin 8 mg tablet 8 mg PO QPM melatonin 5 mg tablet 5 - 10 mg PO BEDTIME PRN (Reason: Sleep) phenytoin sodium extended 100 mg capsule 400 mg PO NIEVES phenytoin sodium extended 100 mg capsule 200 mg PO NIEVES@1800 aspirin 81 mg tablet,delayed release (DR/EC) 81 mg PO DAILY ibuprofen 800 mg tablet 800 mg PO Q8H nitroglycerin 0.4 mg tablet, sublingual 0.4 mg sublingual Q5M PRN (Reason: CHEST PAIN ) Rx Instructions: do not exceed 3 doses per episode metformin 500 mg tablet 500 mg PO DAILY losartan-hydrochlorothiazide 50-12.5 mg tablet 1 tab PO DAILY fluticasone propionate [Allergy Relief (fluticasone)] 50 mcg/actuation spra y,suspension 1 spray intranasal BID PRN (Reason: Allergy Symptoms) Rx Instructions: administer into each nostril multivitamin Tablet 1 tab PO DAILY cholecalciferol (vitamin D3) 125 mcg (5,000 unit) capsule 125 mcg PO DAILY metoprolol succinate 25 mg tablet extended release 24 hr 25 mg PO DAILY atorvastatin 80 mg tablet 80 mg PO BEDTIME (DME) compressive stocking 0 .Route .MEDSUPPLY Discharge Orders: Discharge Order (Routine); Ordered 06/22/24 Ordered By: Samuel Roman Diet: Advance to usual diet Activity on Discharge: As tolerated Stand Alone Forms: Patient Portal Discharge page Print Language: Bengali Care Plan Goals: recovery Health Concerns: cellulitis, abscess Plan of Treatment: copmlete antibiotic course, can follow up with wound care Assessment: see above
--- NOTE | 2024-06-22 09:30 | MHC.CM.PN ---
Addendum entered by Channing Leos 06/22/24 12:18: RECOVERY SPECIALIST AND CM MET WITH PT PT LIVES ALONE IN APT PT RECIEVES NO SERVICES OR DME. PT DOES NOT HAVE HCP, AND NO INTEREST IN ONE. PT'S CONTACTS ARE DAVID SALINAS ([phone]) & UNCLE CASSI [phone] OF 06/07/2024, PT DOES NOT KNOW WHO PC IS, WAITING FOR INSURANCE TO CALL BACK WITH THAT INFO PT'S INS IS [employer] PT REQUESTING CLOTHING HIS IS SOILED, IN SIZE 4 OR 5 X. REQUEST RELAYED TO EXPERIENCE OFFICER. PT'S WILL BE TRANSPORTING SELF HOME VIA CAR Original Note: Patient was dc'd to home, self care, prior to CM meeting with him.
[2024-06-22 09:42] LABS: Vancomycin Random 9.7 mcg/mL (15-20)
[2024-06-22 09:52] VITALS: BP 146/74; PULSE 89
[2024-06-22] MEDS: Aspirin Enteric Coated 81 MG TABLET.DR PO (09:52)
[2024-06-22] MEDS: Metoprolol Succinate ER 25 MG TAB.ER.24H PO (09:52)
[2024-06-22] MEDS: Phenytoin Sodium Extended 100 MG CAPSULE 200 MG PO (09:52)
[2024-06-22] MEDS: Cholecalciferol (Vitamin D3) 25 MCG TABLET 125 MCG PO (09:52)
[2024-06-22] MEDS: Losartan Potassium 50 MG TABLET PO (09:52)
[2024-06-22] MEDS: hydroCHLOROthiazide 12.5 MG TABLET PO (09:52)
--- NOTE | 2024-06-22 09:57 | PC.NURSE ---
pt a&ox3, rr equal/non labored, lungs clear/diminished, pt was told by hospitalist he could discharge after his 11am dose of vanco- pharmacy is aware and dc paperwork is completed for after his dose. pt medicated with tylenol per his request for 10 rt thigh wound/pain, call green within reach, plan of care ongoing
[2024-06-22] MEDS: vancomycin HCL 1,000 MG, vancomycin HCL 750 MG in 0.9 % Sodium Chloride 500 ML 267.5 MG IV (10:55)
[2024-06-22 11:46] LABS: Glucose, Whole Blood 129 mg/dL (60-115)
--- NOTE | 2024-06-22 13:30 | PC.NURSE ---
discharge vitals, 98.2t. 16 rr, 138/72, 94 r/a, pt was discharged to his private vehicle in parking lot, pt was given ride in wheelchair to ed entrance.
--- NOTE | 2024-06-23 09:29 | MHC.CM.PN ---
pt dcd home self care
== END 2024-06-22 13:29 | disposition home or self-care (01) | DRG 603 ==
LOC: HO.ED 20:42 → HO.EDOVER 06-21 00:10 → HO.S3 06-22 07:20 → HO.EDOVER 06-22 08:08
PROVIDERS: Nurse Practitioner Family; Admitting Provider Student in an Organized Health Care Education/Training Program; Emergency Provider Student in an Organized Health Care Education/Training Program; PCP Family Medicine; Visit Provider Internal Medicine
DX: L03.115 Cellulitis of right lower limb (principal); Z68.43 Body mass index [BMI] 50.0-59.9, adult; G40.909 Epilepsy, unspecified, not intractable, without status epilepticus; E78.2 Mixed hyperlipidemia; G47.33 Obstructive sleep apnea (adult) (pediatric); E66.9 Obesity, unspecified; E11.9 Type 2 diabetes mellitus without complications; B95.62 Methicillin resistant Staphylococcus aureus infection as the cause of diseases classified elsewhere; Z79.82 Long term (current) use of aspirin; Z79.84 Long term (current) use of oral hypoglycemic drugs; Z79.899 Other long term (current) drug therapy
CPT/HCPCS: 36415; 73701; 80048; 80053; 80202; 82565; 82947; 83605; 85025; 87040; 99285; J1650; J2060; J2405; J3370; Q9967

== ENCOUNTER 2024-06-20 23:52 | Outpatient (BNV) | payer OTHER, SELFPAY | END 2024-06-22 | PROVIDERS: Admitting Provider Student in an Organized Health Care Education/Training Program; Emergency Provider Student in an Organized Health Care Education/Training Program; PCP Family Medicine; Visit Provider Radiology Diagnostic Radiology | DX: M79.89 Other specified soft tissue disorders (principal); R22.41 Localized swelling, mass and lump, right lower limb | CPT/HCPCS: 73701 ==

== ENCOUNTER 2024-06-20 23:52 | Outpatient (BNV) | payer MEDICARE, SELFPAY | END 2024-06-21 | PROVIDERS: Admitting Provider Student in an Organized Health Care Education/Training Program; Emergency Provider Student in an Organized Health Care Education/Training Program; Visit Provider Radiology Diagnostic Radiology | DX: L03.115 Cellulitis of right lower limb (principal) | CPT/HCPCS: 73701 ==

== ENCOUNTER → 2024-06-20 23:52 | Outpatient (BNV) | payer MEDICARE, SELFPAY | PROVIDERS: Admitting Provider Student in an Organized Health Care Education/Training Program; Emergency Provider Student in an Organized Health Care Education/Training Program; Visit Provider Student in an Organized Health Care Education/Training Program | DX: E11.628 Type 2 diabetes mellitus with other skin complications (principal); L03.115 Cellulitis of right lower limb | CPT/HCPCS: 99222; 99233; 99239 ==

== ENCOUNTER 2024-06-26 18:25 | Emergency (ER) | payer MEDICARE, SELFPAY ==
--- NOTE | 2024-06-26 19:04 | ED_ITS ---
HPI - Skin/Abscess/Foreign Bdy General Chief complaint: Skin/Abscess/Foreign Body Stated complaint: abd cyst? Time Seen by Provider: 06/26/24 23:14 Source: patient and old records reviewed Mode of arrival: ambulatory Limitations: no limitations History of Present Illness ED Provider: MICKEY HERRERA narrative: 54 yo male with PMH renal colic, seizures, DM, HTN, HLD here with c/o red area on his abdomen just had recent admission for cellulitis still on antibiotic. He denies trauma but did have abd wall injections. He has no other complaints does not have PCP so he came here to get them checked out. He is otherwise feeling fine and improving. MD complaint: rash Onset (ago): day(s) (1) Severity: mild Relieving factors: none Exacerbating factors: none Context: other (just had abd wall injections) Associated symptoms: denies other symptoms Treatments prior to arrival: none Related Data Home Medications ?Medication ?Instructions ?Recorded ?Confirmed aspirin 81 mg tablet,delayed 81 mg PO DAILY 01/25/23 06/21/24 release atorvastatin 80 mg tablet 80 mg PO BEDTIME 01/25/23 06/21/24 cholecalciferol (vitamin D3) 125 125 mcg PO DAILY 01/25/23 06/21/24 mcg (5,000 unit) capsule compressive stocking 01/25/23 04/01/23 fluticasone propionate 50 1 spray intranasal BID PRN Allergy 01/25/23 06/21/24 mcg/actuation nasal Symptoms spray,suspension (Allergy Relief (fluticasone)) ibuprofen 800 mg tablet 800 mg PO Q8H 01/25/23 06/21/24 losartan 50 mg-hydrochlorothiazide 1 tab PO DAILY 01/25/23 06/21/24 12.5 mg tablet metformin 500 mg tablet 500 mg PO DAILY 01/25/23 06/21/24 metoprolol succinate 25 mg 25 mg PO DAILY 01/25/23 06/21/24 tablet,extended release 24 hr multivitamin 1 tab PO DAILY 01/25/23 06/21/24 nitroglycerin 0.4 mg sublingual 0.4 mg sublingual Q5M PRN CHEST 01/25/23 06/21/24 tablet PAIN doxazosin 8 mg tablet 8 mg PO QPM 06/21/24 06/21/24 melatonin 5 mg tablet 5 - 10 mg PO BEDTIME PRN Sleep 06/21/24 06/21/24 phenytoin sodium extended 100 mg 200 mg PO MOTUWETHFRSA@0900,21 06/21/24 06/21/24 capsule phenytoin sodium extended 100 mg 200 mg PO NIEVES@1800 06/21/24 06/21/24 capsule phenytoin sodium extended 100 mg 400 mg PO NIEVES 06/21/24 06/21/24 capsule Previous Rx's ?Medication ?Instructions ?Recorded cephalexin 500 mg capsule 500 mg PO QID 10 days #40 caps 06/15/24 doxycycline hyclate 100 mg tablet 100 mg PO BID #20 tabs 06/15/24 Allergies Allergy/AdvReac Type Severity Reaction Status Date / Time betamethasone Allergy Redness of Verified 06/26/24 19:07 Skin levetiracetam [From [facility]] Allergy Anxiety Verified 06/26/24 19:07 pseudoephedrine Allergy Anxiety Verified 06/26/24 19:07 Review of Systems 2 Review of Systems: Constitutional : No Fever, No Chills ENT/Mouth : No sore throat, No Rhinorrhea Eyes: No Eye Pain, No Swelling, No Redness Cardiovascular : No Chest Pain, No SOB Respiratory : No Cough, No Sputum Gastrointestinal : No Nausea, No Vomiting, No Diarrhea, No abdominal Pain Genitourinary : No Dysuria, No Hematuria Musculoskeletal : No joint pain, No Myalgias, No Joint Swelling Skin : No Skin Lesions, positive skin rash Neuro : No Weakness, No Numbness, No Headache Psych : No Anxiety, No Depression All other systems reviewed and are negative [facility] Past Medical History Attestation statement: The following information was validated with the patient. Source: old records reviewed Medical History JOE (obstructive sleep apnea) Renal stones Seizure disorder Diabetes mellitus, type II Hypercholesteremia Hypertension Surgical History Hx of tonsillectomy History of ankle surgery Family History Family History Father Diabetes mellitus Mother Pancreas cancer Social History Social History Alcohol intake: never Patient Tobacco Use Status: Never used Tobacco Second Hand Smoke Exposure: No Advance Directives: No Advance Directives Information Provided: No service: No Physical Exam 2 Vital Signs: Vital Signs: Last Vital Signs Temp 97.2 F 06/26/24 23:44 Pulse 76 06/26/24 23:44 Resp 16 06/26/24 23:44 BP 135/76 06/26/24 23:44 Pulse Ox 96 06/26/24 23:44 O2 Del Method Room Air 06/26/24 23:44 BMI result Body Mass Index 54.2 Appearance: Alert. Oriented X3. No acute distress. Eyes: Pupils equal, round and reactive to light. ENT: Pharynx normal. Neck: Normal inspection. Neck supple. CVS: Normal heart rate and rhythm. Pulses normal. Respiratory: No respiratory distress. Breath sounds normal. Abdomen: Soft and nontender. Obese with right lower contusion and L lower contusion on abscess, no warmth, no redness. Skin: Skin warm and dry. Normal skin color. Extremities: No lower extremity edema. Neuro: Oriented X 3. No motor deficit. No sensory deficit. CN2-12 intact Course Course Course Narrative: This is an RME: Additional HPI, ROS, PE not included below will be deferred to primary provider. RME assessment and note performed by: Little Lockwood PA-C This is a 20-ehvo-yiw-male, history of hypertension, hyperlipidemia, type 2 diabetes, seizure disorder, JOE who presents emergency department with concerns for cellulitis on abdomen. He was d/c recently for cellulitis of leg. Unable to visualize in triage. Pt with faint erythema on abdomen, warm. Will repeat labs and defer treatment plan to primary provider. Plan: Labs, further Er eval needed Medical Decision Making Medical Decision Making [facility] Narrative: 54 yo male with PMH renal colic, seizures, DM, HTN, HLD here with c/o abd wall redness after recent admission on exam there is no signs of cellulitis, he has injection site bruising but no signs of infection or large hematoma. Labs reassuring, DC home with futher workup Differential Diagnosis Differential Diagnoses: The differential diagnosis associated with the presentation includes contusion, injection site reaction Admission/Observation Consideration of admission/observation: Escalation of care including admission/observation considered stable for outpatient management Lab Data [facility] Lab Attestation statement: I reviewed the patient's lab results. 06/26/24 22:40 06/26/24 22:40 Labs: Lab Results 06/26/24 Range/Units 22:40 WBC 9.3 (4.8-10.8) X10*3/uL RBC 4.49 L (4.60-5.80) X10*6/uL Hgb 13.9 L (14.0-18.0) g/dl Hct 40.2 L (42.0-52.0) % MCV 89.5 (80.0-98.0) fL MCH 31.0 (27.0-33.0) pg MCHC 34.6 (31.0-36.0) g/dl RDW 13.4 (11.0-16.0) % Plt Count 242 (160-400) X10*3/uL MPV 9.4 (9.4-12.4) fL Immature Gran % (Auto) 0.5 H (0.0-0.4) % Neut % (Auto) 56.1 (45-73) % Lymph % (Auto) 29.0 (20-40) % [place] % (Auto) 11.2 H (2-11) % Eos % (Auto) 2.8 (0-4) % Baso % (Auto) 0.4 (0-2) % Lymph # (Auto) 2.7 (1.2-4.9) X10*3/uL [place] # (Auto) 1.0 (0.1-1.2) X10*3/uL Eos # (Auto) 0.3 (0.0-0.4) X10*3/uL Baso # (Auto) 0.0 (0.0-0.2) X10*3/uL Abs Immat Gran (auto) 0.05 H (0.00-0.03) X10*3/uL Absolute Neuts (auto) 5.2 (2.0-8.3) x10*3/uL Absolute Nucleated RBC 0.000 (0.0-0.012) X10*3/uL Nucleated RBC % (auto) 0.0 (0.0-0.2) /100WBC Sodium 142 (135-145) mmol/L Potassium 3.6 (3.3-5.1) mmol/L Chloride 105 (96-108) mmol/L Carbon Dioxide 26 (22-29) mmol/L Anion Gap 15 (12-20) BUN 11 (9-16) mg/dL Creatinine 0.62 (0.5-1.4) mg/dL Estim Creat Clear Calc 224.1 Estimated GFR > 60 Random Glucose 108 (60-115) mg/dL Calcium 8.3 L D (8.4-10.2) mg/dL Total Bilirubin 0.2 (0.0-1.0) mg/dL AST 60 H (5-37) U/L ALT 93 H (0-40) U/L Alkaline Phosphatase 130 H (39-117) U/L Total Protein 7.2 (6.5-8.0) g/dL Albumin 3.6 (3.5-5.0) g/dL External Record Review External record reviewed: Outpatient record Discharge Plan Discharge Clinical Impression: Contusion Patient Disposition: Home, Self-Care Instructions: Contusion in Adults (ED) Additional Instructions: labs reassuring continue your antibiotic return for worsening, swelling, pain or any other concerns Prescriptions: No Action cephalexin 500 mg capsule 500 mg PO QID 10 Days Qty: 40 0RF Rx Instructions: End date 06/26/24 doxycycline hyclate 100 mg tablet 100 mg PO BID Qty: 20 0RF Rx Instructions: End date 06/26/24 phenytoin sodium extended 100 mg capsule 200 mg PO MOTUWETHFRSA@0900,21 Rx Instructions: EXCEPT ON SUNDAYS WHEN HE TAKES 4 CAPSULES BID doxazosin 8 mg tablet 8 mg PO QPM melatonin 5 mg tablet 5 - 10 mg PO BEDTIME PRN (Reason: Sleep) phenytoin sodium extended 100 mg capsule 400 mg PO NIEVES phenytoin sodium extended 100 mg capsule 200 mg PO NIEVES@1800 aspirin 81 mg tablet,delayed release (DR/EC) 81 mg PO DAILY ibuprofen 800 mg tablet 800 mg PO Q8H nitroglycerin 0.4 mg tablet, sublingual 0.4 mg sublingual Q5M PRN (Reason: CHEST PAIN ) Rx Instructions: do not exceed 3 doses per episode metformin 500 mg tablet 500 mg PO DAILY losartan-hydrochlorothiazide 50-12.5 mg tablet 1 tab PO DAILY fluticasone propionate [Allergy Relief (fluticasone)] 50 mcg/actuation spray,suspension 1 spray intranasal BID PRN (Reason: Allergy Symptoms) Rx Instructions: administer into each nostril multivitamin Tablet 1 tab PO DAILY cholecalciferol (vitamin D3) 125 mcg (5,000 unit) capsule 125 mcg PO DAILY metoprolol succinate 25 mg tablet extended release 24 hr 25 mg PO DAILY atorvastatin 80 mg tablet 80 mg PO BEDTIME (DME) compressive stocking 0 .Route .MEDSUPPLY Discharge Date/Time: 06/26/24 23:46 Print Language: [place] Sudanese
[2024-06-26 19:05] VITALS: BP 166/90; PULSE 80; RESP 20; TEMP 37; O2SAT 95; BMI 54.2
[2024-06-26 22:45] LABS: MANUAL DIFF FLAG NO
[2024-06-26 22:46] LABS: Basophils Percent Auto 0.4 % (0-2); Eosinophils Absolute Auto 0.3 X10*3/uL (0.0-0.4); Eosinophils Percent Auto 2.8 % (0-4); Hematocrit 40.2 % (42.0-52.0); Hemoglobin 13.9 g/dl (14.0-18.0); Imm Gran Abs Auto 0.05 X10*3/uL (0.00-0.03); Imm Gran Pct Auto 0.5 % (0.0-0.4); Lymphocytes Absolute Auto 2.7 X10*3/uL (1.2-4.9); Mean Corpuscular HGB Conc 34.6 g/dl (31.0-36.0); Mean Corpuscular Volume 89.5 fL (80.0-98.0); Mean Platelet Volume 9.4 fL (9.4-12.4); Monocytes Percent Auto 11.2 % (2-11); Neutrophils Absolute Auto 5.2 x10*3/uL (2.0-8.3); Neutrophils Percent Auto 56.1 % (45-73); Platelet Count 242 X10*3/uL (160-400); Red Blood Count 4.49 X10*6/uL (4.60-5.80); Red Cell Distribution Width 13.4 % (11.0-16.0); White Blood Count 9.3 X10*3/uL (4.8-10.8)
[2024-06-26 22:49] VITALS: BP 165/82; PULSE 84; RESP 20; TEMP 36.9; O2SAT 97
[2024-06-26 23:01] LABS: Alanine Aminotransferase 93 U/L (0-40); Albumin Level 3.6 g/dL (3.5-5.0); Alkaline Phosphatase 130 U/L (39-117); Anion Gap 15 (12-20); Aspartate Amino Transferase 60 U/L (5-37); Bilirubin Total 0.2 mg/dL (0.0-1.0); Blood Urea Nitrogen 11 mg/dL (9-16); Calcium 8.3 mg/dL (8.4-10.2); Carbon Dioxide 26 mmol/L (22-29); Chloride 105 mmol/L (96-108); Creatinine Clr Calc Pharmacy 224.1; Estimated Glomerular Filt Rate > 60; Glucose Random 108 mg/dL (60-115); Potassium 3.6 mmol/L (3.3-5.1); Sodium 142 mmol/L (135-145); Total Protein 7.2 g/dL (6.5-8.0)
[2024-06-26 23:44] VITALS: BP 135/76; PULSE 76; RESP 16; TEMP 36.2; O2SAT 96
== END 2024-06-26 23:46 | disposition home or self-care (01) ==
PROVIDERS: Physician Assistant Medical; Emergency Provider Emergency Medicine; PCP Family Medicine
DX: S30.1XXA Contusion of abdominal wall, initial encounter (principal); X58.XXXA Exposure to other specified factors, initial encounter; Y93.9 Activity, unspecified; Y92.9 Unspecified place or not applicable; Y99.9 Unspecified external cause status; E11.9 Type 2 diabetes mellitus without complications; I10 Essential (primary) hypertension; Z79.899 Other long term (current) drug therapy
CPT/HCPCS: 36415; 80053; 85025; 99283

== ENCOUNTER 2024-11-22 10:16 | Emergency (ER) | payer MEDICARE, SELFPAY ==
--- NOTE | ~2024-11-22 | XR_ITS ---
EXAMINATION: XR CHEST CLINICAL INFORMATION: Chest pain COMPARISON: March 26, 2024 TECHNIQUE: 2 views of the chest were obtained. FINDINGS: Heart and mediastinal contours are within normal limits. Lungs are clear. There is no pleural effusion. Globular calcific density projects in the space between the acromion and right humeral head. XR/XR chest 2V IMPRESSION: No acute disease. Possible intra-articular bodies, calcinosis, or calcific tendinitis projecting in the right subacromial space. Electronically signed by: Hollis Verduzco MD 11/22/2024 11:01 AM EDT
--- NOTE | 2024-11-22 10:20 | ECG_ITS ---
Test Reason : CHEST PAIN Blood Pressure : */* mmHG Vent. Rate : 71 BPM Atrial Rate : 71 BPM P-R Int : 182 ms QRS Dur : 82 ms QT Int : 376 ms P-R-T Axes : 41 81 54 degrees QTcB Int : 408 ms Normal sinus rhythm Nonspecific T wave abnormality Abnormal ECG When compared with ECG of 31-Dec-2023 11:50, Nonspecific T wave abnormality has replaced inverted T waves in Anterior leads Referred By: Generic ED Physician Electronically Signed By: Kenroy Riley
[2024-11-22 10:39] VITALS: BP 119/66; PULSE 74; RESP 18; TEMP 36.4; BMI 53.6
[2024-11-22 10:47] LABS: Glucose, Whole Blood 123 mg/dL (60-115)
[2024-11-22 11:11] VITALS: BP 142/80; PULSE 72; RESP 15; O2SAT 96
--- NOTE | 2024-11-22 11:14 | ED.CHESTPAIN ---
HPI - Chest Pain General Chief Complaint: Chest Pain Stated Complaint: Chest Pain Time Seen by Provider: 11/22/24 11:05 Source: patient Mode of arrival: ambulatory Limitations: no limitations History of Present Illness ED Provider: DR. Teran HPI narrative: 54-year-old male with history of HTN, DM, HLD, seizure presented for evaluation of left-sided chest pain started around 10:00 this morning while he is having breakfast patient describes the pain as muscle twitching in the left side of the chest wall with a feeling palpitation, no radiation, no other associated symptoms, no fever, no chills, no coughing, no recent travel, no heavy lifting, no chest injury. Patient has been doing want to 2 miles walking a day to lose weight patient has successfully lost 25 lb intentionally over the past 2 months. No lower extremity swelling or tenderness, no history of PE or DVT. Related Data Home Medications ?Medication ?Instructions ?Recorded ?Confirmed aspirin 81 mg tablet,delayed 81 mg PO DAILY 01/25/23 06/21/24 release atorvastatin 80 mg tablet 80 mg PO BEDTIME 01/25/23 06/21/24 cholecalciferol (vitamin D3) 125 125 mcg PO DAILY 01/25/23 06/21/24 mcg (5,000 unit) capsule compressive stocking 01/25/23 04/01/23 fluticasone propionate 50 1 spray intranasal BID PRN Allergy 01/25/23 06/21/24 mcg/actuation nasal Symptoms spray,suspension (Allergy Relief (fluticasone)) ibuprofen 800 mg tablet 800 mg PO Q8H 01/25/23 06/21/24 losartan 50 mg-hydrochlorothiazide 1 tab PO DAILY 01/25/23 06/21/24 12.5 mg tablet metformin 500 mg tablet 500 mg PO DAILY 01/25/23 06/21/24 metoprolol succinate 25 mg 25 mg PO DAILY 01/25/23 06/21/24 tablet,extended release 24 hr multivitamin 1 tab PO DAILY 01/25/23 06/21/24 nitroglycerin 0.4 mg sublingual 0.4 mg sublingual Q5M PRN CHEST 01/25/23 06/21/24 tablet PAIN doxazosin 8 mg tablet 8 mg PO QPM 06/21/24 06/21/24 melatonin 5 mg tablet 5 - 10 mg PO BEDTIME PRN Sleep 06/21/24 06/21/24 phenytoin sodium extended 100 mg 200 mg PO MOTUWETHFRSA@0900,21 06/21/24 06/21/24 capsule phenytoin sodium extended 100 mg 200 mg PO NIEVES@1800 06/21/24 06/21/24 capsule phenytoin sodium extended 100 mg 400 mg PO NIEVES 06/21/24 06/21/24 capsule Previous Rx's ?Medication ?Instructions ?Recorded cephalexin 500 mg capsule 500 mg PO QID 10 days #40 caps 06/15/24 doxycycline hyclate 100 mg tablet 100 mg PO BID #20 tabs 06/15/24 Allergies Allergy/AdvReac Type Severity Reaction Status Date / Time betamethasone Allergy Redness of Verified 11/22/24 10:40 Skin levetiracetam (From [facility]) Allergy Anxiety Verified 11/22/24 10:40 pseudoephedrine Allergy Anxiety Verified 11/22/24 10:40 Review of Systems Review of Systems: All other systems are reviewed and are negative Constitutional: Reports as per HPI and Reports no additional constitutional complaints Eyes: Reports as per HPI and Reports no additional eye complaints Reports system reviewed and no additional complaints, except as documented Cardiovascular: Reports as per HPI and Reports no additional cardiovascular complaints Respiratory: Reports as per HPI and Reports no additional respiratory complaints Gastrointestinal: Reports as per HPI and Reports no additional gastrointestinal complaints Genitourinary: Reports no additional female genitourinary complaints Musculoskeletal: Reports no additional musculoskeletal complaints Skin/Breast: Reports system reviewed and no additional complaints, except as docu Psychiatric: Reports no additional psychiatric complaints Endocrine: Reports no additional endocrine complaints Hematologic/Lymphatic: Reports no additional hematologic/lymphatic complaints Allergic/Immunologic: Reports no additional allergic/immunologic complaints Reports system reviewed and no additional complaints, except as documented and Reports Abnormal speech present [facility] Past Medical History Medical History JOE (obstructive sleep apnea) Renal stones Seizure disorder Diabetes mellitus, type II Hypercholesteremia Hypertension Surgical History Hx of tonsillectomy History of ankle surgery Family History Family History Father Diabetes mellitus Mother Pancreas cancer Social History Social History Unable to assess alcohol history related to: Unknown Alcohol intake: never Patient Tobacco Use Status: Never used Tobacco Second Hand Smoke Exposure: No Use of substances other than those prescribed or required for medical reasons: Unknown Advance Directives: No Advance Directives Information Provided: Yes Do you have a plan to hurt others: No Plan service: No Physical Exam Vital Signs: Vital Signs: Last Vital Signs Temp 97.5 F 11/22/24 10:39 Pulse 72 11/22/24 11:11 Resp 15 11/22/24 11:11 BP 142/80 H 11/22/24 11:11 Pulse Ox 96 11/22/24 11:11 O2 Del Method Room Air 11/22/24 11:11 BMI result Body Mass Index 53.6 Vital signs have been reviewed and appear to be correct. Blood pressure elevated. Heart rate normal. Respiratory rate normal. Temperature normal. Oxygen saturation normal. Appearance: Alert. Oriented X3. No acute distress. Head: Normal external exam. Normocephalic. Atraumatic. No [place] signs noted. No raccoon eyes noted Eyes: PERRLA. EOMI. Conjunctiva and sclera normal. Eyelids normal. ENT: TM's Normal. Pharynx normal. Uvula midline. Moist mucous membranes. No trismus noted. No drooling noted. No muffled voice noted. Neck: Normal inspection. Neck supple. FROM. No adenopathy. Thyroid Normal. No meningeal signs. No neck mass noted. CVS: Normal heart rate and rhythm. Heart sound normal. No murmurs noted. Pulses normal throughout. Respiratory: No respiratory distress. Painless inspiration. Breath sounds normal. No wheezes/rales/rhonchi noted. Chest nontender. No accessory muscle usage noted or decreased air movement noted. Abdomen: Soft and nontender. Bowel sounds normal in all 4 quadrants. No distention noted. No organomegaly noted. No visible injury noted. Back: No CVA tenderness. Full range of motion noted. Skin: Skin warm and dry. Normal skin color. Normal skin turgor. No rashes/lesions/lacerations noted. Extremities: No lower extremity edema. Extremities exhibit normal range of motion. Extremities nontender. Neuro: Oriented X 3. Cranial nerve exam: II-XII are grossly intact No motor deficit. No sensory deficit. Reflexes normal. Course Reevaluation(s) Reevaluation #1: Presented with palpitation and chest tightness, labs are unremarkable, troponin is negative x2 with unremarkable EKG. VSS, no obvious dysrhythmia or acute EKG changes. Pulmonary embolism is unfavorable diagnosis patient has no risk factor with stable vital signs. Time: 15:30 Medical Decision Making Differential Diagnosis Differential Diagnoses: The differential diagnosis associated with the presentation includes (Pneumonia, pneumothorax, pleural effusion, ACS, pulmonary embolism, chest wall pain, dysrhythmia, electrolyte derangement, severe anemia.) Admission/Observation Consideration of admission/observation: Escalation of care including admission/observation considered Lab Data MDM Lab Attestation statement: I reviewed the patient's lab results. 11/22/24 11:40 11/22/24 11:40 Labs: Lab Results 11/22/24 11/22/24 Range/Units 10:43 11:40 WBC 6.4 (4.8-10.8) X10*3/uL RBC 4.38 L (4.60-5.80) X10*6/uL Hgb 13.6 L (14.0-18.0) g/dl Hct 40.0 L (42.0-52.0) % MCV 91.3 (80.0-98.0) fL MCH 31.1 (27.0-33.0) pg MCHC 34.0 (31.0-36.0) g/dl RDW 13.6 (11.0-16.0) % Plt Count 220 (160-400) X10*3/uL MPV 10.1 (9.4-12.4) fL Immature Gran % (Auto) 0.3 (0.0-0.4) % Neut % (Auto) 54.6 (45-73) % Lymph % (Auto) 30.9 (20-40) % [place] % (Auto) 11.7 H (2-11) % Eos % (Auto) 2.0 (0-4) % Baso % (Auto) 0.5 (0-2) % Lymph # (Auto) 2.0 (1.2-4.9) X10*3/uL [place] # (Auto) 0.7 (0.1-1.2) X10*3/uL Eos # (Auto) 0.1 (0.0-0.4) X10*3/uL Baso # (Auto) 0.0 (0.0-0.2) X10*3/uL Abs Immat Gran (auto) 0.02 (0.00-0.03) X10*3/uL Absolute Neuts (auto) 3.5 (2.0-8.3) x10*3/uL Absolute Nucleated RBC 0.000 (0.0-0.012) X10*3/uL Nucleated RBC % (auto) 0.0 (0.0-0.2) /100WBC Sodium 143 (135-145) mmol/L Potassium 3.8 (3.3-5.1) mmol/L Chloride 103 (96-108) mmol/L Carbon Dioxide 34 H (22-29) mmol/L Anion Gap 10 L (12-20) BUN 10 (9-16) mg/dL Creatinine 0.66 (0.5-1.4) mg/dL Estim Creat Clear Calc 208.9 Estimated GFR > 60 POC Glucose 123 H (60-115) mg/dL Random Glucose 92 (60-115) mg/dL Calcium 9.1 D (8.4-10.2) mg/dL Troponin I High Sens < 2.7 (<3.5-35.0) ng/L Independent Interpretation I performed an independent interpretation of an: EKG (Normal sinus rhythm at 71 beats per minutes, normal intervals, no ST-T changes, no EKG changes from 12/30.) and Plain X-Ray (Chest: No acute disease. Possible intra-articular bodies, calcinosis, or calcific tendinitis projecting in the right subacromial space.) Radiology Impression Discussion of test interpretation with radiology: I have reviewed the radiologist's reading. Discharge Plan Discharge Clinical Impression: Atypical chest pain, Palpitation Patient Disposition: Home, Self-Care Instructions: Heart Palpitations (ED) Prescriptions: No Action cephalexin 500 mg capsule 500 mg PO QID 10 Days Qty: 40 0RF Rx Instructions: End date 06/26/24 doxycycline hyclate 100 mg tablet 100 mg PO BID Qty: 20 0RF Rx Instructions: End date 06/26/24 phenytoin sodium extended 100 mg capsule 200 mg PO MOTUWETHFRSA@0900,21 Rx Instructions: EXCEPT ON SUNDAYS WHEN HE TAKES 4 CAPSULES BID doxazosin 8 mg tablet 8 mg PO QPM melatonin 5 mg tablet 5 - 10 mg PO BEDTIME PRN (Reason: Sleep) phenytoin sodium extended 100 mg capsule 400 mg PO NIEVES phenytoin sodium extended 100 mg capsule 200 mg PO NIEVES@1800 aspirin 81 mg tablet,delayed release (DR/EC) 81 mg PO DAILY ibuprofen 800 mg tablet 800 mg PO Q8H nitroglycerin 0.4 mg tablet, sublingual 0.4 mg sublingual Q5M PRN (Reason: CHEST PAIN ) Rx Instructions: do not exceed 3 doses per episode metformin 500 mg tablet 500 mg PO DAILY losartan-hydrochlorothiazide 50-12.5 mg tablet 1 tab PO DAILY fluticasone propionate [Allergy Relief (fluticasone)] 50 mcg/actuation spray,suspension 1 spray intranasal BID PRN (Reason: Allergy Symptoms) Rx Instructions: administer into each nostril multivitamin Tablet 1 tab PO DAILY cholecalciferol (vitamin D3) 125 mcg (5,000 unit) capsule 125 mcg PO DAILY metoprolol succinate 25 mg tablet extended release 24 hr 25 mg PO DAILY atorvastatin 80 mg tablet 80 mg PO BEDTIME (DME) compressive stocking 0 .Route .MEDSUPPLY Referrals: Kenroy Riley MD [Physician, Cardiology] Print Language: Swedish
[2024-11-22 11:57] LABS: MANUAL DIFF FLAG NO
[2024-11-22 11:59] LABS: Basophils Percent Auto 0.5 % (0-2); Eosinophils Absolute Auto 0.1 X10*3/uL (0.0-0.4); Hemoglobin 13.6 g/dl (14.0-18.0); Imm Gran Abs Auto 0.02 X10*3/uL (0.00-0.03); Imm Gran Pct Auto 0.3 % (0.0-0.4); Lymphocytes Percent Auto 30.9 % (20-40); Mean Corpuscular Hemoglobin 31.1 pg (27.0-33.0); Mean Corpuscular Volume 91.3 fL (80.0-98.0); Mean Platelet Volume 10.1 fL (9.4-12.4); Monocytes Absolute Auto 0.7 X10*3/uL (0.1-1.2); Monocytes Percent Auto 11.7 % (2-11); Neutrophils Absolute Auto 3.5 x10*3/uL (2.0-8.3); Neutrophils Percent Auto 54.6 % (45-73); Platelet Count 220 X10*3/uL (160-400); Red Blood Count 4.38 X10*6/uL (4.60-5.80); Red Cell Distribution Width 13.6 % (11.0-16.0); White Blood Count 6.4 X10*3/uL (4.8-10.8)
[2024-11-22 12:13] LABS: Anion Gap 10 (12-20); Blood Urea Nitrogen 10 mg/dL (9-16); Calcium 9.1 mg/dL (8.4-10.2); Carbon Dioxide 34 mmol/L (22-29); Chloride 103 mmol/L (96-108); Creatinine Clr Calc Pharmacy 208.9; Estimated Glomerular Filt Rate > 60; Glucose Random 92 mg/dL (60-115); Potassium 3.8 mmol/L (3.3-5.1); Sodium 143 mmol/L (135-145)
[2024-11-22 12:30] LABS: Troponin-I High Sensitivity < 2.7 ng/L (<3.5-35.0)
[2024-11-22 15:38] LABS: Troponin-I High Sensitivity < 2.7 ng/L (<3.5-35.0)
[2024-11-22 16:00] VITALS: BP 137/72; PULSE 86; RESP 18; O2SAT 95
[2024-11-22 16:16] VITALS: BP 137/72; PULSE 86; RESP 18; TEMP 36.8; O2SAT 95
== END 2024-11-22 16:16 | disposition home or self-care (01) ==
PROVIDERS: Emergency Provider Emergency Medicine
DX: R07.9 Chest pain, unspecified (principal); R00.2 Palpitations; E11.8 Type 2 diabetes mellitus with unspecified complications; I10 Essential (primary) hypertension; E78.5 Hyperlipidemia, unspecified; G47.33 Obstructive sleep apnea (adult) (pediatric); Z79.899 Other long term (current) drug therapy
CPT/HCPCS: 36415; 71046; 80048; 82947; 84484; 85025; 93005; 99283; 99285

== ENCOUNTER → 2024-11-22 10:20 | Outpatient (BNV) | payer OTHER, SELFPAY | PROVIDERS: Emergency Provider Emergency Medicine; Visit Provider Internal Medicine Cardiovascular Disease | DX: R94.31 Abnormal electrocardiogram [ECG] [EKG] (principal); R07.9 Chest pain, unspecified | CPT/HCPCS: 93010 ==

== ENCOUNTER → 2024-11-22 10:42 | Outpatient (BNV) | payer OTHER, SELFPAY | PROVIDERS: Emergency Provider Emergency Medicine; Visit Provider Radiology Diagnostic Radiology | DX: R07.9 Chest pain, unspecified (principal) | CPT/HCPCS: 71046 ==

== ENCOUNTER 2025-03-24 12:11 | Inpatient (IN) | payer MEDICARE, SELFPAY ==
--- NOTE | ~2025-03-24 | US_ITS ---
CLINICAL HISTORY: erythema, pain, swelling Left lower extremity duplex venous Doppler Comparison: US/AK - US LOWER EXTREMITY VEINS LIMITED FOLLOW-UP UNILATERAL - 06/15/24 19:56 EST Technique: Grayscale/Color/Duplex Doppler sonographic evaluation of the deep venous system within the left lower extremity. Findings: Left lower extremity Common femoral vein: Patent CFV/GSV junction: Patent Femoral vein: Patent Popliteal vein: Patent Infrapopliteal veins: Suboptimally evaluated due to calf edema Soft tissue: Left inguinal lymphadenopathy largest lymph node measuring 4.4 x 1.5 x 3.7 cm and 2.4 x 1.2 x 1.8 cm the largest has benign morphologic features. The 2.4 cm lymph node shows abnormal cortical thickening. Follow-up is advised. Impression: 1. Negative for left lower extremity DVT. Suboptimal evaluation of the calf veins due to edema 2. No Hanson's cyst 3. Left inguinal lymphadenopathy follow-up advised This document has been electronically signed by: Chavo Higgins MD on 03/24/2025 15:48:16
--- NOTE | 2025-03-24 12:16 | ED.GENADULT ---
HPI - General Adult General Chief complaint: General Medical Stated complaint: infected left leg Time Seen by Provider: 03/24/25 15:58 Source: patient and RN notes reviewed Mode of arrival: ambulatory Limitations: no limitations History of Present Illness ED Provider: Little Peguero PA-C HPI narrative: 54-year-old male, with pertinent history of [id number]-[id number] type 2 diabetes mellitus, seizure disorder, JOE not on CPAP, mixed hyperlipidemia, hypertension, obesity who presents to the emergency department evaluation of left leg pain, redness and warmth for the last 3 days. No recent trauma or injury. Patient reports that he has had difficulty walking on this leg secondary to the pain. He does endorse chills, no known fevers. No chest pain, shortness of breath, nausea, vomiting or diarrhea. MD complaint: Left leg pain, swelling Relieving factors: none Exacerbating factors: none Associated symptoms: denies other symptoms Treatments prior to arrival: none Related Data Home Medications ?Medication ?Instructions ?Recorded ?Confirmed aspirin 81 mg tablet,delayed 81 mg PO DAILY 01/25/23 06/21/24 release atorvastatin 80 mg tablet 80 mg PO BEDTIME 01/25/23 06/21/24 cholecalciferol (vitamin D3) 125 125 mcg PO DAILY 01/25/23 06/21/24 mcg (5,000 unit) capsule compressive stocking 01/25/23 04/01/23 fluticasone propionate 50 1 spray intranasal BID PRN Allergy 01/25/23 06/21/24 mcg/actuation nasal Symptoms spray,suspension (Allergy Relief (fluticasone)) ibuprofen 800 mg tablet 800 mg PO Q8H 01/25/23 06/21/24 losartan 50 mg-hydrochlorothiazide 1 tab PO DAILY 01/25/23 06/21/24 12.5 mg tablet metformin 500 mg tablet 500 mg PO DAILY 01/25/23 06/21/24 metoprolol succinate 25 mg 25 mg PO DAILY 01/25/23 06/21/24 tablet,extended release 24 hr multivitamin 1 tab PO DAILY 01/25/23 06/21/24 nitroglycerin 0.4 mg sublingual 0.4 mg sublingual Q5M PRN CHEST 01/25/23 06/21/24 tablet PAIN doxazosin 8 mg tablet 8 mg PO QPM 06/21/24 06/21/24 melatonin 5 mg tablet 5 - 10 mg PO BEDTIME PRN Sleep 06/21/24 06/21/24 phenytoin sodium extended 100 mg 200 mg PO MOTUWETHFRSA@0900,21 06/21/24 06/21/24 capsule phenytoin sodium extended 100 mg 200 mg PO NIEVES@1800 06/21/24 06/21/24 capsule phenytoin sodium extended 100 mg 400 mg PO NIEVES 06/21/24 06/21/24 capsule Previous Rx's ?Medication ?Instructions ?Recorded cephalexin 500 mg capsule 500 mg PO QID 10 days #40 caps 06/15/24 doxycycline hyclate 100 mg tablet 100 mg PO BID #20 tabs 06/15/24 Allergies Allergy/AdvReac Type Severity Reaction Status Date / Time betamethasone Allergy Redness of Verified 03/24/25 12:19 Skin levetiracetam (From [facility]) Allergy Anxiety Verified 03/24/25 12:19 pseudoephedrine Allergy Anxiety Verified 03/24/25 12:19 Review of Systems Review of Systems: Constitutional : No Fever, No Chills ENT/Mouth : No sore throat, No Rhinorrhea Eyes: No Eye Pain, No Swelling, No Redness Cardiovascular : No Chest Pain, No SOB Respiratory : No Cough, No Sputum Gastrointestinal : No Nausea, No Vomiting, No Diarrhea, No abdominal Pain Genitourinary : No Dysuria, No Hematuria Musculoskeletal : No joint pain, No Myalgias, No Joint Swelling Skin : No Skin Lesions Neuro : No Weakness, No Numbness, No Headache All other systems reviewed and are negative Yes all other systems are reviewed and are negative Constitutional: Constitutional: Reports as per [facility] Past Medical History Attestation statement: The following information was validated with the patient. Medical History JOE (obstructive sleep apnea) Renal stones Seizure disorder Diabetes mellitus, type II Hypercholesteremia Hypertension Surgical History Hx of tonsillectomy History of ankle surgery Family History Family History Father Diabetes mellitus Mother Pancreas cancer Social History Social History Alcohol intake: never Patient Tobacco Use Status: Never used Tobacco Second Hand Smoke Exposure: No Advance Directives: No Advance Directives Information Provided: Yes service: No Physical Exam ED Vital Signs: Vital Signs - 24 hr 03/24/25 12:19 03/24/25 16:13 Temperature 97.7 F 98.5 F Pulse Rate 92 84 Respiratory Rate 20 16 Blood Pressure 149/68 H 123/71 Pulse Oximetry 96 100 Oxygen Delivery Method Room Air Room Air BMI result Body Mass Index 53.7 Const General: cooperative, comfortable and no acute distress Orientation/consciousness: patient oriented x3 Limitations: no limitations HENMT Head: Yes normal to inspection, Yes normocephalic and Yes atraumatic Ears: hearing grossly normal bilaterally General nose exam: Normal external nose present Face and sinus: Yes normal facial exam Mouth: Normal oral and palatal mucosa present, oropharynx normal and moist mucous membranes Throat: Yes posterior oropharynx normal Eyes General: appearance normal, both eyes and all related structures Eyelids: Yes eyelids normal Conjunctivae: conjunctivae normal Sclerae: sclerae normal Pupils: Equal, round and reactive pupils present EOM: EOMs intact bilaterally Neck Neck: Yes normal visual inspection, Yes full ROM and Yes no lymphadenopathy Lymphatic: no lymphadenopathy noted Chest Chest palpation & inspection: normal inspection of the chest Resp Effort & Inspection: normal respiratory effort and able to speak in complete sentences Auscultation: clear to auscultation bilaterally, no crackles, no rales, no rhonchi and no wheezes Cardio Rate: regular rate Rhythm: regular rhythm Heart sounds: S1 normal heart sound present and S2 normal heart sound present GI Inspection: Yes normal to inspection Skin General skin exam: no rashes or lesions noted Trauma: no lacerations or abrasions Wounds: no wounds Neuro General: patient oriented x3 and moves all extremities Cranial nerves: Yes Equal, round and reactive pupils present Extrem Other: Left leg with circumferential erythema, edema, and tenderness. Pain with weight-bearing. Achilles tendon is intact. Pedal pulses are palpable. Capillary refill less than 2 seconds. General: Yes normal to inspection Right upper extremity: normal to inspection Left upper extremity: normal to inspection Right lower extremity: normal to inspection Left lower extremity: normal to inspection Course Course Course Narrative: This is a rapid medical exam performed by Charanjit Howell NP: Additional HPI, ROS, PE not included below will be deferred to primary provider. Patient is a 54y/o M with pmhx T2DM, HTN, hypercholesterolemia, obesity presenting with left leg swelling x 3 days. Used a massager on this leg. Denies chest pain or dyspnea. Plan: labs, U/S Medical Decision Making Medical Decision Making [facility] Narrative: 54-year-old male, with pertinent history of yzh-wixtfmi-gonulyuza type 2 diabetes mellitus, seizure disorder, JOE not on CPAP, mixed hyperlipidemia, hypertension, obesity who presents to the emergency department evaluation of left leg pain, redness and warmth for the last 3 days. On arrival, patient hypertensive at 149/68, all other vital signs within normal limits. Upon my assessment after he was in the main emergency department, blood pressure normalized to 123/71, all other vital signs within normal limits. He is afebrile. Labs were obtained prior to my evaluation, he has slight leukocytosis at 11.4, with a normocytic anemia with an H&H of 13.9/40.4, ESR elevated at 53, CRP elevated at 23.66, slight elevation in AST and ALT at 48 and 89 similar to previous, slight hyperglycemic at 168, potassium low at 3. Will medicate with p.o. potassium. Ultrasound of the left lower extremity was obtained, no DVT found however patient does have Left inguinal lymphadenopathy largest lymph node measuring 4.4 x 1.5 x 3.7 cm and 2.4 x 1.2 x 1.8 cm the largest has benign morphologic features. 5:13 PM 03/24/2025 (Little Peguero PA-C): Given circumferential erythema, elevated inflammatory markers with leukocytosis with left shift, I believe that patient would benefit from IV antibiotics and admission. Discussed with hospitalist, patient will be placed in observation to obtain IV antibiotics. Transfer of care initiated. Differential Diagnosis Differential Diagnoses: The differential diagnosis associated with the presentation includes Cellulitis, DVT, abscess, cyst Admission/Observation Consideration of admission/observation: Escalation of care including admission/observation considered Lab Data [facility] Lab Attestation statement: I reviewed the patient's lab results. See [facility] 03/24/25 12:51 03/24/25 12:51 Labs: Lab Results 03/24/25 Range/Units 12:51 WBC 11.4 H (4.8-10.8) X10*3/uL RBC 4.53 L (4.60-5.80) X10*6/uL Hgb 13.9 L (14.0-18.0) g/dl Hct 40.4 L (42.0-52.0) % MCV 89.2 (80.0-98.0) fL MCH 30.7 (27.0-33.0) pg MCHC 34.4 (31.0-36.0) g/dl RDW 13.7 (11.0-16.0) % Plt Count 185 (160-400) X10*3/uL MPV 9.9 (9.4-12.4) fL Immature Gran % (Auto) 0.7 H (0.0-0.4) % Neut % (Auto) 81.0 H (45-73) % Lymph % (Auto) 11.4 L (20-40) % [place] % (Auto) 6.5 (2-11) % Eos % (Auto) 0.1 (0-4) % Baso % (Auto) 0.3 (0-2) % Lymph # (Auto) 1.3 (1.2-4.9) X10*3/uL [place] # (Auto) 0.7 (0.1-1.2) X10*3/uL Eos # (Auto) 0.0 (0.0-0.4) X10*3/uL Baso # (Auto) 0.0 (0.0-0.2) X10*3/uL Abs Immat Gran (auto) 0.08 H (0.00-0.03) X10*3/uL Absolute Neuts (auto) 9.3 H (2.0-8.3) x10*3/uL Absolute Nucleated RBC 0.000 (0.0-0.012) X10*3/uL Nucleated RBC % (auto) 0.0 (0.0-0.2) /100WBC ESR 53 H (0-15) MM/HR PT 13.9 H (10.9-12.4) SEC INR 1.2 H (0.9-1.1) Sodium 137 (135-145) mmol/L Potassium 3.0 L D (3.3-5.1) mmol/L Chloride 99 (96-108) mmol/L Carbon Dioxide 28 (22-29) mmol/L Anion Gap 13 (12-20) BUN 11 (9-16) mg/dL Creatinine 0.82 (0.5-1.4) mg/dL Estim Creat Clear Calc 168.4 Estimated GFR > 60 Random Glucose 168 H (60-115) mg/dL Calcium 8.8 (8.4-10.2) mg/dL Total Bilirubin 0.5 (0.0-1.0) mg/dL AST 48 H (5-37) U/L ALT 89 H (0-40) U/L Alkaline Phosphatase 107 (39-117) U/L C-Reactive Protein 23.66 H (< or = 0.50) mg/dL Total Protein 7.4 (6.5-8.0) g/dL Albumin 4.1 (3.5-5.0) g/dL Radiology Impression Discussion of test interpretation with radiology: I have reviewed the radiologist's reading. Radiologist Impression: Findings: Left lower extremity Common femoral vein: Patent CFV/GSV junction: Patent Femoral vein: Patent Popliteal vein: Patent Infrapopliteal veins: Suboptimally evaluated due to calf edema Soft tissue: Left inguinal lymphadenopathy largest lymph node measuring 4.4 x 1.5 x 3.7 cm and 2.4 x 1.2 x 1.8 cm the largest has benign morphologic features. The 2.4 cm lymph node shows abnormal cortical thickening. Follow-up is advised. Impression: 1. Negative for left lower extremity DVT. Suboptimal evaluation of the calf veins due to edema 2. No Hanson's cyst 3. Left inguinal lymphadenopathy follow-up advised This document has been electronically signed by: Chavo Higgins MD on 03/24/2025 15:48:16 Dictated By: Chavo Higgins MD Discharge Plan Discharge Clinical Impression: Cellulitis Patient Disposition: Admitted As Inpatient Print Language: Syrian
[2025-03-24 12:19] VITALS: BP 149/68; PULSE 92; RESP 20; TEMP 36.5; O2SAT 96; BMI 53.7
[2025-03-24 13:02] LABS: Hematocrit 40.4 % (42.0-52.0); Hemoglobin 13.9 g/dl (14.0-18.0); Imm Gran Abs Auto 0.08 X10*3/uL (0.00-0.03); Imm Gran Pct Auto 0.7 % (0.0-0.4); Lymphocytes Absolute Auto 1.3 X10*3/uL (1.2-4.9); MANUAL DIFF FLAG NO; Mean Corpuscular HGB Conc 34.4 g/dl (31.0-36.0); Mean Corpuscular Hemoglobin 30.7 pg (27.0-33.0); Mean Corpuscular Volume 89.2 fL (80.0-98.0); NRBC Abs Auto 0.000 X10*3/uL (0.0-0.012); NRBC Pct Auto 0.0 /100WBC (0.0-0.2); Platelet Count 185 X10*3/uL (160-400); Red Blood Count 4.53 X10*6/uL (4.60-5.80); White Blood Count 11.4 X10*3/uL (4.8-10.8)
[2025-03-24 13:15] LABS: INTERNATIONAL NORM RATIO 1.2 (0.9-1.1); Prothrombin Time 13.9 SEC (10.9-12.4)
[2025-03-24 13:24] LABS: Alanine Aminotransferase 89 U/L (0-40); Albumin Level 4.1 g/dL (3.5-5.0); Alkaline Phosphatase 107 U/L (39-117); Anion Gap 13 (12-20); Aspartate Amino Transferase 48 U/L (5-37); Blood Urea Nitrogen 11 mg/dL (9-16); Calcium 8.8 mg/dL (8.4-10.2); Carbon Dioxide 28 mmol/L (22-29); Chloride 99 mmol/L (96-108); Creatinine Clr Calc Pharmacy 168.4; Estimated Glomerular Filt Rate > 60; Potassium 3.0 mmol/L (3.3-5.1); Sodium 137 mmol/L (135-145); Total Protein 7.4 g/dL (6.5-8.0)
--- OUTSIDE RECORDS SUMMARY | 2025-03-24 16:07 | XMS_ITS | Encounter Summary ---
Author Organization [facility] Address [address] [place] [address] Phone Care Team Providers Care Intensive Care Anaesthetist Name Role Phone Balbina Patel MD Primary Care Provid er Reason for Visit * Reason Comments Medication Refill Encounter Details Date Type Department Care Team (Late st Contact Info) Description 02/23/2025 Refill [facility] [address] [place] [address] Satnam Antunez MD [address] [place] [address] [email or web address] Medication Refill Social History Tobacco Use Types Packs/Day Years Used Date Smoking Tobacco: Never Assessed Education Answer Date Recorded Are you interested in more education? Not on richard e 10/02/2022 Are you concerned about learning? Not on file 10/02/2022 No 10/02/2022 No 10/02/2022 Digital Access Answer Date Recorded No 11/02/2022 No 11/02/2022 Reliable internet access at home? Not on file 11/02/2022 Device with a working camera? Not on file Sex and Gender Information Value Date Recorded Sex Assigned at Not on file Legal Sex Male 1:54 AM EST Gender Identity Not on file Sexual Orientation Not on file documented as of this encounter Progress Notes * Toña Iglesias [place] - 02/23/2025 1:02 PM EDT Pls refuse. No longer a Pt here documented in this encounter Plan of Treatment Not on file documented as of this encounter Visit Diagnoses Diagnosis Seizure Other convulsions documented in this encounter Care Teams Intensive Care Anaesthetist Relationship Specialty Start Date End Date Balbina Patel MD [address] [place] [id number] PCP - General 09/07/24 documented as of this encounter Additional Source Comments The information contained in this document represents components of the legal health record. It is not the complete legal health record.[facility]
--- OUTSIDE RECORDS SUMMARY | 2025-03-24 16:07 | XMS_ITS | Clinical Summary ---
Author Organization [facility] Address [address] [place] [address] Care Team Providers Care Nephrologist Name Role Phone Unavailable Primary Care Provider Unavailabl e Social History Tobacco Use Types Packs/Day Years Used Date Smoking Tobacco: Never Assessed Sex and Gender Information Value Date Recorded Sex Assigned at Not on file Legal Sex Male 2:18 PM EDT Gender Identity Not on file Sexual Orientation Not on file Plan of Treatment Health Maintenance Due Date Last Done Comments Hepatitis C Virus Screening 1968 HIV Screening 1981 DTaP/Tdap/Td Vaccines (1 - Tdap) 1987 Hepatitis B Vaccines (1 of 3 - 19+ 3-dose series) 04/08 Pneumococcal Vaccines 50+ (1 of 1 - PCV) 2018 Zoster (Shingles) Vaccine (1 of 2) 2018 COVID-19 Vaccine ( - season) 2025 RSV Vaccine 50 years and old er and Patients (1 - 1-dose 75+ series) 2043
--- OUTSIDE RECORDS SUMMARY | 2025-03-24 16:07 | XMS_ITS | Clinical Summary ---
Author Organization [facility] Address [address] [facility] [address] [place] [address] Care Team Providers Care Hat Marker Name Role Phone Satnam Antunez MD Primary Care Provider [phone] Satnam Antunez MD Unavailable Social History Tobacco Use Types Packs/Day Years Used Date Smoking Tobacco: Never Assessed Sex and Gender Information Value Date Recorded Sex Assigned at Male 07/13/2021 7:29 AM EST Legal Sex Male 10:16 PM EST Gender Identity Not on file Sexual Orientation Not on file Last Filed Vital Signs Vital Sign Reading Time Taken Comments Blood Pressure - - Pulse - - Temperature - - Respiratory Rate - - Oxygen Saturation - - Inhaled Oxygen Concentration - - Weight 179.2 kg (395 lb) 02/22/2020 10:15 AM EDT Height 177.8 cm (5' 10 ) 02/22/2020 10:15 AM EDT Body Mass Index 56.68 02/22/2020 10:15 AM EDT Plan of Treatment Not on file Care Teams Hat Marker Relationship Specialty Start Date End Date Satnam Antunez MD PCP - General 07/11/21 Satnam nAtunez MD 07/11/21
--- OUTSIDE RECORDS SUMMARY | 2025-03-24 16:07 | XMS_ITS | Clinical Summary ---
Author Organization [facility] Address [address] [place] [phone] Phone Care Team Providers Care Hand Pleater Name Role Phone Balbina Patel MD Primary Care Provid er Allergies Active Allergy Reactions Criticality Noted Date Comments Betamethasone Acet,Sod Phos Unknown 04/18/20 16 Keppra (Levetiracetam) Unknown 12/24/2014 Pseudoephedrine Unknown 12/24/2014 Sudafed (Pseudoephedrine Hcl) 2015 Medications melatonin 5 mg Tab Take 5-10 mg by mouth nightly at bedtime. 4 Active compr.stocking ,knee,long,x-l rg Misc by Miscellaneous route. Active phenytoin (DILANTIN) 100 MG ER capsuleIndicat ions:Seizure 2 caps twice daily, except 4 capsules twice a day on wednesday 400 capsule 3 4 Active atorvastatin (LIPITOR) 80 MG tabletIndicati ons:Type 2 diabetes mellitus with hyperglycemia, without long-term current use of insulin Take 1 tablet (80 mg total) by mouth nightly at bedtime. 90 tablet 3 4 Active multivitamin (DAILY-AZRA) per tablet Take 1 tablet by mouth daily. 90 tablet 3 4 Active econazole nitrate 1 % creamIndicatio ns:Tinea pedis of left foot Apply 1 Application topically 2 (two) times a day. 30 g 5 4 Active losartan-hydro CHLOROthiazide (HYZAAR) 50-12.5 mg per tabletIndicati ons:Essential hypertension, benign Take 1 tablet by mouth daily. 90 tablet 3 4 Active metFORMIN (GLUCOPHAGE) 500 MG tabletIndicati ons:Type 2 diabetes mellitus with hyperglycemia, without long-term current use of insulin Take 1 tablet (500 mg total) by mouth daily with breakfast. 90 tablet 3 4 Active metoprolol succinate (TOPROL-XL) 25 MG 24 hr tabletIndicati ons:Essential hypertension, benign Take 1 tablet (25 mg total) by mouth daily. 90 tablet 3 4 Active nitroglycerin (NITROSTAT) 0.4 MG SL tabletIndicati ons:Essential hypertension, benign Place 1 tablet (0.4 mg total) under the tongue every 5 (five) minutes as needed for chest pain (max 3 doses). 500 tablet 4 Active doxazosin (CARDURA) 8 MG tablet Take 1 tablet (8 mg total) by mouth nightly at bedtime. 90 tablet 1 4 Active aspirin 81 MG EC tabletIndicati ons:Essential hypertension, benign TAKE 1 TABLET BY MOUTH EVERY DAY 90 tablet 2 5 Active ibuprofen (ADVIL,MOTRIN) 800 MG tabletIndicati ons:Chronic pain of right knee TAKE 1 TABLET BY MOUTH EVERY 8 HOURS NEEDED 270 tablet 2 5 Active Active Problems Problem Noted Date Diagnosed Date Routine general medical exam ination at a health care facility 04/13/2024 Morbid obesity with BMI of 50.0-59.9, adult 12/2023 Assessment & Plan (01/12/2024 11:00 AM EDT): Schedule nutrition. Pt not interested in medical weight loss referral Hypokalemia 01/12/2024 Hyponatremia 01/12/2024 Type 2 diabetes mellitus wit h hyperglycemia, without long-term current use of insulin 01/12/2024 Assessment & Plan (01/12/2024 11:00 AM EDT): Low carb diet. Regular exercise Chronic pain of right knee 01/12/2024 Essential hypertension, benign 01/12/2024 Assessment & Plan (01/12/2024 10:59 AM EDT): Continue medication. Monitor BP Seizure 01/12/2024 Assessment & Plan (01/12/2024 11:00 AM EDT): Continue medication. Seen by Neurology at [facility] in past [place] 01/12/2024 Assessment & Plan (01/12/2024 11:01 AM EDT): Schedule dermatology Tinea pedis of left foot 01/12/2024 Resolved Problems Problem Noted Date Diagnosed Date Resolved Date Dilantin toxicity 04/18/2016 01/12/2024 Encounters Date Type Department Care Team Description 03/02/[address] [facility] [place] [address] Satnam Antunez MD Medication Refill 03/02/[address] [facility] [place] [address] Satnam Antunez MD Medication Refill 02/23/[address] [place] [address] Satnam Antunez MD Medication Refill from Last 3 Months Immunizations Immunization Administration Dates Next Due COVID-19 (Pre-03/29) Moderna Vaccine, mRNA, PF 03/09/2023,08/19/2020,07/23/2020 COVID-19 Pfizer Comirnaty Vaccine 12+ 02/12/2024 COVID-19, Unspecified Formulation 2022,03/11/2022,09/29/2021,2020 Influenza Quadrivalent MDCK Preservative Free IM 04/17/2020 Influenza Quadrivalent Prese rvative Free IM 01/24/2019,01/27/2018,01/16/2017,2015 Influenza Quadrivalent w/ Preservative IM 03/20/2019 Influenza Recombinant Trival ent Preservative Free IM 02/12/2024 Influenza, Unspecified Formulation 01/25,05/14/2022,01/13/2022,2020,01/20/2021,04/17/2020,03/20/2019,0 01/24/2019,01/27/2018,01/16/2017, 016 MMR 10/31/2018 Tdap 01/25/2023 Zoster recombinant 07/29/2021,05/04/2021 Social History Tobacco Use Types Packs/Day Years Used Date Smoking Tobacco: Never Assessed Tobacco Cessation:Counseling Given: Not Answered Education Answer Date Recorded Are you interested [...] Sign Reading Time Taken Comments Blood Pressure 150/74 01/12/2024 9:51 AM EDT Pulse 83 01/12/2024 9:51 AM EDT Temperature 36.9 C (98.5 F) 01/12/2024 9:51 AM EDT Respiratory Rate 18 04/20/2016 5:24 AM EST Oxygen Saturation 96% 01/12/2024 9:51 AM EDT Inhaled Oxygen Concentration - - Weight 186 kg (410 lb) 01/12/2024 9:51 AM EDT Height 182.9 cm (6') 01/12/2024 9:51 AM EDT Body Mass Index 55.61 01/12/2024 9:51 AM EDT Plan of Treatment Health Maintenance Due Date Last Done Comments DEPRESSION SCREENING 1980 SMOKING Hx and SMOKELESS TOBACCO SCREENING 1981 HEPATITIS C SCREENING 1986 HIV ONE-TIME SCREENING (18-65 YEARS) 1986 PNEUMOCOCCAL VACCINES (50+ years) (1 of 2 - PCV) 1987 COLOGUARD 2013 COLONOSCOPY 2013 COLORECTAL CANCER SCREENING 2013 FIT TEST 2013 FOBT 2013 SIGMOIDOSCOPY 2013 VIRTUAL COLONOSCOPY 2013 PHENYTOIN (DILANTIN) LEVEL 04/20/201704/20, 04/19/2016, 04/19/2016, Additional history exists RSV VACCINE (1 - Risk 50-74 years 1-dose series) 2018 DIABETIC EYE EXAM 01/12/2024 BLOOD PRESSURE 07/14/2024 01/12/2024 HEMOGLOBIN A1C 07/14/2024 01/12/2024 INFLUENZA VACCINE (#1) 2025 , 01/25/2023, 05/14/2022, Additional history exists CREATININE LEVEL 01/11/2025 01/12/2024, 05/2016, 04/14/2014 POTASSIUM LEVEL 01/11/2025 01/12/2024, 04/07, 04/14/2014 COVID-19 VACCINE ( season) 2025 02/12/2024, 03/09/2023, 10/08/2022, Additional history exists Adult Td,Tdap Booster 01/25/2033 01/25/2023 ZOSTER VACCINES Completed 07/29/2021, 05/04/2021 HEPATITIS A VACCINES Aged Out No long er eligible based on patient's age to complete this topic HIB VACCINES Aged Out No longer eligi ble based on patient's age to complete this topic MENINGOCOCCAL VACCINES (ACWY) Aged Out No longer eligible based on patient's age to complete this topic MENINGOCOCCAL VACCINES (B) Aged Out N o longer eligible based on patient's age to complete this topic Medical Devices Not on file Procedures Procedure Name Priority Date/Time Associated Diagnosis Comments HEMOGLOBIN A1C Routine 01/12/2024 11:34 AM EDT Morbid obesity with BMI of 50.0-59.9, adult Type 2 diabetes mellitus with hyperglycemia, without long-term current use of insulin COMPREHENSIVE METABOLIC PANEL Routine 01/12/2024 11:34 AM EDT Hyponatremia Hypokalemia DILANTIN LEVEL STAT 04/20/2016 4:58 AM EST from Last 3 Months or Most Recently Relevant to Health Maintenance Results * (ABNORMAL) Comprehensive metabolic panel (01/12/2024 11:34 AM EDT) Sodium 145 135 - 145 mEq/L [facility] (CLIA# [id number]) Potassium 3.5 3.5 - 5.5 mEq/L [facility] (CLIA# [id number]) Chloride 104 99 - 113 mEq/L [facility] (CLIA# [id number]) Carbon Dioxide 34(H) 20.0 - 31.0 mEq/L [facility] (CLIA# [id number]) Anion Gap 7 2 - 12 mEq/L [facility] (CLIA# [id number]) Glucose 76 70 - 99 mg/dL [facility] (CLIA# [id number]) Comment:Adult, Fasting Non-d iabetic Reference Range Blood Urea Nitrogen 12 9 - 23 mg/dL [facility] (CLIA# [id number]) Creatinine 0.70 0.70 - 1.30 mg/dL [facility] (CLIA# [id number]) GFR Estimated (Calc) 109 >60 [facility] (CLIA# [id number]) Comment: eGFRcr Reference: Normal: > 90 ml/min/1.73 m2 Indeterminate, relevance is multifactorial: 60 -89 ml/min/1.73 m2 Suggest Kidney Disease: 16 -59 ml/min/1.73 m2 Suggest Kidney Failure: < 15 ml/min/1.73 m2 Calcium 9.7 8.7 - 10.4 mg/dL [facility] (CLIA# [id number]) Total Protein 6.9 5.7 - 8.2 g/dL [facility] (CLIA# [id number]) Albumin 4.3 3.2 - 4.8 g/dL [facility] (CLIA# [id number]) Globulin 2.6 1.6 - 3.5 g/dL [facility] (CLIA# [id number]) Comment:Note: New Reference Range Alb/Glob Ratio 1.7 [facility] (CLIA# [id number]) Bilirubin,Total 0.3 0.3 - 1.2 mg/dL [facility] (CLIA# [id number]) Alkaline Phosphatase 142(H) 46 - 136 U/L [facility] (CLIA# [id number]) AST(SGOT) 35 13 - 40 U/L [facility] (CLIA# [id number]) ALT(SGPT) 80(H) 7 - 40 U/L [facility] (CLIA# [id number]) 01/12/2024 11:3 4 AM EDT 01/12/2024 2:57 PM EDT Satnam Antunez MD LAB BLOOD ORDERABLES Final Re sult Performing Organization Address [facility] Co de Phone Number [facility] (CLIA# [id number]) [address] [place] [address] * (ABNORMAL) Hemoglobin A1c (01/12/2024 11:34 AM EDT) Hemoglobin A1C 6.4(H) <5.6 % [facility] (CLIA# [id number]) Comment: HGBA1C REFERENCE RANGES: Normal: 4.0% - 5.6% Prediabetes: 5.7% - 6.4% Diabetes: > or = to 6.5% Estimated Avg Glucose 137 mg/dL [facility] (CLIA# [id number]) 01/12/2024 11:3 4 AM EDT 01/12/2024 2:58 PM EDT us Satnam Antunez MD LAB BLOOD ORDERABLES Final Re sult Performing Organization Address City/[facility]/ZIP Co de Phone Number [facility] (CLIA# [id number]) [address] [place] [address] * (ABNORMAL) Dilantin level (04/20/2016 4:58 AM EST) DILANTIN 20.1(H) 10.0 - 20.0 ug/mL [facility] Blood 04/20/2016 4:58 AM EST 04/20/2016 5:25 AM EST us Dylan Pimentel MD LAB BLOOD ORDERABLES Final R esult [facility] [address] [place] [phone] from Last 3 Months or Most Recently Relevant to Health Maintenance Insurance [facility] [employer] MEDICARE REPLACEMENT MEDICARE PART A & B Care Teams Hand Pleater Relationship Specialty Start Date End Date Balbina Patel MD [address] [place] [id number] PCP - General 09/07/24 Additional Source Comments The information contained in this document represents components of the legal health record. It is not the complete legal health record.[facility]
[2025-03-24 16:13] VITALS: BP 123/71; PULSE 84; RESP 16; TEMP 36.9; O2SAT 100
--- NOTE | 2025-03-24 17:09 | ECG_ITS ---
Test Reason : hypokalemia Blood Pressure : */* mmHG Vent. Rate : 83 BPM Atrial Rate : 83 BPM P-R Int : 174 ms QRS Dur : 80 ms QT Int : 342 ms P-R-T Axes : 48 88 7 degrees QTcB Int : 401 ms Normal sinus rhythm T wave abnormality, consider inferior ischemia T wave abnormality, consider anterolateral ischemia Abnormal ECG When compared with ECG of 22-Nov-2024 10:25, Inverted T waves have replaced nonspecific T wave abnormality in Anterior leads Referred By: Little Peguero Electronically Signed By: Kenroy Riley
--- NOTE | 2025-03-24 17:18 | PC.NURSE ---
Pt difficult IV stick, US ESTATE ATTORNEY message to see if available for a line.
[2025-03-24] MEDS: Potassium Chloride ER 20 MEQ TAB.ER.PRT 40 MEQ PO ×2 (17:34→20:40)
[2025-03-24] MEDS: vancomycin/NS 2,000 MG/500 ML PLAST..BAG 250 MG IV (18:23)
[2025-03-24 18:38] VITALS: BP 155/68; PULSE 90; RESP 18; O2SAT 95
--- NOTE | 2025-03-24 19:06 | PHA.MEDREC ---
Pharmacy Consult ? Medication Reconciliation Pharmacy has completed the medication reconciliation. Spoke with patient at bedside to confirm meds. He states his Phenytoin is 100mg QID every day except Wednesday which he takes 400mg in the morning and 200mg at 1800. Took his meds around 0600 this morning.
--- NOTE | 2025-03-24 19:14 | PM.IMHP ---
History of Present Illness Date of Service: 03/24/25 Attending physician on admission: Salbador Paz Chief Complaint: LLE cellulitis 54-year-old male with past medical history significant for type 2 DM, who presented to the hospital for left lower extremity cellulitis began about 3 days ago. Patient states began in his ankle, slowly progress to his thigh. Today patient states that he was in his sauna and later applied pressure. Patient states that subsequently began with pain 8/10, also mentions that he has been experiencing subjective fevers and chills. Patient mentions that in the past year he had another episode in right lower extremity cellulitis requiring admission to the hospital. In the ED, leukocytosis and elevated ESR and CRP. left lower extremity ultrasound showing no DVT, with left inguinal lymphadenopathy. Review of Systems Review of Systems: 14 point ROS obtained, negative except as stated above [facility] Medical History (Updated 03/24/25 @ 19:18 by Salbador Paz MD) JOE (obstructive sleep apnea) Renal stones Seizure disorder Diabetes mellitus, type II Hypercholesteremia Hypertension Family History Father Diabetes mellitus Mother Pancreas cancer Surgical History Hx of tonsillectomy History of ankle surgery Social History Alcohol intake: never Patient Tobacco Use Status: Never used Tobacco Smoked in Last 30 Days: No Second Hand Smoke Exposure: No Use of substances other than those prescribed or required for medical reasons: No Advance Directives: No Advance Directives Information Provided: Yes service: No Meds Allergies Allergy/AdvReac Type Severity Reaction Status Date / Time betamethasone Allergy Redness of Verified 03/24/25 12:19 Skin levetiracetam (From Keppra) Allergy Anxiety Verified 03/24/25 12:19 pseudoephedrine Allergy Anxiety Verified 03/24/25 12:19 Active Medications: Current Medications Acetaminophen (Acetaminophen 325 Mg Tablet) 650 mg PO Q6H PRN PRN Reason: Pain, Mild 1-3,fever,headache Calcium Carbonate (Calcium Carbonate 750 Mg Tab.Chew) 750 mg PO Q4H PRN PRN Reason: Heartburn Dextrose (Dextrose 50 % 25 Gm/50 Ml Syringe) 25 gm IVPUSH Q15M PRN; Protocol PRN Reason: per Hypoglycemia Standing Ord. Enoxaparin Sodium (Enoxaparin Sodium 40 Mg/0.4 Ml Syringe) 40 mg SUBCUT DAILY@0600 [facility] Glucose (Glucose Gel 15 Gm Gel..Gram.) 15 gm PO Q15M PRN; Protocol PRN Reason: per Hypoglycemia Standing Ord. Lactated Ringer's (Lr) 1,000 mls @ 125 mls/hr IVCONT .Q8H [facility] Piperacillin Sod/Tazobactam (Sod 4.5 gm/ Sodium Chloride) 100 mls @ 200 mls/hr IV TID [facility] Stop: 03/31/25 20:59 Vancomycin HCl 750 mg/ Sodium (Chloride) 265 mls @ 270 mls/hr IV BID ONE Stop: 03/24/25 20:06 Ibuprofen (Ibuprofen 400 Mg Tablet) 400 mg PO Q8H PRN PRN Reason: Pain, Moderate(Pain Scale 4-6) Insulin Glargine (Insulin Glargine,Hum.Rec.Anlog 100 Unit/Ml 10 Ml Vial) 10 unit SUBCUT BEDTIME [facility] Insulin Human Lispro (Insulin Lispro 100 Unit/Ml 3 Ml Vial) 0 unit SUBCUT QIDACHS [facility]; Protocol Magnesium Hydroxide (Milk Of Magnesia 30 Ml Oral.Susp) 30 ml PO DAILY PRN PRN Reason: Constipation Melatonin (Melatonin 3 Mg Tablet) 6 mg PO BEDTIME PRN PRN Reason: Insomnia Pharmacy Consult (Consult Rx Vancomycin Dosing) 1 each MISCELLANE DAILY PRN PRN Reason: Consult order Stop: 03/31/25 19:07 Potassium Chloride (Potassium Chloride Er 20 Meq Tab.Er.Prt) 40 meq PO BID [facility] Sodium Chloride (0.9 % Sodium Chloride Flush 3 Ml Syringe) 3 ml IVFLUSH QSHIFT [facility] Home Medications ?Medication ?Instructions ?Recorded ?Confirmed ?Last Taken ?Type aspirin 81 mg tablet,delayed 81 mg PO DAILY 01/25/23 03/24/25 03/24/25 06:00 History release atorvastatin 80 mg tablet 80 mg PO BEDTIME 01/25/23 03/24/25 03/24/25 06:00 History cholecalciferol (vitamin D3) 125 125 mcg PO DAILY 01/25/23 03/24/25 03/24/25 06:00 History mcg (5,000 unit) capsule compressive stocking 01/25/23 04/01/23 Unknown History fluticasone propionate 50 1 spray intranasal BID PRN Allergy 01/25/23 03/24/25 03/24/25 06:00 History mcg/actuation nasal Symptoms spray,suspension (Allergy Relief (fluticasone)) ibuprofen 800 mg tablet 800 mg PO Q8H 01/25/23 03/24/25 03/24/25 06:00 History losartan 50 mg-hydrochlorothiazide 1 tab PO DAILY 01/25/23 03/24/25 03/24/25 06:00 History 12.5 mg tablet metformin 500 mg tablet 500 mg PO DAILY 01/25/23 03/24/25 03/24/25 06:00 History metoprolol succinate 25 mg 25 mg PO DAILY 01/25/23 03/24/25 03/24/25 06:00 History tablet,extended release 24 hr multivitamin 1 tab PO DAILY 01/25/23 03/24/25 03/24/25 06:00 History nitroglycerin 0.4 mg sublingual 0.4 mg sublingual Q5M PRN CHEST 01/25/23 03/24/25 03/24/25 06:00 History tablet PAIN doxazosin 8 mg tablet 8 mg PO QPM 06/21/24 03/24/25 03/24/25 06:00 History melatonin 5 mg tablet 5 - 10 mg PO BEDTIME PRN Sleep 06/21/24 03/24/25 03/24/25 06:00 History phenytoin sodium extended 100 mg 200 mg PO MOTUWETHFRSA@09,13 06/21/24 03/24/25 03/24/25 06:00 History capsule phenytoin sodium extended 100 mg 200 mg PO NIEVES@1800 06/21/24 03/24/25 03/24/25 06:00 History capsule phenytoin sodium extended 100 mg 400 mg PO NIEVES 06/21/24 03/24/25 03/24/25 06:00 History capsule furosemide 20 mg tablet 20 mg PO DAILY 03/24/25 03/24/25 03/24/25 06:00 History phenytoin sodium extended 100 mg 100 mg PO MOTUWETHFRSA@17,21 03/24/25 03/24/25 03/24/25 06:00 History capsule Physical Exam Vital Signs and Narrative: Vital Signs: Last Vital Signs Temp 98.5 F 03/24/25 16:13 Pulse 90 03/24/25 18:38 Resp 18 03/24/25 18:38 BP 155/68 H 03/24/25 18:38 Pulse Ox 95 03/24/25 18:38 O2 Del Method Room Air 03/24/25 18:38 BMI result Body Mass Index 53.7 General: AxOx3, No acute distress Head: AT/NC ENT: Moist mucous membranes Neck: supple CVS; RRR, S1 S2 normal Lungs: Clear bilateral breath sounds, no wheezes or crackles Abd: Soft non tender, non distended Ext: BLE edema, with cellulitis in RLE. MSK: moving all 4 limbs Skin: No cyanosis Psych: Cooperative with exam Neurology: no focal deficit Results Labs 03/24/25 12:51 03/24/25 12:51 Labs: Laboratory Results - last 24 hr 03/24/25 03/24/25 12:51 18:12 MCV 89.2 MCH 30.7 MCHC 34.4 RDW 13.7 Plt Count 185 MPV 9.9 Immature Gran % (Auto) 0.7 H Neut % (Auto) 81.0 H Lymph % (Auto) 11.4 L [place] % (Auto) 6.5 Eos % (Auto) 0.1 Baso % (Auto) 0.3 Lymph # (Auto) 1.3 [place] # (Auto) 0.7 Eos # (Auto) 0.0 Baso # (Auto) 0.0 Abs Immat Gran (auto) 0.08 H Absolute Neuts (auto) 9.3 H Absolute Nucleated RBC 0.000 Nucleated RBC % (auto) 0.0 ESR 53 H PT 13.9 H INR 1.2 H Anion Gap 13 Estim Creat Clear Calc 168.4 Estimated GFR > 60 Random Glucose 168 H Lactic Acid 0.9 Calcium 8.8 Total Bilirubin 0.5 AST 48 H ALT 89 H Alkaline Phosphatase 107 C-Reactive Protein 23.66 H Total Protein 7.4 Albumin 4.1 Assessment and Plan (1) Diabetes: Qualifiers: Diabetes mellitus type: type 2 Status: Acute (2) Seizure disorder: Status: Acute (3) Cellulitis of right lower extremity: Status: Acute (4) Sepsis: Qualifiers: Sepsis type: sepsis due to unspecified organism Status: Acute Plan Assessment: 54-year-old male with past medical history significant for T2 dm and seizure disorder, who presented to the hospital for left lower extremity pain, found to have cellulitis with lymphadenopathy. Sepsis Left lower extremity cellulitis with left inguinal lymphadenopathy Leukocytosis -on labs with leukocytosis -Blood cultures ordered x2 -imaging reviewed with Left lower extremity with no DVT, left inguinal lymphadenopathy measuring 4.4 x 1.5 x 3.7 cm and 2.4 x 1.2 x 1.8 cm -patient with underlying T2 dm, with rapidly progressive cellulitis, we will give LR IV fluids, as well as initiate Zosyn and vancomycin -monitor for any signs of worsening cellulitis, pain -will initiate pain management with Tylenol and ibuprofen at this time, kidney function adequate. T2DM -we will initiate insulin, we will plan for blood glucose between 140-180, A1c ordered Morbid obesity -counseling given on weight loss Anemia of chronic disease Monitor for any signs of bleeding, we will transfuse for hemoglobin less than 7. Hypokalemia -we will initiate potassium 40 mEq Hepatitis, with elevated liver enzymes ALT greater than AST We will closely monitor Seizure disorder continue with home meds FEN: LR, replete as needed, diabetic GI PPx: not indicated DVT PPx: Lovenox Code Status: Full Code Disposition: All questions and concerns with the patient were answered to satisfaction. All pertinent clinical documents, images and labs were reviewed. DISCLAIMER: This document was created using voice recognition software. Any mistakes in the prescription are unintentional. An attempt was made to focus for accuracy, but to expedite availability, some errors may persist. Please contact with any need for correction or further clarification Quality Stroke Does the patient have a stroke diagnosis?: No VTE Prior VTE?: No VTE Risk Level:: Medical - moderate - high VTE Device Contraindication: Treatment Not Indicated VTE Drug Contraindication: N/A - Med Ordered
--- NOTE | 2025-03-24 20:25 | HO.NURTONUR ---
Addendum entered by Sruthi Burger, RN 03/24/25 20:27: US NEG DVT. Original Note: Pt presenting to ED w/ bilat, L worse than R low leg swelling/redness/pain x 3 days PMH: type 2 DM Pt has US IV 20 Upper arm. Plan: IV abx/fluids. OOB ad olinda, can be demanding, often interrupting staff with additional requests while plan of care is being explained. Alert and Oriented.
[2025-03-24] MEDS: Lactated Ringers 1,000 ML 125 ML IVCONT (20:31)
[2025-03-24] MEDS: Insulin Glargine,Hum.rec.anlog 100 UNIT/ML 10 ML VIAL 10 UNIT SUBCUT (20:39)
[2025-03-24 20:43] VITALS: BP 128/65; PULSE 91; RESP 16; O2SAT 95
[2025-03-24 20:48] LABS: Glucose, Whole Blood 147 mg/dL (60-115)
[2025-03-24 21:34] VITALS: BP 139/75; PULSE 91; RESP 18; TEMP 37.9; O2SAT 95
[2025-03-24 22:01] LABS: Hematocrit 35.1 % (42.0-52.0); Hemoglobin 12.2 g/dl (14.0-18.0); Mean Corpuscular HGB Conc 34.8 g/dl (31.0-36.0); Mean Corpuscular Hemoglobin 31.3 pg (27.0-33.0); Mean Corpuscular Volume 90.0 fL (80.0-98.0); NRBC Abs Auto 0.000 X10*3/uL (0.0-0.012); NRBC Pct Auto 0.0 /100WBC (0.0-0.2); Platelet Count 162 X10*3/uL (160-400); Red Blood Count 3.90 X10*6/uL (4.60-5.80); White Blood Count 9.8 X10*3/uL (4.8-10.8)
[2025-03-24 22:16] LABS: Acetaminophen LAB < 3 mcg/mL (<30)
[2025-03-25 03:30] VITALS: BP 125/58; PULSE 75; RESP 18; TEMP 37.2; O2SAT 96
[2025-03-25] MEDS: Lactated Ringers 1,000 ML 125 ML IVCONT ×2 (05:28→18:29)
[2025-03-25 05:35] LABS: Hemoglobin A1C 155.7959 umol/L; Total Hemoglobin (HGBA1C) 3143.8858 umol/L
[2025-03-25 07:41] LABS: Glucose, Whole Blood 128 mg/dL (60-115)
[2025-03-25 07:54] VITALS: BP 120/74; PULSE 71; RESP 18; TEMP 37; O2SAT 95
[2025-03-25] MEDS: Metoprolol Succinate ER 25 MG TAB.ER.24H PO (07:57)
[2025-03-25] MEDS: Aspirin Enteric Coated 81 MG TABLET.DR PO (07:58)
[2025-03-25] MEDS: Potassium Chloride ER 20 MEQ TAB.ER.PRT 40 MEQ PO ×2 (07:58→22:22)
[2025-03-25] MEDS: LOSARTAN POTASSIUM 50 MG PO (08:00)
[2025-03-25] MEDS: HYDROCHLOROTHIAZIDE 12.5 MG PO (08:00)
[2025-03-25 10:00] LABS: Hematocrit 35.1 % (42.0-52.0); Hemoglobin 12.0 g/dl (14.0-18.0); Mean Corpuscular HGB Conc 34.2 g/dl (31.0-36.0); Mean Corpuscular Hemoglobin 31.3 pg (27.0-33.0); Mean Corpuscular Volume 91.4 fL (80.0-98.0); NRBC Abs Auto 0.000 X10*3/uL (0.0-0.012); NRBC Pct Auto 0.0 /100WBC (0.0-0.2); Platelet Count 167 X10*3/uL (160-400); Red Blood Count 3.84 X10*6/uL (4.60-5.80); White Blood Count 7.0 X10*3/uL (4.8-10.8)
[2025-03-25 10:17] LABS: Alanine Aminotransferase 134 U/L (0-40); Albumin Level 3.2 g/dL (3.5-5.0); Alkaline Phosphatase 95 U/L (39-117); Anion Gap 11 (12-20); Aspartate Amino Transferase 103 U/L (5-37); Blood Urea Nitrogen 9 mg/dL (9-16); Calcium 8.1 mg/dL (8.4-10.2); Carbon Dioxide 26 mmol/L (22-29); Chloride 105 mmol/L (96-108); Cholesterol 167 mg/dL (<200); Creatinine Clr Calc Pharmacy 200.1; Estimated Glomerular Filt Rate > 60; HDL Cholesterol 41 mg/dL (>40); Potassium 3.5 mmol/L (3.3-5.1); Sodium 138 mmol/L (135-145); Total Protein 6.2 g/dL (6.5-8.0); Triglycerides 116 mg/dL (<150)
--- NOTE | 2025-03-25 10:22 | MHC.CM.PN ---
PT LIVES ALONE IS INDEPEDENT CAR IS IN PARKING LOT DC PL;AN HOME N/S
[2025-03-25 11:40] LABS: Glucose, Whole Blood 173 mg/dL (60-115)
--- NOTE | 2025-03-25 13:02 | HO.PM.IMPN ---
Subjective Subjective Date of Service: 03/25/25 Interval History: Patient seen examined at bedside this morning, in no acute respiratory distress. Patient mentions that his left lower extremity pain has improved, at this time 09/11, swelling has also improved. Denies any other complaints at this time. No concern for respiratory nursing staff. Review of Systems Review of Systems: Yes all other systems are reviewed and are negative Physical Exam Exam: Exam: General: AxOx3, No acute distress Head: AT/NC ENT: Moist mucous membranes Neck: supple CVS; RRR, S1 S2 normal Lungs: Clear bilateral breath sounds, no wheezes or crackles Abd: Soft non tender, non distended Ext: BLE edema, with cellulitis in LLE, improving MSK: moving all 4 limbs Skin: No cyanosis Psych: Cooperative with exam Neurology: no focal deficit Vital Signs: Vital Signs: Last Vital Signs Temp 98.6 F 03/25/25 07:54 Pulse 71 03/25/25 07:54 Resp 18 03/25/25 07:54 BP 120/74 03/25/25 07:54 Pulse Ox 95 03/25/25 07:54 O2 Del Method Room Air 03/25/25 07:54 BMI result Body Mass Index 53.7 Objective Data Active Medications Acetaminophen (Acetaminophen 325 Mg Tablet) 650 mg PO Q6H PRN PRN Reason: Pain, Mild 1-3,fever,headache Last Admin: 03/25/25 06:37 Dose: 650 mg Documented By: ADRIENNE Aspirin (Aspirin Enteric Coated 81 Mg Tablet.) 81 mg PO DAILY [facility] Last Admin: 03/25/25 07:58 Dose: 81 mg Documented By: AMERICO Atorvastatin Calcium (Atorvastatin Calcium 80 Mg Tablet) 80 mg PO BEDTIME [facility] Last Admin: 03/24/25 23:09 Dose: 80 mg Documented By: ADRIENNE Calcium Carbonate (Calcium Carbonate 750 Mg Tab.Chew) 750 mg PO Q4H PRN PRN Reason: Heartburn Hydrochlorothiazide 12.5 mg/ (Losartan Potassium 50 mg) 0 mg PO DAILY [facility] Last Admin: 03/25/25 08:00 Dose: 12.5 tablet Documented By: AMERICO Comments: hctz 12.5 mg, losartan 50 mg. Dextrose (Dextrose 50 % 25 Gm/50 Ml Syringe) 25 gm IVPUSH Q15M PRN; Protocol PRN Reason: per Hypoglycemia Standing Ord. Doxazosin Mesylate (Doxazosin Mesylate 2 Mg Tablet) 8 mg PO DAILY@1800 [facility]; Protocol Enoxaparin Sodium (Enoxaparin Sodium 40 Mg/0.4 Ml Syringe) 40 mg SUBCUT DAILY@0600 [facility] Last Admin: 03/25/25 05:27 Dose: 40 mg Documented By: ADRIENNE Fluticasone Propionate (Fluticasone Propionate Nasal 16 Gm [place]) 1 spray NOSTRIL-B BID PRN PRN Reason: Allergy Symptoms Last Admin: 03/25/25 08:06 Dose: 1 spray Documented By: AMERICO Glucose (Glucose Gel 15 Gm Gel..Gram.) 15 gm PO Q15M PRN; Protocol PRN Reason: per Hypoglycemia Standing Ord. Lactated Ringer's (Lr) 1,000 mls @ 125 mls/hr IVCONT .Q8H [facility] Last Infusion: 03/25/25 10:37 Dose: 0 mls/hr Documented By: AMERICO Piperacillin Sod/Tazobactam (Sod 4.5 gm/ Sodium Chloride) 100 mls @ 200 mls/hr IV Q6H [facility] Last Admin: 03/25/25 12:32 Dose: 200 mls/hr Documented By: AMERICO Vancomycin HCl 1,000 mg/ (Sodium Chloride) 270 mls @ 270 mls/hr IV Q8H [facility] Last Infusion: 03/25/25 12:32 Dose: Infused Documented By: AMERICO Ibuprofen (Ibuprofen 400 Mg Tablet) 400 mg PO Q8H PRN PRN Reason: Pain, Moderate(Pain Scale 4-6) Last Admin: 03/25/25 06:37 Dose: 400 mg Documented By: ADRIENNE Insulin Glargine (Insulin Glargine,Hum.Rec.Anlog 100 Unit/Ml 10 Ml Vial) 10 unit SUBCUT BEDTIME [facility] Last Admin: 03/24/25 20:39 Dose: 10 unit Documented By: SYLWIA Insulin Human Lispro (Insulin Lispro 100 Unit/Ml 3 Ml Vial) 0 unit SUBCUT QIDACHS [facility]; Protocol Last Admin: 03/25/25 12:06 Dose: 2 unit Documented By: AMERICO Magnesium Hydroxide (Milk Of Magnesia 30 Ml Oral.Susp) 30 ml PO DAILY PRN PRN Reason: Constipation Melatonin (Melatonin 3 Mg Tablet) 6 mg PO BEDTIME PRN PRN Reason: Insomnia Last Admin: 03/24/25 20:40 Dose: 6 mg Documented By: CHIOMATOTRANG Metoprolol Succinate (Metoprolol Succinate Er 25 Mg Tab.Er.24h) 25 mg PO DAILY [facility]; Protocol Last Admin: 03/25/25 07:57 Dose: 25 mg Documented By: AMERICO Multivitamins/Vitamin C (Multivitamin Tablet) 1 tab PO DAILY [facility] Last Admin: 03/25/25 07:58 Dose: 1 tab Documented By: AMERICO Pharmacy Consult (Consult Rx Vancomycin Dosing) 1 each MISCELLANE DAILY PRN PRN Reason: Consult order Stop: 03/31/25 19:07 Phenytoin Sodium (Phenytoin Sodium Extended 100 Mg Capsule) 100 mg PO MOTUWETHFRSA@17,21 [facility] Phenytoin Sodium (Phenytoin Sodium Extended 100 Mg Capsule) 400 mg PO NIEVES [facility] Last Admin: 03/25/25 08:06 Dose: 400 mg Documented By: AMERICO Phenytoin Sodium (Phenytoin Sodium Extended 100 Mg Capsule) 200 mg PO NIEVES@1800 [facility] Phenytoin Sodium (Phenytoin Sodium Extended 100 Mg Capsule) 200 mg PO MOTUWETHFRSA@09,13 [facility] Potassium Chloride (Potassium Chloride Er 20 Meq Tab.Er.Prt) 40 meq PO BID [facility] Last Admin: 03/25/25 07:58 Dose: 40 meq Documented By: AMERICO Sodium Chloride (0.9 % Sodium Chloride Flush 3 Ml Syringe) 3 ml IVFLUSH QSHIFT [facility] Last Admin: 03/25/25 07:23 Dose: Not Given Documented By: AMERICO Non-Admin Reason: IV Running Vitamin D (Cholecalciferol (Vitamin D3) 25 Mcg Tablet) 125 mcg PO DAILY [facility] Last Admin: 03/25/25 07:56 Dose: 125 mcg Documented By: AMERICO Labs 03/25/25 09:39 03/25/25 09:39 Labs: Laboratory Results - last 24 hr 03/24/25 03/24/25 03/24/25 12:51 18:12 20:30 MCV 89.2 MCH 30.7 MCHC 34.4 RDW 13.7 Plt Count 185 MPV 9.9 Immature Gran % (Auto) 0.7 H Neut % (Auto) 81.0 H Lymph % (Auto) 11.4 L [place] % (Auto) 6.5 Eos % (Auto) 0.1 Baso % (Auto) 0.3 Lymph # (Auto) 1.3 [place] # (Auto) 0.7 Eos # (Auto) 0.0 Baso # (Auto) 0.0 Abs Immat Gran (auto) 0.08 H Absolute Neuts (auto) 9.3 H Absolute Nucleated RBC 0.000 Nucleated RBC % (auto) 0.0 ESR 53 H PT 13.9 H INR 1.2 H Anion Gap 13 Estim Creat Clear Calc 168.4 Estimated GFR > 60 POC Glucose 147 H Random Glucose 168 H Estimat Average Glucose Hemoglobin A1c % Lactic Acid 0.9 Calcium 8.8 Total Bilirubin 0.5 AST 48 H ALT 89 H Alkaline Phosphatase 107 C-Reactive Protein 23.66 H Total Protein 7.4 Albumin 4.1 Triglycerides Cholesterol LDL Cholesterol, Calc HDL Cholesterol Acetaminophen 03/24/25 03/25/25 03/25/25 21:47 07:26 09:39 MCV 90.0 91.4 MCH 31.3 31.3 MCHC 34.8 34.2 RDW 13.6 14.0 Plt Count 162 167 MPV 9.8 10.2 Immature Gran % (Auto) Neut % (Auto) Lymph % (Auto) [place] % (Auto) Eos % (Auto) Baso % (Auto) Lymph # (Auto) [place] # (Auto) Eos # (Auto) Baso # (Auto) Abs Immat Gran (auto) Absolute Neuts (auto) Absolute Nucleated RBC 0.000 0.000 Nucleated RBC % (auto) 0.0 0.0 ESR PT INR Anion Gap 11 L Estim Creat Clear Calc 200.1 Estimated GFR > 60 POC Glucose 128 H Random Glucose 205 H Estimat Average Glucose 146 Hemoglobin A1c % 6.7 H Lactic Acid Calcium 8.1 L D Total Bilirubin 0.3 AST 103 H ALT 134 H Alkaline Phosphatase 95 C-Reactive Protein Total Protein 6.2 L Albumin 3.2 L Triglycerides 116 Cholesterol 167 LDL Cholesterol, Calc 103 H HDL Cholesterol 41 Acetaminophen < 3 03/25/25 11:33 MCV MCH MCHC RDW Plt Count MPV Immature Gran % (Auto) Neut % (Auto) Lymph % (Auto) [place] % (Auto) Eos % (Auto) Baso % (Auto) Lymph # (Auto) [place] # (Auto) Eos # (Auto) Baso # (Auto) Abs Immat Gran (auto) Absolute Neuts (auto) Absolute Nucleated RBC Nucleated RBC % (auto) ESR PT INR Anion Gap Estim Creat Clear Calc Estimated GFR POC Glucose 173 H Random Glucose Estimat Average Glucose Hemoglobin A1c % Lactic Acid Calcium Total Bilirubin AST ALT Alkaline Phosphatase C-Reactive Protein Total Protein Albumin Triglycerides Cholesterol LDL Cholesterol, Calc HDL Cholesterol Acetaminophen Assessment and Plan (1) Sepsis: Status: Acute (2) Cellulitis of right lower extremity: Status: Acute (3) Seizure disorder: Status: Acute (4) Coronary artery disease due to type 2 diabetes mellitus: Status: Acute Plan Assessment: 54-year-old male with past medical history significant for T2 dm and seizure disorder, who presented to the hospital for left lower extremity pain, found to have cellulitis with lymphadenopathy. Sepsis, improving Left lower extremity cellulitis with left inguinal lymphadenopathy Leukocytosis -on labs with leukocytosis -Blood cultures ordered x2, awaiting results -imaging reviewed with Left lower extremity with no DVT, left inguinal lymphadenopathy measuring 4.4 x 1.5 x 3.7 cm and 2.4 x 1.2 x 1.8 cm -patient with underlying T2 dm, with rapidly progressive cellulitis, continue LR IV fluids, for abs Zosyn and vancomycin -monitor for any signs of worsening cellulitis, pain, fevers -continue pain management with Tylenol and ibuprofen at this time, kidney function adequate. CAD T2DM, a1c 6.7 -continue insulin, we will plan for blood glucose between 140-180 -continue ASA. metformin on hold at this time HTN continue losartan, hctz and metoprolol succinated, monitor BP and adjust medications accordingly Morbid obesity -counseling given on weight loss Anemia of chronic disease Monitor for any signs of bleeding, we will transfuse for hemoglobin less than 7. Hepatitis, with elevated liver enzymes ALT greater than AST HLD -hold statin given elevation of liver enzyes greater than 2 upper limit of normal. will order cmp, once appropriate will restart. We will closely monitor Seizure disorder continue phenytoin, monitor for any breakthrough seizures. FEN: LR, replete as needed, diabetic GI PPx: not indicated DVT PPx: Lovenox Code Status: Full Code Disposition: All questions and concerns with the patient were answered to satisfaction. All pertinent clinical documents, images and labs were reviewed. DISCLAIMER: This document was created using voice recognition software. Any mistakes in the prescription are unintentional. An attempt was made to focus for accuracy, but to expedite availability, some errors may persist. Please contact with any need for correction or further clarification Quality Stroke Does the patient have a stroke diagnosis?: No VTE Prior VTE?: No VTE Risk Level:: Medical - moderate - high VTE Device Contraindication: Treatment Not Indicated VTE Drug Contraindication: N/A - Med Ordered
[2025-03-25 15:24] VITALS: BP 152/69; PULSE 70; RESP 18; TEMP 36.1; O2SAT 94
[2025-03-25] MEDS: 0.9 % Sodium Chloride Flush 3 ML SYRINGE IVFLUSH (16:05)
[2025-03-25 16:17] LABS: Glucose, Whole Blood 106 mg/dL (60-115)
[2025-03-25 17:13] VITALS: BP 121/70
[2025-03-25 19:13] VITALS: BP 106/62; PULSE 68; RESP 18; TEMP 36.4; O2SAT 95
[2025-03-25 20:21] LABS: Glucose, Whole Blood 148 mg/dL (60-115)
--- NOTE | 2025-03-25 21:19 | PM.EVENT ---
Event Note Date of Service: 03/25/25 Event Note: pt asked to see provider bedside as he is concerned about not receiving his vancomycin. lab has not been successful at drawing trough level x2 followed by US guided attempt and pt became frustrated and asked them to leave after 45 mins reported by pt. I added a 1x dose of doxycyline 100mg as pt is unable to recieve vancomycin tonight. consider IR consult in AM if continued issues with venous access. Time Spent With Patient Time: Total time managing care of this patient today ____ minutes.
[2025-03-25 22:21] LABS: Glucose, Whole Blood 188 mg/dL (60-115)
[2025-03-25] MEDS: Insulin Glargine,Hum.rec.anlog 100 UNIT/ML 10 ML VIAL 10 UNIT SUBCUT (22:37)
[2025-03-26 04:00] VITALS: BP 115/75; PULSE 63; RESP 18; TEMP 36.7; O2SAT 96
[2025-03-26] MEDS: Lactated Ringers 1,000 ML 125 ML IVCONT ×2 (05:40→17:10)
[2025-03-26 07:33] VITALS: BP 110/69; PULSE 71; RESP 18; TEMP 36.9; O2SAT 95
[2025-03-26 07:50] LABS: Glucose, Whole Blood 139 mg/dL (60-115)
[2025-03-26] MEDS: LOSARTAN POTASSIUM 50 MG PO (09:05)
[2025-03-26] MEDS: HYDROCHLOROTHIAZIDE 12.5 MG PO (09:05)
[2025-03-26] MEDS: Metoprolol Succinate ER 25 MG TAB.ER.24H PO (09:06)
[2025-03-26] MEDS: Aspirin Enteric Coated 81 MG TABLET.DR PO (09:06)
[2025-03-26] MEDS: Potassium Chloride ER 20 MEQ TAB.ER.PRT 40 MEQ PO ×2 (09:06→20:27)
[2025-03-26 11:59] LABS: Glucose, Whole Blood 143 mg/dL (60-115)
--- NOTE | 2025-03-26 12:09 | MHC.CM.PN ---
Per MD rounds patient not medically cleared for dc. Per PT, no skilled PT indicated. DP: Home self care via private transport when medically cleared. CM will continue to follow.
--- NOTE | 2025-03-26 13:25 | HO.PM.IMPN ---
Subjective Subjective Date of Service: 03/26/25 Interval History: Patient seen and examined at bedside this morning, patient states that his left lower extremity has improved, mentions that he was having pain having the vancomycin troughs, agrees and taking p.o. and continuing IV Zosyn. Denies any other complaints at this time. Review of Systems Review of Systems: Yes all other systems are reviewed and are negative Physical Exam Exam: Exam: General: AxOx3, No acute distress Head: AT/NC ENT: Moist mucous membranes Neck: supple CVS; RRR, S1 S2 normal Lungs: Clear bilateral breath sounds, no wheezes or crackles Abd: Soft non tender, non distended Ext: BLE edema, with cellulitis in RLE, improving MSK: moving all 4 limbs Skin: No cyanosis Psych: Cooperative with exam Neurology: no focal deficit Vital Signs: Vital Signs: Last Vital Signs Temp 98.4 F 03/26/25 07:33 Pulse 71 03/26/25 07:33 Resp 18 03/26/25 07:33 BP 110/69 03/26/25 07:33 Pulse Ox 95 03/26/25 07:33 O2 Del Method Room Air 03/26/25 07:33 BMI result Body Mass Index 53.7 Objective Data Active Medications Acetaminophen (Acetaminophen 325 Mg Tablet) 650 mg PO Q6H PRN PRN Reason: Pain, Mild 1-3,fever,headache Last Admin: 03/26/25 09:14 Dose: 650 mg Documented By: JAYCOB Aspirin (Aspirin Enteric Coated 81 Mg Tablet.) 81 mg PO DAILY [facility] Last Admin: 03/26/25 09:06 Dose: 81 mg Documented By: JAYCOB Atorvastatin Calcium (Atorvastatin Calcium 80 Mg Tablet) 80 mg PO BEDTIME [facility] On Hold: 03/26/25 13:06 Last Admin: 03/25/25 22:54 Dose: Not Given Documented By: FANY Non-Admin Reason: held per MD Finn Calcium Carbonate (Calcium Carbonate 750 Mg Tab.Chew) 750 mg PO Q4H PRN PRN Reason: Heartburn Hydrochlorothiazide 12.5 mg/ (Losartan Potassium 50 mg) 0 mg PO DAILY [facility] Last Admin: 03/26/25 09:05 Dose: 50 tablet Documented By: JAYCOB Dextrose (Dextrose 50 % 25 Gm/50 Ml Syringe) 25 gm IVPUSH Q15M PRN; Protocol PRN Reason: per Hypoglycemia Standing Ord. Diphenhydramine HCl (Diphenhydramine Hcl 50 Mg/Ml Vial) 50 mg IVPUSH ONCE PRN PRN Reason: insomnia Last Admin: 03/25/25 22:22 Dose: 50 mg Documented By: FANY Doxazosin Mesylate (Doxazosin Mesylate 2 Mg Tablet) 8 mg PO DAILY@1800 [facility]; Protocol Last Admin: 03/25/25 17:13 Dose: 8 mg Documented By: AMERICO Doxycycline Monohydrate (Doxycycline Monohydrate 100 Mg Capsule) 100 mg PO Q12H [facility] Stop: 03/31/25 07:44 Last Admin: 03/26/25 09:06 Dose: 100 mg Documented By: JAYCOB Enoxaparin Sodium (Enoxaparin Sodium 40 Mg/0.4 Ml Syringe) 40 mg SUBCUT DAILY@0600 [facility] Last Admin: 03/26/25 05:47 Dose: 40 mg Documented By: FANY Fluticasone Propionate (Fluticasone Propionate Nasal 16 Gm [place]) 1 spray NOSTRIL-B BID PRN PRN Reason: Allergy Symptoms Last Admin: 03/25/25 08:06 Dose: 1 spray Documented By: AMERICO Glucose (Glucose Gel 15 Gm Gel..Gram.) 15 gm PO Q15M PRN; Protocol PRN Reason: per Hypoglycemia Standing Ord. Lactated Ringer's (Lr) 1,000 mls @ 125 mls/hr IVCONT .Q8H [facility] Last Infusion: 03/26/25 06:25 Dose: 125 mls/hr Documented By: FANY Piperacillin Sod/Tazobactam (Sod 4.5 gm/ Sodium Chloride) 100 mls @ 200 mls/hr IV Q6H [facility] Last Infusion: 03/26/25 12:07 Dose: Infused Documented By: JAYCOB Ibuprofen (Ibuprofen 400 Mg Tablet) 400 mg PO Q8H PRN PRN Reason: Pain, Moderate(Pain Scale 4-6) Last Admin: 03/26/25 05:52 Dose: 400 mg Documented By: FANY Insulin Glargine (Insulin Glargine,Hum.Rec.Anlog 100 Unit/Ml 10 Ml Vial) 10 unit SUBCUT BEDTIME [facility] Last Admin: 03/25/25 22:37 Dose: 10 unit Documented By: FANY Insulin Human Lispro (Insulin Lispro 100 Unit/Ml 3 Ml Vial) 0 unit SUBCUT QIDACHS [facility]; Protocol Last Admin: 03/26/25 11:56 Dose: Not Given Documented By: JAYCOB Non-Admin Reason: No Insulin Coverage Magnesium Hydroxide (Milk Of Magnesia 30 Ml Oral.Susp) 30 ml PO DAILY PRN PRN Reason: Constipation Melatonin (Melatonin 3 Mg Tablet) 6 mg PO BEDTIME PRN PRN Reason: Insomnia Last Admin: 03/24/25 20:40 Dose: 6 mg Documented By: DITOLC Metoprolol Succinate (Metoprolol Succinate Er 25 Mg Tab.Er.24h) 25 mg PO DAILY [facility]; Protocol Last Admin: 03/26/25 09:06 Dose: 25 mg Documented By: JAYCOB Multivitamins/Vitamin C (Multivitamin Tablet) 1 tab PO DAILY [facility] Last Admin: 03/26/25 09:05 Dose: 1 tab Documented By: JAYCOB Phenytoin Sodium (Phenytoin Sodium Extended 100 Mg Capsule) 100 mg PO MOTUWETHFRSA@17,21 [facility] Phenytoin Sodium (Phenytoin Sodium Extended 100 Mg Capsule) 400 mg PO NIEVES [facility] Last Admin: 03/25/25 08:06 Dose: 400 mg Documented By: MOHAMER Phenytoin Sodium (Phenytoin Sodium Extended 100 Mg Capsule) 200 mg PO NIEVES@1800 [facility] Last Admin: 03/25/25 17:15 Dose: 200 mg Documented By: LYRICAMER Phenytoin Sodium (Phenytoin Sodium Extended 100 Mg Capsule) 200 mg PO MOTUWETHFRSA@09,13 [facility] Last Admin: 03/26/25 13:12 Dose: 200 mg Documented By: JAYCOB Potassium Chloride (Potassium Chloride Er 20 Meq Tab.Er.Prt) 40 meq PO BID [facility] Last Admin: 03/26/25 09:06 Dose: 40 meq Documented By: JAYCOB Sodium Chloride (0.9 % Sodium Chloride Flush 3 Ml Syringe) 3 ml IVFLUSH QSHIFT [facility] Last Admin: 03/26/25 09:16 Dose: Not Given Documented By: JAYCOB Non-Admin Reason: IV Running Vitamin D (Cholecalciferol (Vitamin D3) 25 Mcg Tablet) 125 mcg PO DAILY [facility] Last Admin: 03/26/25 09:06 Dose: 125 mcg Documented By: JAYCOB Labs 03/25/25 09:39 03/25/25 09:39 Labs: Laboratory Results - last 24 hr 03/25/25 03/25/25 03/25/25 16:11 20:13 22:17 POC Glucose 106 148 H 188 H 03/26/25 03/26/25 07:33 11:42 POC Glucose 139 H 143 H Microbiology Microbiology Results: Microbiology 03/24/25 18:12 Blood Culture - Preliminary Blood - Venous No growth after 24 hours. 03/24/25 18:12 Blood Culture - Preliminary Blood - Venous No growth after 24 hours. Assessment and Plan (1) Coronary artery disease due to type 2 diabetes mellitus: Status: Acute (2) Sepsis: Status: Acute (3) Seizure disorder: Status: Acute (4) Cellulitis of left lower extremity: Status: Acute Plan Assessment: 54-year-old male with past medical history significant for T2 dm and seizure disorder, who presented to the hospital for left lower extremity pain, found to have cellulitis with lymphadenopathy. Initiated yesterday on Zosyn and vancomycin, with improvement of left lower extremity cellulitis. Due to difficulty for vancomycin troughs, as well as patient refused and getting drops, switch to doxycycline p.o.. Sepsis, improved Left lower extremity cellulitis with left inguinal lymphadenopathy, improving Leukocytosis , resolved -on labs with leukocytosis -Blood cultures ordered x2 -imaging reviewed with Left lower extremity with no DVT, left inguinal lymphadenopathy measuring 4.4 x 1.5 x 3.7 cm and 2.4 x 1.2 x 1.8 cm -patient with underlying T2 dm, with rapidly progressive cellulitis, s/p LR IV fluids, continue Zosyn, vanco transitioned to doxy PO -monitor for any signs of worsening cellulitis, pain -continue with Tylenol and ibuprofen at this time, kidney function adequate. T2DM -Continue insulin, we will plan for blood glucose between 140-180 Morbid obesity -counseling given on weight loss Anemia of chronic disease Monitor for any signs of bleeding, we will transfuse for hemoglobin less than 7. Seizure disorder continue with phenytoin, monitor for any breakthrough seizures. FEN: LR, replete as needed, diabetic GI PPx: not indicated DVT PPx: Lovenox Code Status: Full Code Disposition: All questions and concerns with the patient were answered to satisfaction. All pertinent clinical documents, images and labs were reviewed. DISCLAIMER: This document was created using voice recognition software. Any mistakes in the prescription are unintentional. An attempt was made to focus for accuracy, but to expedite availability, some errors may persist. Please contact with any need for correction or further clarification Quality Stroke Does the patient have a stroke diagnosis?: No VTE Prior VTE?: No VTE Risk Level:: Medical - moderate - high VTE Device Contraindication: Treatment Not Indicated VTE Drug Contraindication: N/A - Med Ordered
[2025-03-26 15:28] VITALS: BP 133/68; PULSE 66; RESP 18; TEMP 36.4; O2SAT 96
[2025-03-26 16:08] LABS: Glucose, Whole Blood 132 mg/dL (60-115)
[2025-03-26 19:09] VITALS: BP 125/59; PULSE 79; RESP 18; TEMP 36.5; O2SAT 94
[2025-03-26 20:24] LABS: Glucose, Whole Blood 122 mg/dL (60-115)
[2025-03-26] MEDS: 0.9 % Sodium Chloride Flush 3 ML SYRINGE IVFLUSH (20:29)
[2025-03-26] MEDS: Insulin Glargine,Hum.rec.anlog 100 UNIT/ML 10 ML VIAL 10 UNIT SUBCUT (20:36)
[2025-03-27 03:34] VITALS: BP 123/72; PULSE 72; RESP 20; TEMP 36.8; O2SAT 96
[2025-03-27] MEDS: Lactated Ringers 1,000 ML 125 ML IVCONT ×3 (03:45→20:27)
[2025-03-27 07:24] VITALS: BP 128/83; PULSE 68; RESP 16; TEMP 36.6; O2SAT 95
[2025-03-27 07:31] LABS: Glucose, Whole Blood 142 mg/dL (60-115)
[2025-03-27] MEDS: HYDROCHLOROTHIAZIDE 12.5 MG PO (09:01)
[2025-03-27] MEDS: LOSARTAN POTASSIUM 50 MG PO (09:01)
[2025-03-27] MEDS: Potassium Chloride ER 20 MEQ TAB.ER.PRT 40 MEQ PO ×2 (09:01→20:28)
[2025-03-27] MEDS: Metoprolol Succinate ER 25 MG TAB.ER.24H PO (09:02)
[2025-03-27] MEDS: Aspirin Enteric Coated 81 MG TABLET.DR PO (09:03)
[2025-03-27 10:57] LABS: Hematocrit 36.4 % (42.0-52.0); Hemoglobin 12.4 g/dl (14.0-18.0); Mean Corpuscular HGB Conc 34.1 g/dl (31.0-36.0); Mean Corpuscular Hemoglobin 31.1 pg (27.0-33.0); Mean Corpuscular Volume 91.2 fL (80.0-98.0); NRBC Abs Auto 0.000 X10*3/uL (0.0-0.012); NRBC Pct Auto 0.0 /100WBC (0.0-0.2); Platelet Count 221 X10*3/uL (160-400); Red Blood Count 3.99 X10*6/uL (4.60-5.80); White Blood Count 6.0 X10*3/uL (4.8-10.8)
[2025-03-27 11:18] LABS: Alanine Aminotransferase 155 U/L (0-40); Albumin Level 3.6 g/dL (3.5-5.0); Alkaline Phosphatase 102 U/L (39-117); Anion Gap 11 (12-20); Aspartate Amino Transferase 90 U/L (5-37); Blood Urea Nitrogen 8 mg/dL (9-16); Calcium 9.6 mg/dL (8.4-10.2); Carbon Dioxide 29 mmol/L (22-29); Chloride 105 mmol/L (96-108); Creatinine Clr Calc Pharmacy 186.6; Estimated Glomerular Filt Rate > 60; Potassium 4.3 mmol/L (3.3-5.1); Sodium 141 mmol/L (135-145); Total Protein 6.8 g/dL (6.5-8.0)
[2025-03-27 11:33] LABS: Glucose, Whole Blood 130 mg/dL (60-115)
--- NOTE | 2025-03-27 14:24 | HO.PM.IMPN ---
Subjective Subjective Date of Service: 03/27/25 Interval History: Patient seen and examined at bedside this morning, in no acute respiratory distress, patient continues with left lower extremity cellulitis, improving, however slowly. Mentions that his pain has improved. Physical Exam Exam: Exam: General: AxOx3, No acute distress Head: AT/NC ENT: Moist mucous membranes Neck: supple CVS; RRR, S1 S2 normal Lungs: Clear bilateral breath sounds, no wheezes or crackles Abd: Soft non tender, non distended Ext: BLE edema, with cellulitis in RLE, improving with marked area decrease about 2cm MSK: moving all 4 limbs Skin: No cyanosis Psych: Cooperative with exam Neurology: no focal deficit Vital Signs: Vital Signs: Last Vital Signs Temp 97.8 F 03/27/25 07:24 Pulse 68 03/27/25 07:24 Resp 16 03/27/25 07:24 BP 128/83 03/27/25 07:24 Pulse Ox 95 03/27/25 07:24 O2 Del Method Room Air 03/27/25 07:24 BMI result Body Mass Index 53.7 Objective Data Active Medications Acetaminophen (Acetaminophen 325 Mg Tablet) 650 mg PO Q6H PRN PRN Reason: Pain, Mild 1-3,fever,headache Last Admin: 03/27/25 09:10 Dose: 650 mg Documented By: JAYCOB Aspirin (Aspirin Enteric Coated 81 Mg Tablet.) 81 mg PO DAILY [facility] Last Admin: 03/27/25 09:03 Dose: 81 mg Documented By: JAYCOB Atorvastatin Calcium (Atorvastatin Calcium 80 Mg Tablet) 80 mg PO BEDTIME [facility] On Hold: 03/26/25 13:06 Last Admin: 03/25/25 22:54 Dose: Not Given Documented By: FANY Non-Admin Reason: held per MD Finn Calcium Carbonate (Calcium Carbonate 750 Mg Tab.Chew) 750 mg PO Q4H PRN PRN Reason: Heartburn Hydrochlorothiazide 12.5 mg/ (Losartan Potassium 50 mg) 0 mg PO DAILY [facility] Last Admin: 03/27/25 09:01 Dose: 50 tablet Documented By: JAYCOB Dextrose (Dextrose 50 % 25 Gm/50 Ml Syringe) 25 gm IVPUSH Q15M PRN; Protocol PRN Reason: per Hypoglycemia Standing Ord. Diphenhydramine HCl (Diphenhydramine Hcl 50 Mg/Ml Vial) 50 mg IVPUSH ONCE PRN PRN Reason: insomnia Last Admin: 03/25/25 22:22 Dose: 50 mg Documented By: FANY Doxazosin Mesylate (Doxazosin Mesylate 2 Mg Tablet) 8 mg PO DAILY@1800 [facility]; Protocol Last Admin: 03/26/25 17:09 Dose: 8 mg Documented By: JAYCOB Doxycycline Monohydrate (Doxycycline Monohydrate 100 Mg Capsule) 100 mg PO Q12H [facility] Stop: 03/31/25 07:44 Last Admin: 03/27/25 09:03 Dose: 100 mg Documented By: JAYCOB Enoxaparin Sodium (Enoxaparin Sodium 40 Mg/0.4 Ml Syringe) 40 mg SUBCUT DAILY@0600 [facility] Last Admin: 03/27/25 05:27 Dose: 40 mg Documented By: WILBERTO Fluticasone Propionate (Fluticasone Propionate Nasal 16 Gm [place]) 1 spray NOSTRIL-B BID PRN PRN Reason: Allergy Symptoms Last Admin: 03/25/25 08:06 Dose: 1 spray Documented By: AMERICO Glucose (Glucose Gel 15 Gm Gel..Gram.) 15 gm PO Q15M PRN; Protocol PRN Reason: per Hypoglycemia Standing Ord. Lactated Ringer's (Lr) 1,000 mls @ 125 mls/hr IVCONT .Q8H [facility] Last Infusion: 03/27/25 12:09 Dose: Infused Documented By: JAYCOB Piperacillin Sod/Tazobactam (Sod 4.5 gm/ Sodium Chloride) 100 mls @ 200 mls/hr IV Q6H [facility] Last Infusion: 03/27/25 11:51 Dose: Infused Documented By: JAYCOB Ibuprofen (Ibuprofen 400 Mg Tablet) 400 mg PO Q8H PRN PRN Reason: Pain, Moderate(Pain Scale 4-6) Last Admin: 03/27/25 09:10 Dose: 400 mg Documented By: JAYCOB Insulin Glargine (Insulin Glargine,Hum.Rec.Anlog 100 Unit/Ml 10 Ml Vial) 10 unit SUBCUT BEDTIME [facility] Last Admin: 03/26/25 20:36 Dose: 10 unit Documented By: WILBERTO Insulin Human Lispro (Insulin Lispro 100 Unit/Ml 3 Ml Vial) 0 unit SUBCUT QIDACHS [facility]; Protocol Last Admin: 03/27/25 11:36 Dose: Not Given Documented By: JAYCOB Non-Admin Reason: No Insulin Coverage Magnesium Hydroxide (Milk Of Magnesia 30 Ml Oral.Susp) 30 ml PO DAILY PRN PRN Reason: Constipation Melatonin (Melatonin 3 Mg Tablet) 6 mg PO BEDTIME PRN PRN Reason: Insomnia Last Admin: 03/26/25 20:27 Dose: 6 mg Documented By: WILBERTO Metoprolol Succinate (Metoprolol Succinate Er 25 Mg Tab.Er.24h) 25 mg PO DAILY [facility]; Protocol Last Admin: 03/27/25 09:02 Dose: 25 mg Documented By: JAYCOB Multivitamins/Vitamin C (Multivitamin Tablet) 1 tab PO DAILY [facility] Last Admin: 03/27/25 09:03 Dose: 1 tab Documented By: JAYCOB Phenytoin Sodium (Phenytoin Sodium Extended 100 Mg Capsule) 100 mg PO MOTUWETHFRSA@17,21 [facility] Last Admin: 03/26/25 20:27 Dose: 100 mg Documented By: WILBERTO Phenytoin Sodium (Phenytoin Sodium Extended 100 Mg Capsule) 400 mg PO NIEVES [facility] Last Admin: 03/25/25 08:06 Dose: 400 mg Documented By: AMERICO Phenytoin Sodium (Phenytoin Sodium Extended 100 Mg Capsule) 200 mg PO NIEVES@1800 [facility] Last Admin: 03/25/25 17:15 Dose: 200 mg Documented By: LYRICAMER Phenytoin Sodium (Phenytoin Sodium Extended 100 Mg Capsule) 200 mg PO MOTUWETHFRSA@09,13 [facility] Last Admin: 03/27/25 13:49 Dose: 200 mg Documented By: JAYCOB Potassium Chloride (Potassium Chloride Er 20 Meq Tab.Er.Prt) 40 meq PO BID [facility] Last Admin: 03/27/25 09:01 Dose: 40 meq Documented By: JAYCOB Sodium Chloride (0.9 % Sodium Chloride Flush 3 Ml Syringe) 3 ml IVFLUSH QSHIFT [facility] Last Admin: 03/27/25 09:06 Dose: Not Given Documented By: JAYCOB Non-Admin Reason: IV Running Vitamin D (Cholecalciferol (Vitamin D3) 25 Mcg Tablet) 125 mcg PO DAILY [facility] Last Admin: 03/27/25 09:03 Dose: 125 mcg Documented By: JAYCOB Labs 03/27/25 10:42 03/27/25 10:42 Labs: Laboratory Results - last 24 hr 03/26/25 03/26/25 03/27/25 15:58 20:10 07:20 MCV MCH MCHC RDW Plt Count MPV Absolute Nucleated RBC Nucleated RBC % (auto) Anion Gap Estim Creat Clear Calc Estimated GFR POC Glucose 132 H 122 H 142 H Random Glucose Calcium Total Bilirubin AST ALT Alkaline Phosphatase Total Protein Albumin 03/27/25 03/27/25 10:42 11:28 MCV 91.2 MCH 31.1 MCHC 34.1 RDW 13.5 Plt Count 221 D MPV 9.6 Absolute Nucleated RBC 0.000 Nucleated RBC % (auto) 0.0 Anion Gap 11 L Estim Creat Clear Calc 186.6 Estimated GFR > 60 POC Glucose 130 H Random Glucose 157 H Calcium 9.6 D Total Bilirubin 0.3 AST 90 H ALT 155 H Alkaline Phosphatase 102 Total Protein 6.8 Albumin 3.6 Microbiology Microbiology Results: Microbiology 03/24/25 18:12 Blood Culture - Preliminary Blood - Venous No growth after 48 hours. 03/24/25 18:12 Blood Culture - Preliminary Blood - Venous No growth after 48 hours. Assessment and Plan (1) Coronary artery disease due to type 2 diabetes mellitus: Status: Acute (2) Diabetes mellitus, type II: Status: Acute (3) Seizure disorder: Status: Acute (4) Cellulitis of left lower extremity: Status: Acute Plan Assessment: 54-year-old male with past medical history significant for T2 dm and seizure disorder, who presented to the hospital for left lower extremity pain, found to have cellulitis with lymphadenopathy. Initiated yesterday on Zosyn and vancomycin, with improvement of left lower extremity cellulitis. currently with Zosyn and Doxy PO. possible d/c tomorrow Sepsis, improved Left lower extremity cellulitis with left inguinal lymphadenopathy, improving Leukocytosis , resolved -on labs with leukocytosis -Blood cultures negative x2 -imaging reviewed with Left lower extremity with no DVT, left inguinal lymphadenopathy measuring 4.4 x 1.5 x 3.7 cm and 2.4 x 1.2 x 1.8 cm -patient with underlying T2 dm, with rapidly progressive cellulitis, s/p LR IV fluids, continue Zosyn, and doxy PO -monitor for any signs of worsening cellulitis, pain -continue with Tylenol and ibuprofen at this time, kidney function adequate. -leg elevation encouraged T2DM -Continue insulin, we will plan for blood glucose between 140-180 Morbid obesity -counseling given on weight loss Anemia of chronic disease Monitor for any signs of bleeding, we will transfuse for hemoglobin less than 7. Seizure disorder continue with phenytoin, monitor for any breakthrough seizures. FEN: LR, replete as needed, diabetic GI PPx: not indicated DVT PPx: Lovenox Code Status: Full Code Disposition: All questions and concerns with the patient were answered to satisfaction. All pertinent clinical documents, images and labs were reviewed. DISCLAIMER: This document was created using voice recognition software. Any mistakes in the prescription are unintentional. An attempt was made to focus for accuracy, but to expedite availability, some errors may persist. Please contact with any need for correction or further clarification Quality Stroke Does the patient have a stroke diagnosis?: No VTE Prior VTE?: No VTE Risk Level:: Medical - moderate - high VTE Device Contraindication: Treatment Not Indicated VTE Drug Contraindication: N/A - Med Ordered
[2025-03-27 15:10] VITALS: BP 121/78; PULSE 67; RESP 18; TEMP 36.7; O2SAT 96
[2025-03-27 16:05] LABS: Glucose, Whole Blood 90 mg/dL (60-115)
[2025-03-27 19:17] VITALS: BP 120/71; PULSE 70; RESP 18; TEMP 36.7; O2SAT 94
[2025-03-27 20:23] LABS: Glucose, Whole Blood 153 mg/dL (60-115)
[2025-03-27] MEDS: Insulin Glargine,Hum.rec.anlog 100 UNIT/ML 10 ML VIAL 10 UNIT SUBCUT (20:30)
[2025-03-28] MEDS: 0.9 % Sodium Chloride Flush 3 ML SYRINGE IVFLUSH ×2 (00:19→08:43)
[2025-03-28 03:44] VITALS: BP 118/70; PULSE 63; RESP 20; TEMP 36.6; O2SAT 94
[2025-03-28] MEDS: Lactated Ringers 1,000 ML 125 ML IVCONT (05:32)
[2025-03-28 06:33] LABS: Creatinine Clr Calc Pharmacy 172.6; Estimated Glomerular Filt Rate > 60
[2025-03-28 07:26] VITALS: BP 138/83; PULSE 64; RESP 18; TEMP 37.1; O2SAT 96
[2025-03-28 07:31] LABS: Glucose, Whole Blood 128 mg/dL (60-115)
[2025-03-28 08:42] VITALS: BP 138/83; PULSE 64
[2025-03-28] MEDS: Potassium Chloride ER 20 MEQ TAB.ER.PRT 40 MEQ PO (08:42)
[2025-03-28] MEDS: HYDROCHLOROTHIAZIDE 12.5 MG PO (08:42)
[2025-03-28] MEDS: Aspirin Enteric Coated 81 MG TABLET.DR PO (08:42)
[2025-03-28] MEDS: LOSARTAN POTASSIUM 50 MG PO (08:42)
[2025-03-28] MEDS: Metoprolol Succinate ER 25 MG TAB.ER.24H PO (08:42)
--- NOTE | 2025-03-28 10:48 | P.DS_ITS ---
DS: Providers Provider Date of Service: 03/28/25 Date of admission: 03/24/25 19:00 Date of discharge: 03/28/25 Primary care physician: Danette Padron MD DS: Diagnosis Discharge Diagnosis (1) Diabetes mellitus, type II: Status: Acute (2) Cellulitis of left lower extremity: Status: Acute (3) Sepsis: Status: Acute (4) Inguinal lymphadenopathy: Status: Acute (5) Morbid obesity: Status: Acute DS: Summary Hospital Course Hospital Course: From the history and physical by the admitting hospitalist, Salbador Paz MD, 03/24/25: 54-year-old male with past medical history significant for type 2 DM, who presented to the hospital for left lower extremity cellulitis began about 3 days ago. Patient states began in his ankle, slowly progress to his thigh. Today patient states that he was in his sauna and later applied pressure. Patient states that subsequently began with pain 8/10, also mentions that he has been experiencing subjective fevers and chills. Patient mentions that in the past year he had another episode in right lower extremity cellulitis requiring admission to the hospital. In the ED, leukocytosis and elevated ESR and CRP. left lower extremity ultrasound showing no DVT, with left inguinal lymphadenopathy. He was admitted to the hospitalist service and treated with 4 days of piperacillin-tazobactam and 2 days of vancomycin followed by 2 days of doxycycline with gradual improvement. Blood cultures negative. Sepsis physiology resolved. Discharged on 6 days of amoxicillin-clavulanate plus doxycycline; should follow up with his primary care doctor and repeat US in 1-2 months to ensure resolution of left inguinal lymphadenopathy, though it is likely reactive. Time Attestation Discharge Coordination Time (in mins): 40 Quality: Safe Use of Opioids Does Pt have an Active Cancer Diagnosis on the Problem List?: No Quality: Stroke Does the patient have a stroke diagnosis?: No Physical Exam Vital Signs: Vital Signs: Last Vital Signs Temp 98.7 F 03/28/25 07:26 Pulse 64 03/28/25 08:42 Resp 18 03/28/25 07:26 BP 138/83 03/28/25 08:42 Pulse Ox 96 03/28/25 07:26 O2 Del Method Room Air 03/28/25 07:26 BMI result Body Mass Index 53.7 Gen: in no acute distress HEENT: sclera anicteric, moist mucus membranes Neck: supple Lungs: clear to auscultation bilaterally Heart: regular rate and rhythm, no murmurs Abd: soft, non-tender, non-distended, obese Ext: bilateral leg edema, L with inflammatory hyperpigmentation Skin: warm/well-perfused Neuro: alert and oriented x3, no focal findings Psych: appropriate affect DS: Data Data Completed and Pending Labs on day of discharge: Laboratory Results - last 24 hr 03/27/25 03/27/25 03/27/25 10:42 11:28 15:58 WBC 6.0 RBC 3.99 L Hgb 12.4 L Hct 36.4 L MCV 91.2 MCH 31.1 MCHC 34.1 RDW 13.5 Plt Count 221 D MPV 9.6 Absolute Nucleated RBC 0.000 Nucleated RBC % (auto) 0.0 Sodium 141 Potassium 4.3 D Chloride 105 Carbon Dioxide 29 Anion Gap 11 L BUN 8 L Creatinine 0.74 Estim Creat Clear Calc 186.6 Estimated GFR > 60 POC Glucose 130 H 90 Random Glucose 157 H Calcium 9.6 D Total Bilirubin 0.3 AST 90 H ALT 155 H Alkaline Phosphatase 102 Total Protein 6.8 Albumin 3.6 03/27/25 03/28/25 03/28/25 20:16 06:01 07:26 WBC RBC Hgb Hct MCV MCH MCHC RDW Plt Count MPV Absolute Nucleated RBC Nucleated RBC % (auto) Sodium Potassium Chloride Carbon Dioxide Anion Gap BUN Creatinine 0.80 Estim Creat Clear Calc 172.6 Estimated GFR > 60 POC Glucose 153 H 128 H Random Glucose Calcium Total Bilirubin AST ALT Alkaline Phosphatase Total Protein Albumin Preliminary micro results at discharge 03/24/25 18:12 Blood Culture - Preliminary Blood - Venous No growth after 48 hours. 03/24/25 18:12 Blood Culture - Preliminary Blood - Venous No growth after 48 hours. Discharge Plan Discharge Anticipated Discharge Date/Time: 03/28/25 10:45 Patient Disposition: Home, Self-Care Discharge Diagnosis: sepsis due to cellulitis, diabetes Referrals: Danette Padron MD [Primary Care Provider, Internal Medicine] - 1 Week Discharge Medications: New doxycycline monohydrate 100 mg Capsule 100 mg PO Q12H Qty: 12 0RF amoxicillin-pot clavulanate 875-125 mg tablet 1 tab PO BID Qty: 12 0RF Continued phenytoin sodium extended 100 mg capsule 100 mg PO MOTUWETHFRSA@17,21 furosemide 20 mg tablet 20 mg PO DAILY phenytoin sodium extended 100 mg capsule 200 mg PO MOTUWETHFRSA@09,13 doxazosin 8 mg tablet 8 mg PO QPM melatonin 5 mg tablet 5 - 10 mg PO BEDTIME PRN (Reason: Sleep) phenytoin sodium extended 100 mg capsule 400 mg PO NIEVES phenytoin sodium extended 100 mg capsule 200 mg PO NIEVES@1800 aspirin 81 mg tablet,delayed release (DR/EC) 81 mg PO DAILY ibuprofen 800 mg tablet 800 mg PO Q8H nitroglycerin 0.4 mg tablet, sublingual 0.4 mg sublingual Q5M PRN (Reason: CHEST PAIN ) Rx Instructions: do not exceed 3 doses per episode metformin 500 mg tablet 500 mg PO DAILY losartan-hydrochlorothiazide 50-12.5 mg tablet 1 tab PO DAILY fluticasone propionate [Allergy Relief (fluticasone)] 50 mcg/actuation spray,suspension 1 spray intranasal BID PRN (Reason: Allergy Symptoms) Rx Instructions: administer into each nostril multivitamin Tablet 1 tab PO DAILY cholecalciferol (vitamin D3) 125 mcg (5,000 unit) capsule 125 mcg PO DAILY metoprolol succinate 25 mg tablet extended release 24 hr 25 mg PO DAILY atorvastatin 80 mg tablet 80 mg PO BEDTIME (DME) compressive stocking 0 .Route .MEDSUPPLY Discharge Orders: Discharge Order (Routine); Ordered 03/28/25 Ordered By: Roberto Carlos Sandhu Diet: Diabetic diet Activity on Discharge: As tolerated Stand Alone Forms: Patient Portal Discharge page Print Language: Luxem[place]ish Care Plan Goals: cure infection Health Concerns: sepsis due to cellulitis, diabetes Plan of Treatment: take doxycycline monohydrate 100 mg twice daily PLUS amoxicillin-clavulanate 875-125 mg twice daily for 6 days repeat US of lymph nodes in left groin in 1-2 months; likely these are enlarged due to infection Please follow up with your primary care doctor within 1 week. Return to the hospital if you experience recurrent or worsening symptoms Assessment: See Discharge Summary.
--- NOTE | 2025-03-28 11:01 | MHC.CM.PN ---
Patient medically cleared for dc home self care. Car in [facility] lot for self transport. RN aware.
== END 2025-03-28 11:30 | disposition home or self-care (01) | DRG 872 ==
LOC: HO.ED 17:14 → HO.EDOVER 19:07 → HO.S3 20:19
PROVIDERS: Physician Assistant Medical; Registered Nurse Emergency; Admitting Provider Student in an Organized Health Care Education/Training Program; Emergency Provider Student in an Organized Health Care Education/Training Program; PCP Internal Medicine; Visit Provider Family Medicine
DX: A41.9 Sepsis, unspecified organism (principal); Z68.43 Body mass index [BMI] 50.0-59.9, adult; E66.01 Morbid (severe) obesity due to excess calories; I25.10 Atherosclerotic heart disease of native coronary artery without angina pectoris; E11.59 Type 2 diabetes mellitus with other circulatory complications; K75.9 Inflammatory liver disease, unspecified; D63.8 Anemia in other chronic diseases classified elsewhere; Z71.3 Dietary counseling and surveillance; R59.0 Localized enlarged lymph nodes; E78.2 Mixed hyperlipidemia; G40.909 Epilepsy, unspecified, not intractable, without status epilepticus; G47.33 Obstructive sleep apnea (adult) (pediatric); Z79.82 Long term (current) use of aspirin; Z79.84 Long term (current) use of oral hypoglycemic drugs; Z79.899 Other long term (current) drug therapy
CPT/HCPCS: 36415; 80053; 80061; 80143; 82565; 82947; 83036; 83605; 85025; 85027; 85610; 85652; 86140; 87040; 93005; 93971; 97162; 99222; 99285; J1200; J1271; J1650; J2543; J3373; J3374; J7120

== ENCOUNTER → 2025-03-24 12:20 | Outpatient (BNV) | payer OTHER, SELFPAY | PROVIDERS: Visit Provider Radiology Diagnostic Radiology | DX: R59.0 Localized enlarged lymph nodes (principal) | CPT/HCPCS: 93971 ==

== ENCOUNTER → 2025-03-24 17:09 | Outpatient (BNV) | payer OTHER, SELFPAY | PROVIDERS: Admitting Provider Student in an Organized Health Care Education/Training Program; Emergency Provider Student in an Organized Health Care Education/Training Program; Visit Provider Internal Medicine Cardiovascular Disease | DX: R94.31 Abnormal electrocardiogram [ECG] [EKG] (principal); E87.6 Hypokalemia | CPT/HCPCS: 93010 ==

== ENCOUNTER → 2025-03-24 19:00 | Outpatient (BNV) | payer OTHER, SELFPAY | PROVIDERS: Admitting Provider Student in an Organized Health Care Education/Training Program; Emergency Provider Student in an Organized Health Care Education/Training Program; Visit Provider Student in an Organized Health Care Education/Training Program | DX: E11.9 Type 2 diabetes mellitus without complications (principal); L03.116 Cellulitis of left lower limb; A41.9 Sepsis, unspecified organism; R59.0 Localized enlarged lymph nodes; E66.01 Morbid (severe) obesity due to excess calories | CPT/HCPCS: 99239 ==

== ENCOUNTER 2025-04-02 18:02 | Emergency (ER) | payer MEDICARE, SELFPAY ==
[2025-04-02 18:34] VITALS: BP 164/73; PULSE 80; RESP 16; TEMP 35.8; O2SAT 95; BMI 54.3
--- NOTE | 2025-04-02 18:35 | ED.GENADULT ---
HPI - General Adult General Chief complaint: Ear Problems Stated complaint: lt side ear infection Time Seen by Provider: 04/02/25 22:23 Source: patient, RN notes reviewed and old records reviewed Mode of arrival: ambulatory Limitations: no limitations History of Present Illness ED Provider: Kimani HERRERA narrative: 54-year-old male past medical history significant for type 2 diabetes, coronary artery disease, hypertension, obesity presents for evaluation of left ear pain and congestion. The patient was discharged from this facility on 03/28/2025 for left leg cellulitis. He was treated initially with vancomycin and Zosyn as he met criteria for sepsis. He was transitioned to oral Augmentin and doxycycline He finishes last dose antibiotics yesterday. He continues to have left ear pain which he has had for 1 week even while he was admitted. Denies any drainage from the ear. He denies any difficulty hearing pain Also complains of left nasal congestion Has any fevers or chills He has minimal improvement with Tylenol Related Data Home Medications ?Medication ?Instructions ?Recorded ?Confirmed aspirin 81 mg tablet,delayed 81 mg PO DAILY 01/25/23 03/24/25 release atorvastatin 80 mg tablet 80 mg PO BEDTIME 01/25/23 03/24/25 cholecalciferol (vitamin D3) 125 125 mcg PO DAILY 01/25/23 03/24/25 mcg (5,000 unit) capsule compressive stocking 01/25/23 04/01/23 fluticasone propionate 50 1 spray intranasal BID PRN Allergy 01/25/23 03/24/25 mcg/actuation nasal Symptoms spray,suspension (Allergy Relief (fluticasone)) ibuprofen 800 mg tablet 800 mg PO Q8H 01/25/23 03/24/25 losartan 50 mg-hydrochlorothiazide 1 tab PO DAILY 01/25/23 03/24/25 12.5 mg tablet metformin 500 mg tablet 500 mg PO DAILY 01/25/23 03/24/25 metoprolol succinate 25 mg 25 mg PO DAILY 01/25/23 03/24/25 tablet,extended release 24 hr multivitamin 1 tab PO DAILY 01/25/23 03/24/25 nitroglycerin 0.4 mg sublingual 0.4 mg sublingual Q5M PRN CHEST 01/25/23 03/24/25 tablet PAIN doxazosin 8 mg tablet 8 mg PO QPM 06/21/24 03/24/25 melatonin 5 mg tablet 5 - 10 mg PO BEDTIME PRN Sleep 06/21/24 03/24/25 phenytoin sodium extended 100 mg 200 mg PO MOTUWETHFRSA@09,13 06/21/24 03/24/25 capsule phenytoin sodium extended 100 mg 200 mg PO NIEVES@1800 06/21/24 03/24/25 capsule phenytoin sodium extended 100 mg 400 mg PO NIEVES 06/21/24 03/24/25 capsule furosemide 20 mg tablet 20 mg PO DAILY 03/24/25 03/24/25 phenytoin sodium extended 100 mg 100 mg PO MOTUWETHFRSA@17,21 03/24/25 03/24/25 capsule Previous Rx's ?Medication ?Instructions ?Recorded amoxicillin 875 mg-potassium 1 tab PO BID #12 tabs 03/28/25 clavulanate 125 mg tablet doxycycline monohydrate 100 mg 100 mg PO Q12H #12 caps 03/28/25 capsule oxymetazoline 0.05 % nasal spray 2 spray intranasal Q12H PRN nasal 04/02/25 (12 Hour Nasal Relief [place]) congestion 3 days #15 mL Allergies Allergy/AdvReac Type Severity Reaction Status Date / Time betamethasone Allergy Redness of Verified 04/02/25 18:37 Skin levetiracetam (From [facility]) Allergy Anxiety Verified 04/02/25 18:37 pseudoephedrine Allergy Anxiety Verified 04/02/25 18:37 Review of Systems Constitutional: Constitutional: Denies body ache(s), Denies chills, Denies fever(s) and Denies headache(s) Eyes: Eyes: Denies blurry vision ENT: Denies vertigo, Denies dizziness, Denies ear discharge, Reports otalgia, Denies facial pain and Denies headache(s) Cardiovascular: Cardiovascular: Denies chest pain and Denies dyspnea on exertion Respiratory: Respiratory: Denies cough and Denies dyspnea on exertion Gastrointestinal: Gastrointestinal: Denies abdominal pain, Denies nausea and Denies vomiting Musculoskeletal: Musculoskeletal: Denies back pain Integumentary/Breasts: Skin/Breast: Denies rash Neurologic: Denies vertigo, Denies dizziness and Denies headache(s) [facility] Past Medical History Medical History (Updated 04/02/25 @ 23:10 by Pedro Harman) Cellulitis of right lower extremity JOE (obstructive sleep apnea) Renal stones Seizure disorder Diabetes mellitus, type II Hypercholesteremia Hypertension Surgical History Hx of tonsillectomy History of ankle surgery Family History Family History Father Diabetes mellitus Mother Pancreas cancer Social History Social History Household Members: None Housing: Apartment Do you presently have visiting nurse or other home services: No Alcohol intake: never Comment: pt refusing bed alarm Patient Tobacco Use Status: Never used Tobacco Smoked in Last 30 Days: No Second Hand Smoke Exposure: No Use of substances other than those prescribed or required for medical reasons: No Advance Directives: No Advance Directives Information Provided: No service: No Physical Exam ED Vital Signs: Vital Signs - 24 hr 04/02/25 18:34 04/02/25 20:50 04/02/25 22:00 Temperature 96.4 F L 98.3 F 97.9 F Pulse Rate 80 72 70 Respiratory Rate 16 16 16 Blood Pressure 164/73 H 140/75 H 118/69 Pulse Oximetry 95 97 96 Oxygen Delivery Method Room Air Room Air Room Air BMI result Body Mass Index 54.3 Const General: healthy appearing, comfortable, no acute distress, alert and awake Nutritional Appearance: well nourished Orientation/consciousness: patient oriented x3 HENMT Other: No mastoid tenderness, no pre or postauricular edema Head: Yes normocephalic and Yes atraumatic Ears: TM's normal bilaterally, TM normal on the right, TM normal on the left and EAC's normal Eyes Eyelids: Yes eyelids normal Conjunctivae: conjunctivae normal Sclerae: sclerae normal Corneas: corneas normal Pupils: Equal, round and reactive pupils present EOM: EOMs intact bilaterally Neck Neck: Yes full ROM Resp Effort & Inspection: normal respiratory effort, able to speak in complete sentences and not labored Skin General skin exam: elasticity normal Neuro General: patient oriented x3 Cranial nerves: Yes Equal, round and reactive pupils present and Yes Bilaterally intact EOM present Cognition (Neuro): normal cognition Extrem Other: Moving all extremities well without any obvious deformities Course Course Course Narrative: Rapid medical examination performed in triage by Jaqueline Jauregui PA-C. Patient is a 54 year old assigned male at presenting to the emergency department with left ear pain after being admitted for left lower leg infection. Detailed physical exam and review of systems are deferred to the rn clinician. Patient placed back in the waiting room pending room availability and results. Medical Decision Making Medical Decision Making [facility] Narrative: 54-year-old male past medical history as above presents for evaluation of left ear pain and congestion. He has no leukocytosis, inflammatory markers are improving compared to his recent visit from 03/24/2025. No fevers or chills. No evidence of bacterial infection. The patient also recently completed a course of Augmentin and doxycycline after IV treatment with vancomycin and Zosyn. A bacterial infection is favored to be less likely. He has no evidence of otitis externa troponin is elevated and I have a low suspicion for Pseudomonas infection. We will treat conservatively with Afrin nasal spray due to his congestion and likely middle ear effusion. He will be referred to ENT as an outpatient Differential Diagnosis Differential Diagnoses: The differential diagnosis associated with the presentation includes Otitis externa Mastoiditis Middle ear effusion Upper respiratory infection Congestion Lab Data [facility] Lab Attestation statement: I reviewed the patient's lab results. As above 04/02/25 18:57 04/02/25 18:57 Labs: Lab Results 04/02/25 Range/Units 18:57 WBC 9.9 (4.8-10.8) X10*3/uL RBC 4.50 L (4.60-5.80) X10*6/uL Hgb 13.7 L (14.0-18.0) g/dl Hct 41.0 L (42.0-52.0) % MCV 91.1 (80.0-98.0) fL MCH 30.4 (27.0-33.0) pg MCHC 33.4 (31.0-36.0) g/dl RDW 13.3 (11.0-16.0) % Plt Count 316 D (160-400) X10*3/uL MPV 9.1 L (9.4-12.4) fL Immature Gran % (Auto) 1.2 H (0.0-0.4) % Neut % (Auto) 64.1 (45-73) % Lymph % (Auto) 22.8 (20-40) % Dawes % (Auto) 9.3 (2-11) % Eos % (Auto) 2.3 (0-4) % Baso % (Auto) 0.3 (0-2) % Lymph # (Auto) 2.3 (1.2-4.9) X10*3/uL Dawes # (Auto) 0.9 (0.1-1.2) X10*3/uL Eos # (Auto) 0.2 (0.0-0.4) X10*3/uL Baso # (Auto) 0.0 (0.0-0.2) X10*3/uL Abs Immat Gran (auto) 0.12 H (0.00-0.03) X10*3/uL Absolute Neuts (auto) 6.3 (2.0-8.3) x10*3/uL Absolute Nucleated RBC 0.000 (0.0-0.012) X10*3/uL Nucleated RBC % (auto) 0.0 (0.0-0.2) /100WBC ESR 35 H (0-15) MM/HR Sodium 141 (135-145) mmol/L Potassium 3.6 (3.3-5.1) mmol/L Chloride 102 (96-108) mmol/L Carbon Dioxide 31 H (22-29) mmol/L Anion Gap 12 (12-20) BUN 14 (9-16) mg/dL Creatinine 0.70 (0.5-1.4) mg/dL Estim Creat Clear Calc 198.6 Estimated GFR > 60 Random Glucose 100 (60-115) mg/dL Calcium 9.0 D (8.4-10.2) mg/dL Total Bilirubin 0.2 (0.0-1.0) mg/dL AST 49 H (5-37) U/L ALT 107 H (0-40) U/L Alkaline Phosphatase 117 (39-117) U/L C-Reactive Protein 0.77 H (< or = 0.50) mg/dL Total Protein 7.5 (6.5-8.0) g/dL Albumin 4.1 (3.5-5.0) g/dL Hold Red Top See Note Discharge Plan Discharge Clinical Impression: Acute pain of left ear, Chest congestion Patient Disposition: Home, Self-Care Instructions: Earache (ED) Additional Instructions: Your workup in the ER today was reassuring. Your inflammatory markers are improving from your recent visit for cellulitis. I recommend taking Afrin twice daily for the next 3 days to help with your congestion which I think will also help your ear pain. You may continue Tylenol for pain. Follow up with Dr. Mcfarland for ENT your prescription was sent to [facility] Prescriptions: New oxymetazoline [12 Hour Nasal Relief [place]] 0.05 % spray,non-aerosol 2 spray intranasal Q12H PRN (Reason: nasal congestion) 3 Days Qty: 15 0RF No Action phenytoin sodium extended 100 mg capsule 100 mg PO MOTUWETHFRSA@17,21 furosemide 20 mg tablet 20 mg PO DAILY doxycycline monohydrate 100 mg Capsule 100 mg PO Q12H Qty: 12 0RF amoxicillin-pot clavulanate 875-125 mg tablet 1 tab PO BID Qty: 12 0RF phenytoin sodium extended 100 mg capsule 200 mg PO MOTUWETHFRSA@09,13 doxazosin 8 mg tablet 8 mg PO QPM melatonin 5 mg tablet 5 - 10 mg PO BEDTIME PRN (Reason: Sleep) phenytoin sodium extended 100 mg capsule 400 mg PO NIEVES phenytoin sodium extended 100 mg capsule 200 mg PO NIEVES@1800 aspirin 81 mg tablet,delayed release (DR/EC) 81 mg PO DAILY ibuprofen 800 mg tablet 800 mg PO Q8H nitroglycerin 0.4 mg tablet, sublingual 0.4 mg sublingual Q5M PRN (Reason: CHEST PAIN ) Rx Instructions: do not exceed 3 doses per episode metformin 500 mg tablet 500 mg PO DAILY losartan-hydrochlorothiazide 50-12.5 mg tablet 1 tab PO DAILY fluticasone propionate [Allergy Relief (fluticasone)] 50 mcg/actuation spray,suspension 1 spray intranasal BID PRN (Reason: Allergy Symptoms) Rx Instructions: administer into each nostril multivitamin Tablet 1 tab PO DAILY cholecalciferol (vitamin D3) 125 mcg (5,000 unit) capsule 125 mcg PO DAILY metoprolol succinate 25 mg tablet extended release 24 hr 25 mg PO DAILY atorvastatin 80 mg tablet 80 mg PO BEDTIME (DME) compressive stocking 0 .Route .MEDSUPPLY Print Language: Czech
[2025-04-02 19:12] LABS: MANUAL DIFF FLAG NO
[2025-04-02 19:14] LABS: Hematocrit 41.0 % (42.0-52.0); Hemoglobin 13.7 g/dl (14.0-18.0); Imm Gran Abs Auto 0.12 X10*3/uL (0.00-0.03); Imm Gran Pct Auto 1.2 % (0.0-0.4); Lymphocytes Absolute Auto 2.3 X10*3/uL (1.2-4.9); Mean Corpuscular HGB Conc 33.4 g/dl (31.0-36.0); Mean Corpuscular Hemoglobin 30.4 pg (27.0-33.0); Mean Corpuscular Volume 91.1 fL (80.0-98.0); NRBC Abs Auto 0.000 X10*3/uL (0.0-0.012); NRBC Pct Auto 0.0 /100WBC (0.0-0.2); Platelet Count 316 X10*3/uL (160-400); Red Blood Count 4.50 X10*6/uL (4.60-5.80); White Blood Count 9.9 X10*3/uL (4.8-10.8)
[2025-04-02 19:31] LABS: Alanine Aminotransferase 107 U/L (0-40); Albumin Level 4.1 g/dL (3.5-5.0); Alkaline Phosphatase 117 U/L (39-117); Anion Gap 12 (12-20); Aspartate Amino Transferase 49 U/L (5-37); Blood Urea Nitrogen 14 mg/dL (9-16); Calcium 9.0 mg/dL (8.4-10.2); Carbon Dioxide 31 mmol/L (22-29); Chloride 102 mmol/L (96-108); Creatinine Clr Calc Pharmacy 198.6; Estimated Glomerular Filt Rate > 60; Potassium 3.6 mmol/L (3.3-5.1); Sodium 141 mmol/L (135-145); Total Protein 7.5 g/dL (6.5-8.0)
[2025-04-02 20:06] LABS: Erythrocyte Sedimentation Rate 35 MM/HR (0-15)
--- OUTSIDE RECORDS SUMMARY | 2025-04-02 20:30 | XMS_ITS | Clinical Summary ---
Author Organization [facility] Address [address] [place] [phone] Phone Care Team Providers Care Berry Picker Name Role Phone Balbina Patel MD Primary [...] EDT): Continue medication. Seen by Neurology at [facility] in past [place] 01/12/2024 Assessment & Plan (01/12/2024 11:01 AM EDT): Schedule dermatology Tinea pedis of left foot 01/12/2024 Resolved Problems Problem Noted Date Diagnosed Date Resolved Date Dilantin toxicity 04/18/2016 01/12/2024 Encounters Date Type Department Care Team Description 03/02/[address] [place] [address] Satnam Antunez MD Medication Refill 03/02/[address] [place] [address] Satnam Antunez MD Medication Refill 02/23/[address] [place] [address] Satnam Antunez MD Medication Refill from Last [...] EDT) Sodium 145 135 - 145 mEq/L [facility] (CLIA# [id number]) Potassium 3.5 3.5 - 5.5 mEq/L [facility] (CLIA# [id number]) Chloride 104 99 - 113 mEq/L [facility] (CLIA# [id number]) Carbon Dioxide 34(H) 20.0 - 31.0 mEq/L [facility] (CLIA# [id number]) Anion Gap 7 2 - 12 mEq/L [facility] (CLIA# [id number]) Glucose 76 70 - 99 mg/dL [facility] (CLIA# [id number]) Comment:Adult, Fasting Non-d iabetic Reference Range Blood Urea Nitrogen 12 9 - 23 mg/dL [facility] (CLIA# [id number]) Creatinine 0.70 0.70 - 1.30 mg/dL [facility] (CLIA# [id number]) GFR Estimated (Calc) 109 >60 [facility] (CLIA# [id number]) Comment: eGFRcr Reference: Normal: > 90 ml/min/1.73 m2 Indeterminate, relevance is multifactorial: 60 -89 ml/min/1.73 m2 Suggest Kidney Disease: 16 -59 ml/min/1.73 m2 Suggest Kidney Failure: < 15 ml/min/1.73 m2 Calcium 9.7 8.7 - 10.4 mg/dL [facility] (CLIA# [id number]) Total Protein 6.9 5.7 - 8.2 g/dL [facility] (CLIA# [id number]) Albumin 4.3 3.2 - 4.8 g/dL [facility] (CLIA# [id number]) Globulin 2.6 1.6 - 3.5 g/dL [facility] (CLIA# [id number]) Comment:Note: New Reference Range Alb/Glob Ratio 1.7 [facility] (CLIA# [id number]) Bilirubin,Total 0.3 0.3 - 1.2 mg/dL [facility] (CLIA# [id number]) Alkaline Phosphatase 142(H) 46 - 136 U/L [facility] (CLIA# [id number]) AST(SGOT) 35 13 - 40 U/L [facility] (CLIA# [id number]) ALT(SGPT) 80(H) 7 - 40 U/L [facility] (CLIA# [id number]) 01/12/2024 11:3 4 AM EDT 01/12/2024 2:57 PM EDT Satnam Antunez MD LAB BLOOD ORDERABLES Final Re sult Performing Organization Address [facility] Co de Phone Number [facility] (CLIA# [id number]) [address] [place] [address] * (ABNORMAL) Hemoglobin A1c (01/12/2024 11:34 AM EDT) Hemoglobin A1C 6.4(H) <5.6 % [facility] (CLIA# [id number]) Comment: HGBA1C REFERENCE RANGES: Normal: 4.0% - 5.6% Prediabetes: 5.7% - 6.4% Diabetes: > or = to 6.5% Estimated Avg Glucose 137 mg/dL [facility] (CLIA# [id number]) 01/12/2024 11:3 4 AM EDT 01/12/2024 2:58 PM EDT us Satnam Antunez MD LAB BLOOD ORDERABLES Final Re sult Performing Organization Address City/[facility]/ZIP Co de Phone Number [facility] (CLIA# [id number]) [address] [place] [address] * (ABNORMAL) Dilantin level (04/20/2016 4:58 AM EST) DILANTIN 20.1(H) 10.0 - 20.0 ug/mL [facility] Blood 04/20/2016 4:58 AM EST 04/20/2016 5:25 AM EST us Dylan Pimentel MD LAB BLOOD ORDERABLES Final R esult [facility] [address] [place] [phone] from Last 3 Months or Most Recently Relevant to Health Maintenance Insurance [facility] [employer] MEDICARE REPLACEMENT MEDICARE PART A & B Care Teams Berry Picker Relationship Specialty Start Date End Date Balbina Patel MD [address] [place] [id number] PCP - General 09/07/24 Additional Source Comments The information contained in this document represents components of the legal health record. It is not the complete legal health record.[facility]
--- OUTSIDE RECORDS SUMMARY | 2025-04-02 20:30 | XMS_ITS | Clinical Summary ---
Author Organization [facility] Address [address] [facility] [address] [place] [address] Care Team Providers Care Body Press Operator Name Role Phone Satnam Antunez MD Primary Care Provider [phone] Satnam Antunez MD Unavailable Social History Tobacco [...] of Treatment Not on file Care Teams Body Press Operator Relationship Specialty Start Date End Date Satnam Antunez MD PCP - General 07/11/21 Satnam Antunez MD 07/11/21
--- OUTSIDE RECORDS SUMMARY | 2025-04-02 20:30 | XMS_ITS | Clinical Summary ---
Author Organization [facility] Address [address] [place] [address] Care Team Providers Care Assistant Professor Of Physics Name Role Phone Unavailable Primary Care Provider [...]
--- OUTSIDE RECORDS SUMMARY | 2025-04-02 20:30 | XMS_ITS | Encounter Summary ---
Author Organization [facility] Address [address] [place] [address] Phone Care Team Providers Care Counseling Case Manager Name Role Phone Balbina Patel MD Primary Care Provid er Reason for Visit * Reason Comments Medication Refill Encounter Details Date Type Department Care Team (Late st Contact Info) Description 02/23/2025 Refill [facility] [address] [place] [address] Satnam Antunez MD [address] [place] [address] [email or web address] Medication Refill Social History Tobacco Use Types [...] convulsions documented in this encounter Care Teams Counseling Case Manager Relationship Specialty Start Date End Date Balbina Patel MD [address] [place] [phone] PCP - General 09/07/24 documented as of this encounter Additional Source Comments The information contained in this document represents components of the legal health record. It is not the complete legal health record.[facility]
[2025-04-02 20:50] VITALS: BP 140/75; PULSE 72; RESP 16; TEMP 36.8; O2SAT 97
[2025-04-02 22:00] VITALS: BP 118/69; PULSE 70; RESP 16; TEMP 36.6; O2SAT 96
--- NOTE | 2025-04-02 23:16 | PC.NURSE ---
reviewed discharge instructions with pt. pt verbalized understanding, no sign of distress, notified primary Nurse
[2025-04-02 23:17] VITALS: BP 118/69; PULSE 70; RESP 16; TEMP 36.6; O2SAT 96
== END 2025-04-02 23:18 | disposition home or self-care (01) ==
PROVIDERS: Physician Assistant Medical; Emergency Provider Student in an Organized Health Care Education/Training Program; PCP Internal Medicine
DX: H92.02 Otalgia, left ear (principal); R09.89 Other specified symptoms and signs involving the circulatory and respiratory systems; Z79.899 Other long term (current) drug therapy
CPT/HCPCS: 36415; 80053; 85025; 85652; 86140; 99283; 99284